=== PATIENT | female | born 1940 | race Caucasian/White ===

== ENCOUNTER 2016-02-14 09:05 | Outpatient (RCR) | payer MEDICARE, MEDICAID ==
--- OUTSIDE RECORDS SUMMARY | 2015-11-28 08:28 | XMS REPORT | Continuity of Care Document ---
Author Author [facility] Organization [facility] Address Unknown Phone Unavailable Care Team Providers Care Acid Conditioning Worker Name Role Phone JESUS SMITH MD PCP Insurance Providers Payer Name Policy Number Subscriber Name Relationship Wps Medicare [id number] Elina Nieves 17 Self / Same As Patient [facility] [id number] Elina Nieves 17 Self / Same As Patient Advance Directives Directive Response Recorded Date/Time Advance Directives No 10/19/15 9:18am Health Care Power of Transport Pilot No 10/19/15 9:18am Organ Donor Yes 10/19/15 9:18am Resuscitation Status Full Code 10/19/15 9:18am Problems Active Problems Medical Problem Onset Date Status Acute exacerbation of chronic obstructive airways disease Unknown Acute Acute exacerbation of chronic obstructive airways disease Unknown Acute COPD exacerbation Unknown Acute Cough Unknown Acute Fever Unknown Acute Hypoxia Unknown Acute Left arm pain Unknown Acute Leukocytosis Unknown Acute Leukocytosis Unknown Acute Leukocytosis Unknown Acute Mass of upper lobe of right lung Unknown Acute Pneumonia Unknown Acute Pneumonia Unknown Acute Pneumonia Unknown Acute Pneumonia Unknown Acute Skin tear of left hand without complication Unknown Acute Medications Current Home Medications Medication Dose Units Route Directions Days/Qty Instructions Start Date Aspirin 81 Mg 81 Mg Oral Daily 07/20/14 Budesonide/Formoterol Fumarate 10.2 Gm 2 Puff Inhalation Twice A Day 10/13/14 Roflumilast 500 Mcg 500 Mcg Oral Daily 10/13/14 Clopidogrel Bisulfate 75 Mg 75 Mg Oral Daily 10/13/14 Atorvastatin Calcium 80 Mg 80 Mg Oral Daily 10/13/14 Ezetimibe 10 Mg 10 Mg Oral Daily 10/13/14 Tiotropium [place] 1 Inh 1 Cap Oral Daily for Resp Issues 30 Days give this dose at noon 08/20/15 Albuterol Sulfate 8.5 Gm 1-2 Puff Inhalation 09/11/15 [Oxygen] 3 L 09/11/15 Loratadine 10 Mg 10 Mg Oral Daily 10/18/15 Bupropion Hcl 100 Mg 100 Mg Oral Daily 10/18/15 Hydrocodone/Acetaminophen 1 Each 1 Each Oral Every 6 Hours 35 10/19/15 Past Home Medications Medication Directions Ordered Status Tiotropium [place] 1 Inh Aerp, 1 Puff Inhalation Daily@0900 05/19/10 Discontinued Clopidogrel Bisulfate 75 Mg Tablet, 75 Mg Oral Daily 05/19/10 Discontinued Atorvastatin Calcium 80 Mg Tablet, 80 Mg Oral Daily 05/19/10 Discontinued Ezetimibe 10 Mg Tablet, 10 Mg Oral Daily 05/19/10 Discontinued Albuterol 8.5 Gm Hfa.aer.ad, 2 Puff Inhalation Every 4HRS as needed for Shortness Of Breath 05/20/10 Discontinued Acetaminophen 325 Mg Tablet, 325 Mg Oral Every 6 Hours as needed 05/22/10 Discontinued Levofloxacin 500 Mg Tab, 750 Mg Oral Daily@11 05/22/10 Discontinued Salmeterol Xinafoate/Fluticasone 1 Disk Inhp, 1 Puff Inhalation Twice A Day 05/22/10 Discontinued Budesonide/Formoterol Fumarate 10.2 Gm Hfa.aer.ad, 2 Puff Inhalation Twice A Day 07/13/11 Discontinued Prednisone 10 Mg Tab, 10 Mg Oral Daily 07/13/11 Discontinued Azithromycin (Zpak) 250 Mg Tab, 1 Tab Oral Daily 07/13/11 Discontinued Tramadol Hcl 50 Mg Tab, 50 Mg Oral Q4-6HOURS as needed 08/06/11 Discontinued Aspirin 81 Mg Chew, 81 Mg Oral Daily 03/23/12 Discontinued Oxycodone Hcl/Acetaminophen 1 Each Tablet, 1 Each Oral Every 8HRS as needed 03/27/12 Discontinued Pantoprazole Sodium 40 Mg Suspdr.pkt, 40 Mg Oral Daily 06/03/12 Discontinued Varenicline Tartrate 0.5 Mg Tablet, 0.5 Mg Oral Daily 06/03/12 Discontinued Vitamin C/Vitamin E 1 Tab Tab, 1 Tab Oral Daily 06/04/12 Discontinued Guaifenesin 600 Mg Tab, 600 Mg Oral Twice A Day 06/08/12 Discontinued Levofloxacin 750 Mg Tablet, 750 Mg Oral Daily 06/08/12 Discontinued Levofloxacin 750 Mg Tablet, 1 Each Oral Daily 01/13/13 Discontinued Roflumilast 500 Mcg Tablet, 500 Mcg Oral Daily 05/15/13 Discontinued Azithromycin 250 Mg Tab, 250 Mg Oral Daily 05/19/13 Discontinued Levofloxacin 750 Mg Tablet, 750 Mg Oral Daily 05/19/13 Discontinued Cefdinir 300 Mg Capsule, 300 Mg Oral Twice A Day 07/01/13 Discontinued Prednisone 20 Mg Tab, 20 Mg Oral Twice A Day 08/23/13 Discontinued Levofloxacin 750 Mg Tablet, 750 Mg Oral Daily 08/23/13 Discontinued Albuterol Sulfate 2.5 Mg/3 Ml Solution, 2.5 Mg Inhalation Give Every 4 Hrs On Schedule for Shortness Of Breath 08/23/13 Discontinued Albuterol Sulfate 0.83 Mg/Ml Solution, 2.5 Mg Nebullizer Every 4HRS as needed for Shortness Of Breath 12/27/13 Discontinued Albuterol Sulfate 0.83 Mg/Ml Solution, 1 Vial Inhalation Every 4HRS as needed for Shortness Of Breath 12/27/13 Discontinued [Levofloxacin] 750 Mg Tablet, 750 Mg Oral Daily@1100 12/29/13 Discontinued Ezetimibe 10 Mg Tablet, 10 Mg Oral Daily 07/20/14 Discontinued Tiotropium [place] 1 Inh Aerp, 1 Cap Inhalation Daily 07/20/14 Discontinued Atorvastatin Calcium 80 Mg Tablet, 80 Mg Oral Daily 07/20/14 Discontinued Clopidogrel Bisulfate 75 Mg Tablet, 75 Mg Oral Daily 07/20/14 Discontinued Roflumilast 500 Mcg Tablet, 500 Mcg Oral Daily 07/20/14 Discontinued Budesonide/Formoterol Fumarate 10.2 Gm Hfa.aer.ad, 2 Puff Inhalation Twice A Day 07/20/14 Discontinued Albuterol Sulfate 8.5 Gm Aer.w.adap, 2 Puff Inhalation Every 4HRS as needed for Shortness Of Breath 07/20/14 Discontinued [Azithromycin] 250 Mg Tab, 250 Mg Oral Daily 07/22/14 Discontinued Cefdinir 300 Mg Capsule, 600 Mg Oral Daily 07/22/14 Discontinued Loratadine 10 Mg Tablet, 10 Mg Oral Daily 09/19/14 Discontinued Levofloxacin 500 Mg Tab, 500 Mg Oral Bedtime 09/21/14 Discontinued Potassium Chloride 10 Meq Capsule.er, 10 Meq Oral Daily 10/13/14 Discontinued Tiotropium [place] 1 Inh Aerp, 1 Cap Oral Daily 10/13/14 Discontinued Amoxicillin/Potassium Clav 1 Each Tablet, 1 Each Oral Twice A Day 10/16/14 Discontinued Levofloxacin 750 Mg Tablet, 750 Mg Oral Q48h@11 08/23/15 Discontinued Albuterol Sulfate 2.5 Mg/3 Ml Vial.neb, 2.5 Mg Inhalation Respiratory Three Times A Day 08/23/15 Discontinued Prednisone 10 Mg Tab, 10 Mg Oral Daily 08/23/15 Discontinued [Valium] , Oral 09/11/15 Discontinued [Prednisone] , Oral Daily And Prn 09/11/15 Discontinued Social History Social History Problem Response Recorded Date/Time Alcohol Use Denies Use 08/20/2015 1:11am Recreational Drug Use No 08/20/2015 1:11am Recent Foreign Travel No 08/23/2013 4:01pm Recent Infectious Disease Exposure No 08/23/2013 4:01pm Hospitalization with Isolation Denies 08/23/2013 4:01pm Sexually Transmitted Disease No 10/19/2015 9:18am HIV/AIDS No 10/19/2015 9:18am Smoking Status Current Everyday Smoker 10/19/2015 9:13am Do you dip or chew tobacco? No 08/19/2015 8:48pm Type Used Cigarettes 10/19/2015 4:49pm Sexually Transmitted Disease No 10/19/2015 9:18am Hospitalization with Isolation Denies 08/23/2013 4:01pm Hx Sexually Transmitted Disorders No 07/13/2011 2:30pm Query Response Start Date Stop Date Smoking Status Current Everyday Smoker 04/24/2012 Hospital Discharge Instructions Patient Instructions Physician Instructions New, Converted, or Re-Newed RX: RX on Chart Follow Up Appt in 2 weeks Activity as tolerated Regular Diet Symptoms to Report: Fever over 101 degree F, Nausea/Vomiting Infection Signs and Symptoms to report: Increased redness, Foul odor of wound, Increased drainage Bathing instructions: May shower Operative Area Clean/Dry; Keep incision clean/dry If any problems/questions: Contact your physician or go to Emergency Room Plan of Care Discharge Date 10/19/15 1:25pm Instructions/Education Provided ANESTHESIA INSTRUCTIONS POSTOP Implanted Venous Access Ports (DC) How to Care for your Implanted Venous Access Port (DC) Prescriptions See Medication Section Functional Status Query Response Date Recorded Patient Orientation Person Place Time Situation October 19, 2015 4:49pm Allergies, Adverse Reactions, Alerts No known allergies. Immunizations No immunization records. Vital Signs Acute Vital Signs Vital Response Date/Time Temperature (Fahrenheit) 96.9 degrees F (97.6 - 99.5) 10/19/2015 1:10pm Temperature (Calculated Celsius) 36.83105 degrees C (36.4 - 37.5) 10/19/2015 1:10pm Temperature Source Temporal 10/19/2015 1:10pm Pulse Rate (adult) 79 bpm (60 - 90) 10/19/2015 1:10pm Respiratory Rate 18 bpm (12 - 24) 10/19/2015 1:10pm O2 Sat by Pulse Oximetry 95 % (88 - 100) 10/19/2015 1:10pm Blood Pressure 114/68 mm Hg 10/19/2015 1:10pm Blood Pressure Mean 88 mm Hg 10/19/2015 9:18am Pain Numeric Pain Scale 0-No Pain 10/19/2015 9:18am Pain Intensity 0 10/19/2015 1:10pm Height (Feet) 5 feet 10/19/2015 9:18am Height (Inches) 5.00 inches 10/19/2015 9:18am Height (Calculated Centimeters) 165.023363 cm 10/19/2015 9:18am Weight (Pounds) 147 pounds 10/19/2015 9:18am Weight (Ounces) 4.0 oz 10/19/2015 9:18am Weight (Calculated Grams) 48777.477 gm 10/19/2015 9:18am Weight (Calculated Kilograms) 66.826035 kilograms 10/19/2015 9:18am Calculated BMI 24.46 10/19/2015 9:18am Capillary Refill Capillary Refill Less Than 3 Seconds 10/19/2015 9:18am Results Laboratory Results Test Name Result Units Flags Reference Collection Date/Time Result Date/ Time Comments White Blood Count 10.6 10^3/uL 4.3-11.0 09/25/2015 9:26am 09/25/2015 9: 36am Red Blood Count 4.80 10^6/uL 4.35-5.85 09/25/2015 9:26am 09/25/2015 9: 36am Hemoglobin 13.6 G/DL 11.5-16.0 09/25/2015 9:09/25/2015 9:36am Hematocrit 42 % 35-52 09/25/2015 9:09/25/2015 9:36am Mean Corpuscular Volume 87 FL 80-99 09/25/2015 9:09/25/2015 9: 36am Mean Corpuscular Hemoglobin 28 PG 25-34 09/25/2015 9:09/25/2015 9: 36am Mean Corpuscular Hemoglobin Concent 33 G/DL 32-36 09/25/2015 9:02/2015 9:36am Red Cell Distribution Width 14.6 % H 10.0-14.5 09/25/2015 9:2015 9:36am Platelet Count 338 10^3/uL 130-400 09/25/2015 9:09/25/2015 9:36am Mean Platelet Volume 10.2 FL 7.4-10.4 09/25/2015 9:09/25/2015 9: 36am Neutrophils (%) (Auto) 55 % 42-75 09/25/2015 9:09/25/2015 9:36am Lymphocytes (%) (Auto) 34 % 12-44 09/25/2015 9:09/25/2015 9:36am Monocytes (%) (Auto) 9 % 0-12 09/25/2015 9:09/25/2015 9:36am Eosinophils (%) (Auto) 2 % 0-10 09/25/2015 9:09/25/2015 9:36am Basophils (%) (Auto) 1 % 0-10 09/25/2015 9:09/25/2015 9:36am Neutrophils # (Auto) 5.8 X 10^3 1.8-7.8 09/25/2015 9:09/25/2015 9: 36am Lymphocytes # (Auto) 3.6 X 10^3 1.0-4.0 09/25/2015 9:09/25/2015 9: 36am Monocytes # (Auto) 0.9 X 10^3 0.0-1.0 09/25/2015 9:09/25/2015 9: 36am Eosinophils # (Auto) 0.2 10^3/uL 0.0-0.3 09/25/2015 9:26am 09/25/2015 9 :36am Basophils # (Auto) 0.1 10^3/uL 0.0-0.1 09/25/2015 9:26am 09/25/2015 9: 36am Prothrombin Time 13.0 SEC 12.2-14.7 09/25/2015 9:26am 09/25/2015 9: 47am INR Comment 1.0 0.8-1.4 09/25/2015 9:26am 09/25/2015 9:47am INTERPRETIVE DATA SUGGESTED THERAPEUTIC RANGE FOR INR'S: VENOUS THROMBOSIS, PULMONARY EMBOLISM, OR PREVENTION OF SYSTEMIC EMBOLISM (EG. IN ATRIAL FIBRILLATION): 2.0 - 3.0 MECHANICAL PROSTHETIC HEART VALVES: 2.5 - 3.5* *NOTE: INR'S UP TO 4.5 MAY BE NECESSARY IN SELECTED GROUPS OF HIGH RISK PATIENTS. [employer] CONSENSUS CONFERENCE ON 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C THERAPY (2000). Activated Partial Thromboplast Time 35 SEC 24-35 09/25/2015 9:26am 02/2015 9:47am Pending Laboratory Results Test Name Collection Date/Time Pending Microbiology Results Procedure Source Collection Date/Time Procedures Procedure Status Date Provider(s) PERCUT BX LUNG/MEDIASTINUM Completed 09/25/15 CASSANDRA ANDRES MD Encounters Encounter Location Arrival/Admit Date Discharge/Depart Date Attending Provider Departed [facility] 10/19/15 7:55am 1:25pm CARLINE YANG MD Registered Recurring [facility] 10/18/15 2:15pm DEAN TORIBIO Departed Clinic [facility] 10/18/15 8:57am 10/18/15 9: 35am CARLINE YANG MD Registered Clinic [facility] 10/11/15 9:23am SHAWNEE NARAYAN DO Departed [facility] 09/25/15 8:52am 4:05pm SHAWNEE NARAYAN DO
[2015-11-28 08:51] LABS: BASOPHILS % (AUTO) 0 % (0-10); EOSINOPHILS % (AUTO) 0 % (0-10); LYMPHOCYTES # (AUTO) 1.1 X 10^3 (1.0-4.0); LYMPHOCYTES % (AUTO) 22 % (12-44); MEAN CORPUSCULAR HEMOGLOBIN 27 PG (25-34); MEAN CORPUSCULAR HGB CONC 33 G/DL (32-36); MEAN CORPUSCULAR VOLUME 84 FL (80-99); MEAN PLATELET VOLUME 10.4 FL (7.4-10.4); MONOCYTES % (AUTO) 1 % (0-12); NEUTROPHILS # (AUTO) 4.1 X 10^3 (1.8-7.8); NEUTROPHILS % (AUTO) 77 % (42-75); PLATELET COUNT 359 10^3/uL (130-400); RED BLOOD COUNT 4.66 10^6/uL (4.35-5.85); RED CELL DISTRIBUTION WIDTH 14.5 % (10.0-14.5); WHITE BLOOD COUNT 5.3 10^3/uL (4.3-11.0)
[2015-11-28 09:24] LABS: ANION GAP 14 MMOL/L (5-14); BLOOD UREA NITROGEN 9 MG/DL (7-18); BUN/CREATININE RATIO 15; CALCIUM 9.6 MG/DL (8.5-10.1); CARBON DIOXIDE 19 MMOL/L (21-32); CHLORIDE 104 MMOL/L (98-107); CREATININE SERUM 0.62 MG/DL (0.60-1.30); GFR ESTIMATED > 60; GLUCOSE 220 MG/DL (70-105); POTASSIUM 3.9 MMOL/L (3.6-5.0); SODIUM 137 MMOL/L (135-145)
[2015-12-05 08:48] LABS: BASOPHILS % (AUTO) 0 % (0-10); EOSINOPHILS % (AUTO) 0 % (0-10); LYMPHOCYTES # (AUTO) 0.9 X 10^3 (1.0-4.0); LYMPHOCYTES % (AUTO) 22 % (12-44); MEAN CORPUSCULAR HEMOGLOBIN 28 PG (25-34); MEAN CORPUSCULAR HGB CONC 32 G/DL (32-36); MEAN CORPUSCULAR VOLUME 85 FL (80-99); MEAN PLATELET VOLUME 10.3 FL (7.4-10.4); MONOCYTES # (AUTO) 0.1 X 10^3 (0.0-1.0); MONOCYTES % (AUTO) 2 % (0-12); NEUTROPHILS # (AUTO) 3.1 X 10^3 (1.8-7.8); NEUTROPHILS % (AUTO) 76 % (42-75); PLATELET COUNT 326 10^3/uL (130-400); RED BLOOD COUNT 4.35 10^6/uL (4.35-5.85); RED CELL DISTRIBUTION WIDTH 15.1 % (10.0-14.5); WHITE BLOOD COUNT 4.1 10^3/uL (4.3-11.0)
[2015-12-05 09:12] LABS: ANION GAP 15 MMOL/L (5-14); BLOOD UREA NITROGEN 11 MG/DL (7-18); BUN/CREATININE RATIO 17; CALCIUM 9.1 MG/DL (8.5-10.1); CARBON DIOXIDE 17 MMOL/L (21-32); CHLORIDE 106 MMOL/L (98-107); CREATININE SERUM 0.63 MG/DL (0.60-1.30); GFR ESTIMATED > 60; GLUCOSE 293 MG/DL (70-105); POTASSIUM 4.1 MMOL/L (3.6-5.0); SODIUM 138 MMOL/L (135-145)
[2015-12-12 10:55] LABS: BASOPHILS % (AUTO) 1 % (0-10); EOSINOPHILS # (AUTO) 0.1 10^3/uL (0.0-0.3); EOSINOPHILS % (AUTO) 1 % (0-10); LYMPHOCYTES # (AUTO) 2.6 X 10^3 (1.0-4.0); LYMPHOCYTES % (AUTO) 45 % (12-44); MEAN CORPUSCULAR HEMOGLOBIN 28 PG (25-34); MEAN CORPUSCULAR HGB CONC 32 G/DL (32-36); MEAN CORPUSCULAR VOLUME 86 FL (80-99); MEAN PLATELET VOLUME 9.7 FL (7.4-10.4); MONOCYTES # (AUTO) 0.4 X 10^3 (0.0-1.0); MONOCYTES % (AUTO) 7 % (0-12); NEUTROPHILS # (AUTO) 2.7 X 10^3 (1.8-7.8); NEUTROPHILS % (AUTO) 46 % (42-75); PLATELET COUNT 330 10^3/uL (130-400); RED BLOOD COUNT 4.36 10^6/uL (4.35-5.85); RED CELL DISTRIBUTION WIDTH 16.4 % (10.0-14.5); WHITE BLOOD COUNT 5.8 10^3/uL (4.3-11.0)
[2015-12-12 11:19] LABS: ANION GAP 9 MMOL/L (5-14); BLOOD UREA NITROGEN 6 MG/DL (7-18); BUN/CREATININE RATIO 11; CALCIUM 9.3 MG/DL (8.5-10.1); CARBON DIOXIDE 23 MMOL/L (21-32); CHLORIDE 107 MMOL/L (98-107); CREATININE SERUM 0.54 MG/DL (0.60-1.30); GFR ESTIMATED > 60; GLUCOSE 116 MG/DL (70-105); POTASSIUM 4.4 MMOL/L (3.6-5.0); SODIUM 139 MMOL/L (135-145)
[2015-12-20 09:52] LABS: BASOPHILS # (AUTO) 0.1 10^3/uL (0.0-0.1); BASOPHILS % (AUTO) 1 % (0-10); EOSINOPHILS # (AUTO) 0.1 10^3/uL (0.0-0.3); EOSINOPHILS % (AUTO) 2 % (0-10); LYMPHOCYTES # (AUTO) 2.7 X 10^3 (1.0-4.0); LYMPHOCYTES % (AUTO) 43 % (12-44); MEAN CORPUSCULAR HEMOGLOBIN 28 PG (25-34); MEAN CORPUSCULAR HGB CONC 32 G/DL (32-36); MEAN CORPUSCULAR VOLUME 86 FL (80-99); MONOCYTES # (AUTO) 0.9 X 10^3 (0.0-1.0); MONOCYTES % (AUTO) 15 % (0-12); NEUTROPHILS # (AUTO) 2.4 X 10^3 (1.8-7.8); NEUTROPHILS % (AUTO) 40 % (42-75); PLATELET COUNT 305 10^3/uL (130-400); RED BLOOD COUNT 4.48 10^6/uL (4.35-5.85); RED CELL DISTRIBUTION WIDTH 16.7 % (10.0-14.5); WHITE BLOOD COUNT 6.1 10^3/uL (4.3-11.0)
[2015-12-20 10:01] LABS: ALANINE AMINOTRANSFERASE 18 U/L (0-55); ALBUMIN 3.7 G/DL (3.2-4.5); ANION GAP 9 MMOL/L (5-14); ASPARTATE AMINO TRANSFERASE 12 U/L (5-34); BILIRUBIN,TOTAL 0.3 MG/DL (0.1-1.0); BLOOD UREA NITROGEN 7 MG/DL (7-18); BUN/CREATININE RATIO 13; CALCIUM 9.3 MG/DL (8.5-10.1); CARBON DIOXIDE 27 MMOL/L (21-32); CHLORIDE 105 MMOL/L (98-107); CREATININE SERUM 0.56 MG/DL (0.60-1.30); GFR ESTIMATED > 60; GLUCOSE 122 MG/DL (70-105); MAGNESIUM 1.9 MG/DL (1.8-2.4); POTASSIUM 4.3 MMOL/L (3.6-5.0); SODIUM 141 MMOL/L (135-145); TOTAL PROTEIN 6.6 G/DL (6.4-8.2)
[2015-12-26 09:18] LABS: BASOPHILS # (AUTO) 0.1 10^3/uL (0.0-0.1); BASOPHILS % (AUTO) 1 % (0-10); EOSINOPHILS # (AUTO) 0.1 10^3/uL (0.0-0.3); EOSINOPHILS % (AUTO) 1 % (0-10); LYMPHOCYTES # (AUTO) 2.3 X 10^3 (1.0-4.0); LYMPHOCYTES % (AUTO) 33 % (12-44); MEAN CORPUSCULAR HEMOGLOBIN 28 PG (25-34); MEAN CORPUSCULAR HGB CONC 33 G/DL (32-36); MEAN CORPUSCULAR VOLUME 85 FL (80-99); MEAN PLATELET VOLUME 10.3 FL (7.4-10.4); MONOCYTES # (AUTO) 0.4 X 10^3 (0.0-1.0); MONOCYTES % (AUTO) 5 % (0-12); NEUTROPHILS # (AUTO) 4.2 X 10^3 (1.8-7.8); NEUTROPHILS % (AUTO) 60 % (42-75); PLATELET COUNT 238 10^3/uL (130-400); RED BLOOD COUNT 4.26 10^6/uL (4.35-5.85); RED CELL DISTRIBUTION WIDTH 16.2 % (10.0-14.5)
[2015-12-26 09:40] LABS: ANION GAP 9 MMOL/L (5-14); BLOOD UREA NITROGEN 5 MG/DL (7-18); BUN/CREATININE RATIO 10; CALCIUM 8.6 MG/DL (8.5-10.1); CARBON DIOXIDE 25 MMOL/L (21-32); CHLORIDE 107 MMOL/L (98-107); CREATININE SERUM 0.49 MG/DL (0.60-1.30); GFR ESTIMATED > 60; GLUCOSE 117 MG/DL (70-105); POTASSIUM 3.8 MMOL/L (3.6-5.0); SODIUM 141 MMOL/L (135-145)
[2016-01-02 09:16] LABS: BASOPHILS % (AUTO) 1 % (0-10); EOSINOPHILS # (AUTO) 0.1 10^3/uL (0.0-0.3); EOSINOPHILS % (AUTO) 2 % (0-10); LYMPHOCYTES # (AUTO) 2.3 X 10^3 (1.0-4.0); LYMPHOCYTES % (AUTO) 38 % (12-44); MEAN CORPUSCULAR HEMOGLOBIN 27 PG (25-34); MEAN CORPUSCULAR HGB CONC 32 G/DL (32-36); MEAN CORPUSCULAR VOLUME 85 FL (80-99); MEAN PLATELET VOLUME 9.7 FL (7.4-10.4); MONOCYTES # (AUTO) 0.4 X 10^3 (0.0-1.0); MONOCYTES % (AUTO) 7 % (0-12); NEUTROPHILS # (AUTO) 3.2 X 10^3 (1.8-7.8); NEUTROPHILS % (AUTO) 53 % (42-75); PLATELET COUNT 243 10^3/uL (130-400); RED BLOOD COUNT 4.08 10^6/uL (4.35-5.85); RED CELL DISTRIBUTION WIDTH 17.1 % (10.0-14.5)
[2016-01-02 10:07] LABS: ANION GAP 9 MMOL/L (5-14); BLOOD UREA NITROGEN 7 MG/DL (7-18); BUN/CREATININE RATIO 13; CALCIUM 8.8 MG/DL (8.5-10.1); CARBON DIOXIDE 23 MMOL/L (21-32); CHLORIDE 109 MMOL/L (98-107); CREATININE SERUM 0.52 MG/DL (0.60-1.30); GFR ESTIMATED > 60; GLUCOSE 101 MG/DL (70-105); POTASSIUM 3.7 MMOL/L (3.6-5.0); SODIUM 141 MMOL/L (135-145)
[2016-01-09 09:47] LABS: BASOPHILS # (AUTO) 0.1 10^3/uL (0.0-0.1); BASOPHILS % (AUTO) 1 % (0-10); EOSINOPHILS # (AUTO) 0.1 10^3/uL (0.0-0.3); EOSINOPHILS % (AUTO) 2 % (0-10); LYMPHOCYTES # (AUTO) 2.9 X 10^3 (1.0-4.0); LYMPHOCYTES % (AUTO) 48 % (12-44); MEAN CORPUSCULAR HEMOGLOBIN 28 PG (25-34); MEAN CORPUSCULAR HGB CONC 32 G/DL (32-36); MEAN CORPUSCULAR VOLUME 86 FL (80-99); MEAN PLATELET VOLUME 10.3 FL (7.4-10.4); MONOCYTES # (AUTO) 0.5 X 10^3 (0.0-1.0); MONOCYTES % (AUTO) 9 % (0-12); NEUTROPHILS # (AUTO) 2.5 X 10^3 (1.8-7.8); NEUTROPHILS % (AUTO) 41 % (42-75); PLATELET COUNT 315 10^3/uL (130-400); RED CELL DISTRIBUTION WIDTH 17.7 % (10.0-14.5); WHITE BLOOD COUNT 6.1 10^3/uL (4.3-11.0)
[2016-01-09 10:10] LABS: ANION GAP 11 MMOL/L (5-14); BLOOD UREA NITROGEN 9 MG/DL (7-18); BUN/CREATININE RATIO 15; CALCIUM 9.2 MG/DL (8.5-10.1); CARBON DIOXIDE 23 MMOL/L (21-32); CHLORIDE 102 MMOL/L (98-107); CREATININE SERUM 0.61 MG/DL (0.60-1.30); GFR ESTIMATED > 60; GLUCOSE 116 MG/DL (70-105); POTASSIUM 3.6 MMOL/L (3.6-5.0); SODIUM 136 MMOL/L (135-145)
[2016-01-16 13:07] LABS: BASOPHILS # (AUTO) 0.1 10^3/uL (0.0-0.1); BASOPHILS % (AUTO) 1 % (0-10); EOSINOPHILS # (AUTO) 0.1 10^3/uL (0.0-0.3); EOSINOPHILS % (AUTO) 1 % (0-10); LYMPHOCYTES # (AUTO) 2.3 X 10^3 (1.0-4.0); LYMPHOCYTES % (AUTO) 31 % (12-44); MEAN CORPUSCULAR HEMOGLOBIN 28 PG (25-34); MEAN CORPUSCULAR HGB CONC 33 G/DL (32-36); MEAN CORPUSCULAR VOLUME 85 FL (80-99); MEAN PLATELET VOLUME 9.9 FL (7.4-10.4); MONOCYTES # (AUTO) 0.9 X 10^3 (0.0-1.0); MONOCYTES % (AUTO) 13 % (0-12); NEUTROPHILS % (AUTO) 55 % (42-75); PLATELET COUNT 284 10^3/uL (130-400); RED BLOOD COUNT 4.39 10^6/uL (4.35-5.85); WHITE BLOOD COUNT 7.4 10^3/uL (4.3-11.0)
[2016-01-16 13:32] LABS: ALANINE AMINOTRANSFERASE 14 U/L (0-55); ALBUMIN 3.8 G/DL (3.2-4.5); ANION GAP 8 MMOL/L (5-14); ASPARTATE AMINO TRANSFERASE 15 U/L (5-34); BILIRUBIN,TOTAL 0.4 MG/DL (0.1-1.0); BLOOD UREA NITROGEN 6 MG/DL (7-18); BUN/CREATININE RATIO 10; CALCIUM 9.4 MG/DL (8.5-10.1); CARBON DIOXIDE 26 MMOL/L (21-32); CHLORIDE 106 MMOL/L (98-107); CREATININE SERUM 0.61 MG/DL (0.60-1.30); GFR ESTIMATED > 60; GLUCOSE 140 MG/DL (70-105); MAGNESIUM 1.8 MG/DL (1.8-2.4); POTASSIUM 3.7 MMOL/L (3.6-5.0); SODIUM 140 MMOL/L (135-145); TOTAL PROTEIN 6.3 G/DL (6.4-8.2)
[2016-01-23 09:20] LABS: BASOPHILS # (AUTO) 0.1 10^3/uL (0.0-0.1); BASOPHILS % (AUTO) 1 % (0-10); EOSINOPHILS # (AUTO) 0.1 10^3/uL (0.0-0.3); EOSINOPHILS % (AUTO) 2 % (0-10); LYMPHOCYTES # (AUTO) 3.1 X 10^3 (1.0-4.0); LYMPHOCYTES % (AUTO) 38 % (12-44); MEAN CORPUSCULAR HEMOGLOBIN 28 PG (25-34); MEAN CORPUSCULAR HGB CONC 33 G/DL (32-36); MEAN CORPUSCULAR VOLUME 85 FL (80-99); MEAN PLATELET VOLUME 10.5 FL (7.4-10.4); MONOCYTES # (AUTO) 0.7 X 10^3 (0.0-1.0); MONOCYTES % (AUTO) 8 % (0-12); NEUTROPHILS # (AUTO) 4.2 X 10^3 (1.8-7.8); NEUTROPHILS % (AUTO) 52 % (42-75); PLATELET COUNT 249 10^3/uL (130-400); RED BLOOD COUNT 4.59 10^6/uL (4.35-5.85); WHITE BLOOD COUNT 8.1 10^3/uL (4.3-11.0)
[2016-01-23 09:44] LABS: ANION GAP 10 MMOL/L (5-14); BLOOD UREA NITROGEN 8 MG/DL (7-18); BUN/CREATININE RATIO 14; CALCIUM 9.5 MG/DL (8.5-10.1); CARBON DIOXIDE 23 MMOL/L (21-32); CHLORIDE 104 MMOL/L (98-107); CREATININE SERUM 0.56 MG/DL (0.60-1.30); GFR ESTIMATED > 60; GLUCOSE 125 MG/DL (70-105); POTASSIUM 3.8 MMOL/L (3.6-5.0); SODIUM 137 MMOL/L (135-145)
[2016-01-30 09:26] LABS: BASOPHILS # (AUTO) 0.1 10^3/uL (0.0-0.1); BASOPHILS % (AUTO) 1 % (0-10); EOSINOPHILS # (AUTO) 0.2 10^3/uL (0.0-0.3); EOSINOPHILS % (AUTO) 3 % (0-10); LYMPHOCYTES # (AUTO) 2.5 X 10^3 (1.0-4.0); LYMPHOCYTES % (AUTO) 42 % (12-44); MEAN CORPUSCULAR HEMOGLOBIN 28 PG (25-34); MEAN CORPUSCULAR HGB CONC 33 G/DL (32-36); MEAN CORPUSCULAR VOLUME 86 FL (80-99); MEAN PLATELET VOLUME 10.1 FL (7.4-10.4); MONOCYTES # (AUTO) 0.5 X 10^3 (0.0-1.0); MONOCYTES % (AUTO) 8 % (0-12); NEUTROPHILS # (AUTO) 2.9 X 10^3 (1.8-7.8); NEUTROPHILS % (AUTO) 47 % (42-75); PLATELET COUNT 241 10^3/uL (130-400); RED BLOOD COUNT 4.19 10^6/uL (4.35-5.85); RED CELL DISTRIBUTION WIDTH 18.4 % (10.0-14.5); WHITE BLOOD COUNT 6.1 10^3/uL (4.3-11.0)
[2016-01-30 09:51] LABS: ANION GAP 7 MMOL/L (5-14); BLOOD UREA NITROGEN 6 MG/DL (7-18); BUN/CREATININE RATIO 10; CALCIUM 9.1 MG/DL (8.5-10.1); CARBON DIOXIDE 24 MMOL/L (21-32); CHLORIDE 107 MMOL/L (98-107); GFR ESTIMATED > 60; GLUCOSE 143 MG/DL (70-105); MAGNESIUM 1.8 MG/DL (1.8-2.4); POTASSIUM 3.7 MMOL/L (3.6-5.0); SODIUM 138 MMOL/L (135-145)
[2016-02-06 10:46] LABS: BASOPHILS % (AUTO) 0 % (0-10); EOSINOPHILS # (AUTO) 0.1 10^3/uL (0.0-0.3); EOSINOPHILS % (AUTO) 1 % (0-10); LYMPHOCYTES # (AUTO) 2.4 X 10^3 (1.0-4.0); LYMPHOCYTES % (AUTO) 46 % (12-44); MEAN CORPUSCULAR HEMOGLOBIN 28 PG (25-34); MEAN CORPUSCULAR HGB CONC 33 G/DL (32-36); MEAN CORPUSCULAR VOLUME 87 FL (80-99); MEAN PLATELET VOLUME 9.5 FL (7.4-10.4); MONOCYTES # (AUTO) 0.5 X 10^3 (0.0-1.0); MONOCYTES % (AUTO) 9 % (0-12); NEUTROPHILS # (AUTO) 2.4 X 10^3 (1.8-7.8); NEUTROPHILS % (AUTO) 45 % (42-75); PLATELET COUNT 322 10^3/uL (130-400); RED BLOOD COUNT 4.33 10^6/uL (4.35-5.85); WHITE BLOOD COUNT 5.3 10^3/uL (4.3-11.0)
[2016-02-06 11:41] LABS: ANION GAP 9 MMOL/L (5-14); BLOOD UREA NITROGEN 5 MG/DL (7-18); BUN/CREATININE RATIO 9; CALCIUM 9.3 MG/DL (8.5-10.1); CARBON DIOXIDE 25 MMOL/L (21-32); CHLORIDE 104 MMOL/L (98-107); CREATININE SERUM 0.56 MG/DL (0.60-1.30); GFR ESTIMATED > 60; GLUCOSE 124 MG/DL (70-105); POTASSIUM 4.1 MMOL/L (3.6-5.0); SODIUM 138 MMOL/L (135-145)
[~2016-02-14] VITALS: Ht 160 cm; Wt 66.7 kg
[~2016-02-14 09:05] MED LIST: AC325T PO; ALBU0.8322 IH; ALBU2.5V4 INH; ALBU2.5V4 NEB; ALBU8.5H2 IH; ALBU8.5H2 INH; ALTEPLASE 2 MG (CATHFLO) CANCER CENTER IV ONE; AMOX-358 PO; ASP81CT PO; ASPI-892 PO; ATOR80TA PO; ATOR80TA75 PO; ATOR80TA76 PO; AZIT-21 PO; AZTH250C PO; Azithromycin PO; BUDE10.22 INH; BUDE6HFA IH; BUPR100T7 PO; CARBOPLATIN IV SCH; CEFD300C PO; CLOP75TA PO; CLOP75TA28 PO; D5W IV SCH; EZET10TA23 PO; EZET10TA5 PO; FAMOTIDINE 20MG/2ML IV (CANCER CTR) IV SCH; FLUT1DIS26 IH; GFN600TCR PO; HYDR-3730 PO; LEVO500T69 PO; LEVO750T24 PO; LEVO750T39 PO; LEVO750T6 PO; LORA10TA7 PO; LORA10TA76 PO; LVF500T PO; Levofloxacin PO; NFAMINITAB PO; NORMAL SALINE IV SCH; NS IV 500 ML (CANCER CENTER) IV SCH; OXYC-12 PO; PACLITAXEL SEMI SYNTHETIC IV SCH; PALONOSETRON 0.25 MG, DEXAMETHASONE 10 MG/NS 50 ML IVPB IV PRN; PANT40SU PO; POTA10CA43 PO; PRD10T PO; PRD20T PO; ROFL500T PO; ROFL500T3 PO; ROFL500T4 PO; RT-ALBUINH IH; TIOT18CA IH; TIOT18CA2 INH; TIOT18CA2 PO; TRM50T PO; VARE0.5T PO; diphenhydrAMINE 25 MG TAB (BENADRYL) CANCER CENTER PO SCH; oxygen; prednisone PO; valium PO
[2016-02-14 09:55] LABS: ALANINE AMINOTRANSFERASE 13 U/L (0-55); ALBUMIN 3.8 G/DL (3.2-4.5); ANION GAP 7 MMOL/L (5-14); ASPARTATE AMINO TRANSFERASE 15 U/L (5-34); BILIRUBIN,TOTAL 0.4 MG/DL (0.1-1.0); BLOOD UREA NITROGEN 6 MG/DL (7-18); BUN/CREATININE RATIO 10; CARBON DIOXIDE 26 MMOL/L (21-32); CHLORIDE 104 MMOL/L (98-107); CREATININE SERUM 0.58 MG/DL (0.60-1.30); GFR ESTIMATED > 60; GLUCOSE 126 MG/DL (70-105); MAGNESIUM 1.9 MG/DL (1.8-2.4); POTASSIUM 3.7 MMOL/L (3.6-5.0); SODIUM 137 MMOL/L (135-145); TOTAL PROTEIN 6.6 G/DL (6.4-8.2)
[2016-02-14 09:57] LABS: BASOPHILS % (AUTO) 1 % (0-10); EOSINOPHILS # (AUTO) 0.1 10^3/uL (0.0-0.3); EOSINOPHILS % (AUTO) 1 % (0-10); LYMPHOCYTES # (AUTO) 2.3 X 10^3 (1.0-4.0); LYMPHOCYTES % (AUTO) 35 % (12-44); MEAN CORPUSCULAR HEMOGLOBIN 28 PG (25-34); MEAN CORPUSCULAR HGB CONC 33 G/DL (32-36); MEAN CORPUSCULAR VOLUME 86 FL (80-99); MEAN PLATELET VOLUME 10.4 FL (7.4-10.4); MONOCYTES # (AUTO) 1.3 X 10^3 (0.0-1.0); MONOCYTES % (AUTO) 20 % (0-12); NEUTROPHILS # (AUTO) 2.9 X 10^3 (1.8-7.8); NEUTROPHILS % (AUTO) 43 % (42-75); PLATELET COUNT 206 10^3/uL (130-400); RED CELL DISTRIBUTION WIDTH 18.9 % (10.0-14.5); WHITE BLOOD COUNT 6.7 10^3/uL (4.3-11.0)
[2016-02-18] MEDS ORDERED: PANT40TA2 PO (17:35)
[2016-02-20] MEDS ORDERED: DOCU100C37 PO (13:27)
[2016-02-20] MEDS ORDERED: TIOT18CA2 IH (13:27)
[2016-02-22] MEDS ORDERED: PRED10TA22 PO (09:58)
== END 2016-02-26 | disposition home or self-care (01) ==
LOC: ONC 09:05
PROVIDERS: ATTEND Internal Medicine Hematology & Oncology
DX: Z51.11 Encounter for antineoplastic chemotherapy (principal); C34.11 Malignant neoplasm of upper lobe, right bronchus or lung; J44.9 Chronic obstructive pulmonary disease, unspecified; E78.00 Pure hypercholesterolemia, unspecified; F17.210 Nicotine dependence, cigarettes, uncomplicated; Z79.02 Long term (current) use of antithrombotics/antiplatelets; Z79.899 Other long term (current) drug therapy; Z99.81 Dependence on supplemental oxygen
CPT/HCPCS: 36415; 36591; 80048; 80053; 83735; 85025; 96375; 96413; 96417; 99213

== ENCOUNTER → 2016-03-05 | Outpatient (CLI) | payer MEDICARE, MEDICAID ==
[~2016-03-05] MED LIST changes: -ALTEPLASE 2 MG (CATHFLO) CANCER CENTER IV ONE; +BARIUM SUSPENSION 2.1% (VANILLA SILQ) 450 ML PO ONE; -CARBOPLATIN IV SCH; +CATHETER FLUSH 10 ML SYR IV PRN; -D5W IV SCH; +DOCU100C37 PO; -FAMOTIDINE 20MG/2ML IV (CANCER CTR) IV SCH; +IOHEXOL 350 MG/ML 100 ML (OMNIPAQUE 350) VIAL IV ONE; -NORMAL SALINE IV SCH; +NS 100 ML (IVPB) BAG IV ONE; -NS IV 500 ML (CANCER CENTER) IV SCH; -PACLITAXEL SEMI SYNTHETIC IV SCH; -PALONOSETRON 0.25 MG, DEXAMETHASONE 10 MG/NS 50 ML IVPB IV PRN; +PANT40TA2 PO; +PRED10TA22 PO; +TIOT18CA2 IH; -diphenhydrAMINE 25 MG TAB (BENADRYL) CANCER CENTER PO SCH
--- OUTSIDE RECORDS SUMMARY | 2016-03-05 11:46 | XMS REPORT | Continuity of Care Document ---
Author Author [facility] Organization [facility] Address Unknown Phone Unavailable Care Team Providers Care Director Cost Name Role Phone JESUS SMITH MD PCP Insurance Providers Payer Name Policy Number Subscriber Name Relationship Wps Medicare [id number] Elina Nieves 17 Self / Same As Patient [facility] [id number] Elina Nieves 17 Self / Same As Patient Advance Directives Directive Response Recorded Date/Time Advance Directives No 10/19/15 9:18am Health Care Power of Millwork Estimator No 10/19/15 9:18am Organ Donor Yes 10/19/15 [...] Mg 10 Mg Oral Daily 10/13/14 Tiotropium [place] 1 Inh 1 Cap Oral Daily for [...] Home Medications Medication Directions Ordered Status Tiotropium [place] 1 Inh Aerp, 1 Puff Inhalation Daily@0900 [...] 10 Mg Oral Daily 07/20/14 Discontinued Tiotropium [place] 1 Inh Aerp, 1 Cap Inhalation Daily [...] 10 Meq Oral Daily 10/13/14 Discontinued Tiotropium [place] 1 Inh Aerp, 1 Cap Oral Daily [...] - 99.5) 10/19/2015 1:10pm Temperature (Calculated Celsius) 36.94234 degrees C (36.4 - 37.5) 10/19/2015 1:10pm [...] 5.00 inches 10/19/2015 9:18am Height (Calculated Centimeters) 165.828323 cm 10/19/2015 9:18am Weight (Pounds) 147 pounds 10/19/2015 9:18am Weight (Ounces) 4.0 oz 10/19/2015 9:18am Weight (Calculated Grams) 42122.477 gm 10/19/2015 9:18am Weight (Calculated Kilograms) 66.541901 kilograms 10/19/2015 9:18am Calculated BMI 24.46 10/19/2015 [...] SELECTED GROUPS OF HIGH RISK PATIENTS. [employer] [place] CONSENSUS CONFERENCE ON 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C THERAPY (2000). Activated Partial Thromboplast Time 35 SEC 24-35 09/25/2015 9:26am 02/2015 9:47am Pending Laboratory Results Test Name Collection Date/Time Pending Microbiology Results Procedure Source Collection Date/Time Procedures Procedure Status Date Provider(s) PERCUT BX LUNG/MEDIASTINUM Completed 09/25/15 CASSANDRA ANDRES MD Encounters Encounter Location Arrival/Admit Date Discharge/Depart Date Attending Provider Departed [facility] 10/19/15 7:55am 1:25pm CARLINE YANG MD Registered Recurring [facility] 10/18/15 2:15pm DEAN TORIBIO Departed Clinic [facility] 10/18/15 8:57am 10/18/15 9: 35am CARLINE YANG MD Registered Clinic [facility] 10/11/15 9:23am SHAWNEE NARAYAN DO Departed [facility] Day [facility] 09/25/15 8:52am 4:05pm SHAWNEE NARAYAN DO
--- NOTE | 2016-03-05 13:04 | Diagnostic Imaging Report ---
INDICATION: Lung cancer and bronchitis and COPD. CT of the chest and abdomen obtained with IV contrast bolus. CT chest is compared to 08/19/2015. There is no prior abdominal CT. CT chest findings: There are no enlarged mediastinal or hilar nodes. There are no enlarged axillary nodes or chest wall lesions. There is no pleural or pericardial fluid. A Port-A-Cath is visualized over the left upper chest wall. Lung parenchymal windows demonstrate emphysematous changes. The right upper lobe mass which had measured about 2.5 cm on the previous study now measures about 1.4 cm in greatest diameter. There is some linear scarring in the right upper lobe more anteriorly and inferiorly. The left lung shows no focal lesions. CT abdomen findings: The liver shows no focal lesions. Patient has had cholecystectomy. Spleen, adrenals, and pancreas are normal in appearance. The kidneys bilaterally appear unremarkable. There is no retroperitoneal mass. There is no ascites or abnormal fluid collection. Visualized bowel loops appear unremarkable. There are no destructive bony lesions. IMPRESSION: CT chest demonstrates decreasing size of right upper lobe mass compared to the previous study. There is some atelectasis or scarring in the right upper lobe more anteriorly. There is marked emphysematous change. There is no adenopathy or pleural fluid. CT abdomen demonstrates no overt metastatic disease or acute abnormality. Dictated by: Dictated on workstation # [id number]
--- NOTE | 2016-03-05 17:06 | Diagnostic Imaging Report ---
Exam: Whole body bone scan. Technique: After the intravenous administration of 27 mCi of Technetium 99m MDP, whole body delayed phase bone scan images were obtained with lateral views of the head and neck and the chest regions. Indication: Lung cancer . Findings: There is normal distribution of the osseous structures seen with minimal joint increased activity in the shoulders and in the spine suggestive of degenerative related changes. No focal intense increased radiotracer uptake is seen, particularly within the axial skeleton to suggest metastatic disease. The urinary tract excretion of the tracer noted. Impression: No scintigraphic evidence of osseous metastasis. Dictated by: Dictated on workstation # [id number]
== END ==
LOC: CARD 11:40
PROVIDERS: ATTEND Internal Medicine Hematology & Oncology
DX: C34.11 Malignant neoplasm of upper lobe, right bronchus or lung (principal)
CPT/HCPCS: 71260; 74160; 78306

== ENCOUNTER 2016-03-13 09:09 | Outpatient (RCR) | payer MEDICARE, MEDICAID ==
--- OUTSIDE RECORDS SUMMARY | 2016-02-28 09:13 | XMS REPORT | Continuity of Care Document ---
Author Author [facility] Organization [facility] Address Unknown Phone Unavailable Care Team Providers Care Childcare Administrator Name Role Phone JESUS SMITH MD PCP Insurance Providers Payer Name Policy Number Subscriber Name Relationship Wps Medicare [id number] Elina Nieves 17 Self / Same As Patient [facility] [id number] Elina Nieves 17 Self / Same As Patient Advance Directives Directive Response Recorded Date/Time Advance Directives No 10/19/15 9:18am Health Care Power of Control Systems Specialist No 10/19/15 9:18am Organ Donor Yes 10/19/15 [...] Mg 10 Mg Oral Daily 10/13/14 Tiotropium [place] 1 Inh 1 Cap Oral Daily for [...] Home Medications Medication Directions Ordered Status Tiotropium [place] 1 Inh Aerp, 1 Puff Inhalation Daily@0900 [...] 10 Mg Oral Daily 07/20/14 Discontinued Tiotropium [place] 1 Inh Aerp, 1 Cap Inhalation Daily [...] 10 Meq Oral Daily 10/13/14 Discontinued Tiotropium [place] 1 Inh Aerp, 1 Cap Oral Daily [...] - 99.5) 10/19/2015 1:10pm Temperature (Calculated Celsius) 36.89803 degrees C (36.4 - 37.5) 10/19/2015 1:10pm [...] 5.00 inches 10/19/2015 9:18am Height (Calculated Centimeters) 165.315425 cm 10/19/2015 9:18am Weight (Pounds) 147 pounds 10/19/2015 9:18am Weight (Ounces) 4.0 oz 10/19/2015 9:18am Weight (Calculated Grams) 22581.477 gm 10/19/2015 9:18am Weight (Calculated Kilograms) 66.108884 kilograms 10/19/2015 9:18am Calculated BMI 24.46 10/19/2015 [...] SELECTED GROUPS OF HIGH RISK PATIENTS. [employer] CONSENSUS CONFERENCE ON 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C THERAPY (2000). Activated Partial Thromboplast Time 35 SEC 24-35 09/25/2015 9:26am 02/2015 9:47am Pending Laboratory Results Test Name Collection Date/Time Pending Microbiology Results Procedure Source Collection Date/Time Procedures Procedure Status Date Provider(s) PERCUT BX LUNG/MEDIASTINUM Completed 09/25/15 CASSANDRA ANDRES MD Encounters Encounter Location Arrival/Admit Date Discharge/Depart Date Attending Provider Departed [facility] 10/19/15 7:55am 1:25pm CARLINE YANG MD Registered Recurring [facility] 10/18/15 2:15pm DEAN TORIBIO Departed Clinic [facility] 10/18/15 8:57am 10/18/15 9: 35am CARLINE YANG MD Registered Clinic [facility] 10/11/15 9:23am SHAWNEE NARAYAN DO Departed Surgical Day Care [facility] 09/25/15 8:52am 4:05pm SHAWNEE NARAYAN DO
[2016-02-28 09:18] LABS: BASOPHILS % (AUTO) 0 % (0-10); EOSINOPHILS # (AUTO) 0.1 10^3/uL (0.0-0.3); EOSINOPHILS % (AUTO) 1 % (0-10); LYMPHOCYTES # (AUTO) 3.8 X 10^3 (1.0-4.0); LYMPHOCYTES % (AUTO) 32 % (12-44); MEAN CORPUSCULAR HEMOGLOBIN 28 PG (25-34); MEAN CORPUSCULAR HGB CONC 33 G/DL (32-36); MEAN CORPUSCULAR VOLUME 87 FL (80-99); MEAN PLATELET VOLUME 9.6 FL (7.4-10.4); MONOCYTES # (AUTO) 1.1 X 10^3 (0.0-1.0); MONOCYTES % (AUTO) 9 % (0-12); NEUTROPHILS # (AUTO) 7.1 X 10^3 (1.8-7.8); NEUTROPHILS % (AUTO) 58 % (42-75); PLATELET COUNT 324 10^3/uL (130-400); RED BLOOD COUNT 4.61 10^6/uL (4.35-5.85); RED CELL DISTRIBUTION WIDTH 19.5 % (10.0-14.5); WHITE BLOOD COUNT 12.1 10^3/uL (4.3-11.0)
[2016-02-28 09:47] LABS: ANION GAP 10 MMOL/L (5-14); BLOOD UREA NITROGEN 14 MG/DL (7-18); BUN/CREATININE RATIO 22; CALCIUM 9.1 MG/DL (8.5-10.1); CARBON DIOXIDE 26 MMOL/L (21-32); CHLORIDE 102 MMOL/L (98-107); CREATININE SERUM 0.65 MG/DL (0.60-1.30); GFR ESTIMATED > 60; GLUCOSE 147 MG/DL (70-105); POTASSIUM 3.7 MMOL/L (3.6-5.0); SODIUM 138 MMOL/L (135-145)
[~2016-03-13 09:09] MED LIST changes: -BARIUM SUSPENSION 2.1% (VANILLA SILQ) 450 ML PO ONE; +CARBOPLATIN IV SCH; -CATHETER FLUSH 10 ML SYR IV PRN; +D5W IV SCH; +FAMOTIDINE 20MG/2ML IV (CANCER CTR) IV SCH; -IOHEXOL 350 MG/ML 100 ML (OMNIPAQUE 350) VIAL IV ONE; +NORMAL SALINE IV SCH; -NS 100 ML (IVPB) BAG IV ONE; +NS IV 500 ML (CANCER CENTER) IV SCH; +PACLITAXEL SEMI SYNTHETIC IV SCH; +PALONOSETRON 0.25 MG, DEXAMETHASONE 10 MG/NS 50 ML IVPB IV PRN; +diphenhydrAMINE 25 MG TAB (BENADRYL) CANCER CENTER PO SCH
[2016-03-13 09:31] LABS: BASOPHILS % (AUTO) 1 % (0-10); EOSINOPHILS # (AUTO) 0.1 10^3/uL (0.0-0.3); EOSINOPHILS % (AUTO) 2 % (0-10); LYMPHOCYTES # (AUTO) 2.4 X 10^3 (1.0-4.0); LYMPHOCYTES % (AUTO) 39 % (12-44); MEAN CORPUSCULAR HEMOGLOBIN 29 PG (25-34); MEAN CORPUSCULAR HGB CONC 33 G/DL (32-36); MEAN CORPUSCULAR VOLUME 88 FL (80-99); MEAN PLATELET VOLUME 10.2 FL (7.4-10.4); MONOCYTES # (AUTO) 0.6 X 10^3 (0.0-1.0); MONOCYTES % (AUTO) 10 % (0-12); NEUTROPHILS # (AUTO) 2.9 X 10^3 (1.8-7.8); NEUTROPHILS % (AUTO) 48 % (42-75); PLATELET COUNT 203 10^3/uL (130-400); RED BLOOD COUNT 4.23 10^6/uL (4.35-5.85); RED CELL DISTRIBUTION WIDTH 17.5 % (10.0-14.5); WHITE BLOOD COUNT 6.1 10^3/uL (4.3-11.0)
[2016-03-13 10:00] LABS: ALANINE AMINOTRANSFERASE 12 U/L (0-55); ALBUMIN 3.7 G/DL (3.2-4.5); ANION GAP 9 MMOL/L (5-14); ASPARTATE AMINO TRANSFERASE 12 U/L (5-34); BILIRUBIN,TOTAL 0.4 MG/DL (0.1-1.0); BLOOD UREA NITROGEN 7 MG/DL (7-18); BUN/CREATININE RATIO 12; CALCIUM 9.1 MG/DL (8.5-10.1); CARBON DIOXIDE 23 MMOL/L (21-32); CHLORIDE 108 MMOL/L (98-107); CREATININE SERUM 0.58 MG/DL (0.60-1.30); GFR ESTIMATED > 60; GLUCOSE 117 MG/DL (70-105); MAGNESIUM 1.8 MG/DL (1.8-2.4); POTASSIUM 3.9 MMOL/L (3.6-5.0); SODIUM 140 MMOL/L (135-145); TOTAL PROTEIN 6.6 G/DL (6.4-8.2)
== END 2016-05-28 | disposition home or self-care (01) ==
LOC: ONC 09:09
PROVIDERS: ATTEND Internal Medicine Hematology & Oncology
DX: Z51.11 Encounter for antineoplastic chemotherapy (principal); C34.11 Malignant neoplasm of upper lobe, right bronchus or lung; J44.9 Chronic obstructive pulmonary disease, unspecified; E78.00 Pure hypercholesterolemia, unspecified; F17.210 Nicotine dependence, cigarettes, uncomplicated; Z79.02 Long term (current) use of antithrombotics/antiplatelets; Z79.899 Other long term (current) drug therapy; Z99.81 Dependence on supplemental oxygen
CPT/HCPCS: 36415; 36591; 80048; 80053; 83735; 85025; 96375; 96413; 96417; 99213

== ENCOUNTER → 2016-05-28 | Outpatient (CLI) | payer MEDICARE, MEDICAID ==
[~2016-05-28] MED LIST changes: -CARBOPLATIN IV SCH; -D5W IV SCH; -FAMOTIDINE 20MG/2ML IV (CANCER CTR) IV SCH; -NORMAL SALINE IV SCH; -NS IV 500 ML (CANCER CENTER) IV SCH; -PACLITAXEL SEMI SYNTHETIC IV SCH; -PALONOSETRON 0.25 MG, DEXAMETHASONE 10 MG/NS 50 ML IVPB IV PRN; -diphenhydrAMINE 25 MG TAB (BENADRYL) CANCER CENTER PO SCH
--- NOTE | 2016-05-28 19:23 | Diagnostic Imaging Report ---
PET/CT. INDICATION: Lung carcinoma. EXAMINATION: After intravenous administration of 14.50 mCi of F18-FDG, a series of overlapping emission and transmission PET images was obtained. In the coronal, transaxial and sagittal planes, the area imaged extended from the skull base through the upper thighs. FINDINGS: The previous PET/CT exam performed on 09/05/2015 noted 2.5 x 2.2 cm cavitary mass in the right upper lobe. This mass did show avid FDG uptake with a maximum SUV of 11.8. There is no other hypermetabolic focus to suggest malignancy. The CT chest exam performed on 03/05/2016 indicated that the mass in the right upper lung had diminished in size and now measured approximately 1.4 cm in greatest dimension. On this study, the mass is again visualized and now measures only 1.2 cm in maximum dimension. The maximum SUV of this area has also markedly decreased and is now approximately 1. There is no other hypermetabolic activity within the thorax to suggest malignancy. There is a small area of slightly increased metabolic activity just anterior to the arch of C1 on the left. This has a maximum SUV of 4.6. In reviewing the prior exam, this area had a maximum SUV of 6.4. There is no definite mass associated with this area and the precise etiology of this area of hypermetabolic activity is not certain. No other hypermetabolic activity is seen to suggest the presence of malignancy. The CT images fail to show any sign of an acute abnormality. IMPRESSION: 1. The appearance of the PET/CT exam has improved considerably since the prior exam as the cavitary mass in the right upper lung has diminished in size and there is now no hypermetabolic activity in this region. 2. The small area of increased metabolic activity anterior to the arch of C1 on the left seen previously is also less intense on this exam. This finding is of uncertain etiology. 3. There is no other hypermetabolic activity to suggest the presence of neoplasm. Dictated by: Dictated on workstation # [id number]
== END ==
LOC: RAD 08:37
PROVIDERS: ATTEND Nurse Practitioner Adult Health
DX: C34.11 Malignant neoplasm of upper lobe, right bronchus or lung (principal)

== ENCOUNTER 2016-07-15 12:57 | Outpatient (RCR) | payer MEDICARE, MEDICAID ==
[2016-06-03 10:14] LABS: BASOPHILS % (AUTO) 0 % (0-10); EOSINOPHILS # (AUTO) 0.3 10^3/uL (0.0-0.3); EOSINOPHILS % (AUTO) 3 % (0-10); LYMPHOCYTES # (AUTO) 3.6 X 10^3 (1.0-4.0); LYMPHOCYTES % (AUTO) 41 % (12-44); MEAN CORPUSCULAR HEMOGLOBIN 29 PG (25-34); MEAN CORPUSCULAR HGB CONC 32 G/DL (32-36); MEAN CORPUSCULAR VOLUME 89 FL (80-99); MEAN PLATELET VOLUME 10.3 FL (7.4-10.4); MONOCYTES # (AUTO) 0.8 X 10^3 (0.0-1.0); MONOCYTES % (AUTO) 10 % (0-12); NEUTROPHILS # (AUTO) 4.1 X 10^3 (1.8-7.8); NEUTROPHILS % (AUTO) 47 % (42-75); PLATELET COUNT 256 10^3/uL (130-400); RED BLOOD COUNT 4.51 10^6/uL (4.35-5.85); RED CELL DISTRIBUTION WIDTH 14.6 % (10.0-14.5); WHITE BLOOD COUNT 8.8 10^3/uL (4.3-11.0)
[2016-06-03 10:56] LABS: ALANINE AMINOTRANSFERASE 13 U/L (0-55); ALBUMIN 3.8 G/DL (3.2-4.5); ANION GAP 10 MMOL/L (5-14); ASPARTATE AMINO TRANSFERASE 13 U/L (5-34); BILIRUBIN,TOTAL 0.3 MG/DL (0.1-1.0); BLOOD UREA NITROGEN 7 MG/DL (7-18); BUN/CREATININE RATIO 13; CALCIUM 9.2 MG/DL (8.5-10.1); CARBON DIOXIDE 25 MMOL/L (21-32); CHLORIDE 107 MMOL/L (98-107); CREATININE SERUM 0.56 MG/DL (0.60-1.30); GFR ESTIMATED > 60; GLUCOSE 122 MG/DL (70-105); MAGNESIUM 1.9 MG/DL (1.8-2.4); POTASSIUM 3.7 MMOL/L (3.6-5.0); SODIUM 142 MMOL/L (135-145); TOTAL PROTEIN 6.7 G/DL (6.4-8.2)
== END 2016-09-01 | disposition home or self-care (01) ==
LOC: ONC 12:57
PROVIDERS: ATTEND Internal Medicine Hematology & Oncology
DX: C34.11 Malignant neoplasm of upper lobe, right bronchus or lung (principal); J44.9 Chronic obstructive pulmonary disease, unspecified; E78.00 Pure hypercholesterolemia, unspecified; F17.210 Nicotine dependence, cigarettes, uncomplicated; Z79.02 Long term (current) use of antithrombotics/antiplatelets; Z79.899 Other long term (current) drug therapy; Z99.81 Dependence on supplemental oxygen; Z45.2 Encounter for adjustment and management of vascular access device
CPT/HCPCS: 36591; 80053; 83735; 85025; 96523; 99213

== ENCOUNTER → 2016-09-05 | Outpatient (CLI) | payer MEDICARE, MEDICAID ==
[~2016-09-05] MED LIST changes: +BARIUM SUSPENSION 2.1% (VANILLA SILQ) 450 ML PO ONE; +IOHEXOL 350 MG/ML 100 ML (OMNIPAQUE 350) VIAL IV ONE; +NS 100 ML (IVPB) BAG IV ONE
[2016-09-05] MEDS: CATHETER FLUSH 10 ML SYR IV PRN ×2 (11:21→11:27)
--- NOTE | 2016-09-05 14:27 | Diagnostic Imaging Report ---
PROCEDURE: CT chest with contrast, CT abdomen with and without contrast. INDICATION: Lung carcinoma. TECHNIQUE: CT imaging of the abdomen before as well as the chest and abdomen following the administration of intravenous contrast. CORRELATION STUDY: 03/05/2016. PET/CT of 05/28/2016. FINDINGS: CT CHEST: Asymmetric heterogeneity about the left lobe of the thyroid gland. No pathologically enlarged axillary, mediastinal, and/or hilar lymph nodes are present. Heart size is normal without significant pericardial effusion. EG junction with small hiatal hernia with minimal wall thickening suggested. Some contrast in the low esophagus could be reflective of esophageal reflux disease. Lung estrada demonstrate advanced emphysematous changes. Previously noted mass of the lateral aspect of the right upper lobe has shown some interval decrease in size, currently measuring 15 x 12 mm, measured in similar fashion previously measuring 17 x 14 mm. A likely scarring in and around this area persists. Tiny 2 mm nodule in the posterolateral right lower lobe is likely stable. A 5 mm nodule posteriorly in the right lower lobe is also likely relatively stable but better visualized. Small 3 mm nodule in the lateral left lower lobe, unchanged. The left lung apex is slightly of spiculated density measuring approximately 9 x 5 mm. It was not definitively demonstrated on prior imaging. CT ABDOMEN: Tiny area of nonspecific hypervascularity at the anterior left lobe subcapsular region. Otherwise, liver parenchyma is unremarkable. Spleen, pancreas, and adrenal glands are unremarkable. Gallbladder is absent with clips in the fossa. No bile duct dilatation. Kidneys with normal enhancement. Abdominal aorta with moderate wall calcification, nonaneurysmal. Partially visualized gastrointestinal tract with mild severity of fecal retention without evidence for obstruction. No bony destructive change. IMPRESSION: CT CHEST: 1. Right upper lobe pulmonary mass, stable to perhaps very slightly decreased in size. A few additional nodules are present. Some of these were likely present on the prior study, generally stable. There is very questionable area of new parenchymal density of the left upper lobe. Continued followup imaging evaluation is recommended. CT ABDOMEN: 1. Relatively stable CT imaging of the abdomen demonstrates no evidence for acute abnormality or definitive metastatic disease. Dictated by: Dictated on workstation # [id number]
--- NOTE | 2016-09-05 18:07 | Diagnostic Imaging Report ---
EXAMINATION: Whole body bone scan. TECHNIQUE: After the intravenous administration of 24.5 mCi of Technetium 99m MDP, whole body delayed phase bone scan images were obtained with lateral views of the head and neck and the chest regions. INDICATION: Small cell lung cancer. COMPARISON: 03/05/2016. FINDINGS: There is normal distribution of the tracer in the osseous structures with the excretion through the kidneys into the bladder noted. Mild increased activity seen in the shoulders and sternoclavicular joints and around the knees. Mild increased activity in the tibias could be stress related or from minimal hypertrophic osteoarthropathy. IMPRESSION: No scintigraphic evidence of osseous metastasis. Dictated by: Dictated on workstation # [id number]
== END ==
LOC: CARD 11:08
PROVIDERS: ATTEND Internal Medicine Hematology & Oncology
DX: C34.11 Malignant neoplasm of upper lobe, right bronchus or lung (principal); J44.9 Chronic obstructive pulmonary disease, unspecified
CPT/HCPCS: 71260; 74170; 78306

== ENCOUNTER 2016-09-12 14:57 | Outpatient (RCR) | payer MEDICARE, MEDICAID ==
[2016-09-04 10:19] LABS: BASOPHILS # (AUTO) 0.1 10^3/uL (0.0-0.1); BASOPHILS % (AUTO) 0 % (0-10); EOSINOPHILS # (AUTO) 0.3 10^3/uL (0.0-0.3); EOSINOPHILS % (AUTO) 3 % (0-10); LYMPHOCYTES # (AUTO) 3.8 X 10^3 (1.0-4.0); LYMPHOCYTES % (AUTO) 33 % (12-44); MEAN CORPUSCULAR HEMOGLOBIN 28 PG (25-34); MEAN CORPUSCULAR HGB CONC 32 G/DL (32-36); MEAN CORPUSCULAR VOLUME 88 FL (80-99); MEAN PLATELET VOLUME 10.4 FL (7.4-10.4); MONOCYTES # (AUTO) 1.1 X 10^3 (0.0-1.0); MONOCYTES % (AUTO) 10 % (0-12); NEUTROPHILS # (AUTO) 6.2 X 10^3 (1.8-7.8); NEUTROPHILS % (AUTO) 55 % (42-75); PLATELET COUNT 265 10^3/uL (130-400); RED BLOOD COUNT 4.79 10^6/uL (4.35-5.85); WHITE BLOOD COUNT 11.4 10^3/uL (4.3-11.0)
[2016-09-04 10:51] LABS: ALANINE AMINOTRANSFERASE 23 U/L (0-55); ALBUMIN 3.9 GM/DL (3.2-4.5); ANION GAP 10 MMOL/L (5-14); ASPARTATE AMINO TRANSFERASE 18 U/L (5-34); BILIRUBIN,TOTAL 0.4 MG/DL (0.1-1.0); BLOOD UREA NITROGEN 7 MG/DL (7-18); BUN/CREATININE RATIO 13; CALCIUM 9.4 MG/DL (8.5-10.1); CARBON DIOXIDE 23 MMOL/L (21-32); CHLORIDE 106 MMOL/L (98-107); CREATININE SERUM 0.55 MG/DL (0.60-1.30); GFR ESTIMATED > 60; GLUCOSE 116 MG/DL (70-105); MAGNESIUM 1.9 MG/DL (1.8-2.4); POTASSIUM 3.8 MMOL/L (3.6-5.0); SODIUM 139 MMOL/L (135-145); TOTAL PROTEIN 7.1 GM/DL (6.4-8.2)
[~2016-09-12 14:57] MED LIST changes: -BARIUM SUSPENSION 2.1% (VANILLA SILQ) 450 ML PO ONE; -IOHEXOL 350 MG/ML 100 ML (OMNIPAQUE 350) VIAL IV ONE; -NS 100 ML (IVPB) BAG IV ONE
== END 2016-11-23 | disposition home or self-care (01) ==
LOC: ONC 14:57
PROVIDERS: ATTEND Internal Medicine Hematology & Oncology
DX: C34.11 Malignant neoplasm of upper lobe, right bronchus or lung (principal); J44.9 Chronic obstructive pulmonary disease, unspecified; E78.00 Pure hypercholesterolemia, unspecified; F17.210 Nicotine dependence, cigarettes, uncomplicated; Z79.02 Long term (current) use of antithrombotics/antiplatelets; Z79.899 Other long term (current) drug therapy; Z99.81 Dependence on supplemental oxygen
CPT/HCPCS: 36591; 80053; 83735; 85025

== ENCOUNTER → 2016-12-13 | Outpatient (CLI) | payer MEDICARE, MEDICAID ==
[~2016-12-13] MED LIST changes: +CATHETER FLUSH 10 ML SYR IV PRN; +IOHEXOL 350 MG/ML 100 ML (OMNIPAQUE 350) VIAL IV ONE; +NS 100 ML (IVPB) BAG IV ONE
--- NOTE | 2016-12-13 17:41 | Diagnostic Imaging Report ---
PROCEDURE: CT chest with contrast only. TECHNIQUE: Multiple contiguous axial images were obtained through the chest after administration of intravenous contrast. INDICATION: Lung cancer. 75 mL of Omnipaque 350 is administered intravenously. COMPARISON: 09/05/2016. FINDINGS: In the right upper lobe, there is a irregular nodule with adjacent spiculations seen measuring approximately 1.4 cm in size. This demonstrates no significant change from the previous exam and is also unchanged from PET of 05/28/2016 where no significant FDG uptake was seen associated with it suggestive of scarring with no definite residual neoplasm. There is chronic atelectasis and scarring suggested in the medial aspect of the right middle lobe near the lung base. There is prominent emphysema changes in the upper lobes. Nodular densities in the left lung apex up to 6 mm in size, axial image 7. These appear slightly more prominent compared to the previous exam of 09/05/2016 and are somewhat concerning although not definitive for metastatic disease. Followup exams recommended. There is minimal atelectasis in the left lung base. There is no pleural or pericardial effusion. Thoracic aorta is normal in caliber. The heart size is normal. There is no hilar or mediastinal lymphadenopathy. The axilla appear unremarkable. The sections in the upper abdomen appear grossly unremarkable. The osseous structures demonstrate no destructive mass with mild degenerative changes seen. IMPRESSION: 1. Irregular nodule measuring 1.4 cm in the right upper lobe at the site of treated cancer is unchanged, which may relate to scarring with no definitive active neoplasm. Continued followup recommended. 2. Nodules in the left lung apex up to 6 mm in size appears slightly more prominent compared to the prior exam. These are nonspecific although early metastasis is not ruled out. Followup in 3 months is suggested. 3. Emphysema. Dictated by: Dictated on workstation # [id number]
== END ==
LOC: RAD 09:50
PROVIDERS: ATTEND Internal Medicine Hematology & Oncology
DX: C34.11 Malignant neoplasm of upper lobe, right bronchus or lung (principal); R91.8 Other nonspecific abnormal finding of lung field; J43.9 Emphysema, unspecified
CPT/HCPCS: 71260

== ENCOUNTER → 2016-12-13 | Outpatient (CLI) | payer MEDICARE, MEDICAID ==
[~2016-12-13] MED LIST changes: -CATHETER FLUSH 10 ML SYR IV PRN; -IOHEXOL 350 MG/ML 100 ML (OMNIPAQUE 350) VIAL IV ONE; -NS 100 ML (IVPB) BAG IV ONE
[2016-12-13 10:31] LABS: THYROID STIMULATING HORMONE 0.05 UIU/ML (0.35-4.94)
== END ==
LOC: LAB 09:41
PROVIDERS: ATTEND Internal Medicine
DX: E78.5 Hyperlipidemia, unspecified (principal); I25.10 Atherosclerotic heart disease of native coronary artery without angina pectoris; Z79.899 Other long term (current) drug therapy
CPT/HCPCS: 36415; 80061; 84443

== ENCOUNTER → 2017-02-27 | Outpatient (CLI) | payer MEDICARE, MEDICAID ==
[2017-02-27 15:32] LABS: BASOPHILS % (AUTO) 0 % (0-10); EOSINOPHILS # (AUTO) 0.2 10^3/uL (0.0-0.3); EOSINOPHILS % (AUTO) 1 % (0-10); HEMATOCRIT 34 % (35-52); HEMOGLOBIN 13.3 G/DL (11.5-16.0); LYMPHOCYTES % (AUTO) 22 % (12-44); MEAN CORPUSCULAR HEMOGLOBIN 29 PG (25-34); MEAN CORPUSCULAR HGB CONC 39 G/DL (32-36); MEAN CORPUSCULAR VOLUME 75 FL (80-99); MEAN PLATELET VOLUME 9.8 FL (7.4-10.4); MONOCYTES # (AUTO) 1.8 X 10^3 (0.0-1.0); MONOCYTES % (AUTO) 13 % (0-12); NEUTROPHILS # (AUTO) 8.7 X 10^3 (1.8-7.8); NEUTROPHILS % (AUTO) 63 % (42-75); PLATELET COUNT 243 10^3/uL (130-400); RED BLOOD COUNT 4.56 10^6/uL (4.35-5.85); RED CELL DISTRIBUTION WIDTH 13.5 % (10.0-14.5); WHITE BLOOD COUNT 13.8 10^3/uL (4.3-11.0)
--- NOTE | 2017-02-27 15:42 | Diagnostic Imaging Report ---
INDICATION: Cough. Fatigue. Weakness. History of lung cancer. COMPARISON: CT chest dated 12/13/2016 and chest radiograph dated 02/18/2017. FINDINGS: Frontal and lateral radiographic views of the chest are obtained and show normal cardiac silhouette and pulmonary vasculature. Left-sided subclavian Port-A-Cath is noted with tip in the SVC. Lungs continue to show ill-defined linear opacity within the left upper lung. This corresponds to patient's known lung cancer. Otherwise, remainder of the lungs is clear. There is no focal consolidation, large effusion, or pneumothorax. Bony structures show no gross acute abnormalities. IMPRESSION: 1. No evidence of failure or focal infiltrate. 2. Persistent ill-defined linear opacity in the right upper lung. Again, this corresponds to patient's known lung cancer. Evaluation for stability is suboptimal given CR modality. Report was called to the direct voice mail for PREMA Alvarez at 3:32 p.m., by randy (for TAISHA). Dictated by: Dictated on workstation # [id number]
[2017-02-27 15:54] LABS: ALANINE AMINOTRANSFERASE 30 U/L (0-55); ALBUMIN 3.8 GM/DL (3.2-4.5); ALKALINE PHOSPHATASE 73 U/L (40-136); BILIRUBIN,TOTAL 0.8 MG/DL (0.1-1.0); BUN/CREATININE RATIO 13; CALCIUM 9.7 MG/DL (8.5-10.1); CARBON DIOXIDE 25 MMOL/L (21-32); CHLORIDE 101 MMOL/L (98-107); CREATININE SERUM 0.56 MG/DL (0.60-1.30); GFR ESTIMATED > 60; GLUCOSE 119 MG/DL (70-105); POTASSIUM 3.6 MMOL/L (3.6-5.0); SODIUM 138 MMOL/L (135-145); TOTAL PROTEIN 7.6 GM/DL (6.4-8.2)
== END ==
LOC: RAD 14:59
PROVIDERS: ATTEND Physician Assistant
DX: C34.11 Malignant neoplasm of upper lobe, right bronchus or lung (principal); R05 Cough; R53.83 Other fatigue; R53.1 Weakness; J44.9 Chronic obstructive pulmonary disease, unspecified; Z95.9 Presence of cardiac and vascular implant and graft, unspecified
CPT/HCPCS: 36415; 71046; 80053; 85025; 86141

== ENCOUNTER 2017-03-06 10:46 | Outpatient (RCR) | payer MEDICARE, MEDICAID ==
[2016-12-13 09:50] LABS: BASOPHILS % (AUTO) 1 % (0-10); EOSINOPHILS # (AUTO) 0.2 10^3/uL (0.0-0.3); EOSINOPHILS % (AUTO) 3 % (0-10); HEMATOCRIT 41 % (35-52); HEMOGLOBIN 13.5 G/DL (11.5-16.0); LYMPHOCYTES % (AUTO) 34 % (12-44); MEAN CORPUSCULAR HEMOGLOBIN 29 PG (25-34); MEAN CORPUSCULAR HGB CONC 33 G/DL (32-36); MEAN CORPUSCULAR VOLUME 87 FL (80-99); MEAN PLATELET VOLUME 10.8 FL (7.4-10.4); MONOCYTES # (AUTO) 0.9 X 10^3 (0.0-1.0); MONOCYTES % (AUTO) 10 % (0-12); NEUTROPHILS # (AUTO) 4.6 X 10^3 (1.8-7.8); NEUTROPHILS % (AUTO) 53 % (42-75); PLATELET COUNT 229 10^3/uL (130-400); RED BLOOD COUNT 4.68 10^6/uL (4.35-5.85); RED CELL DISTRIBUTION WIDTH 14.4 % (10.0-14.5); WHITE BLOOD COUNT 8.6 10^3/uL (4.3-11.0)
[2016-12-13 10:08] LABS: ALANINE AMINOTRANSFERASE 17 U/L (0-55); ALBUMIN 3.8 GM/DL (3.2-4.5); ALKALINE PHOSPHATASE 73 U/L (40-136); BILIRUBIN,TOTAL 0.4 MG/DL (0.1-1.0); BUN/CREATININE RATIO 15; CALCIUM 9.3 MG/DL (8.5-10.1); CARBON DIOXIDE 27 MMOL/L (21-32); CHLORIDE 107 MMOL/L (98-107); CREATININE SERUM 0.54 MG/DL (0.60-1.30); GFR ESTIMATED > 60; GLUCOSE 110 MG/DL (70-105); POTASSIUM 3.7 MMOL/L (3.6-5.0); SODIUM 141 MMOL/L (135-145); TOTAL PROTEIN 6.8 GM/DL (6.4-8.2)
[2017-03-06 11:08] LABS: BASOPHILS # (AUTO) 0.1 10^3/uL (0.0-0.1); BASOPHILS % (AUTO) 1 % (0-10); EOSINOPHILS # (AUTO) 0.3 10^3/uL (0.0-0.3); EOSINOPHILS % (AUTO) 2 % (0-10); HEMATOCRIT 40 % (35-52); HEMOGLOBIN 13.3 G/DL (11.5-16.0); LYMPHOCYTES # (AUTO) 4.3 X 10^3 (1.0-4.0); LYMPHOCYTES % (AUTO) 32 % (12-44); MEAN CORPUSCULAR HEMOGLOBIN 30 PG (25-34); MEAN CORPUSCULAR HGB CONC 33 G/DL (32-36); MEAN CORPUSCULAR VOLUME 89 FL (80-99); MEAN PLATELET VOLUME 9.8 FL (7.4-10.4); MONOCYTES % (AUTO) 8 % (0-12); NEUTROPHILS # (AUTO) 7.6 X 10^3 (1.8-7.8); NEUTROPHILS % (AUTO) 58 % (42-75); PLATELET COUNT 355 10^3/uL (130-400); WHITE BLOOD COUNT 13.3 10^3/uL (4.3-11.0)
[2017-03-06 11:35] LABS: ALANINE AMINOTRANSFERASE 28 U/L (0-55); ALBUMIN 3.5 GM/DL (3.2-4.5); ALKALINE PHOSPHATASE 65 U/L (40-136); BILIRUBIN,TOTAL 0.2 MG/DL (0.1-1.0); BUN/CREATININE RATIO 13; CALCIUM 8.9 MG/DL (8.5-10.1); CARBON DIOXIDE 24 MMOL/L (21-32); CHLORIDE 104 MMOL/L (98-107); GFR ESTIMATED > 60; GLUCOSE 108 MG/DL (70-105); SODIUM 138 MMOL/L (135-145); TOTAL PROTEIN 6.6 GM/DL (6.4-8.2)
== END 2017-03-13 | disposition home or self-care (01) ==
LOC: ONC 10:46
PROVIDERS: ATTEND Internal Medicine Hematology & Oncology
DX: C34.11 Malignant neoplasm of upper lobe, right bronchus or lung (principal); J44.9 Chronic obstructive pulmonary disease, unspecified; Z79.899 Other long term (current) drug therapy
CPT/HCPCS: 36415; 36591; 80053; 85025; 99213

== ENCOUNTER → 2017-03-06 | Outpatient (CLI) | payer MEDICARE, MEDICAID ==
[2017-02-27 17:28] LABS: BILIRUBIN,URINE NEGATIVE (NEGATIVE); CLARITY,URINE CLEAR; COLOR,URINE YELLOW; GLUCOSE, URINE (UA) NEGATIVE (NEGATIVE); KETONES,URINE NEGATIVE (NEGATIVE); LEUKOCYTE ESTERASE ,URINE 1+ (NEGATIVE); NITRITE,URINE NEGATIVE (NEGATIVE); PH,URINE 5 (5-9); PROTEIN,URINE NEGATIVE (NEGATIVE); UROBILINOGEN,URINE NORMAL (NORMAL)
[2017-02-27 17:36] LABS: BACTERIA,URINE TRACE /HPF; SQUAMOUS EPITHELIAL CELL,UR RARE /HPF; WBC,URINE RARE /HPF
--- NOTE | 2017-03-06 12:30 | Diagnostic Imaging Report ---
PROCEDURE: CT chest with contrast only. TECHNIQUE: Multiple contiguous axial images were obtained through the chest after administration of intravenous contrast. INDICATION: Lung cancer. FINDINGS: The previous CT chest exam performed on 12/13/2016 noted a 1.4 cm spiculated nodule in the right upper lung. That nodule is again identified on this study and now measures 1.2 cm. The coarse interstitial densities about the nodule noted on the prior study are again evident and essentially no different. This nodule was also present on the prior PET/CT exam of 05/28/2016 and failed to show any hypermetabolic activity on that exam. Consequently, I suspect that this finding is more likely due to scar formation than to neoplasm. The prior exam also identified a 6 mm nodular density in the left lung apex. That finding is not as conspicuous on this exam (image 9/46). However, in the interval since the prior study, a small 6 mm opacity has developed just inferior to the previously described lesion. Also, in the interval since the prior exam, a 1.2 x 2.4 cm lobular density has developed in the left lung base near the diaphragm. This is in the same region as the mild atelectasis involving the left lower lobe seen on the prior study. I suspect that these new densities are unlikely to be related to neoplasm. If further evaluation is desired, then a repeat PET/CT exam would be recommended. If the PET/CT exam is not performed, then a short-term (4-6 week) followup CT chest exam would be recommended. The overall appearance of the lungs is otherwise stable. The heart size remains within normal limits. Coronary artery calcifications are noted. The aorta is not abnormally dilated. The pulmonary arteries are not fully opacified and consequently difficult to evaluate for a pulmonary embolus. There is no obvious pulmonary embolus. There is no mediastinal or hilar adenopathy. The low-density lesion in the left lobe of the thyroid seen previously is again evident and no different. There is no obvious breast mass. The sections through the upper abdomen fail to show any sign of an acute abnormality. The bone windows are unremarkable for a fracture or for a destructive lesion. IMPRESSION: 1. The 1.4 cm spiculated nodule in the right mid lung seen on the prior exam does not appear to have changed adversely. Most likely, this is secondary to scar formation. 2. A new 6 mm nodule has developed in the left upper lung. There is also now a lobulated soft tissue mass in the left lung base measuring 1.3 x 2.3 cm. These new densities are unlikely to be related to malignancy, but additional imaging is warranted. Recommendations as above. 3. The overall appearance of the chest is otherwise stable. There is no acute cardiopulmonary abnormality noted. Dictated by: Dictated on workstation # [id number]
== END ==
LOC: RAD 11:12
PROVIDERS: ATTEND Internal Medicine Hematology & Oncology
DX: C34.11 Malignant neoplasm of upper lobe, right bronchus or lung (principal); R91.8 Other nonspecific abnormal finding of lung field
CPT/HCPCS: 71260; 81000

== ENCOUNTER → 2017-04-30 | Outpatient (CLI) | payer MEDICARE, MEDICAID ==
[~2017-04-30] MED LIST changes: +IOHEXOL 350 MG/ML 100 ML (OMNIPAQUE 350) VIAL IV ONE; +NS 250 ML (IVPB) BAG IV ONE
--- NOTE | 2017-04-30 10:16 | Diagnostic Imaging Report ---
PROCEDURE: CT chest with contrast only. TECHNIQUE: Multiple contiguous axial images were obtained through the chest after administration of intravenous contrast. INDICATION: History of right lung cancer. COMPARISON: 03/06/2017 FINDINGS: The heart is normal in size. No pericardial effusion is seen. There is coronary and aortic atherosclerosis. No evidence of aortic aneurysm or stenosis is seen. No mediastinal lymph nodes appear enlarged by CT size criteria. The left central line tip is in the mid SVC. There is marked heterogeneity of the thyroid gland with multiple hypoattenuating nodules, similar to the prior study. Mild to moderate emphysematous changes are seen in the lungs bilaterally. Redemonstrated is a spiculated masslike density in the right upper lobe, which measures approximately 2.8 x 1.0 cm on axial imaging, and 0.8 cm craniocaudal, with surrounding groundglass opacity. This appears mildly increased in size since the previous exam. There is also a 6 mm nodule in the left upper lobe apex (image 7 series 2), with adjacent groundglass opacity, which appears mildly increased in size since the prior study as well. There is mild thickening of the minor fissure on the right. Nodular densities are seen in the left costophrenic angle, measuring up to a centimeter in size, which has decreased since the prior study and may represent atelectasis. No pleural effusion or pneumothorax is seen. Imaged portions of the upper abdomen demonstrate no acute abnormality. Cholecystectomy clips are noted. No acute osseous abnormality seen. There are old left-sided rib fractures. IMPRESSION: 1. Spiculated masslike density with surrounding groundglass opacity in the right upper lobe appears mildly increased in size since February. Additional small nodule in the left upper lobe also appears mildly increased in size since the prior study. Findings could represent progression of malignancy versus scarring/atelectasis. 2. Redemonstrated nodular densities in the left lateral costophrenic angle, decreased in size since the prior study and likely atelectasis/scarring. 3. No lymphadenopathy is seen. Dictated by: Dictated on workstation # [id number]
== END ==
LOC: RAD 09:28
PROVIDERS: ATTEND Nurse Practitioner Adult Health
DX: C34.11 Malignant neoplasm of upper lobe, right bronchus or lung (principal)
CPT/HCPCS: 71260

== ENCOUNTER 2017-07-02 09:56 | Outpatient (RCR) | payer MEDICARE, MEDICAID ==
[2017-04-09 13:39] LABS: BASOPHILS % (AUTO) 0 % (0-10); EOSINOPHILS # (AUTO) 0.3 10^3/uL (0.0-0.3); EOSINOPHILS % (AUTO) 3 % (0-10); HEMATOCRIT 40 % (35-52); HEMOGLOBIN 13.3 G/DL (11.5-16.0); LYMPHOCYTES % (AUTO) 37 % (12-44); MEAN CORPUSCULAR HEMOGLOBIN 29 PG (25-34); MEAN CORPUSCULAR HGB CONC 33 G/DL (32-36); MEAN CORPUSCULAR VOLUME 88 FL (80-99); MONOCYTES # (AUTO) 1.3 X 10^3 (0.0-1.0); MONOCYTES % (AUTO) 12 % (0-12); NEUTROPHILS # (AUTO) 5.2 X 10^3 (1.8-7.8); NEUTROPHILS % (AUTO) 48 % (42-75); PLATELET COUNT 279 10^3/uL (130-400); RED BLOOD COUNT 4.54 10^6/uL (4.35-5.85); WHITE BLOOD COUNT 10.9 10^3/uL (4.3-11.0)
[2017-04-09 13:56] LABS: ALANINE AMINOTRANSFERASE 18 U/L (0-55); ALBUMIN 3.9 GM/DL (3.2-4.5); ALKALINE PHOSPHATASE 72 U/L (40-136); BILIRUBIN,TOTAL 0.3 MG/DL (0.1-1.0); BUN/CREATININE RATIO 16; CALCIUM 9.9 MG/DL (8.5-10.1); CARBON DIOXIDE 30 MMOL/L (21-32); CHLORIDE 104 MMOL/L (98-107); CREATININE SERUM 0.68 MG/DL (0.60-1.30); GFR ESTIMATED > 60; GLUCOSE 111 MG/DL (70-105); POTASSIUM 4.3 MMOL/L (3.6-5.0); SODIUM 140 MMOL/L (135-145); TOTAL PROTEIN 7.3 GM/DL (6.4-8.2)
[~2017-07-02 09:56] MED LIST changes: +ACET-93 PO; +AMOX500T2 PO; +ASPI-983 PO; -IOHEXOL 350 MG/ML 100 ML (OMNIPAQUE 350) VIAL IV ONE; -NS 250 ML (IVPB) BAG IV ONE; +POTA-51 PO; +POTA10TA36 PO
== END 2017-07-08 | disposition home or self-care (01) ==
LOC: ONC 09:56
PROVIDERS: ATTEND Internal Medicine Hematology & Oncology
DX: C34.11 Malignant neoplasm of upper lobe, right bronchus or lung (principal); J43.9 Emphysema, unspecified; I25.10 Atherosclerotic heart disease of native coronary artery without angina pectoris; E78.00 Pure hypercholesterolemia, unspecified; K21.9 Gastro-esophageal reflux disease without esophagitis; M19.91 Primary osteoarthritis, unspecified site; Z87.891 Personal history of nicotine dependence; Z99.81 Dependence on supplemental oxygen
CPT/HCPCS: 36415; 80053; 85025; 99213

== ENCOUNTER → 2017-08-07 | Outpatient (CLI) | payer MEDICARE, MEDICAID ==
[~2017-08-07] MED LIST changes: +BARIUM SUSPENSION 2.1% (VANILLA SILQ) 450 ML PO ONE; +CATHETER FLUSH 10 ML SYR IV PRN; +IOHEXOL 350 MG/ML 100 ML (OMNIPAQUE 350) VIAL IV ONE; +NS 250 ML (IVPB) BAG IV ONE
--- NOTE | 2017-08-07 13:07 | Diagnostic Imaging Report ---
PROCEDURE: CT chest and abdomen with contrast. TECHNIQUE: Multiple contiguous axial images were obtained through the chest and abdomen after the administration of intravenous contrast. INDICATION: Lung cancer. COMPARISON: Exam interpreted in correlation with chest CT from 04/30/2017, most recent abdomen performed on 09/05/2016, and the study is also interpreted in correlation with images from metabolic PET/CT of 05/28/2016. FINDINGS: Chest: Irregular opacity laterally in the right upper lobe with peripheral groundglass and airspace density is less pronounced than on prior. Its central more soft tissue element is much smaller measuring 5 mm x 7 mm, previously 23 mm x 10 mm. Superimposed COPD, chronic. Some linear scarring at the left costophrenic angle laterally, unchanged. No new mass and no adverse development. Heterogeneous air trapping and features of centrilobular emphysema with some biapical pleural-parenchymal scarring, chronic. There is no lymphadenopathy. No effusion, pneumothorax, PE, or acute aortic pathology. Partial visualization of low-density likely cystic thyroid nodules, unchanged where visualized. Abdomen: The liver and adrenals are stable and negative. No bile duct dilatation. Unobstructed kidneys are normal. Spleen and pancreas are negative. There is no abdominal mesenteric or retroperitoneal adenopathy. There is no ascites. No acute bony abnormality. Aortoiliac atherosclerotic calcifications are nonaneurysmal. No findings of end-organ ischemia. IMPRESSION: 1. Chest: Improvement in soft tissue and groundglass opacity right upper lobe laterally. Additional benign areas of pleural-parenchymal scarring, chronic. Underlying COPD, chronic. No lymphadenopathy or adverse development. No findings of neoplastic progression. 2. Abdomen: Stable negative abdomen. Dictated by: Dictated on workstation # [id number]
--- NOTE | 2017-08-07 16:11 | Diagnostic Imaging Report ---
INDICATION: Right lung carcinoma. The patient was administered 26.9 mCi of technetium-99m MDP intravenously and whole-body imaging was performed after a three-hour delay. Correlation is made with prior whole body bone scan from 09/05/2016. FINDINGS: There is normal uptake of activity by the axial and appendicular skeleton. There is uptake by both kidneys with excretion into the urinary bladder. No abnormal foci of tracer accumulation are seen to suggest osseous metastatic disease. IMPRESSION: No scintigraphic evidence of osseous metastatic disease. Dictated by: Dictated on workstation # [id number]
== END ==
LOC: CARD 10:11
PROVIDERS: ATTEND Internal Medicine Hematology & Oncology
DX: Z01.89 Encounter for other specified special examinations (principal); C34.11 Malignant neoplasm of upper lobe, right bronchus or lung; J44.9 Chronic obstructive pulmonary disease, unspecified
CPT/HCPCS: 71260; 74160; 78306

== ENCOUNTER 2017-08-13 10:50 | Outpatient (RCR) | payer MEDICARE, MEDICAID ==
[2017-08-07 10:07] LABS: BASOPHILS % (AUTO) 0 % (0-10); EOSINOPHILS # (AUTO) 0.7 10^3/uL (0.0-0.3); EOSINOPHILS % (AUTO) 8 % (0-10); HEMATOCRIT 38 % (35-52); HEMOGLOBIN 12.5 G/DL (11.5-16.0); LYMPHOCYTES # (AUTO) 3.3 X 10^3 (1.0-4.0); LYMPHOCYTES % (AUTO) 37 % (12-44); MEAN CORPUSCULAR HEMOGLOBIN 29 PG (25-34); MEAN CORPUSCULAR HGB CONC 33 G/DL (32-36); MEAN CORPUSCULAR VOLUME 88 FL (80-99); MEAN PLATELET VOLUME 10.2 FL (7.4-10.4); MONOCYTES # (AUTO) 0.9 X 10^3 (0.0-1.0); MONOCYTES % (AUTO) 10 % (0-12); NEUTROPHILS % (AUTO) 45 % (42-75); PLATELET COUNT 251 10^3/uL (130-400); RED BLOOD COUNT 4.27 10^6/uL (4.35-5.85); RED CELL DISTRIBUTION WIDTH 14.2 % (10.0-14.5); WHITE BLOOD COUNT 8.9 10^3/uL (4.3-11.0)
[2017-08-07 10:23] LABS: ALANINE AMINOTRANSFERASE 21 U/L (0-55); ALBUMIN 3.9 GM/DL (3.2-4.5); ALKALINE PHOSPHATASE 81 U/L (40-136); BILIRUBIN,TOTAL 0.3 MG/DL (0.1-1.0); BUN/CREATININE RATIO 14; CALCIUM 9.6 MG/DL (8.5-10.1); CARBON DIOXIDE 24 MMOL/L (21-32); CHLORIDE 111 MMOL/L (98-107); CREATININE SERUM 0.58 MG/DL (0.60-1.30); GFR ESTIMATED > 60; GLUCOSE 118 MG/DL (70-105); POTASSIUM 4.1 MMOL/L (3.6-5.0); SODIUM 142 MMOL/L (135-145)
[~2017-08-13 10:50] MED LIST changes: -BARIUM SUSPENSION 2.1% (VANILLA SILQ) 450 ML PO ONE; -CATHETER FLUSH 10 ML SYR IV PRN; -IOHEXOL 350 MG/ML 100 ML (OMNIPAQUE 350) VIAL IV ONE; -NS 250 ML (IVPB) BAG IV ONE
== END 2017-11-05 | disposition home or self-care (01) ==
LOC: ONC 10:50
PROVIDERS: ATTEND Internal Medicine Hematology & Oncology
DX: C34.11 Malignant neoplasm of upper lobe, right bronchus or lung (principal)
CPT/HCPCS: 36591; 80053; 85025; 99213

== ENCOUNTER 2017-11-07 13:15 | Outpatient (RCR) | payer MEDICARE, MEDICAID ==
[2017-11-07 13:28] LABS: BASOPHILS % (AUTO) 0 % (0-10); EOSINOPHILS # (AUTO) 0.3 10^3/uL (0.0-0.3); EOSINOPHILS % (AUTO) 4 % (0-10); HEMATOCRIT 38 % (35-52); HEMOGLOBIN 12.5 G/DL (11.5-16.0); LYMPHOCYTES # (AUTO) 3.6 X 10^3 (1.0-4.0); LYMPHOCYTES % (AUTO) 38 % (12-44); MEAN CORPUSCULAR HEMOGLOBIN 28 PG (25-34); MEAN CORPUSCULAR HGB CONC 33 G/DL (32-36); MEAN CORPUSCULAR VOLUME 86 FL (80-99); MEAN PLATELET VOLUME 10.1 FL (7.4-10.4); MONOCYTES # (AUTO) 0.9 X 10^3 (0.0-1.0); MONOCYTES % (AUTO) 9 % (0-12); NEUTROPHILS # (AUTO) 4.6 X 10^3 (1.8-7.8); NEUTROPHILS % (AUTO) 49 % (42-75); PLATELET COUNT 259 10^3/uL (130-400); RED BLOOD COUNT 4.43 10^6/uL (4.35-5.85); RED CELL DISTRIBUTION WIDTH 14.3 % (10.0-14.5); WHITE BLOOD COUNT 9.5 10^3/uL (4.3-11.0)
[2017-11-07 13:44] LABS: ALANINE AMINOTRANSFERASE 21 U/L (0-55); ALBUMIN 3.9 GM/DL (3.2-4.5); ALKALINE PHOSPHATASE 86 U/L (40-136); BILIRUBIN,TOTAL 0.4 MG/DL (0.1-1.0); BUN/CREATININE RATIO 13; CALCIUM 9.4 MG/DL (8.5-10.1); CARBON DIOXIDE 24 MMOL/L (21-32); CHLORIDE 105 MMOL/L (98-107); CREATININE SERUM 0.62 MG/DL (0.60-1.30); GFR ESTIMATED > 60; GLUCOSE 154 MG/DL (70-105); POTASSIUM 3.8 MMOL/L (3.6-5.0); SODIUM 139 MMOL/L (135-145); TOTAL PROTEIN 7.2 GM/DL (6.4-8.2)
== END 2017-11-23 | disposition home or self-care (01) ==
LOC: ONC 13:15
PROVIDERS: ATTEND Internal Medicine Hematology & Oncology
DX: C34.11 Malignant neoplasm of upper lobe, right bronchus or lung (principal); J43.9 Emphysema, unspecified; I25.10 Atherosclerotic heart disease of native coronary artery without angina pectoris; E78.00 Pure hypercholesterolemia, unspecified; K21.9 Gastro-esophageal reflux disease without esophagitis; M19.91 Primary osteoarthritis, unspecified site; Z87.891 Personal history of nicotine dependence; Z99.81 Dependence on supplemental oxygen
CPT/HCPCS: 36415; 36591; 80053; 85025

== ENCOUNTER 2017-11-14 05:39 | Outpatient (CLI) | payer MEDICARE, MEDICAID ==
[~2017-11-14] VITALS: Ht 160 cm; Wt 76.7 kg
== END 2017-11-14 10:59 | disposition home or self-care (01) ==
LOC: PREOP 05:39
PROVIDERS: ATTEND Surgery
DX: Z01.818 Encounter for other preprocedural examination (principal)

== ENCOUNTER → 2017-11-14 | Outpatient (CLI) | payer MEDICARE, MEDICAID ==
--- NOTE | 2017-11-14 16:45 | Diagnostic Imaging Report ---
PROCEDURE: US Thyroid. TECHNIQUE: Multiple real-time grayscale images were obtained of the thyroid in various projections. INDICATION: Abnormal thyroid lab. FINDINGS: There are no prior thyroid ultrasound examinations available for comparison. The CT chest and abdomen exams of 08/07/2017 and 04/30/2017 have noted marked heterogeneity of the thyroid gland with multiple hypoattenuating nodules. On this exam, the thyroid gland is borderline enlarged with the right lobe measuring 3.8 x 2.4 x 2.2 cm and the left lobe is estimated to be 4.2 x 2.2 x 2.1 cm (normal gland size 4-5 x 2 x 2 cm or less). Each lobe has a heterogeneous texture and in the superior pole of the right lobe, there is a complex septated cystic mass with solid components. This measures 1.7 x 1.4 x 1.7 cm. This finding may well represent a benign process. If a tissue diagnosis is desired, however, then an ultrasound-guided biopsy could be performed. If there is no intervention at this time, then a short-term (three-month) follow-up thyroid ultrasound exam should be obtained. There is no other discrete nodule within either lobe. IMPRESSION: The thyroid gland is borderline enlarged and there is a complex mass involving the superior pole of the right lobe. The precise etiology of this finding is not certain although it is probably benign. Recommendations as above. Dictated by: Dictated on workstation # [id number]
== END ==
LOC: RAD 12:08
PROVIDERS: ATTEND Internal Medicine
DX: E07.89 Other specified disorders of thyroid (principal); R94.6 Abnormal results of thyroid function studies
CPT/HCPCS: 76536

== ENCOUNTER 2017-11-19 11:18 | Day surgery (SDC) | payer MEDICARE, MEDICAID ==
[~2017-11-19] VITALS: Ht 160 cm; Wt 76.7 kg
[2017-11-19] MEDS ORDERED: NS IV 500 ML 500 ML IV PRN (11:26)
[2017-11-19] MEDS ORDERED: fentaNYL INJECTION 100 MCG/2 ML AMP IVP ONE (11:30)
[2017-11-19] MEDS ORDERED: MIDAZOLAM 2 MG/2 ML (VERSED) VIAL IVP ONE (11:30)
[2017-11-19] MEDS ORDERED: LIDOCAINE JELLY 2% (XYLOCAINE) 5 ML TUBE MM PRN (11:30)
[2017-11-19] MEDS ORDERED: HURRICAINE EXT TUBE (BENZOCAINE) XX PRN (11:30)
--- OUTSIDE RECORDS SUMMARY | 2017-11-19 11:31 | XMS REPORT | Continuity of Care Document ---
Author Author [facility] Organization [facility] Address Unknown Phone Unavailable Allergies Active Description Code Type Severity Reaction Onset Reported/Identified Relationship to Patient Clinical Status Yes No Known Drug Allergies [id number] Drug Allergy Unknown N/A 10/18/2015 Medications There is no data. Problems Date Dx Coded Attending Type Code Diagnosis Diagnosed By 05/22/2010 Ot 250.00 DIAB RAJ WO COMPL, TYPE II OR UNSPEC TY 05/22/2010 Ot 272.0 PURE HYPERCHOLESTEROLEM 05/22/2010 Ot 276.8 HYPOPOTASSEMIA 05/22/2010 Ot 305.1 TOBACCO USE DISORDER 05/22/2010 Ot 401.9 HYPERTENSION NOS 05/22/2010 Ot 486 PNEUMONIA, ORGANISM NOS 05/22/2010 Ot 496 CHR AIRWAY OBSTRUCT NEC 05/22/2010 Ot 564.00 UNSPEC CONSTIPATION 05/22/2010 Ot V46.2 SUPPLEMENTAL OXYGEN 07/18/2011 Ot 272.4 HYPERLIPIDEMIA NEC/NOS 07/18/2011 Ot 275.2 DIS MAGNESIUM METABOLISM 07/18/2011 Ot 276.8 HYPOPOTASSEMIA 07/18/2011 Ot 305.1 TOBACCO USE DISORDER 07/18/2011 Ot 362.50 MACULAR DEGENERATION NOS 07/18/2011 Ot 486 PNEUMONIA, ORGANISM NOS 07/18/2011 Ot 491.21 OBSTR CHRONIC BRONCHITIS, W (ACUTE) EXAC 08/06/2011 Ot 922.1 CONTUSION OF CHEST WALL 08/06/2011 Ot 959.11 OTH INJURY OF CHEST WALL 08/06/2011 Ot E000.8 OTHER EXTERNAL CAUSE STATUS 08/06/2011 Ot E849.0 ACCIDENT IN HOME 08/06/2011 Ot E888.9 FALL NOS 03/23/2012 Ot 305.1 TOBACCO USE DISORDER 03/23/2012 Ot 414.01 CORONARY ATHEROSCLEROSIS OF [place] CORON 03/23/2012 Ot 496 CHR AIRWAY OBSTRUCT NEC 03/23/2012 Ot 786.09 RESPIRATORY ABNORM NEC 03/23/2012 Ot V17.49 FAMILY HISTORY OF OTHER CARDIOVASCULAR D 03/23/2012 Ot V58.63 LONG-TERM( CURRENT)USE OF ANTIPLATELET/AN 03/23/2012 Ot V58.69 OTH MED,LT, CURRENT USE 03/27/2012 Ot 272.4 HYPERLIPIDEMIA NEC/NOS 03/27/2012 Ot 305.1 TOBACCO USE DISORDER 03/27/2012 Ot 401.9 HYPERTENSION NOS 03/27/2012 Ot 414.01 CORONARY ATHEROSCLEROSIS OF [place] CORON 03/27/2012 Ot 496 CHR AIRWAY OBSTRUCT NEC 03/27/2012 Ot 997.2 SURG COMP- STEVIE VASC SYST 03/27/2012 Ot E879.0 ABN REACT- CARDIAC CATH 03/27/2012 Ot V58.63 LONG-TERM( CURRENT)USE OF ANTIPLATELET/AN 03/27/2012 Ot V58.66 LONG-TERM ( 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 OF ASPIRIN 03/27/2012 Ot V58.69 OTH MED,LT, CURRENT USE 04/24/2012 Ot 455.0 INT HEMORRHOID W/O COMPL 04/24/2012 Ot 455.3 EXT HEMORRHOID W/O COMPL 04/24/2012 Ot 530.11 REFLUX ESOPHAGITIS 04/24/2012 Ot 535.50 UNSP GASTRITIS GASTRODUODENITIS W/O ME 04/24/2012 Ot 553.3 DIAPHRAGMATIC HERNIA 04/24/2012 Ot 562.10 DIVERTICULOSIS COLON (W/O MENT OF HEMORR 04/24/2012 Ot V12.72 PERSONAL HISTORY OF COLONIC POLYPS 06/08/2012 Ot 038.9 SEPTICEMIA NOS 06/08/2012 Ot 272.4 HYPERLIPIDEMIA NEC/NOS 06/08/2012 Ot 276.1 HYPOSMOLALITY 06/08/2012 Ot 276.8 HYPOPOTASSEMIA 06/08/2012 Ot 414.01 CORONARY ATHEROSCLEROSIS OF [place] CORON 06/08/2012 Ot 486 PNEUMONIA, ORGANISM NOS 06/08/2012 Ot 491.21 OBSTR CHRONIC BRONCHITIS, W (ACUTE) EXAC 06/08/2012 Ot 564.00 UNSPEC CONSTIPATION 06/08/2012 Ot 790.29 OTHER ABNORMAL GLUCOSE 06/08/2012 Ot 995.91 SEPSIS 06/08/2012 Ot V15.82 HISTORY OF TOBACCO USE 01/13/2013 JESUS SMITH MD Ot 272.0 PURE HYPERCHOLESTEROLEM 01/13/2013 JESUS SMITH MD Ot 272.4 HYPERLIPIDEMIA NEC/NOS 01/13/2013 JESUS SMITH MD Ot 276.8 HYPOPOTASSEMIA 01/13/2013 JESUS SMITH MD Ot 305.1 TOBACCO USE DISORDER 01/13/2013 JESUS SMITH MD Ot 414.01 CORONARY ATHEROSCLEROSIS OF [place] CORON 01/13/2013 JESUS SMITH MD Ot 486 PNEUMONIA, ORGANISM NOS 01/13/2013 JESUS SMITH MD Ot 491.21 OBSTR CHRONIC BRONCHITIS, W (ACUTE) EXAC 01/13/2013 JESUS SMITH MD Ot 790.92 COAGULATION PROFILE, ABNORMAL 01/13/2013 JESUS SMITH MD Ot V04.81 ND FOR PROPHYLACTIC VACCIN AND INOCULATI 01/13/2013 JESUS SMITH MD Ot V12.61 PERSONAL HISTORY, PNEUMONIA (RECURRENT) 05/19/2013 JESUS SMITH MD Ot 272.0 PURE HYPERCHOLESTEROLEM 05/19/2013 JESUS SMITH MD Ot 305.1 TOBACCO USE DISORDER 05/19/2013 JESUS SMITH MD Ot 362.50 MACULAR DEGENERATION NOS 05/19/2013 JESUS SMITH MD Ot 414.01 CORONARY ATHEROSCLEROSIS OF [place] CORON 05/19/2013 JESUS SMITH MD Ot 486 PNEUMONIA, ORGANISM NOS 05/19/2013 JESUS SMITH MD Ot 491.21 OBSTR CHRONIC BRONCHITIS, W (ACUTE) EXAC 05/19/2013 JESUS SMITH MD Ot 530.81 ESOPHAGEAL REFLUX 05/19/2013 JESUS SMITH MD Ot 724.5 BACKACHE NOS 05/19/2013 JESUS SMITH MD Ot V46.2 SUPPLEMENTAL OXYGEN 07/01/2013 JESUS SMITH MD Ot 272.0 PURE HYPERCHOLESTEROLEM 07/01/2013 JESUS SMITH MD Ot 362.50 MACULAR DEGENERATION NOS 07/01/2013 JESUS SMITH MD Ot 414.01 CORONARY ATHEROSCLEROSIS OF [place] CORON 07/01/2013 JESUS SMITH MD Ot 486 PNEUMONIA, ORGANISM NOS 07/01/2013 JESUS SMITH MD Ot 496 CHR AIRWAY OBSTRUCT NEC 07/01/2013 JESUS SMITH MD Ot 530.81 ESOPHAGEAL REFLUX 07/01/2013 JESUS SMITH MD Ot 790.29 OTHER ABNORMAL GLUCOSE 07/01/2013 JESUS SMITH MD Ot V15.82 HISTORY OF TOBACCO USE 07/01/2013 JESUS SMITH MD Ot V46.2 SUPPLEMENTAL OXYGEN 08/23/2013 KELIN LLANES MD Ot 272.0 PURE HYPERCHOLESTEROLEM 08/23/2013 KELIN LLANES MD T Ot 288.60 LEUKOCYTOSIS, UNSPECIFIED 08/23/2013 KELIN LLANES MD Ot 305.1 TOBACCO USE DISORDER 08/23/2013 KELIN LLANES MD Ot 491.21 OBSTR CHRONIC BRONCHITIS, W (ACUTE) EXAC 08/23/2013 KELIN LLANES MD Ot 530.81 ESOPHAGEAL REFLUX 08/23/2013 KELIN LLANES MD Ot 729.5 PAIN IN LIMB 08/23/2013 KELIN LLANES MD Ot 786.05 SHORTNESS OF BREATH 08/23/2013 KELIN LLANES MD Ot V46.2 SUPPLEMENTAL OXYGEN 08/23/2013 KELIN LLANES MD Ot V58.63 LONG-TERM(CURRENT)USE OF ANTIPLATELET/AN 08/23/2013 KELIN LLANES MD Ot V58.66 LONG-TERM (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 OF ASPIRIN 08/23/2013 KELIN LLANES MD Ot V58.69 OTH MED,LT,CURRENT USE 12/29/2013 JESUS SMITH MD Ot 079.99 VIRAL INFECTION NOS 12/29/2013 JESUS SMITH MD Ot 276.8 HYPOPOTASSEMIA 12/29/2013 JESUS SMITH MD Ot 305.1 TOBACCO USE DISORDER 12/29/2013 JESUS SMITH MD Ot 362.50 MACULAR DEGENERATION NOS 12/29/2013 JESUS SMITH MD Ot 414.01 CORONARY ATHEROSCLEROSIS OF [place] CORON 12/29/2013 JESUS SMITH MD Ot 491.21 OBSTR CHRONIC BRONCHITIS, W (ACUTE) EXAC 12/29/2013 JESUS SMITH MD Ot 530.81 ESOPHAGEAL REFLUX 12/29/2013 JESUS SMITH MD Ot 995.91 SEPSIS 12/29/2013 JESUS SMITH MD Ot V46.2 SUPPLEMENTAL OXYGEN 01/29/2014 BRIGHT SMITH MD Ot 882.0 OPEN WOUND OF HAND 01/29/2014 BRIGHT SMITH MD Ot E000.8 OTHER EXTERNAL CAUSE STATUS 01/29/2014 BRIGHT SMITH MD Ot E849.0 ACCIDENT IN HOME 01/29/2014 BRIGHT SMITH MD Ot E920.8 ACC-CUTTING INSTRUM NEC 07/22/2014 JESUS SMITH MD Ot 038.9 SEPTICEMIA NOS 07/22/2014 JESUS SMITH MD Ot 272.4 HYPERLIPIDEMIA NEC/NOS 07/22/2014 JESUS SMITH MD Ot 305.1 TOBACCO USE DISORDER 07/22/2014 JESUS SMITH MD Ot 362.50 MACULAR DEGENERATION NOS 07/22/2014 JESUS SMITH MD Ot 414.01 CORONARY ATHEROSCLEROSIS OF [place] CORON 07/22/2014 JESUS SMITH MD Ot 486 PNEUMONIA, ORGANISM NOS 07/22/2014 JESUS SMITH MD Ot 496 CHR AIRWAY OBSTRUCT NEC 07/22/2014 JESUS SMITH MD Ot 530.81 ESOPHAGEAL REFLUX 07/22/2014 JESUS SMITH MD Ot 793.11 SOLITARY PULMONARY NODULE 07/22/2014 JESUS SMITH MD Ot 995.91 SEPSIS 09/21/2014 STEFFANY CHATMAN MD Ot 272.0 PURE HYPERCHOLESTEROLEM 09/21/2014 STEFFANY CHATMAN MD Ot 272.4 HYPERLIPIDEMIA NEC/NOS 09/21/2014 STEFFANY CHATMAN MD Ot 288.60 LEUKOCYTOSIS, UNSPECIFIED 09/21/2014 STEFFANY CHATMAN MD Ot 305.1 TOBACCO USE DISORDER 09/21/2014 STEFFANY CHATMAN MD Ot 362.50 MACULAR DEGENERATION NOS 09/21/2014 STEFFANY CHATMAN MD Ot 414.01 CORONARY ATHEROSCLEROSIS OF [place] CORON 09/21/2014 STEFFANY CHATMAN MD Ot 486 PNEUMONIA, ORGANISM NOS 09/21/2014 STEFFANY CHATMAN MD Ot 491.21 09/21/2014 STEFFANY CHATMAN MD Ot 530.81 ESOPHAGEAL REFLUX 09/21/2014 STEFFANY CHATMAN MD Ot 785.0 TACHYCARDIA NOS 09/21/2014 STEFFANY CHATMAN MD Ot V46.2 SUPPLEMENTAL OXYGEN 10/16/2014 JESUS SMITH MD Ot 272.0 PURE HYPERCHOLESTEROLEM 10/16/2014 JESUS SMITH MD Ot 276.8 HYPOPOTASSEMIA 10/16/2014 JESUS SMITH MD Ot 305.1 TOBACCO USE DISORDER 10/16/2014 JESUS SMITH MD Ot 362.50 MACULAR DEGENERATION NOS 10/16/2014 JESUS SMITH MD Ot 414.01 CORONARY ATHEROSCLEROSIS OF [place] CORON 10/16/2014 JESUS SMITH MD Ot 482.2 H.INFLUENZAE PNEUMONIA 10/16/2014 JESUS SMITH MD Ot 486 10/16/2014 JESUS SMITH MD Ot 491.21 OBSTR CHRONIC BRONCHITIS, W (ACUTE) EXAC 10/16/2014 JESUS SMITH MD Ot 518.84 ACUTE AND CHRONIC RESPIRATORY FAILURE 10/16/2014 JESUS SMITH MD Ot 530.81 ESOPHAGEAL REFLUX 10/16/2014 JESUS SMITH MD Ot 724.5 BACKACHE NOS 10/16/2014 JESUS SMITH MD Ot V46.2 SUPPLEMENTAL OXYGEN 10/21/2014 JESUS SMITH MD Ot V76.12 11/01/2014 JESUS SMITH MD Ot V76.12 08/23/2015 STEFFANY CHATMAN MD Ot E78.0 PURE HYPERCHOLESTEROLEMIA 08/23/2015 STEFFANY CHATMAN MD Ot F17.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, UNSPECIFIED, UNCOMP 08/23/2015 STEFFANY CHATMAN MD Ot F41.9 ANXIETY DISORDER, UNSPECIFIED 08/23/2015 STEFFANY CHATMAN MD Ot H35.30 UNSPECIFIED MACULAR DEGENERATION 08/23/2015 STEFFANY CHATMAN MD Ot I25.10 ATHSCL HEART DISEASE OF [place] CORONARY 08/23/2015 STEFFANY CHATMAN MD Ot J18.9 PNEUMONIA, UNSPECIFIED ORGANISM 08/23/2015 STEFFANY CHATMAN MD Ot J44.1 CHRONIC OBSTRUCTIVE PULMONARY DISEASE W 08/23/2015 STEFFANY CHATMAN MD Ot K21.9 GASTRO-ESOPHAGEAL REFLUX DISEASE WITHOUT 08/23/2015 STEFFANY CHATMAN MD Ot R91.8 OTHER NONSPECIFIC ABNORMAL FINDING OF MULU 08/23/2015 STEFFANY CHATMAN MD Ot Z99.81 DEPENDENCE ON SUPPLEMENTAL OXYGEN 08/24/2015 STEFFANY CHATMAN MD Ot C34.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 OF UPPER LOBE, RIGHT 08/24/2015 STEFFANY CHATMAN MD Ot E78.0 PURE HYPERCHOLESTEROLEMIA 08/24/2015 STEFFANY CHATMAN MD Ot F17.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, UNSPECIFIED, UNCOMP 08/24/2015 STEFFANY CHATMAN MD Ot F41.9 ANXIETY DISORDER, UNSPECIFIED 08/24/2015 STEFFANY CHATMAN MD Ot H35.30 UNSPECIFIED MACULAR DEGENERATION 08/24/2015 STEFFANY CHATMAN MD Ot I10 ESSENTIAL (PRIMARY) HYPERTENSION 08/24/2015 STEFFANY CHATMAN MD Ot I25.10 ATHSCL HEART DISEASE OF [place] CORONARY 08/24/2015 STEFFANY CHATMAN MD Ot J18.9 PNEUMONIA, UNSPECIFIED ORGANISM 08/24/2015 STEFFANY CHATMAN MD Ot J44.1 CHRONIC OBSTRUCTIVE PULMONARY DISEASE W 08/24/2015 STEFFANY CHATMAN MD Ot K21.9 GASTRO-ESOPHAGEAL REFLUX DISEASE WITHOUT 08/24/2015 STEFFANY CHATMAN MD Ot R91.8 OTHER NONSPECIFIC ABNORMAL FINDING OF MULU 08/24/2015 STEFFANY CHATMAN MD Ot Z79.02 CUSTODIAL (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 OF 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 08/24/2015 STEFFANY CHATMAN MD Ot Z79.82 CLERICAL ORDER FILLER (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 OF ASPIRIN 08/24/2015 STEFFANY CHATMAN MD Ot Z87.891 PERSONAL HISTORY OF NICOTINE DEPENDENCE 08/24/2015 STEFFANY CHATMAN MD Ot Z99.81 DEPENDENCE ON SUPPLEMENTAL OXYGEN 09/05/2015 Ot 486 PNEUMONIA, ORGANISM NOS 09/05/2015 Ot 486 PNEUMONIA, ORGANISM NOS 09/05/2015 Ot V76.12 OTH SCREEN MAMMO-MALIGN NEOPLASM OF [place] 09/05/2015 Ot 786.2 COUGH 09/05/2015 Ot 786.09 RESPIRATORY ABNORM NEC 09/05/2015 Ot 786.2 COUGH 09/05/2015 Ot 272.4 HYPERLIPIDEMIA NEC/NOS 09/05/2015 Ot 413.9 ANGINA PECTORIS NEC/NOS 09/05/2015 Ot 414.00 CORON ATHEROSCLER NOS TYPE VESSEL, NATIV 09/05/2015 Ot 786.05 SHORTNESS OF BREATH 09/05/2015 Ot 997.2 SURG COMP- STEVIE VASC SYST 09/05/2015 Ot 997.2 SURG COMP- STEVIE VASC SYST 09/05/2015 Ot V72.84 EXAM PRE- OPERATIVE NOS 09/05/2015 Ot 793.82 INCONCLUSIVE MAMMOGRAM 09/05/2015 Ot V76.12 OTH SCREEN MAMMO-MALIGN NEOPLASM OF [place] 09/05/2015 Ot 793.80 UNSPEC ABNORMAL MAMMOGRAM 09/05/2015 BÁRBARA HONEYCUTT APRN Ot 793.89 OTH (ABN) FINDINGS ON RADIOLOGICAL EXAMI 09/05/2015 SARAH PARDO, JESUS Meza Ot 496 CHR AIRWAY OBSTRUCT NEC 09/05/2015 BÁRBARA HONEYCUTT APRN Ot 486 PNEUMONIA, ORGANISM NOS 09/05/2015 BÁRBARA HONEYCUTT APRN Ot 786.05 SHORTNESS OF BREATH 09/05/2015 BÁRBARA HONEYCUTT APRN Ot 793.89 OTH (ABN) FINDINGS ON RADIOLOGICAL EXAMI 09/05/2015 SARAH PARDO, JESUS Meza Ot V76.12 OTH SCREEN MAMMO-MALIGN NEOPLASM OF [place] 09/06/2015 SHAWNEE NARAYAN DO Ot J98.4 OTHER DISORDERS OF LUNG 09/06/2015 SHAWNEE NARAYAN DO Ot F17.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, UNSPECIFIED, UNCOMP 09/06/2015 SHAWNEE NARAYAN DO Ot J44.9 CHRONIC OBSTRUCTIVE PULMONARY DISEASE, U 09/06/2015 SHAWNEE NARAYAN DO Ot J98.4 OTHER DISORDERS OF LUNG 09/06/2015 SHAWNEE NARAYAN DO Ot R06.09 OTHER FORMS OF DYSPNEA 09/06/2015 SHAWNEE NARAYAN DO Ot R91.8 OTHER NONSPECIFIC ABNORMAL FINDING OF MULU 09/11/2015 SHAWNEE NARAYAN DO Ot E78.5 HYPERLIPIDEMIA, UNSPECIFIED 09/11/2015 SHAWNEE NARAYAN DO Ot I25.10 ATHSCL HEART DISEASE OF [place] CORONARY 09/11/2015 SHAWNEE NARAYAN DO Ot J44.9 CHRONIC OBSTRUCTIVE PULMONARY DISEASE, U 09/11/2015 SHAWNEE NARAYAN DO Ot K21.9 GASTRO-ESOPHAGEAL REFLUX DISEASE WITHOUT 09/11/2015 SHAWNEE NARAYAN DO Ot R91.8 OTHER NONSPECIFIC ABNORMAL FINDING OF MULU 09/12/2015 SHAWNEE NARAYAN DO Ot E78.5 HYPERLIPIDEMIA, UNSPECIFIED 09/12/2015 SHAWNEE NARAYAN DO Ot I25.10 ATHSCL HEART DISEASE OF [place] CORONARY 09/12/2015 SHAWNEE NARAYAN DO Ot J44.9 CHRONIC OBSTRUCTIVE PULMONARY DISEASE, U 09/12/2015 SHAWNEE NARAYAN DO Ot K21.9 GASTRO-ESOPHAGEAL REFLUX DISEASE WITHOUT 09/12/2015 SHAWNEE NARAYAN DO Ot R91.8 OTHER NONSPECIFIC ABNORMAL FINDING OF MULU 09/25/2015 SHAWNEE NARAYAN DO Ot E78.5 HYPERLIPIDEMIA, UNSPECIFIED 09/25/2015 SHAWNEE NARAYAN DO Ot I25.10 ATHSCL HEART DISEASE OF [place] CORONARY 09/25/2015 SHAWNEE NARAYAN DO Ot J44.9 CHRONIC OBSTRUCTIVE PULMONARY DISEASE, U 09/25/2015 SHAWNEE NARAYAN DO Ot K21.9 GASTRO-ESOPHAGEAL REFLUX DISEASE WITHOUT 09/25/2015 SHAWNEE NARAYAN DO Ot R22.2 LOCALIZED SWELLING, MASS AND LUMP, TRUNK 09/28/2015 SHAWNEE NARAYAN DO Ot E78.5 HYPERLIPIDEMIA, UNSPECIFIED 09/28/2015 SHAWNEE NARAYAN DO Ot I25.10 ATHSCL HEART DISEASE OF [place] CORONARY 09/28/2015 SHAWNEE NARAYAN DO, Ot J44.9 CHRONIC OBSTRUCTIVE PULMONARY DISEASE, U 09/28/2015 SHAWNEE NARAYAN DO Ot K21.9 GASTRO-ESOPHAGEAL REFLUX DISEASE WITHOUT 09/28/2015 SHAWNEE NARAYAN DO Ot R22.2 LOCALIZED SWELLING, MASS AND LUMP, TRUNK 10/09/2015 SHAWNEE NARAYAN DO Ot F17.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, UNSPECIFIED, UNCOMP 10/09/2015 SHAWNEE NARAYAN DO, Ot J44.9 CHRONIC OBSTRUCTIVE PULMONARY DISEASE, U 10/09/2015 SHAWNEE NARAYAN DO Ot J98.4 OTHER DISORDERS OF LUNG 10/09/2015 SHAWNEE NARAYAN DO Ot R06.09 OTHER FORMS OF DYSPNEA 10/09/2015 SHAWNEE NARAYAN DO Ot R91.8 OTHER NONSPECIFIC ABNORMAL FINDING OF MULU 10/13/2015 SHAWNEE NARAYAN DO Ot I25.10 ATHSCL HEART DISEASE OF [place] CORONARY 10/13/2015 SHAWNEE NARAYAN DO, Ot J44.9 CHRONIC OBSTRUCTIVE PULMONARY DISEASE, U 10/13/2015 SHAWNEE NARAYAN DO Ot R91.8 OTHER NONSPECIFIC ABNORMAL FINDING OF MULU 10/13/2015 SHAWNEE NARAYAN DO Ot Z72.0 TOBACCO USE 10/18/2015 Ot 486 PNEUMONIA, ORGANISM NOS 10/18/2015 Ot V76.12 OTH SCREEN MAMMO-MALIGN NEOPLASM OF [place] 10/18/2015 Ot 786.2 COUGH 10/18/2015 Ot 786.09 RESPIRATORY ABNORM NEC 10/18/2015 Ot 786.2 COUGH 10/18/2015 Ot 272.4 HYPERLIPIDEMIA NEC/NOS 10/18/2015 Ot 413.9 ANGINA PECTORIS NEC/NOS 10/18/2015 Ot 414.00 CORON ATHEROSCLER NOS TYPE VESSEL, NATIV 10/18/2015 Ot 786.05 SHORTNESS OF BREATH 10/18/2015 Ot 997.2 SURG COMP- STEVIE VASC SYST 10/18/2015 Ot 997.2 SURG COMP- STEVIE VASC SYST 10/18/2015 Ot V72.84 EXAM PRE- OPERATIVE NOS 10/18/2015 Ot 793.82 INCONCLUSIVE MAMMOGRAM 10/18/2015 Ot V76.12 OTH SCREEN MAMMO-MALIGN NEOPLASM OF [place] 10/18/2015 Ot 793.80 UNSPEC ABNORMAL MAMMOGRAM 10/18/2015 BÁRBARA HONEYCUTT MUSIC VIDEO DIRECTOR Ot 793.89 OTH (ABN) FINDINGS ON RADIOLOGICAL EXAMI 10/18/2015 SARAH PARDO, JESUS Meza Ot 496 CHR AIRWAY OBSTRUCT NEC 10/18/2015 BÁRBARA HONEYCUTT MUSIC VIDEO DIRECTOR Ot 486 PNEUMONIA, ORGANISM NOS 10/18/2015 BÁRBARA HONEYCUTT MUSIC VIDEO DIRECTOR Ot 786.05 SHORTNESS OF BREATH 10/18/2015 BÁRBARA HONEYCUTT MUSIC VIDEO DIRECTOR Ot 793.89 OTH (ABN) FINDINGS ON RADIOLOGICAL EXAMI 10/18/2015 JESUS SMITH MD Ot V76.12 OTH SCREEN MAMMO-MALIGN NEOPLASM OF [place] 10/18/2015 SHAWNEE NARAYAN DO Ot F17.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, UNSPECIFIED, UNCOMP 10/18/2015 SHAWNEE NARAYAN DO Ot J44.9 CHRONIC OBSTRUCTIVE PULMONARY DISEASE, U 10/18/2015 SHAWNEE NARAYAN DO Ot J98.4 OTHER DISORDERS OF LUNG 10/18/2015 SHAWNEE NARAYAN DO Ot R06.09 OTHER FORMS OF DYSPNEA 10/18/2015 SHAWNEE NARAYAN DO Ot R91.8 OTHER NONSPECIFIC ABNORMAL FINDING OF MULU 10/18/2015 SHAWNEE NARAAYN DO Ot F17.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, UNSPECIFIED, UNCOMP 10/18/2015 SHAWNEE NARAYAN DO Ot J44.9 CHRONIC OBSTRUCTIVE PULMONARY DISEASE, U 10/18/2015 SHAWNEE NARAYAN DO Ot R06.09 OTHER FORMS OF DYSPNEA 10/18/2015 SHAWNEE NARAYAN DO Ot R91.8 OTHER NONSPECIFIC ABNORMAL FINDING OF MULU 10/18/2015 SHAWNEE NARAYAN DO Ot Z01.818 ENCOUNTER FOR OTHER PREPROCEDURAL EXAMIN 10/18/2015 SHAWNEE NARAYAN DO Ot I25.10 ATHSCL HEART DISEASE OF [place] CORONARY 10/18/2015 SHAWNEE NARAYAN DO Ot J44.9 CHRONIC OBSTRUCTIVE PULMONARY DISEASE, U 10/18/2015 SHAWNEE NARAYAN DO Ot R91.8 OTHER NONSPECIFIC ABNORMAL FINDING OF MULU 10/18/2015 SHAWNEE NARAYAN DO Ot Z72.0 TOBACCO USE 10/18/2015 DEAN TORIBIO N Ot C34.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 OF UPPER LOBE, RIGHT 10/18/2015 DEAN TORIBIO Ot E78.0 PURE HYPERCHOLESTEROLEMIA 10/18/2015 DEAN TORIBIO N Ot F17.210 NICOTINE DEPENDENCE, CIGARETTES, UNCOMPL 10/18/2015 DEAN TORIBIO N Ot J44.9 CHRONIC OBSTRUCTIVE PULMONARY DISEASE, U 10/18/2015 DEAN TORIBIO N Ot Z79.02 CUSTODIAL (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 OF 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 10/18/2015 DEAN TORIBIO N Ot Z79.899 OTHER CUSTODIAL (CURRENT) DRUG THERAPY 10/18/2015 DEAN TORIBIO N Ot Z99.81 DEPENDENCE ON SUPPLEMENTAL OXYGEN 10/18/2015 CARLINE YANG MD, Ot C34.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 OF UPPER LOBE, RIGHT 10/18/2015 CARLINE YANG MD, Ot Z01.818 ENCOUNTER FOR OTHER PREPROCEDURAL EXAMIN 10/18/2015 CARLINE YANG MD Ot Z11.2 ENCOUNTER FOR SCREENING FOR OTHER BACTER 10/18/2015 DEAN TORIBIO N Ot C34.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 OF UPPER LOBE, RIGHT 10/18/2015 DEAN TORIBIO Ot E78.0 PURE HYPERCHOLESTEROLEMIA 10/18/2015 DEAN TORIBIO Ot F17.210 NICOTINE DEPENDENCE, CIGARETTES, UNCOMPL 10/18/2015 DEAN TORIBIO Ot J44.9 CHRONIC OBSTRUCTIVE PULMONARY DISEASE, U 10/18/2015 DEAN TORIBIO N Ot Z79.02 CLERICAL ORDER FILLER (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 OF 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 10/18/2015 DEAN TORIBIO N Ot Z79.899 OTHER CUSTODIAL (CURRENT) DRUG THERAPY 10/18/2015 DEAN TORIBIO N Ot Z99.81 DEPENDENCE ON SUPPLEMENTAL OXYGEN 10/19/2015 CARLINE YANG MD, Ot C34.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 OF UPPER LOBE, RIGHT 10/20/2015 CARLINE YANG MD, Ot C34.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 OF UPPER LOBE, RIGHT 10/20/2015 CARLINE YANG MD, Ot Z01.818 ENCOUNTER FOR OTHER PREPROCEDURAL EXAMIN 10/20/2015 CARLINE YANG MD Ot Z11.2 ENCOUNTER FOR SCREENING FOR OTHER BACTER 10/20/2015 SHAWNEE NARAYAN DO Ot F17.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, UNSPECIFIED, UNCOMP 10/20/2015 SHAWNEE NARAYAN DO Ot J44.9 CHRONIC OBSTRUCTIVE PULMONARY DISEASE, U 10/20/2015 SHAWNEE NARAYAN DO Ot J98.4 OTHER DISORDERS OF LUNG 10/20/2015 SHAWNEE NARAYAN DO Ot R06.09 OTHER FORMS OF DYSPNEA 10/20/2015 SHAWNEE NARAYAN DO Ot R91.8 OTHER NONSPECIFIC ABNORMAL FINDING OF MULU 10/23/2015 CARLINE YANG MD Ot C34.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 OF UPPER LOBE, RIGHT 11/03/2015 SHAWNEE NARAYAN DO Ot I25.10 ATHSCL HEART DISEASE OF [place] CORONARY 11/03/2015 SHAWNEE NARAYAN DO Ot J44.9 CHRONIC OBSTRUCTIVE PULMONARY DISEASE, U 11/03/2015 SHAWNEE NARAYAN DO Ot R91.8 OTHER NONSPECIFIC ABNORMAL FINDING OF MULU 11/03/2015 SHAWNEE NARAYAN DO Ot Z72.0 TOBACCO USE 11/16/2015 SHAWNEE NARAYAN DO Ot I25.10 ATHSCL HEART DISEASE OF [place] CORONARY 11/16/2015 SHAWNEE NARAYAN DO Ot J44.9 CHRONIC OBSTRUCTIVE PULMONARY DISEASE, U 11/16/2015 SHAWNEE NARAYAN DO Ot R91.8 OTHER NONSPECIFIC ABNORMAL FINDING OF MULU 11/16/2015 SHAWNEE NARAYAN DO Ot Z72.0 TOBACCO USE 11/16/2015 DEAN TORIBIO Ot C34.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 OF UPPER LOBE, RIGHT 11/16/2015 DEAN TORIBIO Ot E78.0 PURE HYPERCHOLESTEROLEMIA 11/16/2015 DEAN TORIBIO Ot F17.210 NICOTINE DEPENDENCE, CIGARETTES, UNCOMPL 11/16/2015 DEAN TORIBIO Ot J44.9 CHRONIC OBSTRUCTIVE PULMONARY DISEASE, U 11/16/2015 DEAN TORIBIO Ot Z79.02 CLERICAL ORDER FILLER (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 OF 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 11/16/2015 DEAN TORIBIO Ot Z79.899 OTHER CLERICAL ORDER FILLER (CURRENT) DRUG THERAPY 11/16/2015 DEAN TORIBIO Ot Z99.81 DEPENDENCE ON SUPPLEMENTAL OXYGEN 11/21/2015 DEAN TORIBIO Ot C34.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 OF UPPER LOBE, RIGHT 11/21/2015 MALUDEAN N Ot E78.0 PURE HYPERCHOLESTEROLEMIA 11/21/2015 MALUDEAN N Ot F17.210 NICOTINE DEPENDENCE, CIGARETTES, UNCOMPL 11/21/2015 DEAN TORIBIO N Ot J44.9 CHRONIC OBSTRUCTIVE PULMONARY DISEASE, U 11/21/2015 MALUDEAN N Ot Z79.02 CUSTODIAL (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 OF 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 11/21/2015 MALU BOBMARK N Ot Z79.899 OTHER CLERICAL ORDER FILLER (CURRENT) DRUG THERAPY 11/21/2015 MALUDEAN N Ot Z99.81 DEPENDENCE ON SUPPLEMENTAL OXYGEN 11/27/2015 MALUDEAN N Ot C34.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 OF UPPER LOBE, RIGHT 11/27/2015 MALUDEAN N Ot E78.0 PURE HYPERCHOLESTEROLEMIA 11/27/2015 MALUDEAN N Ot F17.210 NICOTINE DEPENDENCE, CIGARETTES, UNCOMPL 11/27/2015 MALUDEAN LEYVA N Ot J44.9 CHRONIC OBSTRUCTIVE PULMONARY DISEASE, U 11/27/2015 MALUDEAN N Ot Z79.02 CLERICAL ORDER FILLER (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 OF 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 11/27/2015 MALU BOBMARK N Ot Z79.899 OTHER CLERICAL ORDER FILLER (CURRENT) DRUG THERAPY 11/27/2015 MALU, DEAN N Ot Z99.81 DEPENDENCE ON SUPPLEMENTAL OXYGEN 11/29/2015 DEAN TORIBIO N Ot C34.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 OF UPPER LOBE, RIGHT 11/29/2015 MALUDEAN N Ot E78.0 PURE HYPERCHOLESTEROLEMIA * DO NOT USE * 11/29/2015 DEAN TORIBIO N Ot F17.210 NICOTINE DEPENDENCE, CIGARETTES, UNCOMPL 11/29/2015 DEAN TORIBIO N Ot J44.9 CHRONIC OBSTRUCTIVE PULMONARY DISEASE, U 11/29/2015 MALUDEAN N Ot Z79.02 CLERICAL ORDER FILLER (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 OF 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 11/29/2015 MALU, BOBAN N Ot Z79.899 OTHER CLERICAL ORDER FILLER (CURRENT) DRUG THERAPY 11/29/2015 MALU, BOBAN N Ot Z99.81 DEPENDENCE ON SUPPLEMENTAL OXYGEN 11/29/2015 JESUS SMITH MD Ot E78.4 OTHER HYPERLIPIDEMIA 11/29/2015 JESUS SMITH MD Ot I25.10 ATHSCL HEART DISEASE OF [place] CORONARY 11/29/2015 JESUS SMITH MD Ot J44.9 CHRONIC OBSTRUCTIVE PULMONARY DISEASE, U 11/29/2015 JESUS SMITH MD Ot Z79.899 OTHER CUSTODIAL (CURRENT) DRUG THERAPY 12/01/2015 JESUS SMITH MD Ot E78.4 OTHER HYPERLIPIDEMIA 12/01/2015 JESUS SMITH MD, Ot I25.10 ATHSCL HEART DISEASE OF [place] CORONARY 12/01/2015 JESUS SMITH MD Ot J44.9 CHRONIC OBSTRUCTIVE PULMONARY DISEASE, U 12/01/2015 JESUS SMITH MD Ot Z79.899 OTHER CLERICAL ORDER FILLER (CURRENT) DRUG THERAPY 12/07/2015 JESUS SMITH MD Ot E78.4 OTHER HYPERLIPIDEMIA 12/07/2015 JESUS SMITH MD Ot I25.10 ATHSCL HEART DISEASE OF [place] CORONARY 12/07/2015 JESUS SMITH MD, Ot J44.9 CHRONIC OBSTRUCTIVE PULMONARY DISEASE, U 12/07/2015 JESUS SMITH MD Ot Z79.899 OTHER CUSTODIAL (CURRENT) DRUG THERAPY 12/07/2015 JESUS SMITH MD, Ot E78.4 OTHER HYPERLIPIDEMIA 12/07/2015 JESUS SMITH MD Ot I25.10 ATHSCL HEART DISEASE OF [place] CORONARY 12/07/2015 JESUS SMITH MD, Ot J44.9 CHRONIC OBSTRUCTIVE PULMONARY DISEASE, U 12/07/2015 JESUS SMITH MD Ot Z79.899 OTHER CUSTODIAL (CURRENT) DRUG THERAPY 12/07/2015 JESUS SMITH MD Ot E78.4 OTHER HYPERLIPIDEMIA 12/07/2015 JESUS SMITH MD Ot I25.10 ATHSCL HEART DISEASE OF [place] CORONARY 12/07/2015 JESUS SMITH MD, Ot J44.9 CHRONIC OBSTRUCTIVE PULMONARY DISEASE, U 12/07/2015 JESUS SMITH MD Ot Z79.899 OTHER CUSTODIAL (CURRENT) DRUG THERAPY 12/07/2015 JESUS SMITH MD Ot E78.4 OTHER HYPERLIPIDEMIA 12/07/2015 JESUS SMITH MD Ot I25.10 ATHSCL HEART DISEASE OF [place] CORONARY 12/07/2015 JESUS SMITH MD, Ot J44.9 CHRONIC OBSTRUCTIVE PULMONARY DISEASE, U 12/07/2015 JESUS SMITH MD Ot Z79.899 OTHER CLERICAL ORDER FILLER (CURRENT) DRUG THERAPY 12/08/2015 JESUS SMITH MD Ot E78.4 OTHER HYPERLIPIDEMIA 12/08/2015 JESUS SMITH MD Ot I25.10 ATHSCL HEART DISEASE OF [place] CORONARY 12/08/2015 JESUS SMITH MD Ot J44.9 CHRONIC OBSTRUCTIVE PULMONARY DISEASE, U 12/08/2015 JESUS SMITH MD Ot Z79.899 OTHER CUSTODIAL (CURRENT) DRUG THERAPY 12/13/2015 JESUS SMITH MD, Ot R73.9 HYPERGLYCEMIA, UNSPECIFIED 12/20/2015 DEAN TORIBIO Ot C34.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 OF UPPER LOBE, RIGHT 12/20/2015 DEAN TORIBIO Ot E78.00 PURE HYPERCHOLESTEROLEMIA, UNSPECIFIED 12/20/2015 DEAN TORIBIO Ot F17.210 NICOTINE DEPENDENCE, CIGARETTES, UNCOMPL 12/20/2015 DEAN TORIBIO Ot J44.9 CHRONIC OBSTRUCTIVE PULMONARY DISEASE, U 12/20/2015 DEAN TORIBIO Ot Z51.11 ENCOUNTER FOR ANTINEOPLASTIC CHEMOTHERAP 12/20/2015 DEAN TORIBIO Ot Z79.02 CUSTODIAL (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 OF 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 12/20/2015 DEAN TORIBIO Ot Z79.899 OTHER CLERICAL ORDER FILLER (CURRENT) DRUG THERAPY 12/20/2015 DEAN TORIBIO Ot Z99.81 DEPENDENCE ON SUPPLEMENTAL OXYGEN 12/20/2015 JESUS SMITH MD, Ot E78.4 OTHER HYPERLIPIDEMIA 12/20/2015 JESUS SMITH MD Ot I25.10 ATHSCL HEART DISEASE OF [place] CORONARY 12/20/2015 JESUS SMITH MD, Ot J44.9 CHRONIC OBSTRUCTIVE PULMONARY DISEASE, U 12/20/2015 JESUS SMITH MD, Ot Z79.899 OTHER CLERICAL ORDER FILLER (CURRENT) DRUG THERAPY 12/21/2015 JESUS SMITH MD, Ot R73.9 HYPERGLYCEMIA, UNSPECIFIED 12/21/2015 JESUS SMITH MD Ot R73.9 HYPERGLYCEMIA, UNSPECIFIED 12/21/2015 JESUS SMITH MD, Ot R73.9 HYPERGLYCEMIA, UNSPECIFIED 12/21/2015 JESUS SMITH MD, Ot E78.4 OTHER HYPERLIPIDEMIA 12/21/2015 JESUS SMITH MD Ot I25.10 ATHSCL HEART DISEASE OF [place] CORONARY 12/21/2015 JESUS SMITH MD, Ot J44.9 CHRONIC OBSTRUCTIVE PULMONARY DISEASE, U 12/21/2015 JESUS SMITH MD Ot Z79.899 OTHER CUSTODIAL (CURRENT) DRUG THERAPY 12/21/2015 JESUS SMITH MD, Ot R73.9 HYPERGLYCEMIA, UNSPECIFIED 12/25/2015 JESUS SMITH MD Ot R73.9 HYPERGLYCEMIA, UNSPECIFIED 12/25/2015 JESUS SMITH MD Ot R73.9 HYPERGLYCEMIA, UNSPECIFIED 12/26/2015 JESUS SMITH MD Ot R73.9 HYPERGLYCEMIA, UNSPECIFIED 01/02/2016 JESUS SMITH MD Ot R73.9 HYPERGLYCEMIA, UNSPECIFIED 01/03/2016 JESUS SMITH MD Ot E78.4 OTHER HYPERLIPIDEMIA 01/03/2016 JESUS SMITH MD Ot I25.10 ATHSCL HEART DISEASE OF [place] CORONARY 01/03/2016 JESUS SMITH MD Ot J44.9 CHRONIC OBSTRUCTIVE PULMONARY DISEASE, U 01/03/2016 JESUS SMITH MD Ot Z79.899 OTHER CUSTODIAL (CURRENT) DRUG THERAPY 01/11/2016 JESUS SMITH MD Ot R73.9 HYPERGLYCEMIA, UNSPECIFIED 02/18/2016 Ot V76.12 OTH SCREEN MAMMO-MALIGN NEOPLASM OF [place] 02/18/2016 Ot 786.2 COUGH 02/18/2016 Ot 786.09 RESPIRATORY ABNORM NEC 02/18/2016 Ot 786.2 COUGH 02/18/2016 Ot 272.4 HYPERLIPIDEMIA NEC/NOS 02/18/2016 Ot 413.9 ANGINA PECTORIS NEC/NOS 02/18/2016 Ot 414.00 CORON ATHEROSCLER NOS TYPE VESSEL, NATIV 02/18/2016 Ot 786.05 SHORTNESS OF BREATH 02/18/2016 Ot 997.2 SURG COMP- STEVIE VASC SYST 02/18/2016 Ot 997.2 SURG COMP- STEVIE VASC SYST 02/18/2016 Ot V72.84 EXAM PRE- OPERATIVE NOS 02/18/2016 Ot 793.82 INCONCLUSIVE MAMMOGRAM 02/18/2016 Ot V76.12 OTH SCREEN MAMMO-MALIGN NEOPLASM OF [place] 02/18/2016 Ot 793.80 UNSPEC ABNORMAL MAMMOGRAM 02/18/2016 BÁRBARA HONEYCUTT MUSIC VIDEO DIRECTOR Ot 793.89 OTH (ABN) FINDINGS ON RADIOLOGICAL EXAMI 02/18/2016 JESUS SMITH MD Ot 496 CHR AIRWAY OBSTRUCT NEC 02/18/2016 BÁRBARA HONEYCUTT MUSIC VIDEO DIRECTOR Ot 486 PNEUMONIA, ORGANISM NOS 02/18/2016 BÁRBARA HONEYCUTT MUSIC VIDEO DIRECTOR Ot 786.05 SHORTNESS OF BREATH 02/18/2016 BÁRBARA HONEYCUTT MUSIC VIDEO DIRECTOR Ot 793.89 OTH (ABN) FINDINGS ON RADIOLOGICAL EXAMI 02/18/2016 JESUS SMITH MD Ot V76.12 OTH SCREEN MAMMO-MALIGN NEOPLASM OF [place] 02/18/2016 SHAWNEE NARAYAN DO Ot F17.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, UNSPECIFIED, UNCOMP 02/18/2016 SHAWNEE NARAYAN DO Ot J44.9 CHRONIC OBSTRUCTIVE PULMONARY DISEASE, U 02/18/2016 SHAWNEE NARAYAN DO Ot J98.4 OTHER DISORDERS OF LUNG 02/18/2016 SHAWNEE NARAYAN DO Ot R06.09 OTHER FORMS OF DYSPNEA 02/18/2016 SHAWNEE NARAYAN DO Ot R91.8 OTHER NONSPECIFIC ABNORMAL FINDING OF MULU 02/18/2016 SHAWNEE NARAYAN DO Ot F17.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, UNSPECIFIED, UNCOMP 02/18/2016 SHAWNEE NARAYAN DO Ot J44.9 CHRONIC OBSTRUCTIVE PULMONARY DISEASE, U 02/18/2016 SHAWNEE NARAYAN DO Ot R06.09 OTHER FORMS OF DYSPNEA 02/18/2016 SHAWNEE NARAYAN DO Ot R91.8 OTHER NONSPECIFIC ABNORMAL FINDING OF MULU 02/18/2016 SHAWNEE NARAYAN DO Ot Z01.818 ENCOUNTER FOR OTHER PREPROCEDURAL EXAMIN 02/18/2016 SHAWNEE NARAYAN DO Ot I25.10 ATHSCL HEART DISEASE OF [place] CORONARY 02/18/2016 SHAWNEE NARAYAN DO Ot J44.9 CHRONIC OBSTRUCTIVE PULMONARY DISEASE, U 02/18/2016 SHAWNEE NARAYAN DO Ot R91.8 OTHER NONSPECIFIC ABNORMAL FINDING OF MULU 02/18/2016 SHAWNEE NARAYAN DO Ot Z72.0 TOBACCO USE 02/18/2016 JESUS SMITH MD Ot E78.4 OTHER HYPERLIPIDEMIA 02/18/2016 JESUS SMITH MD Ot I25.10 ATHSCL HEART DISEASE OF [place] CORONARY 02/18/2016 JESUS SMITH MD Ot J44.9 CHRONIC OBSTRUCTIVE PULMONARY DISEASE, U 02/18/2016 JESUS SMITH MD Ot Z79.899 OTHER CUSTODIAL (CURRENT) DRUG THERAPY 02/18/2016 DEAN TORIBIO Ot C34.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 OF UPPER LOBE, RIGHT 02/18/2016 DEAN TORIBIO Ot E78.00 PURE HYPERCHOLESTEROLEMIA, UNSPECIFIED 02/18/2016 DEAN TORIBIO Ot F17.210 NICOTINE DEPENDENCE, CIGARETTES, UNCOMPL 02/18/2016 DEAN TORIBIO Ot J44.9 CHRONIC OBSTRUCTIVE PULMONARY DISEASE, U 02/18/2016 DEAN TORIBIO Ot Z51.11 ENCOUNTER FOR ANTINEOPLASTIC CHEMOTHERAP 02/18/2016 DEAN TORIBIO Ot Z79.02 CLERICAL ORDER FILLER (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 OF 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 02/18/2016 DEAN TORIBIO Ot Z79.899 OTHER CUSTODIAL (CURRENT) DRUG THERAPY 02/18/2016 DEAN TORIBIO Ot Z99.81 DEPENDENCE ON SUPPLEMENTAL OXYGEN 02/18/2016 SARAH PARDO, JESUS Meza Ot R73.9 HYPERGLYCEMIA, UNSPECIFIED 02/22/2016 LISA VICTOR MD, Ot C34.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 OF UPPER LOBE, RIGHT 02/22/2016 LISA VICTOR MD Ot E09.65 DRUG OR CHEMICAL INDUCED DIABETES MELLIT 02/22/2016 LISA VICTOR MD Ot E78.00 PURE HYPERCHOLESTEROLEMIA, UNSPECIFIED 02/22/2016 LISA VICTOR MD Ot F17.210 NICOTINE DEPENDENCE, CIGARETTES, UNCOMPL 02/22/2016 LISA VICTOR MD Ot I10 ESSENTIAL (PRIMARY) HYPERTENSION 02/22/2016 LISA VICTOR MD Ot I25.10 ATHSCL HEART DISEASE OF [place] CORONARY 02/22/2016 LISA VICTOR MD Ot J20.8 ACUTE BRONCHITIS DUE TO OTHER SPECIFIED 02/22/2016 LISA VICTOR MD, Ot J44.0 CHRONIC OBSTRUCTIVE PULMON DISEASE W ACU 02/22/2016 LISA VICTOR MD, Ot J44.1 CHRONIC OBSTRUCTIVE PULMONARY DISEASE W 02/22/2016 LISA VICTOR MD Ot J45.909 UNSPECIFIED ASTHMA, UNCOMPLICATED 02/22/2016 LISA VICTOR MD Ot K21.9 GASTRO-ESOPHAGEAL REFLUX DISEASE WITHOUT 02/22/2016 LISA VICTOR MD Ot K59.00 CONSTIPATION, UNSPECIFIED 02/22/2016 LISA VICTOR MD, Ot M19.90 UNSPECIFIED OSTEOARTHRITIS, UNSPECIFIED 02/22/2016 LISA VICTOR MD, Ot M54.9 DORSALGIA, UNSPECIFIED 02/22/2016 LISA VICTOR MD Ot R00.0 TACHYCARDIA, UNSPECIFIED 02/22/2016 LISA VICTOR MD, Ot T38.0X5A ADVERSE EFFECT OF GLUCOCORT/SYNTH ANALOG 02/22/2016 KAYLEIGH PARDO, LISA Diallo Ot Z92.3 PERSONAL HISTORY OF IRRADIATION 02/22/2016 LISA VICTOR MD Ot Z99.81 DEPENDENCE ON SUPPLEMENTAL OXYGEN 02/22/2016 DEAN TORIBIO N Ot C34.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 OF UPPER LOBE, RIGHT 02/22/2016 DEAN TORIBIO Rashad Ot E78.00 PURE HYPERCHOLESTEROLEMIA, UNSPECIFIED 02/22/2016 MALUDEAN N Ot F17.210 NICOTINE DEPENDENCE, CIGARETTES, UNCOMPL 02/22/2016 DEAN TORIBIO N Ot J44.9 CHRONIC OBSTRUCTIVE PULMONARY DISEASE, U 02/22/2016 MALU, RUPERTMARK N Ot Z51.11 ENCOUNTER FOR ANTINEOPLASTIC CHEMOTHERAP 02/22/2016 MALUDEAN LEYVA N Ot Z79.02 CLERICAL ORDER FILLER (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 OF 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 02/22/2016 MALUDEAN N Ot Z79.899 OTHER CUSTODIAL (CURRENT) DRUG THERAPY 02/22/2016 MALUDEAN LEYVA N Ot Z99.81 DEPENDENCE ON SUPPLEMENTAL OXYGEN 02/26/2016 DEAN TORIBIO N Ot C34.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 OF UPPER LOBE, RIGHT 02/26/2016 MALUDEAN N Ot E78.00 PURE HYPERCHOLESTEROLEMIA, UNSPECIFIED 02/26/2016 MALU DEAN N Ot F17.210 NICOTINE DEPENDENCE, CIGARETTES, UNCOMPL 02/26/2016 DEAN TORIBIO N Ot J44.9 CHRONIC OBSTRUCTIVE PULMONARY DISEASE, U 02/26/2016 MALUDEAN LEYVA N Ot Z51.11 ENCOUNTER FOR ANTINEOPLASTIC CHEMOTHERAP 02/26/2016 MALU DEAN N Ot Z79.02 CLERICAL ORDER FILLER (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 OF 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 02/26/2016 MALU BOBMARK N Ot Z79.899 OTHER CUSTODIAL (CURRENT) DRUG THERAPY 02/26/2016 MALU DEAN N Ot Z99.81 DEPENDENCE ON SUPPLEMENTAL OXYGEN 02/27/2016 DEAN TORIBIO N Ot C34.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 OF UPPER LOBE, RIGHT 02/27/2016 MALUDEAN N Ot E78.00 PURE HYPERCHOLESTEROLEMIA, UNSPECIFIED 02/27/2016 MALU BOBMARK N Ot F17.210 NICOTINE DEPENDENCE, CIGARETTES, UNCOMPL 02/27/2016 MALU RUPERTMARK N Ot J44.9 CHRONIC OBSTRUCTIVE PULMONARY DISEASE, U 02/27/2016 MALU DEAN N Ot Z51.11 ENCOUNTER FOR ANTINEOPLASTIC CHEMOTHERAP 02/27/2016 MALU DEAN N Ot Z79.02 CLERICAL ORDER FILLER (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 OF 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 02/27/2016 MALU DEAN N Ot Z79.899 OTHER CUSTODIAL (CURRENT) DRUG THERAPY 02/27/2016 MALU DEAN N Ot Z99.81 DEPENDENCE ON SUPPLEMENTAL OXYGEN 03/02/2016 MALU DEAN N Ot C34.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 OF UPPER LOBE, RIGHT 03/02/2016 MALU DEAN N Ot E78.00 PURE HYPERCHOLESTEROLEMIA, UNSPECIFIED 03/02/2016 MALUDEAN N Ot F17.210 NICOTINE DEPENDENCE, CIGARETTES, UNCOMPL 03/02/2016 MALU DEAN N Ot J44.9 CHRONIC OBSTRUCTIVE PULMONARY DISEASE, U 03/02/2016 MALU DEAN N Ot Z51.11 ENCOUNTER FOR ANTINEOPLASTIC CHEMOTHERAP 03/02/2016 MALUDEAN N Ot Z79.02 CLERICAL ORDER FILLER (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 OF 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 03/02/2016 MALU, DEAN N Ot Z79.899 OTHER CUSTODIAL (CURRENT) DRUG THERAPY 03/02/2016 MALU RUPERTMARK N Ot Z99.81 DEPENDENCE ON SUPPLEMENTAL OXYGEN 03/06/2016 MALU RUPERTMARK N Ot C34.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 OF UPPER LOBE, RIGHT 03/11/2016 MALU DEAN N Ot C34.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 OF UPPER LOBE, RIGHT 04/03/2016 MALUDEAN N Ot C34.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 OF UPPER LOBE, RIGHT 04/03/2016 MALU DEAN N Ot E78.00 PURE HYPERCHOLESTEROLEMIA, UNSPECIFIED 04/03/2016 MALUDEAN N Ot F17.210 NICOTINE DEPENDENCE, CIGARETTES, UNCOMPL 04/03/2016 DEAN TORIBIO N Ot J44.9 CHRONIC OBSTRUCTIVE PULMONARY DISEASE, U 04/03/2016 MALUDEAN N Ot Z51.11 ENCOUNTER FOR ANTINEOPLASTIC CHEMOTHERAP 04/03/2016 MALUDEAN N Ot Z79.02 CLERICAL ORDER FILLER (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 OF 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 04/03/2016 MALUDEAN N Ot Z79.899 OTHER CUSTODIAL (CURRENT) DRUG THERAPY 04/03/2016 DEAN TORIBIO N Ot Z99.81 DEPENDENCE ON SUPPLEMENTAL OXYGEN 04/18/2016 DEAN TORIBIO N Ot C34.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 OF UPPER LOBE, RIGHT 05/08/2016 DEAN TORIBIO N Ot C34.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 OF UPPER LOBE, RIGHT 05/10/2016 MALU RUPERTMARK N Ot C34.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 OF UPPER LOBE, RIGHT 05/10/2016 MALU DEAN N Ot E78.00 PURE HYPERCHOLESTEROLEMIA, UNSPECIFIED 05/10/2016 MALU DEAN N Ot F17.210 NICOTINE DEPENDENCE, CIGARETTES, UNCOMPL 05/10/2016 MALU DEAN N Ot J44.9 CHRONIC OBSTRUCTIVE PULMONARY DISEASE, U 05/10/2016 MALU RUPERTMARK N Ot Z51.11 ENCOUNTER FOR ANTINEOPLASTIC CHEMOTHERAP 05/10/2016 MALU RUPERTMARK N Ot Z79.02 CUSTODIAL (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 OF 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 05/10/2016 MALUDEAN N Ot Z79.899 OTHER CLERICAL ORDER FILLER (CURRENT) DRUG THERAPY 05/10/2016 MALU RUPERTMARK N Ot Z99.81 DEPENDENCE ON SUPPLEMENTAL OXYGEN 05/24/2016 MALU RUPERTMARK N Ot C34.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 OF UPPER LOBE, RIGHT 05/24/2016 MALU DEAN N Ot E78.00 PURE HYPERCHOLESTEROLEMIA, UNSPECIFIED 05/24/2016 MALUDEAN N Ot F17.210 NICOTINE DEPENDENCE, CIGARETTES, UNCOMPL 05/24/2016 MALU RUPERTMARK N Ot J44.9 CHRONIC OBSTRUCTIVE PULMONARY DISEASE, U 05/24/2016 MALU DEAN N Ot Z51.11 ENCOUNTER FOR ANTINEOPLASTIC CHEMOTHERAP 05/24/2016 MALUDEAN N Ot Z79.02 CLERICAL ORDER FILLER (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 OF 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 05/24/2016 MALUDEAN N Ot Z79.899 OTHER CUSTODIAL (CURRENT) DRUG THERAPY 05/24/2016 MALU DEAN N Ot Z99.81 DEPENDENCE ON SUPPLEMENTAL OXYGEN 05/28/2016 MALU DEAN N Ot C34.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 OF UPPER LOBE, RIGHT 05/28/2016 MALU DEAN N Ot E78.00 PURE HYPERCHOLESTEROLEMIA, UNSPECIFIED 05/28/2016 MALUDEAN N Ot F17.210 NICOTINE DEPENDENCE, CIGARETTES, UNCOMPL 05/28/2016 DEAN TORIBIO N Ot J44.9 CHRONIC OBSTRUCTIVE PULMONARY DISEASE, U 05/28/2016 DEAN TORIBIO N Ot Z51.11 ENCOUNTER FOR ANTINEOPLASTIC CHEMOTHERAP 05/28/2016 DEAN TORIBIO N Ot Z79.02 CUSTODIAL (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 OF 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 05/28/2016 DEAN TORIBIO N Ot Z79.899 OTHER CLERICAL ORDER FILLER (CURRENT) DRUG THERAPY 05/28/2016 DEAN TORIBIO N Ot Z99.81 DEPENDENCE ON SUPPLEMENTAL OXYGEN 05/29/2016 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 Ot C34.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 OF UPPER LOBE, RIGHT 05/29/2016 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 Ot C34.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 OF UPPER LOBE, RIGHT 05/29/2016 LAMAR VELÁZQUEZ S UNDERGROUND CONDUIT INSTALLER Ot C34.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 OF UPPER LOBE, RIGHT 05/31/2016 DEAN TORIBIO N Ot C34.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 OF UPPER LOBE, RIGHT 05/31/2016 DEAN TORIBIO N Ot E78.00 PURE HYPERCHOLESTEROLEMIA, UNSPECIFIED 05/31/2016 DEAN TORIBIO N Ot F17.210 NICOTINE DEPENDENCE, CIGARETTES, UNCOMPL 05/31/2016 DEAN TORIBIO Rashad Ot J44.9 CHRONIC OBSTRUCTIVE PULMONARY DISEASE, U 05/31/2016 DEAN TORIBIO N Ot Z51.11 ENCOUNTER FOR ANTINEOPLASTIC CHEMOTHERAP 05/31/2016 DEAN TORIBIO N Ot Z79.02 CLERICAL ORDER FILLER (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 OF 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 05/31/2016 DEAN TORIBIO N Ot Z79.899 OTHER CLERICAL ORDER FILLER (CURRENT) DRUG THERAPY 05/31/2016 DEAN TORIBIO N Ot Z99.81 DEPENDENCE ON SUPPLEMENTAL OXYGEN 07/01/2016 DEAN TORIBIO N Ot C34.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 OF UPPER LOBE, RIGHT 07/01/2016 DEAN TORIBIO N Ot E78.00 PURE HYPERCHOLESTEROLEMIA, UNSPECIFIED 07/01/2016 DEAN TORIBIO N Ot F17.210 NICOTINE DEPENDENCE, CIGARETTES, UNCOMPL 07/01/2016 DEAN TORIBIO N Ot J44.9 CHRONIC OBSTRUCTIVE PULMONARY DISEASE, U 07/01/2016 DEAN TORIBIO N Ot Z79.02 CLERICAL ORDER FILLER (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 OF 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 07/01/2016 DEAN TORIBIO N Ot Z79.899 OTHER CLERICAL ORDER FILLER (CURRENT) DRUG THERAPY 07/01/2016 DEAN TORIBIO N Ot Z99.81 DEPENDENCE ON SUPPLEMENTAL OXYGEN 07/16/2016 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 Ot C34.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 OF UPPER LOBE, RIGHT 07/19/2016 DEAN TORIBIO N Ot C34.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 OF UPPER LOBE, RIGHT 07/19/2016 MALUDEAN N Ot E78.00 PURE HYPERCHOLESTEROLEMIA, UNSPECIFIED 07/19/2016 MALUDEAN N Ot F17.210 NICOTINE DEPENDENCE, CIGARETTES, UNCOMPL 07/19/2016 MALU RUPERTMARK N Ot J44.9 CHRONIC OBSTRUCTIVE PULMONARY DISEASE, U 07/19/2016 MALUDEAN LEYVA N Ot Z79.02 CUSTODIAL (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 OF 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 07/19/2016 DEAN TORIBIO N Ot Z79.899 OTHER CUSTODIAL (CURRENT) DRUG THERAPY 07/19/2016 DEAN TORIBIO N Ot Z99.81 DEPENDENCE ON SUPPLEMENTAL OXYGEN 08/06/2016 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 Ot C34.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 OF UPPER LOBE, RIGHT 08/08/2016 MALUDEAN N Ot C34.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 OF UPPER LOBE, RIGHT 08/08/2016 DEAN TORIBIO N Ot E78.00 PURE HYPERCHOLESTEROLEMIA, UNSPECIFIED 08/08/2016 MALUDEAN N Ot F17.210 NICOTINE DEPENDENCE, CIGARETTES, UNCOMPL 08/08/2016 MALUDEAN N Ot J44.9 CHRONIC OBSTRUCTIVE PULMONARY DISEASE, U 08/08/2016 MALUDEAN N Ot Z79.02 CUSTODIAL (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 OF 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 08/08/2016 MALUDEAN N Ot Z79.899 OTHER CUSTODIAL (CURRENT) DRUG THERAPY 08/08/2016 MALUDEAN N Ot Z99.81 DEPENDENCE ON SUPPLEMENTAL OXYGEN 09/01/2016 MALUDEAN N Ot C34.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 OF UPPER LOBE, RIGHT 09/01/2016 MALUDEAN N Ot E78.00 PURE HYPERCHOLESTEROLEMIA, UNSPECIFIED 09/01/2016 MALUDEAN N Ot F17.210 NICOTINE DEPENDENCE, CIGARETTES, UNCOMPL 09/01/2016 MALU DEAN N Ot J44.9 CHRONIC OBSTRUCTIVE PULMONARY DISEASE, U 09/01/2016 DEAN TORIBIO Ot Z45.2 ENCOUNTER FOR ADJUSTMENT AND MANAGEMENT 09/01/2016 DEAN TORIBIO Ot Z79.02 CUSTODIAL (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 OF 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 09/01/2016 DEAN TORIBIO Ot Z79.899 OTHER CLERICAL ORDER FILLER (CURRENT) DRUG THERAPY 09/01/2016 DEAN TORIBIO Ot Z99.81 DEPENDENCE ON SUPPLEMENTAL OXYGEN 09/02/2016 Ot 786.2 COUGH 09/02/2016 Ot 786.09 RESPIRATORY ABNORM NEC 09/02/2016 Ot 786.2 COUGH 09/02/2016 Ot 272.4 HYPERLIPIDEMIA NEC/NOS 09/02/2016 Ot 413.9 ANGINA PECTORIS NEC/NOS 09/02/2016 Ot 414.00 CORON ATHEROSCLER NOS TYPE VESSEL, NATIV 09/02/2016 Ot 786.05 SHORTNESS OF BREATH 09/02/2016 Ot 997.2 SURG COMP- STEVIE VASC SYST 09/02/2016 Ot 997.2 SURG COMP- STEVIE VASC SYST 09/02/2016 Ot V72.84 EXAM PRE- OPERATIVE NOS 09/02/2016 Ot 793.82 INCONCLUSIVE MAMMOGRAM 09/02/2016 Ot V76.12 OTH SCREEN MAMMO-MALIGN NEOPLASM OF [place] 09/02/2016 Ot 793.80 UNSPEC ABNORMAL MAMMOGRAM 09/02/2016 BÁRBARA HONEYCUTT APRN Ot 793.89 OTH (ABN) FINDINGS ON RADIOLOGICAL EXAMI 09/02/2016 JESUS SMITH MD Ot 496 CHR AIRWAY OBSTRUCT NEC 09/02/2016 BÁRBARA HONEYCUTT APRN Ot 486 PNEUMONIA, ORGANISM NOS 09/02/2016 BÁRBARA HONEYCUTT APRN Ot 786.05 SHORTNESS OF BREATH 09/02/2016 BÁRBARA HONEYCUTT APRN Ot 793.89 OTH (ABN) FINDINGS ON RADIOLOGICAL EXAMI 09/02/2016 JESUS SMITH MD Ot V76.12 OTH SCREEN MAMMO-MALIGN NEOPLASM OF [place] 09/02/2016 SHAWNEE NARAYAN DO Ot F17.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, UNSPECIFIED, UNCOMP 09/02/2016 SHAWNEE NARAYAN DO Ot J44.9 CHRONIC OBSTRUCTIVE PULMONARY DISEASE, U 09/02/2016 SHAWNEE NARAYAN DO Ot J98.4 OTHER DISORDERS OF LUNG 09/02/2016 SHAWNEE NARAYAN DO Ot R06.09 OTHER FORMS OF DYSPNEA 09/02/2016 SHAWNEE NARAYAN DO Ot R91.8 OTHER NONSPECIFIC ABNORMAL FINDING OF MULU 09/02/2016 SHAWNEE NARAYAN DO Ot F17.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, UNSPECIFIED, UNCOMP 09/02/2016 SHAWNEE NARAYAN DO Ot J44.9 CHRONIC OBSTRUCTIVE PULMONARY DISEASE, U 09/02/2016 SHAWNEE NARAYAN DO Ot R06.09 OTHER FORMS OF DYSPNEA 09/02/2016 SHAWNEE NARAYAN DO Ot R91.8 OTHER NONSPECIFIC ABNORMAL FINDING OF MULU 09/02/2016 SHAWNEE NARAYAN DO Ot Z01.818 ENCOUNTER FOR OTHER PREPROCEDURAL EXAMIN 09/02/2016 SHAWNEE NARAYAN DO Ot I25.10 ATHSCL HEART DISEASE OF [place] CORONARY 09/02/2016 SHAWNEE NARAYAN DO Ot J44.9 CHRONIC OBSTRUCTIVE PULMONARY DISEASE, U 09/02/2016 SHAWNEE NARAYAN DO Ot R91.8 OTHER NONSPECIFIC ABNORMAL FINDING OF MULU 09/02/2016 SHAWNEE NARAYAN DO Ot Z72.0 TOBACCO USE 09/02/2016 JESUS SMITH MD Ot E78.4 OTHER HYPERLIPIDEMIA 09/02/2016 JESUS SMITH MD Ot I25.10 ATHSCL HEART DISEASE OF [place] CORONARY 09/02/2016 JESUS SMITH MD Ot J44.9 CHRONIC OBSTRUCTIVE PULMONARY DISEASE, U 09/02/2016 JESUS SMITH MD Ot Z79.899 OTHER CLERICAL ORDER FILLER (CURRENT) DRUG THERAPY 09/02/2016 JESUS SMITH MD Ot R73.9 HYPERGLYCEMIA, UNSPECIFIED 09/02/2016 DEAN TORIBIO Ot C34.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 OF UPPER LOBE, RIGHT 09/02/2016 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 Ot C34.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 OF UPPER LOBE, RIGHT 09/02/2016 DEAN TORIBIO Ot C34.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 OF UPPER LOBE, RIGHT 09/02/2016 DEAN TORIBIO Ot E78.00 PURE HYPERCHOLESTEROLEMIA, UNSPECIFIED 09/02/2016 DEAN TORIBIO Ot F17.210 NICOTINE DEPENDENCE, CIGARETTES, UNCOMPL 09/02/2016 DEAN TORIBIO Ot J44.9 CHRONIC OBSTRUCTIVE PULMONARY DISEASE, U 09/02/2016 DEAN TORIBIO Ot Z79.02 CUSTODIAL (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 OF 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 09/02/2016 DEAN TORIBIO Ot Z79.899 OTHER CUSTODIAL (CURRENT) DRUG THERAPY 09/02/2016 DEAN TORIBIO Ot Z99.81 DEPENDENCE ON SUPPLEMENTAL OXYGEN 09/04/2016 Ot 786.2 COUGH 09/04/2016 Ot 786.09 RESPIRATORY ABNORM NEC 09/04/2016 Ot 786.2 COUGH 09/04/2016 Ot 272.4 HYPERLIPIDEMIA NEC/NOS 09/04/2016 Ot 413.9 ANGINA PECTORIS NEC/NOS 09/04/2016 Ot 414.00 CORON ATHEROSCLER NOS TYPE VESSEL, NATIV 09/04/2016 Ot 786.05 SHORTNESS OF BREATH 09/04/2016 Ot 997.2 SURG COMP- STEVIE VASC SYST 09/04/2016 Ot 997.2 SURG COMP- STEVIE VASC SYST 09/04/2016 Ot V72.84 EXAM PRE- OPERATIVE NOS 09/04/2016 Ot 793.82 INCONCLUSIVE MAMMOGRAM 09/04/2016 Ot V76.12 OTH SCREEN MAMMO-MALIGN NEOPLASM OF [place] 09/04/2016 Ot 793.80 UNSPEC ABNORMAL MAMMOGRAM 09/04/2016 BÁRBARA HONEYCUTT APRN Ot 793.89 OTH (ABN) FINDINGS ON RADIOLOGICAL EXAMI 09/04/2016 JESUS SMITH MD Ot 496 CHR AIRWAY OBSTRUCT NEC 09/04/2016 BÁRBARA HONEYCUTT MUSIC VIDEO DIRECTOR Ot 486 PNEUMONIA, ORGANISM NOS 09/04/2016 BÁRBARA HOENYCUTT APRN Ot 786.05 SHORTNESS OF BREATH 09/04/2016 BÁRBARA HONEYCUTT APRN Ot 793.89 OTH (ABN) FINDINGS ON RADIOLOGICAL EXAMI 09/04/2016 JESUS SMITH MD Ot V76.12 OTH SCREEN MAMMO-MALIGN NEOPLASM OF [place] 09/04/2016 SHAWNEE NARAYAN DO Ot F17.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, UNSPECIFIED, UNCOMP 09/04/2016 SHAWNEE NARAYAN DO Ot J44.9 CHRONIC OBSTRUCTIVE PULMONARY DISEASE, U 09/04/2016 SHAWNEE NARAYAN DO Ot J98.4 OTHER DISORDERS OF LUNG 09/04/2016 SHAWNEE NARAYAN DO Ot R06.09 OTHER FORMS OF DYSPNEA 09/04/2016 SHAWNEE NARAYAN DO Ot R91.8 OTHER NONSPECIFIC ABNORMAL FINDING OF MULU 09/04/2016 SHAWNEE NARAYAN DO Ot F17.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, UNSPECIFIED, UNCOMP 09/04/2016 SHAWNEE NARAYAN DO Ot J44.9 CHRONIC OBSTRUCTIVE PULMONARY DISEASE, U 09/04/2016 SHAWNEE NARAYAN DO Ot R06.09 OTHER FORMS OF DYSPNEA 09/04/2016 SHAWNEE NARAYAN DO Ot R91.8 OTHER NONSPECIFIC ABNORMAL FINDING OF MULU 09/04/2016 SHAWNEE NARAYAN DO Ot Z01.818 ENCOUNTER FOR OTHER PREPROCEDURAL EXAMIN 09/04/2016 SHAWNEE NARAYAN DO Ot I25.10 ATHSCL HEART DISEASE OF [place] CORONARY 09/04/2016 SHAWNEE NARAYAN DO Ot J44.9 CHRONIC OBSTRUCTIVE PULMONARY DISEASE, U 09/04/2016 SHAWNEE NARAYAN DO Ot R91.8 OTHER NONSPECIFIC ABNORMAL FINDING OF MULU 09/04/2016 SHAWNEE NARAYAN DO Ot Z72.0 TOBACCO USE 09/04/2016 JESUS SMITH MD Ot E78.4 OTHER HYPERLIPIDEMIA 09/04/2016 JESUS SMITH MD Ot I25.10 ATHSCL HEART DISEASE OF [place] CORONARY 09/04/2016 JESUS SMITH MD Ot J44.9 CHRONIC OBSTRUCTIVE PULMONARY DISEASE, U 09/04/2016 JESUS SMITH MD Ot Z79.899 OTHER CUSTODIAL (CURRENT) DRUG THERAPY 09/04/2016 JESUS SMITH MD Ot R73.9 HYPERGLYCEMIA, UNSPECIFIED 09/04/2016 DEAN TORIBIO Ot C34.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 OF UPPER LOBE, RIGHT 09/04/2016 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 Ot C34.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 OF UPPER LOBE, RIGHT 09/04/2016 DEAN TORIBIO Ot C34.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 OF UPPER LOBE, RIGHT 09/04/2016 DEAN TORIBIO Ot E78.00 PURE HYPERCHOLESTEROLEMIA, UNSPECIFIED 09/04/2016 DEAN TORIBIO Ot F17.210 NICOTINE DEPENDENCE, CIGARETTES, UNCOMPL 09/04/2016 DEAN TORIBIO Ot J44.9 CHRONIC OBSTRUCTIVE PULMONARY DISEASE, U 09/04/2016 DEAN TORIBIO Ot Z79.02 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 ORDER FILLER (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 OF 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 09/04/2016 DEAN TORIBIO Ot Z79.899 OTHER CUSTODIAL (CURRENT) DRUG THERAPY 09/04/2016 DEAN TORIBIO N Ot Z99.81 DEPENDENCE ON SUPPLEMENTAL OXYGEN 09/05/2016 DEAN TORIBIO N Ot C34.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 OF UPPER LOBE, RIGHT 09/05/2016 DEAN TORIBIO N Ot E78.00 PURE HYPERCHOLESTEROLEMIA, UNSPECIFIED 09/05/2016 DEAN TORIBIO N Ot F17.210 NICOTINE DEPENDENCE, CIGARETTES, UNCOMPL 09/05/2016 DEAN TORIBIO N Ot J44.9 CHRONIC OBSTRUCTIVE PULMONARY DISEASE, U 09/05/2016 DEAN TORIBIO N Ot Z79.02 CUSTODIAL (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 OF 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 09/05/2016 MALU BOBAN N Ot Z79.899 OTHER CUSTODIAL (CURRENT) DRUG THERAPY 09/05/2016 DEAN TORIBIO N Ot Z99.81 DEPENDENCE ON SUPPLEMENTAL OXYGEN 09/06/2016 DEAN TORIBIO N Ot C34.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 OF UPPER LOBE, RIGHT 09/06/2016 DEAN TORIBIO N Ot J44.9 CHRONIC OBSTRUCTIVE PULMONARY DISEASE, U 09/07/2016 DEAN TORIBIO N Ot C34.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 OF UPPER LOBE, RIGHT 09/07/2016 DEAN TORIBIO N Ot E78.00 PURE HYPERCHOLESTEROLEMIA, UNSPECIFIED 09/07/2016 MALUDEAN N Ot F17.210 NICOTINE DEPENDENCE, CIGARETTES, UNCOMPL 09/07/2016 DEAN TORIBIO N Ot J44.9 CHRONIC OBSTRUCTIVE PULMONARY DISEASE, U 09/07/2016 DEAN TORIBIO N Ot Z45.2 ENCOUNTER FOR ADJUSTMENT AND MANAGEMENT 09/07/2016 DENA TORIBIO N Ot Z79.02 CUSTODIAL (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 OF 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 09/07/2016 MALUDEAN N Ot Z79.899 OTHER CUSTODIAL (CURRENT) DRUG THERAPY 09/07/2016 DEAN TORIBIO N Ot Z99.81 DEPENDENCE ON SUPPLEMENTAL OXYGEN 09/16/2016 DEAN TORIBIO N Ot C34.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 OF UPPER LOBE, RIGHT 09/16/2016 DEAN TORIBIO N Ot J44.9 CHRONIC OBSTRUCTIVE PULMONARY DISEASE, U 09/18/2016 DEAN TORIBIO N Ot C34.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 OF UPPER LOBE, RIGHT 09/18/2016 MALU RUPERTMARK N Ot J44.9 CHRONIC OBSTRUCTIVE PULMONARY DISEASE, U 09/18/2016 DEAN TORIBIO N Ot C34.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 OF UPPER LOBE, RIGHT 09/18/2016 DEAN TORIBIO N Ot J44.9 CHRONIC OBSTRUCTIVE PULMONARY DISEASE, U 09/18/2016 DEAN TORIBIO N Ot C34.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 OF UPPER LOBE, RIGHT 09/18/2016 DEAN TORIBIO N Ot J44.9 CHRONIC OBSTRUCTIVE PULMONARY DISEASE, U 09/18/2016 DEAN TORIBIO N Ot C34.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 OF UPPER LOBE, RIGHT 09/18/2016 DEAN TORIBIO N Ot J44.9 CHRONIC OBSTRUCTIVE PULMONARY DISEASE, U 09/27/2016 MALUDEAN LEYVA N Ot C34.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 OF UPPER LOBE, RIGHT 09/27/2016 DEAN TORIBIO N Ot J44.9 CHRONIC OBSTRUCTIVE PULMONARY DISEASE, U 10/21/2016 DEAN TORIBIO N Ot C34.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 OF UPPER LOBE, RIGHT 10/21/2016 DEAN TORIBIO N Ot J44.9 CHRONIC OBSTRUCTIVE PULMONARY DISEASE, U 10/22/2016 DEAN TORIBIO N Ot C34.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 OF UPPER LOBE, RIGHT 10/22/2016 DEAN TORIBIO N Ot E78.00 PURE HYPERCHOLESTEROLEMIA, UNSPECIFIED 10/22/2016 DEAN TORIBIO N Ot F17.210 NICOTINE DEPENDENCE, CIGARETTES, UNCOMPL 10/22/2016 DEAN TORIBIO N Ot J44.9 CHRONIC OBSTRUCTIVE PULMONARY DISEASE, U 10/22/2016 DEAN TORIBIO N Ot Z79.02 CUSTODIAL (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 OF 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 10/22/2016 DEAN TORIBIO N Ot Z79.899 OTHER CUSTODIAL (CURRENT) DRUG THERAPY 10/22/2016 DEAN TORIBIO N Ot Z99.81 DEPENDENCE ON SUPPLEMENTAL OXYGEN 10/30/2016 DEAN TORIBIO N Ot C34.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 OF UPPER LOBE, RIGHT 10/30/2016 DEAN TORIBIO N Ot E78.00 PURE HYPERCHOLESTEROLEMIA, UNSPECIFIED 10/30/2016 DEAN TORIBIO N Ot F17.210 NICOTINE DEPENDENCE, CIGARETTES, UNCOMPL 10/30/2016 DEAN TORIBIO N Ot J44.9 CHRONIC OBSTRUCTIVE PULMONARY DISEASE, U 10/30/2016 DEAN TORIBIO N Ot Z79.02 CLERICAL ORDER FILLER (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 OF 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 10/30/2016 DEAN TORIBIO N Ot Z79.899 OTHER CUSTODIAL (CURRENT) DRUG THERAPY 10/30/2016 DEAN TORIBIO N Ot Z99.81 DEPENDENCE ON SUPPLEMENTAL OXYGEN 11/23/2016 DEAN TORIBIO N Ot C34.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 OF UPPER LOBE, RIGHT 11/23/2016 DEAN TORIBIO Ot E78.00 PURE HYPERCHOLESTEROLEMIA, UNSPECIFIED 11/23/2016 DEAN TORIBIO Ot F17.210 NICOTINE DEPENDENCE, CIGARETTES, UNCOMPL 11/23/2016 DEAN TORIBIO N Ot J44.9 CHRONIC OBSTRUCTIVE PULMONARY DISEASE, U 11/23/2016 DEAN TORIBIO N Ot Z79.02 CLERICAL ORDER FILLER (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 OF 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 11/23/2016 DEAN TORIBIO N Ot Z79.899 OTHER CUSTODIAL (CURRENT) DRUG THERAPY 11/23/2016 DEAN TORIBIO N Ot Z99.81 DEPENDENCE ON SUPPLEMENTAL OXYGEN 12/16/2016 DEAN TORIBIO N Ot C34.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 OF UPPER LOBE, RIGHT 12/16/2016 DEAN TORIBIO N Ot J44.9 CHRONIC OBSTRUCTIVE PULMONARY DISEASE, U 12/16/2016 DEAN TORIBIO N Ot Z79.899 OTHER CUSTODIAL (CURRENT) DRUG THERAPY 01/06/2017 DEAN TORIBIO N Ot C34.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 OF UPPER LOBE, RIGHT 01/06/2017 DEAN TORIBIO N Ot J43.9 EMPHYSEMA, UNSPECIFIED 01/06/2017 DEAN TORIBIO N Ot R91.8 OTHER NONSPECIFIC ABNORMAL FINDING OF MULU 01/06/2017 JESUS SMITH MD Ot E78.5 HYPERLIPIDEMIA, UNSPECIFIED 01/06/2017 JESUS SMITH MD Ot I25.10 ATHSCL HEART DISEASE OF [place] CORONARY 01/06/2017 JESUS SMITH MD, Ot Z79.899 OTHER CLERICAL ORDER FILLER (CURRENT) DRUG THERAPY 01/15/2017 DEAN TORIBIO N Ot C34.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 OF UPPER LOBE, RIGHT 01/15/2017 DEAN TORIBIO N Ot J43.9 EMPHYSEMA, UNSPECIFIED 01/15/2017 MALUDEAN N Ot R91.8 OTHER NONSPECIFIC ABNORMAL FINDING OF MULU 01/21/2017 JESUS SMITH MD, Ot E78.5 HYPERLIPIDEMIA, UNSPECIFIED 01/21/2017 SARAH MD, JESUS D Ot I25.10 ATHSCL HEART DISEASE OF [place] CORONARY 01/21/2017 JESUS SMITH MD Ot Z79.899 OTHER CUSTODIAL (CURRENT) DRUG THERAPY 01/23/2017 DEAN TORIBIO Ot C34.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 OF UPPER LOBE, RIGHT 01/23/2017 DEAN TORIBIO Ot J44.9 CHRONIC OBSTRUCTIVE PULMONARY DISEASE, U 01/23/2017 DEAN TORIBIO Ot Z79.899 OTHER CUSTODIAL (CURRENT) DRUG THERAPY 02/03/2017 DEAN TORIBIO Ot C34.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 OF UPPER LOBE, RIGHT 02/03/2017 DEAN TORIBIO Ot J44.9 CHRONIC OBSTRUCTIVE PULMONARY DISEASE, U 02/03/2017 DEAN TORIBIO Ot Z79.899 OTHER CUSTODIAL (CURRENT) DRUG THERAPY 02/27/2017 Ot 272.4 HYPERLIPIDEMIA NEC/NOS 02/27/2017 Ot 413.9 ANGINA PECTORIS NEC/NOS 02/27/2017 Ot 414.00 CORON ATHEROSCLER NOS TYPE VESSEL, NATIV 02/27/2017 Ot 786.05 SHORTNESS OF BREATH 02/27/2017 Ot 997.2 SURG COMP- STEVIE VASC SYST 02/27/2017 Ot 997.2 SURG COMP- STEVIE VASC SYST 02/27/2017 Ot V72.84 EXAM PRE- OPERATIVE NOS 02/27/2017 Ot 793.82 INCONCLUSIVE MAMMOGRAM 02/27/2017 Ot V76.12 OTH SCREEN MAMMO-MALIGN NEOPLASM OF [place] 02/27/2017 Ot 793.80 UNSPEC ABNORMAL MAMMOGRAM 02/27/2017 BÁRBARA HONEYCUTT APRN Ot 793.89 OTH (ABN) FINDINGS ON RADIOLOGICAL EXAMI 02/27/2017 JESUS SMITH MD Ot 496 CHR AIRWAY OBSTRUCT NEC 02/27/2017 BÁRBARA HONEYCUTT APRN Ot 486 PNEUMONIA, ORGANISM NOS 02/27/2017 BÁRBARA HONEYCUTT APRN Ot 786.05 SHORTNESS OF BREATH 02/27/2017 BÁRBARA HONEYCUTT APRN Ot 793.89 OTH (ABN) FINDINGS ON RADIOLOGICAL EXAMI 02/27/2017 JESUS SMITH MD Ot V76.12 OTH SCREEN MAMMO-MALIGN NEOPLASM OF [place] 02/27/2017 SHAWNEE NARAYAN DO Ot F17.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, UNSPECIFIED, UNCOMP 02/27/2017 SHAWNEE NARAYAN DO Ot J44.9 CHRONIC OBSTRUCTIVE PULMONARY DISEASE, U 02/27/2017 SHAWNEE NARAYAN DO Ot J98.4 OTHER DISORDERS OF LUNG 02/27/2017 SHAWNEE NARAYAN DO Ot R06.09 OTHER FORMS OF DYSPNEA 02/27/2017 SHAWNEE NARAYAN DO Ot R91.8 OTHER NONSPECIFIC ABNORMAL FINDING OF MULU 02/27/2017 SHAWNEE NARAYAN DO Ot F17.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, UNSPECIFIED, UNCOMP 02/27/2017 SHAWNEE NARAYAN DO Ot J44.9 CHRONIC OBSTRUCTIVE PULMONARY DISEASE, U 02/27/2017 SHAWNEE NARAYAN DO Ot R06.09 OTHER FORMS OF DYSPNEA 02/27/2017 SHAWNEE NARAYAN DO Ot R91.8 OTHER NONSPECIFIC ABNORMAL FINDING OF MULU 02/27/2017 SHAWNEE NARAYAN DO Ot Z01.818 ENCOUNTER FOR OTHER PREPROCEDURAL EXAMIN 02/27/2017 SHAWNEE NARAYAN DO Ot I25.10 ATHSCL HEART DISEASE OF [place] CORONARY 02/27/2017 SHAWNEE NARAYAN DO Ot J44.9 CHRONIC OBSTRUCTIVE PULMONARY DISEASE, U 02/27/2017 SHAWNEE NARAYAN DO Ot R91.8 OTHER NONSPECIFIC ABNORMAL FINDING OF MULU 02/27/2017 SHAWNEE NARAYAN DO Ot Z72.0 TOBACCO USE 02/27/2017 JESUS SMITH MD Ot E78.4 OTHER HYPERLIPIDEMIA 02/27/2017 JESUS SMITH MD Ot I25.10 ATHSCL HEART DISEASE OF [place] CORONARY 02/27/2017 JESUS SMITH MD Ot J44.9 CHRONIC OBSTRUCTIVE PULMONARY DISEASE, U 02/27/2017 JESUS SMITH MD Ot Z79.899 OTHER CUSTODIAL (CURRENT) DRUG THERAPY 02/27/2017 JESUS SMITH MD Ot R73.9 HYPERGLYCEMIA, UNSPECIFIED 02/27/2017 DEAN TORIBIO Ot C34.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 OF UPPER LOBE, RIGHT 02/27/2017 LAMAR VELÁZQUEZP Ot C34.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 OF UPPER LOBE, RIGHT 02/27/2017 DEAN TORIBIO Ot C34.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 OF UPPER LOBE, RIGHT 02/27/2017 DEAN TORIBIO Ot J44.9 CHRONIC OBSTRUCTIVE PULMONARY DISEASE, U 02/27/2017 MALU, BOBAN N Ot C34.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 OF UPPER LOBE, RIGHT 02/27/2017 DEAN TORIBIO N Ot J43.9 EMPHYSEMA, UNSPECIFIED 02/27/2017 MALUDEAN LEYVA N Ot R91.8 OTHER NONSPECIFIC ABNORMAL FINDING OF MULU 02/27/2017 DEAN TORIBIO N Ot C34.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 OF UPPER LOBE, RIGHT 02/27/2017 DEAN TORIBIO N Ot J44.9 CHRONIC OBSTRUCTIVE PULMONARY DISEASE, U 02/27/2017 MALUDEAN N Ot Z79.899 OTHER CLERICAL ORDER FILLER (CURRENT) DRUG THERAPY 02/27/2017 JESUS SMITH MD, Ot E78.5 HYPERLIPIDEMIA, UNSPECIFIED 02/27/2017 JESUS SMITH MD, Ot I25.10 ATHSCL HEART DISEASE OF [place] CORONARY 02/27/2017 JESUS SMITH MD, Ot Z79.899 OTHER CLERICAL ORDER FILLER (CURRENT) DRUG THERAPY 03/06/2017 DEAN TORIBIO N Ot C34.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 OF UPPER LOBE, RIGHT 03/06/2017 MALUDEAN LEYVA N Ot R91.8 OTHER NONSPECIFIC ABNORMAL FINDING OF MULU 03/13/2017 DEAN TORIBIO N Ot C34.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 OF UPPER LOBE, RIGHT 03/13/2017 MALUDEAN LEYVA N Ot J44.9 CHRONIC OBSTRUCTIVE PULMONARY DISEASE, U 03/13/2017 MALU BOBMARK N Ot Z79.899 OTHER CLERICAL ORDER FILLER (CURRENT) DRUG THERAPY 03/14/2017 DEAN TORIBIO N Ot C34.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 OF UPPER LOBE, RIGHT 03/14/2017 DEAN TORIBIO N Ot J44.9 CHRONIC OBSTRUCTIVE PULMONARY DISEASE, U 03/14/2017 MALU BOBAN N Ot Z79.899 OTHER CLERICAL ORDER FILLER (CURRENT) DRUG THERAPY 03/24/2017 DAVID RUIZ Ot C34.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 OF UPPER LOBE, RIGHT 03/24/2017 DAVID RUIZ Ot J44.9 CHRONIC OBSTRUCTIVE PULMONARY DISEASE, U 03/24/2017 DAVID RUIZ Ot R05 COUGH 03/24/2017 DAVID RUIZ Ot R53.1 WEAKNESS 03/24/2017 DAVID RUIZ Ot R53.83 OTHER FATIGUE 03/24/2017 DAVID RUIZ Ot Z95.9 PRESENCE OF CARDIAC AND VASCULAR IMPLANT 03/28/2017 DEAN TORIBIO Rashad Ot C34.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 OF UPPER LOBE, RIGHT 03/28/2017 DEAN TORIBIO Rashad Ot R91.8 OTHER NONSPECIFIC ABNORMAL FINDING OF MULU 05/01/2017 VELÁZQUEZHERMELINDABETSY Michael UNDERGROUND CONDUIT INSTALLER Ot C34.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 OF UPPER LOBE, RIGHT 05/14/2017 MALU, DEAN Solorzano Ot C34.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 OF UPPER LOBE, RIGHT 05/14/2017 MALU, DEAN Solorzano Ot J43.9 EMPHYSEMA, UNSPECIFIED 05/21/2017 VELÁZQUEZLAMAR UNDERGROUND CONDUIT INSTALLER Ot C34.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 OF UPPER LOBE, RIGHT 05/26/2017 MALUDEAN LEYVA N Ot C34.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 OF UPPER LOBE, RIGHT 05/26/2017 MALUDEAN LEYVA N Ot R91.8 OTHER NONSPECIFIC ABNORMAL FINDING OF MULU 06/24/2017 LISA VICTOR MD, Ot A41.9 SEPSIS, UNSPECIFIED ORGANISM 06/24/2017 LISA VICTOR MD Ot E78.00 PURE HYPERCHOLESTEROLEMIA, UNSPECIFIED 06/24/2017 LISA VICTOR MD Ot H35.30 UNSPECIFIED MACULAR DEGENERATION 06/24/2017 LISA VICTOR MD, Ot I25.10 ATHSCL HEART DISEASE OF [place] CORONARY 06/24/2017 LISA VICTOR MD Ot J18.9 PNEUMONIA, UNSPECIFIED ORGANISM 06/24/2017 LISA VICTOR MD Ot J44.0 CHRONIC OBSTRUCTIVE PULMON DISEASE W ACU 06/24/2017 LISA VICTOR MD, Ot J44.1 CHRONIC OBSTRUCTIVE PULMONARY DISEASE W 06/24/2017 LISA VICTOR MD Ot K21.9 GASTRO-ESOPHAGEAL REFLUX DISEASE WITHOUT 06/24/2017 LISA VICTOR MD Ot M19.91 PRIMARY OSTEOARTHRITIS, UNSPECIFIED SITE 06/24/2017 LISA VICTOR MD Ot M54.9 DORSALGIA, UNSPECIFIED 06/24/2017 LISA VICTOR MD Ot R68.2 DRY MOUTH, UNSPECIFIED 06/24/2017 LISA VICTOR MD Ot Z85.118 PERSONAL HISTORY OF MALIGNANT NEOPLASM O 06/24/2017 LISA VICTOR MD Ot Z87.891 PERSONAL HISTORY OF NICOTINE DEPENDENCE 06/24/2017 LISA VICTOR MD Ot Z92.21 PERSONAL HISTORY OF ANTINEOPLASTIC CHEMO 06/24/2017 KAYLEIGH PARDO, LISA Diallo Ot Z92.3 PERSONAL HISTORY OF IRRADIATION 06/24/2017 KAYLEIGH PARDO, LISA Diallo Ot Z99.81 DEPENDENCE ON SUPPLEMENTAL OXYGEN 07/08/2017 MALU, BOBAN N Ot C34.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 OF UPPER LOBE, RIGHT 07/08/2017 MALU, BOBAN N Ot E78.00 PURE HYPERCHOLESTEROLEMIA, UNSPECIFIED 07/08/2017 MALU, BOBAN N Ot I25.10 ATHSCL HEART DISEASE OF [place] CORONARY 07/08/2017 MALU, BOBAN N Ot J43.9 EMPHYSEMA, UNSPECIFIED 07/08/2017 MALU, BOBAN N Ot K21.9 GASTRO-ESOPHAGEAL REFLUX DISEASE WITHOUT 07/08/2017 MALU, BOBAN N Ot M19.91 PRIMARY OSTEOARTHRITIS, UNSPECIFIED SITE 07/08/2017 MALU, BOBAN N Ot Z87.891 PERSONAL HISTORY OF NICOTINE DEPENDENCE 07/08/2017 MALU, BOBAN N Ot Z99.81 DEPENDENCE ON SUPPLEMENTAL OXYGEN 07/09/2017 MALU, BOBAN N Ot C34.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 OF UPPER LOBE, RIGHT 07/09/2017 MALU, BOBAN N Ot E78.00 PURE HYPERCHOLESTEROLEMIA, UNSPECIFIED 07/09/2017 MALU, BOBAN N Ot I25.10 ATHSCL HEART DISEASE OF [place] CORONARY 07/09/2017 MALU, BOBAN N Ot J43.9 EMPHYSEMA, UNSPECIFIED 07/09/2017 MALU, BOBAN N Ot K21.9 GASTRO-ESOPHAGEAL REFLUX DISEASE WITHOUT 07/09/2017 MALU, BOBAN N Ot M19.91 PRIMARY OSTEOARTHRITIS, UNSPECIFIED SITE 07/09/2017 MALU, BOBAN N Ot Z87.891 PERSONAL HISTORY OF NICOTINE DEPENDENCE 07/09/2017 MALU, BOBAN N Ot Z99.81 DEPENDENCE ON SUPPLEMENTAL OXYGEN 07/14/2017 MALU BOBAN N Ot C34.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 OF UPPER LOBE, RIGHT 07/14/2017 MALU, BOBAN N Ot E78.00 PURE HYPERCHOLESTEROLEMIA, UNSPECIFIED 07/14/2017 MALU, BOBAN N Ot I25.10 ATHSCL HEART DISEASE OF [place] CORONARY 07/14/2017 MALU, BOBAN N Ot J43.9 EMPHYSEMA, UNSPECIFIED 07/14/2017 MALU, BOBAN N Ot K21.9 GASTRO-ESOPHAGEAL REFLUX DISEASE WITHOUT 07/14/2017 DEAN TORIBIO Ot M19.91 PRIMARY OSTEOARTHRITIS, UNSPECIFIED SITE 07/14/2017 DEAN TORIBIO Ot Z87.891 PERSONAL HISTORY OF NICOTINE DEPENDENCE 07/14/2017 DEAN TORIBIO N Ot Z99.81 DEPENDENCE ON SUPPLEMENTAL OXYGEN 08/08/2017 DEAN TORIBIO N Ot C34.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 OF UPPER LOBE, RIGHT 08/08/2017 DEAN TORIBIO N Ot J43.9 EMPHYSEMA, UNSPECIFIED 08/08/2017 DEAN TORIBIO N Ot C34.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 OF UPPER LOBE, RIGHT 08/08/2017 DEAN TORIBIO N Ot J44.9 CHRONIC OBSTRUCTIVE PULMONARY DISEASE, U 08/08/2017 DEAN TORIBIO N Ot Z01.89 ENCOUNTER FOR OTHER SPECIFIED SPECIAL EX 08/28/2017 DEAN TORIBIO N Ot C34.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 OF UPPER LOBE, RIGHT 08/28/2017 DEAN TORIBIO N Ot J44.9 CHRONIC OBSTRUCTIVE PULMONARY DISEASE, U 08/28/2017 DEAN TORIBIO N Ot Z01.89 ENCOUNTER FOR OTHER SPECIFIED SPECIAL EX 09/11/2017 DEAN TORIBIO N Ot C34.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 OF UPPER LOBE, RIGHT 09/11/2017 DEAN TORIBIO N Ot J44.9 CHRONIC OBSTRUCTIVE PULMONARY DISEASE, U 09/11/2017 DEAN TORIBIO N Ot Z01.89 ENCOUNTER FOR OTHER SPECIFIED SPECIAL EX 09/17/2017 DEAN TORIBIO N Ot C34.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 OF UPPER LOBE, RIGHT 11/04/2017 LAMAR VELÁZQUEZ Ot C34.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 OF UPPER LOBE, RIGHT 11/05/2017 DEAN TORIBIO N Ot C34.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 OF UPPER LOBE, RIGHT 11/06/2017 JADA FORRESTER MD Ot C34.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 OF UPPER LOBE, RIGHT 11/07/2017 Ot 793.80 UNSPEC ABNORMAL MAMMOGRAM 11/07/2017 BÁRBARA HONEYCUTT APRN Ot 793.89 OT (ABN) FINDINGS ON RADIOLOGICAL EXAMI 11/07/2017 SARAH PARDO, JESUS Meza Ot 496 CHR AIRWAY OBSTRUCT NEC 11/07/2017 BÁRBARA HONEYCUTT APRN Ot 486 PNEUMONIA, ORGANISM NOS 11/07/2017 YINKA, BÁRBARA R MUSIC VIDEO DIRECTOR Ot 786.05 SHORTNESS OF BREATH 11/07/2017 BÁRBARA HONEYCUTT MUSIC VIDEO DIRECTOR Ot 793.89 OTH (ABN) FINDINGS ON RADIOLOGICAL EXAMI 11/07/2017 JESUS SMITH MD Ot V76.12 OTH SCREEN MAMMO-MALIGN NEOPLASM OF [place] 11/07/2017 SHAWNEE NARAYAN DO Ot F17.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, UNSPECIFIED, UNCOMP 11/07/2017 SHAWNEE NARAYAN DO Ot J44.9 CHRONIC OBSTRUCTIVE PULMONARY DISEASE, U 11/07/2017 SHAWNEE NARAYAN DO Ot J98.4 OTHER DISORDERS OF LUNG 11/07/2017 SHAWNEE NARAYAN DO Ot R06.09 OTHER FORMS OF DYSPNEA 11/07/2017 SHAWNEE NARAYAN DO Ot R91.8 OTHER NONSPECIFIC ABNORMAL FINDING OF MULU 11/07/2017 SHAWNEE NARAYAN DO Ot F17.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, UNSPECIFIED, UNCOMP 11/07/2017 SHAWNEE NARAYAN DO Ot J44.9 CHRONIC OBSTRUCTIVE PULMONARY DISEASE, U 11/07/2017 SHAWNEE NARAYAN DO Ot R06.09 OTHER FORMS OF DYSPNEA 11/07/2017 SHAWNEE NARAYAN DO Ot R91.8 OTHER NONSPECIFIC ABNORMAL FINDING OF MULU 11/07/2017 SHAWNEE NARAYAN DO Ot Z01.818 ENCOUNTER FOR OTHER PREPROCEDURAL EXAMIN 11/07/2017 SHAWNEE NARAYAN DO Ot I25.10 ATHSCL HEART DISEASE OF [place] CORONARY 11/07/2017 SHAWNEE NARAYAN DO Ot J44.9 CHRONIC OBSTRUCTIVE PULMONARY DISEASE, U 11/07/2017 SHAWNEE NARAYAN DO Ot R91.8 OTHER NONSPECIFIC ABNORMAL FINDING OF MULU 11/07/2017 SHAWNEE NARAYAN DO Ot Z72.0 TOBACCO USE 11/07/2017 JESUS SMITH MD Ot E78.4 OTHER HYPERLIPIDEMIA 11/07/2017 JESUS SMITH MD Ot I25.10 ATHSCL HEART DISEASE OF [place] CORONARY 11/07/2017 JESUS SMITH MD Ot J44.9 CHRONIC OBSTRUCTIVE PULMONARY DISEASE, U 11/07/2017 JESUS SMITH MD Ot Z79.899 OTHER CLERICAL ORDER FILLER (CURRENT) DRUG THERAPY 11/07/2017 JESUS SMITH MD Ot R73.9 HYPERGLYCEMIA, UNSPECIFIED 11/07/2017 MALU, BOBAN N Ot C34.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 OF UPPER LOBE, RIGHT 11/07/2017 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 Ot C34.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 OF UPPER LOBE, RIGHT 11/07/2017 DEAN TORIBIO N Ot C34.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 OF UPPER LOBE, RIGHT 11/07/2017 DEAN TORIBIO N Ot J44.9 CHRONIC OBSTRUCTIVE PULMONARY DISEASE, U 11/07/2017 DEAN TORIBIO N Ot C34.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 OF UPPER LOBE, RIGHT 11/07/2017 DEAN TORIBIO N Ot J43.9 EMPHYSEMA, UNSPECIFIED 11/07/2017 DEAN TORIBIO N Ot R91.8 OTHER NONSPECIFIC ABNORMAL FINDING OF MULU 11/07/2017 SARAH PARDO, JESUS Meza Ot E78.5 HYPERLIPIDEMIA, UNSPECIFIED 11/07/2017 SARAH PARDO, JESUS Meza Ot I25.10 ATHSCL HEART DISEASE OF [place] CORONARY 11/07/2017 SARHA PARDO, JESUS Meza Ot Z79.899 OTHER CLERICAL ORDER FILLER (CURRENT) DRUG THERAPY 11/07/2017 DEAN TORIBIO N Ot C34.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 OF UPPER LOBE, RIGHT 11/07/2017 DEAN TORIBIO N Ot R91.8 OTHER NONSPECIFIC ABNORMAL FINDING OF MULU 11/07/2017 DAVID RUIZ Ot C34.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 OF UPPER LOBE, RIGHT 11/07/2017 DAVID RUIZ Ot J44.9 CHRONIC OBSTRUCTIVE PULMONARY DISEASE, U 11/07/2017 DAVID RUIZ Ot R05 COUGH 11/07/2017 DAVID RUIZ Ot R53.1 WEAKNESS 11/07/2017 DAVID RUIZ Ot R53.83 OTHER FATIGUE 11/07/2017 DAVID RUIZ Ot Z95.9 PRESENCE OF CARDIAC AND VASCULAR IMPLANT 11/07/2017 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 Ot C34.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 OF UPPER LOBE, RIGHT 11/07/2017 DEAN TORIBIO N Ot C34.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 OF UPPER LOBE, RIGHT 11/07/2017 DEAN TORIBIO N Ot J44.9 CHRONIC OBSTRUCTIVE PULMONARY DISEASE, U 11/07/2017 DEAN TORIBIO N Ot Z01.89 ENCOUNTER FOR OTHER SPECIFIED SPECIAL EX 11/07/2017 JADA FORRESTER MD Ot C34.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 OF UPPER LOBE, RIGHT 11/07/2017 JADA FORRESTER MD, Ot C34.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 OF UPPER LOBE, RIGHT 11/10/2017 JADA FORRESTER MD, Ot C34.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 OF UPPER LOBE, RIGHT 11/11/2017 DEAN TORIBIO Rashad Ot C34.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 OF UPPER LOBE, RIGHT 11/11/2017 JADA FORRESTER MD, Ot C34.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 OF UPPER LOBE, RIGHT 11/11/2017 JADA FORRESTER MD Ot E78.00 PURE HYPERCHOLESTEROLEMIA, UNSPECIFIED 11/11/2017 JADA FORRESTER MD, Ot I25.10 ATHSCL HEART DISEASE OF [place] CORONARY 11/11/2017 JADA FORRESTER MD, Ot J43.9 EMPHYSEMA, UNSPECIFIED 11/11/2017 JADA FORRESTER MD, Ot K21.9 GASTRO-ESOPHAGEAL REFLUX DISEASE WITHOUT 11/11/2017 JADA FORRESTER MD, Ot M19.91 PRIMARY OSTEOARTHRITIS, UNSPECIFIED SITE 11/11/2017 JADA FORRESTER MD, Ot Z87.891 PERSONAL HISTORY OF NICOTINE DEPENDENCE 11/11/2017 JADA FORRESTER MD, Ot Z99.81 DEPENDENCE ON SUPPLEMENTAL OXYGEN 11/17/2017 JESUS SMITH MD Ot E07.89 OTHER SPECIFIED DISORDERS OF THYROID 11/17/2017 JESUS SMITH MD Ot R94.6 ABNORMAL RESULTS OF THYROID FUNCTION MARLE[place] 11/17/2017 CARLINE YANG MD Ot Z01.818 ENCOUNTER FOR OTHER PREPROCEDURAL EXAMIN Procedures There is no data. Results Test Result Range Mycobacterium species detection by organism specific culture - 09/11/15 08:00 DATE/TIME MICROSCOPIC 09-22-15 10:22 NRG MICROSCOPIC NO ACID-FAST BACILLI FOUND NRG DATE/TIME VERBAL REPORT 09/18 12:45 NRG VERBAL REPORT FROM [facility] AFB SMEAR NEGATIVE NRG AFB CULTURE NO MYCOBACTERIA RECOVERED AFTER 6 WEEKS NRG DATE FINAL AFB CULTURE 11/07/15 10:45 NRG Sputum Gram stain - 09/11/15 08:00 GRAM STAIN SPUTUM NO WBC'S OR BACTERIA NRG Bacteria identification in bronchial specimen by aerobe culture - 09/11/15 08: 00 QUANTITY OF GROWTH Scant Growth NRG Bacteria identification in bronchial specimen by aerobe culture [id number] NRG Fungus culture - 09/11/15 08:00 FUNGUS REPORT NO FUNGUS GROWTH OBSERVED NRG Complete blood count (CBC) with automated white blood cell (WBC) differential - 09/25/15 09:26 Blood leukocytes automated count (number/volume) 10.6 10*3/uL 4.3-11.0 Blood erythrocytes automated count (number/volume) 4.80 10*6/uL 4.35-5.85 Venous blood hemoglobin measurement (mass/volume) 13.6 g/dL 11.5-16.0 Blood hematocrit (volume fraction) 42 % 35-52 Automated erythrocyte mean corpuscular volume 87 [foz_us] 80-99 Automated erythrocyte mean corpuscular hemoglobin (mass per erythrocyte) 28 pg 25-34 Automated erythrocyte mean corpuscular hemoglobin concentration measurement ( mass/volume) 33 g/dL 32-36 Automated erythrocyte distribution width ratio 14.6 % 10.0-14.5 Automated blood platelet count (count/volume) 338 10*3/uL 130-400 Automated blood platelet mean volume measurement 10.2 [foz_us] 7.4-10.4 Automated blood neutrophils/100 leukocytes 55 % 42-75 Automated blood lymphocytes/100 leukocytes 34 % 12-44 Blood monocytes/100 leukocytes 9 % 0-12 Automated blood eosinophils/100 leukocytes 2 % 0-10 Automated blood basophils/100 leukocytes 1 % 0-10 Blood neutrophils automated count (number/volume) 5.8 10*3 1.8-7.8 Blood lymphocytes automated count (number/volume) 3.6 10*3 1.0-4.0 Blood monocytes automated count (number/volume) 0.9 10*3 0.0-1.0 Automated eosinophil count 0.2 10*3/uL 0.0-0.3 Automated blood basophil count (count/volume) 0.1 10*3/uL 0.0-0.1 PT panel in platelet poor plasma by coagulation assay - 09/25/15 09:26 Prothrombin time (PT) in platelet poor plasma by coagulation assay 13.0 s 12.2-14.7 INR in platelet poor plasma or blood by coagulation assay 1.0 0.8-1.4 Activated partial thromboplastin time (aPTT) in platelet poor plasma bycoagulation assay - 09/25/15 09:26 Activated partial thromboplastin time (aPTT) in platelet poor plasma bycoagulation assay 35 s 24-35 Methicillin resistant Staphylococcus aureus (MRSA) screening culture - 09:25 Methicillin resistant Staphylococcus aureus (MRSA) screening culture NEG [facility] Comprehensive metabolic panel - 11/28/15 08:45 Serum or plasma sodium measurement (moles/volume) 137 mmol/L 135-145 Serum or plasma potassium measurement (moles/volume) 3.9 mmol/L 3.6-5.0 Serum or plasma chloride measurement (moles/volume) 104 mmol/L 98-107 Carbon dioxide 21 mmol/L 21-32 Serum or plasma anion gap determination (moles/volume) 12 mmol/L 5-14 Serum or plasma urea nitrogen measurement (mass/volume) 9 mg/dL 7-18 Serum or plasma creatinine measurement (mass/volume) 0.60 mg/dL 0.60-1.30 Serum or plasma urea nitrogen/creatinine mass ratio 15 [facility] Serum or plasma creatinine measurement with calculation of estimated glomerular filtration rate > [facility] Serum or plasma glucose measurement (mass/volume) 220 mg/dL 70-105 Serum or plasma calcium measurement (mass/volume) 9.5 mg/dL 8.5-10.1 Serum or plasma total bilirubin measurement (mass/volume) 0.3 mg/dL 0.1-1.0 Serum or plasma alkaline phosphatase measurement (enzymatic activity/volume) 66 U/L 40-136 Serum or plasma aspartate aminotransferase measurement (enzymatic activity/ volume) 11 U/L 5-34 Serum or plasma alanine aminotransferase measurement (enzymatic activity/volume ) 18 U/L 0-55 Serum or plasma protein measurement (mass/volume) 6.5 g/dL 6.4-8.2 Serum or plasma albumin measurement (mass/volume) 3.6 g/dL 3.2-4.5 Lipid 1996 panel - 11/28/15 08:45 Serum or plasma triglyceride measurement (mass/volume) 35 mg/dL <150 Serum or plasma cholesterol measurement (mass/volume) 129 mg/dL < 200 Serum or plasma cholesterol in HDL measurement (mass/volume) 45 mg/ dL 40-60 Cholesterol in LDL [mass/volume] in serum or plasma by direct assay 64 mg/dL 1-129 Serum or plasma cholesterol in VLDL measurement (mass/volume) 7 mg/ dL 5-40 THYROID STIMULATING HORMONE - 11/28/15 08:45 THYROID STIMULATING HORMONE 0.06 u[iU]/mL 0.35-4.94 Serum or plasma thyroxine (T4) free measurement (mass/volume) - 11/28/15 08:45 Serum or plasma thyroxine (T4) free measurement (mass/volume) 1.09 ng/dL 0.70-1.48 Hemoglobin A1c - 12/12/15 10:52 Hemoglobin A1c 6.3 % 4.5-6.2 Complete blood count (CBC) with automated white blood cell (WBC) differential - 02/18/16 08:20 Blood leukocytes automated count (number/volume) 5.9 10*3/uL 4.3-11.0 Blood erythrocytes automated count (number/volume) 4.36 10*6/uL 4.35-5.85 Venous blood hemoglobin measurement (mass/volume) 12.6 g/dL 11.5-16.0 Blood hematocrit (volume fraction) 38 % 35-52 Automated erythrocyte mean corpuscular volume 86 [foz_us] 80-99 Automated erythrocyte mean corpuscular hemoglobin (mass per erythrocyte) 29 pg 25-34 Automated erythrocyte mean corpuscular hemoglobin concentration measurement ( mass/volume) 34 g/dL 32-36 Automated erythrocyte distribution width ratio 17.7 % 10.0-14.5 Automated blood platelet count (count/volume) 163 10*3/uL 130-400 Automated blood platelet mean volume measurement 10.9 [foz_us] 7.4-10.4 Automated blood neutrophils/100 leukocytes 72 % 42-75 Automated blood lymphocytes/100 leukocytes 20 % 12-44 Blood monocytes/100 leukocytes 6 % 0-12 Automated blood eosinophils/100 leukocytes 1 % 0-10 Automated blood basophils/100 leukocytes 1 % 0-10 Blood neutrophils automated count (number/volume) 4.3 10*3 1.8-7.8 Blood lymphocytes automated count (number/volume) 1.2 10*3 1.0-4.0 Blood monocytes automated count (number/volume) 0.4 10*3 0.0-1.0 Automated eosinophil count 0.1 10*3/uL 0.0-0.3 Automated blood basophil count (count/volume) 0.0 10*3/uL 0.0-0.1 Blood lactic acid measurement (moles/volume) - 02/18/16 08:20 Blood lactic acid measurement (moles/volume) 1.1 mmol/L 0.5-2.0 Comprehensive metabolic panel - 02/18/16 08:20 Serum or plasma sodium measurement (moles/volume) 137 mmol/L 135-145 Serum or plasma potassium measurement (moles/volume) 3.9 mmol/L 3.6-5.0 Serum or plasma chloride measurement (moles/volume) 105 mmol/L 98-107 Carbon dioxide 23 mmol/L 21-32 Serum or plasma anion gap determination (moles/volume) 9 mmol/L 5-14 Serum or plasma urea nitrogen measurement (mass/volume) 9 mg/dL 7-18 Serum or plasma creatinine measurement (mass/volume) 0.49 mg/dL 0.60-1.30 Serum or plasma urea nitrogen/creatinine mass ratio 18 NRG Serum or plasma creatinine measurement with calculation of estimated glomerular filtration rate > NRG Serum or plasma glucose measurement (mass/volume) 136 mg/dL 70-105 Serum or plasma calcium measurement (mass/volume) 8.8 mg/dL 8.5-10.1 Serum or plasma total bilirubin measurement (mass/volume) 0.2 mg/dL 0.1-1.0 Serum or plasma alkaline phosphatase measurement (enzymatic activity/volume) 69 U/L 40-136 Serum or plasma aspartate aminotransferase measurement (enzymatic activity/ volume) 17 U/L 5-34 Serum or plasma alanine aminotransferase measurement (enzymatic activity/volume ) 14 U/L 0-55 Serum or plasma protein measurement (mass/volume) 6.5 g/dL 6.4-8.2 Serum or plasma albumin measurement (mass/volume) 3.6 g/dL 3.2-4.5 Serum or plasma troponin i.cardiac measurement (mass/volume) - 02/18/16 08:20 Serum or plasma troponin i.cardiac measurement (mass/volume) < ng/ mL <0.30 Bacterial blood culture - 02/18/16 08:20 Bacterial blood culture NG NRG Bacterial blood culture - 02/18/16 08:25 Bacterial blood culture NG NRG Complete blood count (CBC) with automated white blood cell (WBC) differential - 02/19/16 05:15 Blood leukocytes automated count (number/volume) 5.2 10*3/uL 4.3-11.0 Blood erythrocytes automated count (number/volume) 4.04 10*6/uL 4.35-5.85 Venous blood hemoglobin measurement (mass/volume) 11.4 g/dL 11.5-16.0 Blood hematocrit (volume fraction) 35 % 35-52 Automated erythrocyte mean corpuscular volume 87 [foz_us] 80-99 Automated erythrocyte mean corpuscular hemoglobin (mass per erythrocyte) 28 pg 25-34 Automated erythrocyte mean corpuscular hemoglobin concentration measurement ( mass/volume) 32 g/dL 32-36 Automated erythrocyte distribution width ratio 17.7 % 10.0-14.5 Automated blood platelet count (count/volume) 208 10*3/uL 130-400 Automated blood platelet mean volume measurement 11.0 [foz_us] 7.4-10.4 Automated blood neutrophils/100 leukocytes 79 % 42-75 Automated blood lymphocytes/100 leukocytes 18 % 12-44 Blood monocytes/100 leukocytes 3 % 0-12 Automated blood eosinophils/100 leukocytes 0 % 0-10 Automated blood basophils/100 leukocytes 0 % 0-10 Blood neutrophils automated count (number/volume) 4.1 10*3 1.8-7.8 Blood lymphocytes automated count (number/volume) 1.0 10*3 1.0-4.0 Blood monocytes automated count (number/volume) 0.1 10*3 0.0-1.0 Automated eosinophil count 0.0 10*3/uL 0.0-0.3 Automated blood basophil count (count/volume) 0.0 10*3/uL 0.0-0.1 Comprehensive metabolic panel - 02/19/16 05:15 Serum or plasma sodium measurement (moles/volume) 138 mmol/L 135-145 Serum or plasma potassium measurement (moles/volume) 3.6 mmol/L 3.6-5.0 Serum or plasma chloride measurement (moles/volume) 105 mmol/L 98-107 Carbon dioxide 23 mmol/L 21-32 Serum or plasma anion gap determination (moles/volume) 10 mmol/L 5-14 Serum or plasma urea nitrogen measurement (mass/volume) 9 mg/dL 7-18 Serum or plasma creatinine measurement (mass/volume) 0.55 mg/dL 0.60-1.30 Serum or plasma urea nitrogen/creatinine mass ratio 16 NRG Serum or plasma creatinine measurement with calculation of estimated glomerular filtration rate > NRG Serum or plasma glucose measurement (mass/volume) 204 mg/dL 70-105 Serum or plasma calcium measurement (mass/volume) 8.9 mg/dL 8.5-10.1 Serum or plasma total bilirubin measurement (mass/volume) 0.2 mg/dL 0.1-1.0 Serum or plasma alkaline phosphatase measurement (enzymatic activity/volume) 66 U/L 40-136 Serum or plasma aspartate aminotransferase measurement (enzymatic activity/ volume) 12 U/L 5-34 Serum or plasma alanine aminotransferase measurement (enzymatic activity/volume ) 13 U/L 0-55 Serum or plasma protein measurement (mass/volume) 5.9 g/dL 6.4-8.2 Serum or plasma albumin measurement (mass/volume) 3.5 g/dL 3.2-4.5 Fibrin D-dimer FEU measurement in platelet poor plasma (mass/volume) - 05:15 Fibrin D-dimer FEU measurement in platelet poor plasma (mass/volume) 0.55 ug/mL 0.00-0.49 Serum or plasma lithium measurement (moles/volume) - 02/19/16 05:15 BNP level 29.8 pg/mL <100.0 Complete blood count (CBC) with automated white blood cell (WBC) differential - 02/20/16 05:51 Blood leukocytes automated count (number/volume) 10.6 10*3/uL 4.3-11.0 Blood erythrocytes automated count (number/volume) 3.79 10*6/uL 4.35-5.85 Venous blood hemoglobin measurement (mass/volume) 10.8 g/dL 11.5-16.0 Blood hematocrit (volume fraction) 33 % 35-52 Automated erythrocyte mean corpuscular volume 88 [foz_us] 80-99 Automated erythrocyte mean corpuscular hemoglobin (mass per erythrocyte) 29 pg 25-34 Automated erythrocyte mean corpuscular hemoglobin concentration measurement ( mass/volume) 32 g/dL 32-36 Automated erythrocyte distribution width ratio 18.3 % 10.0-14.5 Automated blood platelet count (count/volume) 210 10*3/uL 130-400 Automated blood platelet mean volume measurement 10.9 [foz_us] 7.4-10.4 Automated blood neutrophils/100 leukocytes 85 % 42-75 Automated blood lymphocytes/100 leukocytes 11 % 12-44 Blood monocytes/100 leukocytes 3 % 0-12 Automated blood eosinophils/100 leukocytes 0 % 0-10 Automated blood basophils/100 leukocytes 0 % 0-10 Blood neutrophils automated count (number/volume) 9.0 10*3 1.8-7.8 Blood lymphocytes automated count (number/volume) 1.2 10*3 1.0-4.0 Blood monocytes automated count (number/volume) 0.3 10*3 0.0-1.0 Automated eosinophil count 0.0 10*3/uL 0.0-0.3 Automated blood basophil count (count/volume) 0.0 10*3/uL 0.0-0.1 Comprehensive metabolic panel - 02/20/16 05:51 Serum or plasma sodium measurement (moles/volume) 138 mmol/L 135-145 Serum or plasma potassium measurement (moles/volume) 3.8 mmol/L 3.6-5.0 Serum or plasma chloride measurement (moles/volume) 108 mmol/L 98-107 Carbon dioxide 23 mmol/L 21-32 Serum or plasma anion gap determination (moles/volume) 7 mmol/L 5-14 Serum or plasma urea nitrogen measurement (mass/volume) 11 mg/dL 7-18 Serum or plasma creatinine measurement (mass/volume) 0.54 mg/dL 0.60-1.30 Serum or plasma urea nitrogen/creatinine mass ratio 20 NRG Serum or plasma creatinine measurement with calculation of estimated glomerular filtration rate > NRG Serum or plasma glucose measurement (mass/volume) 218 mg/dL 70-105 Serum or plasma calcium measurement (mass/volume) 8.7 mg/dL 8.5-10.1 Serum or plasma total bilirubin measurement (mass/volume) < mg/dL 0.1-1.0 Serum or plasma alkaline phosphatase measurement (enzymatic activity/volume) 57 U/L 40-136 Serum or plasma aspartate aminotransferase measurement (enzymatic activity/ volume) 12 U/L 5-34 Serum or plasma alanine aminotransferase measurement (enzymatic activity/volume ) 11 U/L 0-55 Serum or plasma protein measurement (mass/volume) 5.5 g/dL 6.4-8.2 Serum or plasma albumin measurement (mass/volume) 3.1 g/dL 3.2-4.5 Serum or plasma lithium measurement (moles/volume) - 02/20/16 05:51 BNP level 113.0 pg/mL <100.0 Whole blood basic metabolic panel - 02/21/16 07:53 Serum or plasma sodium measurement (moles/volume) 138 mmol/L 135-145 Serum or plasma potassium measurement (moles/volume) 3.6 mmol/L 3.6-5.0 Serum or plasma chloride measurement (moles/volume) 106 mmol/L 98-107 Carbon dioxide 23 mmol/L 21-32 Serum or plasma anion gap determination (moles/volume) 9 mmol/L 5-14 Serum or plasma urea nitrogen measurement (mass/volume) 11 mg/dL 7-18 Serum or plasma creatinine measurement (mass/volume) 0.60 mg/dL 0.60-1.30 Serum or plasma urea nitrogen/creatinine mass ratio 18 NRG Serum or plasma creatinine measurement with calculation of estimated glomerular filtration rate > NRG Serum or plasma glucose measurement (mass/volume) 170 mg/dL 70-105 Serum or plasma calcium measurement (mass/volume) 8.8 mg/dL 8.5-10.1 Capillary blood glucose measurement by glucometer (mass/volume) - 02/21/16 15: 53 Capillary blood glucose measurement by glucometer (mass/volume) 185 mg/dL 70-110 Capillary blood glucose measurement by glucometer (mass/volume) - 02/22/16 06: 04 Capillary blood glucose measurement by glucometer (mass/volume) 95 mg/dL 70-110 Complete blood count (CBC) with automated white blood cell (WBC) differential - 02/27/17 15:22 Blood leukocytes automated count (number/volume) 13.8 10*3/uL 4.3-11.0 Blood erythrocytes automated count (number/volume) 4.56 10*6/uL 4.35-5.85 Venous blood hemoglobin measurement (mass/volume) 13.3 g/dL 11.5-16.0 Blood hematocrit (volume fraction) 34 % 35-52 Automated erythrocyte mean corpuscular volume 75 [foz_us] 80-99 Automated erythrocyte mean corpuscular hemoglobin (mass per erythrocyte) 29 pg 25-34 Automated erythrocyte mean corpuscular hemoglobin concentration measurement ( mass/volume) 39 g/dL 32-36 Automated erythrocyte distribution width ratio 13.5 % 10.0-14.5 Automated blood platelet count (count/volume) 243 10*3/uL 130-400 Automated blood platelet mean volume measurement 9.8 [foz_us] 7.4-10.4 Automated blood neutrophils/100 leukocytes 63 % 42-75 Automated blood lymphocytes/100 leukocytes 22 % 12-44 Blood monocytes/100 leukocytes 13 % 0-12 Automated blood eosinophils/100 leukocytes 1 % 0-10 Automated blood basophils/100 leukocytes 0 % 0-10 Blood neutrophils automated count (number/volume) 8.7 10*3 1.8-7.8 Blood lymphocytes automated count (number/volume) 3.0 10*3 1.0-4.0 Blood monocytes automated count (number/volume) 1.8 10*3 0.0-1.0 Automated eosinophil count 0.2 10*3/uL 0.0-0.3 Automated blood basophil count (count/volume) 0.0 10*3/uL 0.0-0.1 Comprehensive metabolic panel - 02/27/17 15:22 Serum or plasma sodium measurement (moles/volume) 138 mmol/L 135-145 Serum or plasma potassium measurement (moles/volume) 3.6 mmol/L 3.6-5.0 Serum or plasma chloride measurement (moles/volume) 101 mmol/L 98-107 Carbon dioxide 25 mmol/L 21-32 Serum or plasma anion gap determination (moles/volume) 12 mmol/L 5-14 Serum or plasma urea nitrogen measurement (mass/volume) 7 mg/dL 7-18 Serum or plasma creatinine measurement (mass/volume) 0.56 mg/dL 0.60-1.30 Serum or plasma urea nitrogen/creatinine mass ratio 13 NRG Serum or plasma creatinine measurement with calculation of estimated glomerular filtration rate > NRG Serum or plasma glucose measurement (mass/volume) 119 mg/dL 70-105 Serum or plasma calcium measurement (mass/volume) 9.7 mg/dL 8.5-10.1 Serum or plasma total bilirubin measurement (mass/volume) 0.8 mg/dL 0.1-1.0 Serum or plasma alkaline phosphatase measurement (enzymatic activity/volume) 73 U/L 40-136 Serum or plasma aspartate aminotransferase measurement (enzymatic activity/ volume) 22 U/L 5-34 Serum or plasma alanine aminotransferase measurement (enzymatic activity/volume ) 30 U/L 0-55 Serum or plasma protein measurement (mass/volume) 7.6 g/dL 6.4-8.2 Serum or plasma albumin measurement (mass/volume) 3.8 g/dL 3.2-4.5 Serum or plasma C reactive protein measurement (mass/volume) - 02/27/17 15:22 Serum or plasma C reactive protein measurement (mass/volume) 11.01 mg/dL 0.00-0.50 Complete urinalysis with reflex to culture - 02/27/17 17:25 Urine color determination YELLOW NRG Urine clarity determination CLEAR NRG Urine pH measurement by test strip 5 5-9 Specific gravity of urine by test strip 1.015 1.016- 1.022 Urine protein assay by test strip, semi-quantitative NEGATIVE NEGATIVE Urine glucose detection by automated test strip NEGATIVE NEGATIVE Erythrocytes detection in urine sediment by light microscopy NEGATIVE NEGATIVE Urine ketones detection by automated test strip NEGATIVE NEGATIVE Urine nitrite detection by test strip NEGATIVE NEGATIVE Urine total bilirubin detection by test strip NEGATIVE NEGATIVE Urine urobilinogen measurement by automated test strip (mass/volume) NORMAL NORMAL Urine leukocyte esterase detection by dipstick 1+ NEGATIVE Automated urine sediment erythrocyte count by microscopy (number/high power field) NONE NRG Automated urine sediment leukocyte count by microscopy (number/high power field ) RARE NRG Bacteria detection in urine sediment by light microscopy TRACE NRG Squamous epithelial cells detection in urine sediment by light microscopy RARE NRG Crystals detection in urine sediment by light microscopy NONE NRG Casts detection in urine sediment by light microscopy NONE NRG Mucus detection in urine sediment by light microscopy SMALL NRG Complete urinalysis with reflex to culture NO NRG Complete blood count (CBC) with automated white blood cell (WBC) differential - 03/06/17 11:00 Blood leukocytes automated count (number/volume) 13.3 10*3/uL 4.3-11.0 Blood erythrocytes automated count (number/volume) 4.50 10*6/uL 4.35-5.85 Venous blood hemoglobin measurement (mass/volume) 13.3 g/dL 11.5-16.0 Blood hematocrit (volume fraction) 40 % 35-52 Automated erythrocyte mean corpuscular volume 89 [foz_us] 80-99 Automated erythrocyte mean corpuscular hemoglobin (mass per erythrocyte) 30 pg 25-34 Automated erythrocyte mean corpuscular hemoglobin concentration measurement ( mass/volume) 33 g/dL 32-36 Automated erythrocyte distribution width ratio 14.0 % 10.0-14.5 Automated blood platelet count (count/volume) 355 10*3/uL 130-400 Automated blood platelet mean volume measurement 9.8 [foz_us] 7.4-10.4 Automated blood neutrophils/100 leukocytes 58 % 42-75 Automated blood lymphocytes/100 leukocytes 32 % 12-44 Blood monocytes/100 leukocytes 8 % 0-12 Automated blood eosinophils/100 leukocytes 2 % 0-10 Automated blood basophils/100 leukocytes 1 % 0-10 Blood neutrophils automated count (number/volume) 7.6 10*3 1.8-7.8 Blood lymphocytes automated count (number/volume) 4.3 10*3 1.0-4.0 Blood monocytes automated count (number/volume) 1.0 10*3 0.0-1.0 Automated eosinophil count 0.3 10*3/uL 0.0-0.3 Automated blood basophil count (count/volume) 0.1 10*3/uL 0.0-0.1 Comprehensive metabolic panel - 03/06/17 11:00 Serum or plasma sodium measurement (moles/volume) 138 mmol/L 135-145 Serum or plasma potassium measurement (moles/volume) 4.0 mmol/L 3.6-5.0 Serum or plasma chloride measurement (moles/volume) 104 mmol/L 98-107 Carbon dioxide 24 mmol/L 21-32 Serum or plasma anion gap determination (moles/volume) 10 mmol/L 5-14 Serum or plasma urea nitrogen measurement (mass/volume) 8 mg/dL 7-18 Serum or plasma creatinine measurement (mass/volume) 0.60 mg/dL 0.60-1.30 Serum or plasma urea nitrogen/creatinine mass ratio 13 NRG Serum or plasma creatinine measurement with calculation of estimated glomerular filtration rate > NRG Serum or plasma glucose measurement (mass/volume) 108 mg/dL 70-105 Serum or plasma calcium measurement (mass/volume) 8.9 mg/dL 8.5-10.1 Serum or plasma total bilirubin measurement (mass/volume) 0.2 mg/dL 0.1-1.0 Serum or plasma alkaline phosphatase measurement (enzymatic activity/volume) 65 U/L 40-136 Serum or plasma aspartate aminotransferase measurement (enzymatic activity/ volume) 15 U/L 5-34 Serum or plasma alanine aminotransferase measurement (enzymatic activity/volume ) 28 U/L 0-55 Serum or plasma protein measurement (mass/volume) 6.6 g/dL 6.4-8.2 Serum or plasma albumin measurement (mass/volume) 3.5 g/dL 3.2-4.5 Complete urinalysis with reflex to culture - 06/20/17 15:55 Urine color determination YELLOW NRG Urine clarity determination CLEAR NRG Urine pH measurement by test strip 7 5-9 Specific gravity of urine by test strip 1.005 1.016- 1.022 Urine protein assay by test strip, semi-quantitative NEGATIVE NEGATIVE Urine glucose detection by automated test strip 3+ NEGATIVE Erythrocytes detection in urine sediment by light microscopy NEGATIVE NEGATIVE Urine ketones detection by automated test strip NEGATIVE NEGATIVE Urine nitrite detection by test strip NEGATIVE NEGATIVE Urine total bilirubin detection by test strip NEGATIVE NEGATIVE Urine urobilinogen measurement by automated test strip (mass/volume) NORMAL NORMAL Urine leukocyte esterase detection by dipstick NEGATIVE NEGATIVE Automated urine sediment erythrocyte count by microscopy (number/high power field) NONE NRG Automated urine sediment leukocyte count by microscopy (number/high power field ) NONE NRG Bacteria detection in urine sediment by light microscopy NEGATIVE NRG Squamous epithelial cells detection in urine sediment by light microscopy RARE NRG Crystals detection in urine sediment by light microscopy NONE NRG Casts detection in urine sediment by light microscopy NONE NRG Mucus detection in urine sediment by light microscopy NEGATIVE NRG Complete urinalysis with reflex to culture NO NRG Blood lactic acid measurement (moles/volume) - 06/20/17 16:25 Blood lactic acid measurement (moles/volume) 1.50 mmol/L 0.50-2.00 Bacterial blood culture - 06/20/17 16:25 Bacterial blood culture NG NRG Complete blood count (CBC) with automated white blood cell (WBC) differential - 06/20/17 17:06 Blood leukocytes automated count (number/volume) 17.0 10*3/uL 4.3-11.0 Blood erythrocytes automated count (number/volume) 4.35 10*6/uL 4.35-5.85 Venous blood hemoglobin measurement (mass/volume) 12.8 g/dL 11.5-16.0 Blood hematocrit (volume fraction) 38 % 35-52 Automated erythrocyte mean corpuscular volume 87 [foz_us] 80-99 Automated erythrocyte mean corpuscular hemoglobin (mass per erythrocyte) 29 pg 25-34 Automated erythrocyte mean corpuscular hemoglobin concentration measurement ( mass/volume) 34 g/dL 32-36 Automated erythrocyte distribution width ratio 14.1 % 10.0-14.5 Automated blood platelet count (count/volume) 212 10*3/uL 130-400 Automated blood platelet mean volume measurement 10.6 [foz_us] 7.4-10.4 Automated blood neutrophils/100 leukocytes 77 % 42-75 Automated blood lymphocytes/100 leukocytes 12 % 12-44 Blood monocytes/100 leukocytes 10 % 0-12 Automated blood eosinophils/100 leukocytes 2 % 0-10 Automated blood basophils/100 leukocytes 0 % 0-10 Blood neutrophils automated count (number/volume) 13.1 10*3 1.8-7.8 Blood lymphocytes automated count (number/volume) 2.0 10*3 1.0-4.0 Blood monocytes automated count (number/volume) 1.7 10*3 0.0-1.0 Automated eosinophil count 0.3 10*3/uL 0.0-0.3 Automated blood basophil count (count/volume) 0.0 10*3/uL 0.0-0.1 Comprehensive metabolic panel - 06/20/17 17:06 Serum or plasma sodium measurement (moles/volume) 137 mmol/L 135-145 Serum or plasma potassium measurement (moles/volume) 3.5 mmol/L 3.6-5.0 Serum or plasma chloride measurement (moles/volume) 106 mmol/L 98-107 Carbon dioxide 22 mmol/L 21-32 Serum or plasma anion gap determination (moles/volume) 9 mmol/L 5-14 Serum or plasma urea nitrogen measurement (mass/volume) 8 mg/dL 7-18 Serum or plasma creatinine measurement (mass/volume) 0.58 mg/dL 0.60-1.30 Serum or plasma urea nitrogen/creatinine mass ratio 14 NRG Serum or plasma creatinine measurement with calculation of estimated glomerular filtration rate > NRG Serum or plasma glucose measurement (mass/volume) 131 mg/dL 70-105 Serum or plasma calcium measurement (mass/volume) 8.9 mg/dL 8.5-10.1 Serum or plasma total bilirubin measurement (mass/volume) 0.4 mg/dL 0.1-1.0 Serum or plasma alkaline phosphatase measurement (enzymatic activity/volume) 71 U/L 40-136 Serum or plasma aspartate aminotransferase measurement (enzymatic activity/ volume) 20 U/L 5-34 Serum or plasma alanine aminotransferase measurement (enzymatic activity/volume ) 28 U/L 0-55 Serum or plasma protein measurement (mass/volume) 6.8 g/dL 6.4-8.2 Serum or plasma albumin measurement (mass/volume) 3.9 g/dL 3.2-4.5 Blood manual differential performed detection - 06/20/17 17:06 Blood monocytes/100 leukocytes 5 % NRG Manual blood segmented neutrophils/100 leukocytes 79 % NRG Blood band neutrophils/100 leukocytes 0 % NRG Manual blood lymphocytes/100 leukocytes 12 % NRG Manual eosinophils/100 leukocytes in nose 3 % NRG Manual blood basophils/100 leukocytes 1 % NRG Blood erythrocyte morphology finding identification NORMAL NRG Bacterial blood culture - 06/20/17 17:06 Bacterial blood culture NG NRG Complete blood count (CBC) with automated white blood cell (WBC) differential - 06/21/17 05:27 Blood leukocytes automated count (number/volume) 18.1 10*3/uL 4.3-11.0 Blood erythrocytes automated count (number/volume) 3.85 10*6/uL 4.35-5.85 Venous blood hemoglobin measurement (mass/volume) 11.1 g/dL 11.5-16.0 Blood hematocrit (volume fraction) 34 % 35-52 Automated erythrocyte mean corpuscular volume 88 [foz_us] 80-99 Automated erythrocyte mean corpuscular hemoglobin (mass per erythrocyte) 29 pg 25-34 Automated erythrocyte mean corpuscular hemoglobin concentration measurement ( mass/volume) 33 g/dL 32-36 Automated erythrocyte distribution width ratio 14.3 % 10.0-14.5 Automated blood platelet count (count/volume) 191 10*3/uL 130-400 Automated blood platelet mean volume measurement 10.5 [foz_us] 7.4-10.4 Automated blood neutrophils/100 leukocytes 73 % 42-75 Automated blood lymphocytes/100 leukocytes 16 % 12-44 Blood monocytes/100 leukocytes 10 % 0-12 Automated blood eosinophils/100 leukocytes 1 % 0-10 Automated blood basophils/100 leukocytes 0 % 0-10 Blood neutrophils automated count (number/volume) 13.2 10*3 1.8-7.8 Blood lymphocytes automated count (number/volume) 2.8 10*3 1.0-4.0 Blood monocytes automated count (number/volume) 1.9 10*3 0.0-1.0 Automated eosinophil count 0.2 10*3/uL 0.0-0.3 Automated blood basophil count (count/volume) 0.0 10*3/uL 0.0-0.1 Automated blood complete blood count (hemogram) panel - 06/22/17 05:30 Blood leukocytes automated count (number/volume) 13.7 10*3/uL 4.3-11.0 Blood erythrocytes automated count (number/volume) 3.52 10*6/uL 4.35-5.85 Venous blood hemoglobin measurement (mass/volume) 10.2 g/dL 11.5-16.0 Blood hematocrit (volume fraction) 31 % 35-52 Automated erythrocyte mean corpuscular volume 89 [foz_us] 80-99 Automated erythrocyte mean corpuscular hemoglobin (mass per erythrocyte) 29 pg 25-34 Automated erythrocyte mean corpuscular hemoglobin concentration measurement ( mass/volume) 33 g/dL 32-36 Automated erythrocyte distribution width ratio 14.2 % 10.0-14.5 Automated blood platelet count (count/volume) 176 10*3/uL 130-400 Automated blood platelet mean volume measurement 11.0 [foz_us] 7.4-10.4 Comprehensive metabolic panel - 06/22/17 05:30 Serum or plasma sodium measurement (moles/volume) 138 mmol/L 135-145 Serum or plasma potassium measurement (moles/volume) 3.3 mmol/L 3.6-5.0 Serum or plasma chloride measurement (moles/volume) 108 mmol/L 98-107 Carbon dioxide 22 mmol/L 21-32 Serum or plasma anion gap determination (moles/volume) 8 mmol/L 5-14 Serum or plasma urea nitrogen measurement (mass/volume) 6 mg/dL 7-18 Serum or plasma creatinine measurement (mass/volume) 0.50 mg/dL 0.60-1.30 Serum or plasma urea nitrogen/creatinine mass ratio 12 NRG Serum or plasma creatinine measurement with calculation of estimated glomerular filtration rate > NRG Serum or plasma glucose measurement (mass/volume) 158 mg/dL 70-105 Serum or plasma calcium measurement (mass/volume) 8.7 mg/dL 8.5-10.1 Serum or plasma total bilirubin measurement (mass/volume) 0.3 mg/dL 0.1-1.0 Serum or plasma alkaline phosphatase measurement (enzymatic activity/volume) 66 U/L 40-136 Serum or plasma aspartate aminotransferase measurement (enzymatic activity/ volume) 13 U/L 5-34 Serum or plasma alanine aminotransferase measurement (enzymatic activity/volume ) 19 U/L 0-55 Serum or plasma protein measurement (mass/volume) 5.6 g/dL 6.4-8.2 Serum or plasma albumin measurement (mass/volume) 3.0 g/dL 3.2-4.5 Serum or plasma lithium measurement (moles/volume) - 06/22/17 05:30 BNP level 188.3 pg/mL <100.0 Complete blood count (CBC) with automated white blood cell (WBC) differential - 06/23/17 05:30 Blood leukocytes automated count (number/volume) 10.2 10*3/uL 4.3-11.0 Blood erythrocytes automated count (number/volume) 3.65 10*6/uL 4.35-5.85 Venous blood hemoglobin measurement (mass/volume) 10.5 g/dL 11.5-16.0 Blood hematocrit (volume fraction) 32 % 35-52 Automated erythrocyte mean corpuscular volume 88 [foz_us] 80-99 Automated erythrocyte mean corpuscular hemoglobin (mass per erythrocyte) 29 pg 25-34 Automated erythrocyte mean corpuscular hemoglobin concentration measurement ( mass/volume) 33 g/dL 32-36 Automated erythrocyte distribution width ratio 14.3 % 10.0-14.5 Automated blood platelet count (count/volume) 203 10*3/uL 130-400 Automated blood platelet mean volume measurement 10.8 [foz_us] 7.4-10.4 Automated blood neutrophils/100 leukocytes 65 % 42-75 Automated blood lymphocytes/100 leukocytes 20 % 12-44 Blood monocytes/100 leukocytes 10 % 0-12 Automated blood eosinophils/100 leukocytes 5 % 0-10 Automated blood basophils/100 leukocytes 0 % 0-10 Blood neutrophils automated count (number/volume) 6.6 10*3 1.8-7.8 Blood lymphocytes automated count (number/volume) 2.0 10*3 1.0-4.0 Blood monocytes automated count (number/volume) 1.0 10*3 0.0-1.0 Automated eosinophil count 0.5 10*3/uL 0.0-0.3 Automated blood basophil count (count/volume) 0.0 10*3/uL 0.0-0.1 Comprehensive metabolic panel - 06/23/17 05:30 Serum or plasma sodium measurement (moles/volume) 141 mmol/L 135-145 Serum or plasma potassium measurement (moles/volume) 3.3 mmol/L 3.6-5.0 Serum or plasma chloride measurement (moles/volume) 109 mmol/L 98-107 Carbon dioxide 25 mmol/L 21-32 Serum or plasma anion gap determination (moles/volume) 7 mmol/L 5-14 Serum or plasma urea nitrogen measurement (mass/volume) 5 mg/dL 7-18 Serum or plasma creatinine measurement (mass/volume) 0.51 mg/dL 0.60-1.30 Serum or plasma urea nitrogen/creatinine mass ratio 10 NRG Serum or plasma creatinine measurement with calculation of estimated glomerular filtration rate > NRG Serum or plasma glucose measurement (mass/volume) 136 mg/dL 70-105 Serum or plasma calcium measurement (mass/volume) 9.0 mg/dL 8.5-10.1 Serum or plasma total bilirubin measurement (mass/volume) 0.3 mg/dL 0.1-1.0 Serum or plasma alkaline phosphatase measurement (enzymatic activity/volume) 68 U/L 40-136 Serum or plasma aspartate aminotransferase measurement (enzymatic activity/ volume) 17 U/L 5-34 Serum or plasma alanine aminotransferase measurement (enzymatic activity/volume ) 23 U/L 0-55 Serum or plasma protein measurement (mass/volume) 6.3 g/dL 6.4-8.2 Serum or plasma albumin measurement (mass/volume) 3.2 g/dL 3.2-4.5 Complete blood count (CBC) with automated white blood cell (WBC) differential - 06/24/17 06:42 Blood leukocytes automated count (number/volume) 8.1 10*3/uL 4.3-11.0 Blood erythrocytes automated count (number/volume) 3.83 10*6/uL 4.35-5.85 Venous blood hemoglobin measurement (mass/volume) 11.0 g/dL 11.5-16.0 Blood hematocrit (volume fraction) 34 % 35-52 Automated erythrocyte mean corpuscular volume 88 [foz_us] 80-99 Automated erythrocyte mean corpuscular hemoglobin (mass per erythrocyte) 29 pg 25-34 Automated erythrocyte mean corpuscular hemoglobin concentration measurement ( mass/volume) 33 g/dL 32-36 Automated erythrocyte distribution width ratio 14.0 % 10.0-14.5 Automated blood platelet count (count/volume) 231 10*3/uL 130-400 Automated blood platelet mean volume measurement 10.5 [foz_us] 7.4-10.4 Automated blood neutrophils/100 leukocytes 56 % 42-75 Automated blood lymphocytes/100 leukocytes 24 % 12-44 Blood monocytes/100 leukocytes 13 % 0-12 Automated blood eosinophils/100 leukocytes 7 % 0-10 Automated blood basophils/100 leukocytes 0 % 0-10 Blood neutrophils automated count (number/volume) 4.5 10*3 1.8-7.8 Blood lymphocytes automated count (number/volume) 1.9 10*3 1.0-4.0 Blood monocytes automated count (number/volume) 1.0 10*3 0.0-1.0 Automated eosinophil count 0.6 10*3/uL 0.0-0.3 Automated blood basophil count (count/volume) 0.0 10*3/uL 0.0-0.1 Whole blood basic metabolic panel - 06/24/17 06:42 Serum or plasma sodium measurement (moles/volume) 141 mmol/L 135-145 Serum or plasma potassium measurement (moles/volume) 4.1 mmol/L 3.6-5.0 Serum or plasma chloride measurement (moles/volume) 107 mmol/L 98-107 Carbon dioxide 25 mmol/L 21-32 Serum or plasma anion gap determination (moles/volume) 9 mmol/L 5-14 Serum or plasma urea nitrogen measurement (mass/volume) 7 mg/dL 7-18 Serum or plasma creatinine measurement (mass/volume) 0.52 mg/dL 0.60-1.30 Serum or plasma urea nitrogen/creatinine mass ratio 13 NRG Serum or plasma creatinine measurement with calculation of estimated glomerular filtration rate > NRG Serum or plasma glucose measurement (mass/volume) 132 mg/dL 70-105 Serum or plasma calcium measurement (mass/volume) 9.1 mg/dL 8.5-10.1 Encounters ACCT No. Visit Date/Time Discharge Status Pt. Type Provider Facility Loc./Unit Complaint [id number] 11/14/2017 12:08:00 11/14/2017 23:59:59 CLS Outpatient JESUS SMITH MD [facility] RAD ABNORMAL THYROID TEST [id number] 11/14/2017 05:39:00 11/14/2017 10:59:00 DIS Outpatient CARLINE YANG MD [facility] PREOP COLONOSCOPY [id number] 11/07/2017 14:51:00 11/07/2017 23:59:59 CLS Preadmit JADA FORRESTER MD [facility] RAD C34.11 CA OF RT LUNG [id number] 11/07/2017 13:15:00 11/07/2017 23:59:59 CLS Outpatient JADA FORRESTER MD [facility] ONC [id number] 08/13/2017 10:50:00 11/05/2017 00:01:00 DIS Outpatient DEAN TORIBIO [facility] ONC [id number] 08/07/2017 10:11:00 08/07/2017 23:59:59 CLS Outpatient DEAN TORIBIO [facility] CARD C34.11 CA OF RT LUNG [id number] 07/02/2017 09:56:00 07/08/2017 00:01:00 DIS Outpatient DEAN TORIBIO [facility] ONC [id number] 06/20/2017 17:30:00 06/24/2017 11:00:00 DIS Inpatient KAYLEIGH PARDO, LISA Diallo [facility] 4TH R PERIHILAR PNEUMONIA /SEPSIS [id number] 04/30/2017 09:28:00 04/30/2017 23:59:59 CLS Outpatient LAMAR VELÁZQUEZ [facility] RAD C34.11 [id number] 03/06/2017 10:46:00 03/13/2017 00:01:00 DIS Outpatient DEAN TORIBIO [facility] ONC [id number] 03/06/2017 11:12:00 03/06/2017 23:59:59 CLS Outpatient DEAN TORIBIO [facility] RAD CANCER OF RIGHT LUNG C34.11 [id number] 02/27/2017 14:59:00 02/27/2017 23:59:59 CLS Outpatient DAVID RUIZ [facility] RAD COUGH,SOB,FATIGUE, COPD [id number] 12/13/2016 09:50:00 12/13/2016 23:59:59 CLS Outpatient DEAN TORIBIO [facility] RAD CA OF RT LUNG C34.11 [id number] 12/13/2016 09:41:00 12/13/2016 23:59:59 CLS Outpatient JESUS SMITH MD [facility] LAB [id number] 09/12/2016 14:57:00 11/23/2016 00:01:00 DIS Outpatient DEAN TORIBIO [facility] ONC [id number] 09/05/2016 11:08:00 09/05/2016 23:59:59 CLS Outpatient DEAN TORIBIO [facility] CARD CANCER OF RIGHT LUNG [id number] 07/15/2016 12:57:00 09/01/2016 00:01:00 DIS Outpatient DEAN TORIBIO [facility] ONC [id number] 05/28/2016 08:37:00 05/28/2016 23:59:59 CLS Outpatient LAMAR VELÁZQUEZ [facility] RAD CANCER OF RIGHT LUNG [id number] 03/13/2016 09:09:00 05/28/2016 00:01:00 DIS Outpatient DEAN TORIBIO [facility] ONC [id number] 03/05/2016 11:40:00 03/05/2016 23:59:59 CLS Outpatient DEAN TORIBIO [facility] CARD CA OF RT LUNG [id number] 02/14/2016 09:05:00 02/26/2016 00:01:00 DIS Outpatient DEAN TORIBIO [facility] ONC [id number] 02/18/2016 12:08:00 02/22/2016 10:45:00 DIS Inpatient LISA VICTOR MD [facility] 4TH ACUTE BRONCHITIS [id number] 12/12/2015 10:55:00 12/12/2015 23:59:59 CLS Outpatient JESUS SIMTH MD [facility] LAB [id number] 11/28/2015 08:53:00 11/28/2015 23:59:59 CLS Outpatient JESUS SMITH MD [facility] LAB [id number] 11/21/2015 10:25:00 11/27/2015 09:13:00 DIS Outpatient DEAN TORIBIO [facility] ONC [id number] 10/19/2015 07:55:00 10/19/2015 13:25:00 DIS Outpatient CARLINE YANG MD [facility] LUNG CANCER [id number] 10/18/2015 08:57:00 10/18/2015 09:35:00 DIS Outpatient CARLINE YANG MD [facility] PREOP LUNG CANCER [id number] 10/11/2015 09:23:00 10/11/2015 23:59:59 CLS Outpatient SHAWNEE NARAYAN DO [facility] RT COPD,CAD,LUNG MASS, TOBACCO USER [id number] 09/25/2015 08:52:00 09/25/2015 16:05:00 DIS Outpatient SHAWNEE NARAYAN DO [facility] RAD LUNG MASS,COPD,TOBACCO USER [id number] 09/11/2015 06:56:00 09/11/2015 09:30:00 DIS Outpatient SHAWNEE NARAYAN DO [facility] BRONCHTHERAPHY [id number] 09/08/2015 09:39:00 09/08/2015 23:59:59 CLS Outpatient SHAWNEE NARAYAN DO [facility] PREOP BRONCHTHERAPHY [id number] 09/05/2015 11:04:00 09/05/2015 23:59:59 CLS Outpatient SHAWNEE NARAYAN DO [facility] RAD R91.8,E17.200,R06.09, J44.9 [id number] 08/19/2015 23:15:00 08/24/2015 10:55:00 DIS Inpatient STEFFANY CHATMAN MD [facility] 4TH PNEUMONIA RT LUNG, RT LARGE MASS [id number] 10/13/2014 01:13:00 10/16/2014 13:23:00 DIS Inpatient JESUS SMITH MD [facility] 4TH BIBASILAR PNEUMONIA [id number] 09/26/2014 09:46:00 09/26/2014 23:59:59 CLS Outpatient JESUS SMITH MD [facility] RAD SCREENING [id number] 09/16/2014 21:49:00 09/21/2014 16:32:00 DIS Inpatient STEFFANY CHATMAN MD [facility] SURGICAL PNEUMONIA,CHEST WALL PAIN,COPD EXAC [id number] 07/19/2014 21:28:00 07/22/2014 09:50:00 DIS Inpatient JESUS SMITH MD [facility] SURGICAL PNEUMONIA [id number] 01/29/2014 18:17:00 01/29/2014 18:30:00 DIS Emergency BRIGHT SMITH MD [facility] ER L HAND LAC [id number] 12/25/2013 13:56:00 12/29/2013 10:30:00 DIS Inpatient JESUS SMITH MD [facility] 4TH PNEUMONITIS [id number] 09/24/2013 08:40:00 09/24/2013 23:59:59 CLS Outpatient BÁRBARA HONEYCUTT APRN [facility] RAD FOLLOW UP [id number] 08/30/2013 09:37:00 08/30/2013 23:59:59 CLS Outpatient BÁRBARA HONEYCUTT APRN [facility] RAD PNUEMONIA [id number] 08/23/2013 15:50:00 08/23/2013 18:15:00 DIS Emergency MARIO ALBERTO PARDO, KELIN Stafford [facility] ER SOB, L ARM PAIN [id number] 06/26/2013 17:24:00 07/01/2013 10:40:00 DIS Inpatient JESUS SMITH MD [facility] 4TH PNEUMONIA [id number] 05/16/2013 00:45:00 05/19/2013 12:11:00 DIS Inpatient JESUS SMITH MD [facility] 4TH COPD EXACERBATION WITH HYPOXIA [id number] 01/10/2013 19:25:00 01/13/2013 11:00:00 DIS Inpatient JESUS SMITH MD [facility] 4TH PNUEMONIA;FEVER;COUGH; LEUKOCYTOSIS [id number] 11/11/2012 12:33:00 11/11/2012 23:59:59 CLS Outpatient BÁRBARA HONEYCUTT APRN [facility] RAD 6 MONTH FOLLOW UP [id number] 11/11/2012 07:01:00 11/11/2012 23:59:59 CLS Outpatient JESUS SMITH MD [facility] RT COPD [id number] 11/19/2017 12:45:00 PEN Preadmit CARLINE YANG MD [facility] ENDO SCREENING/HX POLYPS/LESION TO LEFT WRIST [id number] 09/05/2015 11:04:00 Document Registration [id number] 09/05/2015 11:04:00 Document Registration [id number] 06/03/2012 13:31:00 Document Registration [id number] 05/20/2012 12:20:00 Document Registration [id number] 04/30/2012 10:13:00 Document Registration [id number] 04/24/2012 09:43:00 Document Registration [id number] 04/22/2012 07:42:00 Document Registration [id number] 03/30/2012 11:38:00 Document Registration [id number] 03/26/2012 16:59:00 Document Registration [id number] 03/26/2012 15:36:00 Document Registration [id number] 03/23/2012 07:16:00 Document Registration [id number] 03/20/2012 08:55:00 Document Registration [id number] 08/06/2011 20:19:00 Document Registration [id number] 07/13/2011 14:00:00 Document Registration [id number] 07/10/2011 08:51:00 Document Registration [id number] 04/11/2011 17:15:00 Document Registration [id number] 01/24/2011 10:10:00 Document Registration [id number] 05/19/2010 18:33:00 Document Registration [id number] 05/03/2010 12:24:00 Document Registration [id number] 04/17/2010 10:33:00 Document Registration [id number] 10/12/2014 20:53:56 ACT Document Registration
--- NOTE | 2017-11-19 11:48 | Conscious Sedation/ASA ---
Conscious Sedation Pre-Proced Time 11:45 ASA Score 3 For ASA 3 and 4: Consider anesthesia and medical clearance. Also, for patients with a history of failed moderate sedation consider anesthesia. Airway Lungs Heart ASA score ASA 1: a normal healthy patient ASA 2: a patient with a mild systemic disease (mid diabetes, controlled hypertension, obesity ASA 3: a patient with a severe systemic disease that limits activity (angina , COPD, prior Myocardial infarction) ASA 4: a patient with an incapacitating disease that is a constant threat to life (CHF, renal failure) ASA 5: a moribund patient not expected to survive 24 hrs. (ruptured aneurysm) ASA 6: a declared brain patient whose organs are being harvested. For emergent operations, add the letter E after the classification Mallampati Classification Grade 2 Sedation Plan Analgesia, Amnesia, Plan communicated to team members, Discussed options with patient/fam, Discussed risks with patient/fam The patient is an appropriate candidate to undergo the planned procedure, sedation, and anesthesia. The patient immediately re-assessed prior to indication. CARLINE YANG MD Nov 19, 2017 11:48 am
--- NOTE | 2017-11-19 11:49 | Progress Note-Pre Operative ---
Pre-Operative Progress Note H&P Reviewed The H&P was reviewed, patient examined and no changes noted. Date Seen by Provider: Nov 19, 2017 Time Seen by Provider: 11:45 Date H&P Reviewed: Nov 19, 2017 Time H&P Reviewed: 11:45 Pre-Operative Diagnosis: high risk screening colonoscopy, sx skin lesion lt wrist. CARLINE YANG MD Nov 19, 2017 11:49 am
[2017-11-19] MEDS ORDERED: LACTATED RINGERS 1,000 ML IV ONE (11:53)
[2017-11-19] MEDS ORDERED: ACETAMINOPHEN 325 MG TABLET PO PRN (12:00)
[2017-11-19] MEDS ORDERED: ONDANSETRON 4 MG/2 ML (SDV) Z0FRAN IV PRN (12:00)
[2017-11-19] MEDS ORDERED: HYDROcodone/APAP 5 MG/325 MG (LORTAB) TAB PO PRN (12:00)
[2017-11-19] MEDS ORDERED: morphine INJ 10 MG/ML 1ML (SYR OR VIAL) IV PRN (12:00)
[2017-11-19 12:15] VITALS: BP 127/85
[2017-11-19] MEDS ORDERED: LIDOCAINE/EPI 2% 1:200,00 (XYLOCAINE) 10 ML VIAL INJ ONE (12:45)
[2017-11-19] MEDS ORDERED: LIDOCAINE/EPI 1%-1:200,000 (XYLOCAINE) 10 ML VIAL INJ ONE (12:45)
[2017-11-19] MEDS ORDERED: PROPOFOL INJECTION 50 ML IV ONE (14:00)
[2017-11-19] MEDS ORDERED: LIDOCAINE JELLY 2% (XYLOCAINE) 30 ML TUBE TOP ONE (15:00)
--- NOTE | 2017-11-19 15:11 | Progress Note-Post Operative ---
Post-Operative Progess Note Surgeon (s)/Community Service Director (s) Surgeon CARLINE YANG MD Community Service Director: none Pre-Operative Diagnosis high risk screening colonoscopy, sx skin lesion lt wrist. Post-Operative Diagnosis chronic stage 2 ext and int hemorrhoids. full thickness left dorsal wrist lesion 2.5cm. Procedure & Operative Findings Date of Procedure 11/19/17 Procedure Performed/Findings Colonoscopy. excision left dorsal wrist lesion 2.5cm. Anesthesia Type MAC Estimated Blood Loss Estimated blood loss (mL): minimal Specimens/Packing Specimens Removed left wrist skin lesion. CARLINE YANG MD Nov 19, 2017 3:11 pm
--- NOTE | 2017-11-19 15:12 | Discharge Inst-Surgical ---
D/C Lap Instructions-CELIA Follow Up Appt in 10 days Activity as tolerated High Fiber Diet 25g or more per day Avoid Alcohol, Caffeine, Spicy [place] and Acid foods. Drink 64 fluid oz or more of fluids per day. Symptoms to Report: Fever over 101 degree F, Nausea/Vomiting If any problems/questions: Contact your physician or go to Emergency Room CARLINE YANG MD Nov 19, 2017 3:12 pm
[2017-11-19 15:15] VITALS: BP 126/60
[2017-11-19 16:00] VITALS: BP 128/79
[2017-11-19 16:05] VITALS: BP 128/79
--- NOTE | 2017-11-19 21:07 | OPERATIVE REPORT ---
DATE OF SERVICE: 11/19/2017 ATTENDING PRIMARY CARE PHYSICIAN: Dr. Sampson. PREOPERATIVE DIAGNOSES: Screening colonoscopy, high risk with personal history of lung cancer and other family history of cancers. Large symptomatic lesion, left dorsal wrist, 2.5 cm in size. POSTOPERATIVE DIAGNOSES: Chronic stage II external and internal hemorrhoids. The remainder of the rectum and colon were normal. Large symptomatic lesion, left dorsal wrist, 2.5 cm in size. PROCEDURES: Colonoscopy and excision of left wrist skin lesion. SURGEON: Carline Yang MD ANESTHESIA: Conscious sedation. ESTIMATED BLOOD LOSS: Minimal. FINDINGS: Chronic stage II external and internal hemorrhoids, not actively edematous nor inflamed and no bleeding. The remainder of the rectum and colon were normal. DISPOSITION: The patient tolerated the procedure well. INDICATIONS: The patient is a 77-year-old female known to us. We have seen her before in the past for gastrointestinal issues and have done both EGD and colonoscopy on her in the past. She also had a skin lesion in 06/2015, which was a well-differentiated squamous cell skin cancer, which was completely excised. 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 She underwent a Groshong implantable catheter and then this was followed by CyberKnife radiation x4 one week apart followed by 3 months of chemotherapy. She states that her last colonoscopy was about 5 years ago. She reports also that she has a personal history of cancer as well as family history of other cancers including lung and prostate cancer and the recommendation was to proceed with followup colonoscopy. She also has a large symptomatic region in the left dorsal wrist, which is hyperkeratotic raised in approximately 2.5 cm in size, which grossly appears to be a squamous cell skin cancer or basal cell. DESCRIPTION OF PROCEDURE: The patient was brought to the endoscopy suite, laid in the left lateral decubitus position. After adequate IV pain and sedative medications and monitored anesthesia care, a digital rectal examination was performed. Chronic stage II external and internal hemorrhoids were identified, which were not actively edematous nor inflamed and no bleeding. Normal sphincter tone was felt and there were no palpable masses. The endoscope was then intubated to the anus and rectum gently insufflated. The endoscope was then advanced to the valves of Gutierrez of the rectum with no polyps or any neoplasms identified. The endoscope was then advanced to the sigmoid colon where no significant diverticulosis identified. The endoscope was then advanced through the remainder of the descending, transverse and ascending colon to the cecum. These segments were normal. There were no polyps or any neoplasms identified throughout the colon or rectum. The endoscope was then slowly withdrawn while taking a second look and suctioning of residual air with no additional findings. The patient tolerated this portion of the procedure well. We will recommend a high-fiber diet with at least 25 grams of fiber per day as well as at least 64 fluid ounces of water to promote soft stools on a daily basis. We will recommend a followup colonoscopy in approximately 5 years. Under the same anesthesia, we then proceeded with excision of the left wrist lesion. The left wrist was prepped and draped in standard surgical fashion. Lidocaine 1% with epinephrine was used to anesthetize the overlying skin to the lesion. The lesion was then fully excised using a 15 blade to the subcutaneous fat. The skin edges were then reapproximated using multiple 4-0 nylon interrupted sutures. Good hemostasis was observed. The wound was then cleaned and covered with sterile gauze followed by a sterile Brianne wrap. The patient tolerated the procedure well. We will await the biopsy results and have her follow up in the office in approximately 10 days to discuss pathology results as well as remove the sutures. Job ID: [id number] DocumentID: [id number] Dictated Date: 11/19/2017 15:06:20 Strapping Machine Operator Date: 11/19/2017 21:06:58 Dictated By: CARLINE YANG MD
--- NOTE | 2017-11-25 | Physician Query-General Query ---
Physician Query-General Query to Physician: Please clarify Operative report. It states no lesion or polyps found on colonoscopy. Surgery record shows polyp of cecum, pathology reports, cecal polyp sent to analysis. Was a polyp of the cecum removed? PHYSICIAN RESPONSE: Based on the clinical findings in the record, please respond to the query above on this document as an addendum. Possible, probable, or questionable diagnosis can be coded for INPATIENTS ONLY. Physician Response: Physician Response small 2mm hyperplastic polyp was identified and biopsied during colonoscopy. was not mentioned or dictated in the operative report. If you have questions please contact: Green House Manager: Ext: Thank you for your time and cooperation. Clinical Telecommunications Repairer/Green House Manager This is a permanent part of the medical record JESSICA GROSS Nov 25, 2017 00:00 CARLINE YANG MD Nov 26, 2017 17:08
== END 2017-11-19 16:07 | disposition home or self-care (01) ==
LOC: ENDO 11:18
PROVIDERS: ATTEND Surgery
DX: Z12.11 Encounter for screening for malignant neoplasm of colon (principal); K63.5 Polyp of colon; K64.1 Second degree hemorrhoids; C34.91 Malignant neoplasm of unspecified part of right bronchus or lung; C44.629 Squamous cell carcinoma of skin of left upper limb, including shoulder; Z80.1 Family history of malignant neoplasm of trachea, bronchus and lung; Z80.42 Family history of malignant neoplasm of prostate; Z86.010 Personal history of colon polyps; J44.9 Chronic obstructive pulmonary disease, unspecified; E78.5 Hyperlipidemia, unspecified; I25.10 Atherosclerotic heart disease of native coronary artery without angina pectoris; Z87.891 Personal history of nicotine dependence; Z99.81 Dependence on supplemental oxygen; Z79.899 Other long term (current) drug therapy; Z79.02 Long term (current) use of antithrombotics/antiplatelets

== ENCOUNTER → 2017-12-01 | Outpatient (CLI) | payer MEDICARE, MEDICAID ==
[~2017-12-01] VITALS: Ht 160 cm; Wt 76.7 kg
[~2017-12-01] MED LIST changes: +LIDOCAINE 1% INJ 20 ML 20 ML VIAL INJ ONE
--- NOTE | 2017-12-01 13:25 | Diagnostic Imaging Report ---
INDICATION: Thyroid nodule. TECHNIQUE AND FINDINGS: The patient's neck was prepped and draped utilizing maximal sterile barrier technique. Local anesthesia was obtained with 2% lidocaine. Three fine-needle aspirates were obtained of the right thyroid nodule. Following the procedure, the needle was removed and adequate hemostasis was obtained. The patient tolerated the procedure well and left the Department in stable condition. IMPRESSION: Successful ultrasound-guided thyroid biopsy as described. Dictated by: Dictated on workstation # [id number]
== END ==
LOC: RAD 11:50
PROVIDERS: ATTEND Internal Medicine
DX: E04.1 Nontoxic single thyroid nodule (principal)
CPT/HCPCS: 76942

== ENCOUNTER → 2018-02-03 | Outpatient (CLI) | payer MEDICARE, MEDICAID ==
[~2018-02-03] MED LIST changes: +IOHEXOL 350 MG/ML 100 ML (OMNIPAQUE 350) VIAL IV ONE; -LIDOCAINE 1% INJ 20 ML 20 ML VIAL INJ ONE; +NS 100 ML (IVPB) BAG IV ONE; +RECEIVED CONTRAST (Hold Metformin) IV SCH
--- NOTE | 2018-02-03 10:18 | Diagnostic Imaging Report ---
PROCEDURE: CT chest with contrast only. TECHNIQUE: Multiple contiguous axial images were obtained through the chest after administration of intravenous contrast. INDICATION: Lung cancer. FINDINGS: The previous CT chest and abdomen exam performed on 08/07/2017 failed to show any sign of neoplastic disease. There was a vague groundglass density along the periphery of the right upper lobe however within this density, there was a 5 x 7 mm soft tissue element. On this exam, the groundglass density is again identified and not significantly changed. The soft tissue element within the groundglass density is difficult to assess but does seem somewhat larger. I would estimate the density now to be approximately 8 x 11 mm. The 7 x 12 mm parenchymal density in the left apex seen previously is again evident and does not appear to have changed significantly. There is no new nodular density identified otherwise. However, in the interval since the prior study, a small 9 x 15 mm new groundglass density has developed along the posterior aspect of the right lung base. This could represent a small focus of acute pneumonia/atelectasis. The emphysematous changes involving both lungs are again evident and no different. There is no mediastinal or hilar adenopathy. The heart size is stable. Coronary artery calcifications are again noted. The aorta is not abnormally dilated and there is no sign of dissection. The pulmonary arteries were not fully opacified. There is no definite defect to suggest pulmonary embolus. The prior exam did note low density nodules in both lobes of the thyroid. The patient subsequently underwent ultrasound-guided biopsy of the dominant nodule in the right lobe. The results of the biopsy are not known to me. There is no obvious breast mass. The sections through the upper abdomen failed to show any sign of an acute abnormality or of metastatic disease. The bone windows are unremarkable for fracture or for destructive lesion. IMPRESSION: 1. The wedge-shaped area of groundglass density in the periphery of the right upper lung seen previously is again evident and no different. However, the soft tissue component in this area seen previously does seem somewhat larger. This finding is difficult to evaluate however. If further imaging is desired, then PET/CT would be recommended. If the PET/CT exam is not performed, then a short-term (three-month) followup CT chest exam should be obtained. 2. The nodular density in the left apex appears stable. No new nodule has developed in the interval since the prior exam. 3. The small faint groundglass density in the right infrahilar region may be related to mild acute pneumonia/atelectasis. Clinical followup is recommended. 4. There is no acute cardiopulmonary abnormality noted otherwise. Dictated by: Dictated on workstation # [id number]
== END ==
LOC: RAD 07:56
PROVIDERS: ATTEND Internal Medicine Hematology & Oncology
DX: C34.11 Malignant neoplasm of upper lobe, right bronchus or lung (principal)
CPT/HCPCS: 71260

== ENCOUNTER 2018-02-05 09:32 | Outpatient (RCR) | payer MEDICARE, MEDICAID ==
[2018-02-03 08:22] LABS: BASOPHILS # (AUTO) 0.1 10^3/uL (0.0-0.1); BASOPHILS % (AUTO) 1 % (0-10); EOSINOPHILS # (AUTO) 0.4 10^3/uL (0.0-0.3); EOSINOPHILS % (AUTO) 4 % (0-10); HEMATOCRIT 39 % (35-52); HEMOGLOBIN 12.6 G/DL (11.5-16.0); LYMPHOCYTES % (AUTO) 38 % (12-44); MEAN CORPUSCULAR HEMOGLOBIN 28 PG (25-34); MEAN CORPUSCULAR HGB CONC 32 G/DL (32-36); MEAN CORPUSCULAR VOLUME 86 FL (80-99); MEAN PLATELET VOLUME 10.2 FL (7.4-10.4); MONOCYTES % (AUTO) 9 % (0-12); NEUTROPHILS # (AUTO) 5.1 X 10^3 (1.8-7.8); NEUTROPHILS % (AUTO) 49 % (42-75); PLATELET COUNT 237 10^3/uL (130-400); WHITE BLOOD COUNT 10.5 10^3/uL (4.3-11.0)
[2018-02-03 08:48] LABS: ALANINE AMINOTRANSFERASE 19 U/L (0-55); ALBUMIN 3.8 GM/DL (3.2-4.5); ALKALINE PHOSPHATASE 83 U/L (40-136); BILIRUBIN,TOTAL 0.4 MG/DL (0.1-1.0); BUN/CREATININE RATIO 13; CALCIUM 9.3 MG/DL (8.5-10.1); CARBON DIOXIDE 22 MMOL/L (21-32); CHLORIDE 106 MMOL/L (98-107); CREATININE SERUM 0.64 MG/DL (0.60-1.30); GFR ESTIMATED > 60; GLUCOSE 147 MG/DL (70-105); POTASSIUM 3.8 MMOL/L (3.6-5.0); SODIUM 140 MMOL/L (135-145)
[~2018-02-05 09:32] MED LIST changes: -IOHEXOL 350 MG/ML 100 ML (OMNIPAQUE 350) VIAL IV ONE; -NS 100 ML (IVPB) BAG IV ONE; -RECEIVED CONTRAST (Hold Metformin) IV SCH; -ROFL500T4 PO
== END 2018-05-04 | disposition home or self-care (01) ==
LOC: ONC 09:32
PROVIDERS: ATTEND Internal Medicine Hematology & Oncology
DX: C34.11 Malignant neoplasm of upper lobe, right bronchus or lung (principal); J43.9 Emphysema, unspecified; I25.10 Atherosclerotic heart disease of native coronary artery without angina pectoris; E78.00 Pure hypercholesterolemia, unspecified; K21.9 Gastro-esophageal reflux disease without esophagitis; M19.91 Primary osteoarthritis, unspecified site; Z87.891 Personal history of nicotine dependence; Z99.81 Dependence on supplemental oxygen
CPT/HCPCS: 36591; 80053; 85025; 99213

== ENCOUNTER → 2018-04-16 | Outpatient (CLI) | payer MEDICARE, MEDICAID ==
[~2018-04-16] MED LIST changes: +ROFL500T4 PO
--- NOTE | 2018-04-16 10:54 | Diagnostic Imaging Report ---
INDICATION: Increasing shortness of breath. TIME OF EXAM: 10:39 a.m. COMPARISON: Correlation is made with prior study from 06/22/2017. FINDINGS: The heart size is stable. Chronic density in the right upper lobe appears similar to prior exam. Some mild chronic interstitial changes in both bases, also stable. No new infiltrate is identified. No effusion or pneumothorax is detected. Left-sided port has tip overlying the SVC. IMPRESSION: Chronic parenchymal changes bilaterally, stable when compared with exam from 06/22/2017. Dictated by: Dictated on workstation # [id number]
== END ==
LOC: RAD 10:31
PROVIDERS: ATTEND Physician Assistant
DX: J18.9 Pneumonia, unspecified organism (principal); J98.4 Other disorders of lung
CPT/HCPCS: 71046

== ENCOUNTER → 2018-06-18 | Outpatient (CLI) | payer MEDICARE, MEDICAID ==
[~2018-06-18] MED LIST changes: +HOLD METFORMIN - RECEIVED CONTRAST 20 ML VIAL IV SCH; +IOHEXOL 350 MG/ML 100 ML (OMNIPAQUE 350) VIAL IV ONE; -ROFL500T4 PO
--- NOTE | 2018-06-18 15:37 | Diagnostic Imaging Report ---
INDICATION: Lung cancer. CT chest obtained with IV contrast bolus and compared to 02/03/2018. FINDINGS: There are no enlarged mediastinal nodes. There is adenopathy in the left hilum with largest node measuring about 1.8 cm. This is a new finding compared to the previous study. There is no pleural fluid or axillary adenopathy. The density in the right upper lobe appears stable compared to the prior study with parenchymal scarring and central density measuring about 11 x 9 mm. The nodular lesion in the left apex with spiculation has increased in size compared to the prior study. It previously measured about 7 x 12 mm, and now measures about 14 x 13 mm. There are diffuse emphysematous changes. There is diffuse inhomogeneity of the thyroid gland noted. IMPRESSION: Compared to the previous study, the left apical mass has increased in size. There is new adenopathy in the left hilum. The parenchymal density with scarring and central nodularity is unchanged in the right upper lobe compared to the prior study. There is underlying emphysematous change. There is diffuse inhomogeneity of the thyroid, which could be followed sonographically. Dictated by: Dictated on workstation # [id number]
== END ==
LOC: RAD 12:58
PROVIDERS: ATTEND Nurse Practitioner Adult Health
DX: C34.11 Malignant neoplasm of upper lobe, right bronchus or lung (principal); J43.9 Emphysema, unspecified; R59.0 Localized enlarged lymph nodes
CPT/HCPCS: 71260

== ENCOUNTER → 2018-06-18 | Outpatient (CLI) | payer MEDICARE, MEDICAID ==
[~2018-06-18] MED LIST changes: -HOLD METFORMIN - RECEIVED CONTRAST 20 ML VIAL IV SCH; -IOHEXOL 350 MG/ML 100 ML (OMNIPAQUE 350) VIAL IV ONE
--- NOTE | 2018-06-18 17:01 | Diagnostic Imaging Report ---
PROCEDURE: US Thyroid. TECHNIQUE: Multiple real-time grayscale images were obtained of the thyroid in various projections. INDICATION: Thyroid nodules. CORRELATION is made to prior thyroid ultrasound from 03/16/2018. FINDINGS: The right lobe of the thyroid measures 3.7 x 2.3 x 1.8 cm and the left lobe measures 3.8 x 2.1 x 1.9 cm. A hypoechoic nodule in the inferior aspect of the left lobe measures 1.5 x 0.7 x 1.5 cm. No microcalcifications are seen. A second hypoechoic nodule measures 1.0 x 0.8 x 1.0 cm. These most likely represent previously noted cysts and are similar in size. The right lobe of the thyroid does contain a solid mass inferiorly measuring 1.2 x 1.5 x 1.7 cm. This has decreased in size since the prior exam. No new mass is seen. Both lobes are heterogeneously. IMPRESSION: Bilateral thyroid nodules, similar in size when compared with prior exam from 03/16/2018. Continued followup is recommended. Dictated by: Dictated on workstation # [id number]
== END ==
LOC: RAD 12:56
PROVIDERS: ATTEND Nurse Practitioner
DX: E04.2 Nontoxic multinodular goiter (principal)
CPT/HCPCS: 76536

== ENCOUNTER → 2018-07-07 | Outpatient (CLI) | payer MEDICARE, MEDICAID ==
--- NOTE | 2018-07-07 14:14 | Diagnostic Imaging Report ---
INDICATION: History of right lung cancer. The patient has enlarging lymph nodes and left hilar mass and enlarging left upper lobe mass on prior CT. Study is performed for further evaluation. TECHNIQUE: Serum blood glucose level at the time of injection was 172 mg/dL. Patient was administered 13.4 mCi F-18 FDG intravenously in the left forearm and PET imaging was performed from the top of skull to mid thighs. COMPARISON: Comparison is made with recent CT chest from 06/18/2018 and PET scan from 05/28/2016. FINDINGS: There is symmetric activity throughout the brain. Soft tissues of the neck are unremarkable. A spiculated 2.3 cm mass in left upper lobe demonstrates intense hypermetabolism with SUV max approximately 12.5. Left paraesophageal lymph node is hypermetabolic in the superior mediastinum with SUV max approximately 12. AP window hypermetabolism is seen. Left hilar mass is hypermetabolic with SUV max approximately 9. No right hilar hypermetabolism is seen. The right-sided pulmonary parenchyma is without hypermetabolism. Imaging through the abdomen and pelvis does show numerous hypermetabolic foci within the liver consistent with hepatic metastatic disease. This is a new finding. Largest lesion is in the anterior right lobe with SUV max of nearly 15. No adrenal mass is detected. No lymphadenopathy is detected. Physiologic activity in the GI and tracts is seen. IMPRESSION: 1. Interval development of hypermetabolic spiculated mass in left upper lobe suggestive of primary lung neoplasm. There are hypermetabolic lymph nodes in the mediastinum and left hilum consistent with metastatic disease. In addition, there are numerous hypermetabolic foci throughout the liver consistent with hepatic metastatic disease. Dictated by: Dictated on workstation # [id number]
== END ==
LOC: RAD 08:45
PROVIDERS: ATTEND Nurse Practitioner Adult Health
DX: C34.11 Malignant neoplasm of upper lobe, right bronchus or lung (principal); R59.0 Localized enlarged lymph nodes

== ENCOUNTER 2018-07-10 17:59 | Inpatient (IN) | payer MEDICARE, MEDICAID ==
[2018-07-10] VITALS (11 sets, daily range): BP systolic 99–134; BP diastolic 51–81
[~2018-07-10] VITALS: Ht 160 cm; Wt 81.3 kg
[2018-07-10] MEDS ORDERED: NS IV 1000 ML 1,000 ML IV SCH (18:22)
[2018-07-10] MEDS ORDERED: RT-ALBUTEROL/IPRATROPIUM 3 ML (DUONEB) VIAL ONE (18:23)
[2018-07-10] MEDS ORDERED: RT-ALBUTEROL/IPRATROPIUM 3 ML (DUONEB) VIAL INH ONE (18:30)
[2018-07-10] MEDS ORDERED: ACETAMINOPHEN 500 MG TAB (TYLENOL) PO ONE (18:30)
[2018-07-10 18:37] LABS: BASOPHILS % (AUTO) 0 % (0-10); EOSINOPHILS # (AUTO) 0.1 10^3/uL (0.0-0.3); EOSINOPHILS % (AUTO) 0 % (0-10); HEMATOCRIT 38 % (35-52); HEMOGLOBIN 12.6 G/DL (11.5-16.0); LYMPHOCYTES # (AUTO) 3.3 X 10^3 (1.0-4.0); LYMPHOCYTES % (AUTO) 17 % (12-44); MEAN CORPUSCULAR HEMOGLOBIN 28 PG (25-34); MEAN CORPUSCULAR HGB CONC 33 G/DL (32-36); MEAN CORPUSCULAR VOLUME 83 FL (80-99); MEAN PLATELET VOLUME 10.3 FL (7.4-10.4); MONOCYTES % (AUTO) 10 % (0-12); NEUTROPHILS % (AUTO) 72 % (42-75); PLATELET COUNT 273 10^3/uL (130-400); RED CELL DISTRIBUTION WIDTH 15.2 % (10.0-14.5); WHITE BLOOD COUNT 19.4 10^3/uL (4.3-11.0)
[2018-07-10 18:53] LABS: INR 1.1 (0.8-1.4); PROTHROMBIN TIME PATIENT 14.9 SEC (12.2-14.7)
[2018-07-10 18:59] LABS: BAND NEUTROPHILS 0 %; BASOPHILS % (MANUAL) 0 %; EOSINOPHILS % (MANUAL) 0 %; LYMPHOCYTES % (MANUAL) 18 %; MONOCYTES % (MANUAL) 12 %; NEUTROPHILS % (MANUAL) 68 %; RBC MORPH NORMAL
--- NOTE | 2018-07-10 19:01 | ED General ---
General Chief Complaint: Respiratory Problems Stated Complaint: SOB/COUGH Nursing Triage Note: THE PT IS AMBULATORY TO THE ROOM WITHOUT DIFFICULTY. SLIGHT SOB IS NOTED ON ARRIVAL. LOC IS NORMAL FOR THE PT. THE PT STATES THAT SHE IS MORE SOB THAN USUAL. Nursing Sepsis Screen: No Definite Risk Source of Information: Patient, Old Records Exam Limitations: No Limitations History of Present Illness Date Seen by Provider: July 10, 2018 Time Seen by Provider: 18:12 Initial Comments This 78 year old woman presents to the ER by private vehicle accompanied by family with acute illness that started yesterday and includes bodyaches, shortness of breath, and cough. She felt like she was getting the flu. She has a history of lung cancer that was in remission after treatment with CyberKnife and chemotherapy by her report. She states there is no concern of possible recurrence in her lung. She anticipates a biopsy in the near future. Review of her chart notes a recent PET scan demonstrating a hypermetabolic spiculated lung mass and evidence of liver metastases. She is afebrile at this time but tachycardic. Her primary care provider is Dr. Smith. Her oncologist is Dr. Mora. She denies any nausea, vomiting, diarrhea, urinary symptoms, hemoptysis or other symptoms not mentioned above. She is oxygen dependent at night and is wearing nasal cannula on assessment. Allergies and Home Medications Allergies Coded Allergies: No Known Drug Allergies (Unverified , 10/18/15) Home Medications Acetaminophen 500 Mg Tablet, 1,000 MG PO Q6H PRN for PAIN-MILD, (Reported) TAKES 2 (500 MG) TABLETS Albuterol Sulfate 8.5 Gm Hfa.aer.ad, 1-2 PUFF IH PRN PRN for SHORTNESS OF BREATH, (Reported) Aspirin 81 Mg Tablet.dr, 81 MG PO DAILY, (Reported) Atorvastatin Calcium 80 Mg Tablet, 80 MG PO DAILY, (Reported) Budesonide/Formoterol Fumarate 10.2 Gm Hfa.aer.ad, 2 PUFF INH BID, (Reported) Clopidogrel Bisulfate 75 Mg Tablet, 75 MG PO DAILY, (Reported) Ezetimibe 10 Mg Tablet, 10 MG PO DAILY, (Reported) Loratadine 10 Mg Tablet, 10 MG PO DAILY, (Reported) Pantoprazole Sodium 40 Mg Tablet.dr, 40 MG PO DAILY, (Reported) Potassium Chloride 10 Meq Tab.er.prt, 10 MEQ PO DAILY, (Reported) Roflumilast 500 Mcg Tablet, 500 MCG PO DAILY, (Reported) Tiotropium [place] 1 Inh Aerp, 1 CAP IH DAILY, (Reported) Patient Home Medication List Home Medication List Reviewed: Yes Review of Systems Review of Systems Constitutional: see HPI, malaise EENTM: other (dry oropharynx) Respiratory: see HPI Cardiovascular: see HPI Gastrointestinal: no symptoms reported Genitourinary: no symptoms reported : No Musculoskeletal: see HPI Skin: no symptoms reported Psychiatric/Neurological: No Symptoms Reported Hematologic/Lymphatic: No Symptoms Reported Immunological/Allergic: no symptoms reported Past Sormmyz-Temfqd-Jhhrck Hx Past Med/Social Hx: Reviewed and Corrections made Patient Social History Type Used: Cigarettes Former Smoker, Quit: Jan 08, 2017 Recent Foreign Travel: No Contact w/Someone Who Travel: No Recent Infectious Disease Expo: No Recent Hopitalizations: Yes Physical Abuse: No Sexual Abuse: No Mistreated: No Fear: No Immunizations Up To Date Tetanus Booster (TDap): Unknown Date of Pneumonia Vaccine: June 24, 2014 Date of Influenza Vaccine: Nov 29, 2015 Seasonal Allergies Seasonal Allergies: No Past Medical History Surgeries: Yes (BX BREAST, L port placement, CyberKnife cancer therapy) Breast, Cardiac, Gallbladder, Hysterectomy Respiratory: Yes (lung cancer) COPD Currently Using CPAP: No Currently Using BIPAP: No Cardiac: Yes (HEART CATH x2) Coronary Artery Disease, High Cholesterol Neurological: No : No 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 Sexually Transmitted Disease: No HIV/AIDS: No Gastrointestinal: Yes Gastroesophageal Reflux Musculoskeletal: Yes Arthritis, Chronic Back Pain Endocrine: No HEENT: Yes Cataract, Macular Degeneration Loss of Vision: Bilateral Hearing Impairment: Denies Cancer: Yes Lung Did You Recieve Any Treatments: Yes What Type of Treatment Did You: Chemotherapy, Radiation Psychosocial: No Integumentary: No Blood Disorders: No Adverse Reaction/Blood Tranf: No Family Medical History Cancer 03 FATHER Congestive heart failure 03 FATHER 03 MOTHER 09 SISTER 09 SISTER 09 SISTER Diabetes mellitus 03 FATHER 03 MOTHER Family history: Diabetes mellitus 03 MOTHER 09 SISTER 09 SISTER 09 SISTER Heart Disease, Cancer, Diabetes Physical Exam-Suspected Sepsis Physical Exam Vital Signs Vital Signs - First Documented 07/10/18 07/10/18 07/10/18 18:28 18:45 22:02 Temp 98.9 Pulse 129 Resp 18 B/P (MAP) 134/81 (98) Pulse Ox 94 O2 Delivery Nasal Cannula O2 Flow Rate 2.00 FiO2 3 Capillary Refill : Less Than 3 Seconds Blood Pressure Mean: 98 Height, Weight, BMI Height: 5'5.00" Weight: 170lbs. 0.0oz. [id number]; 29.9 BMI Method:Estimated General Appearance: No Apparent Distress, WD/WN HEENT: PERRL/EOMI, Normal ENT Inspection, Other (oropharynx dry) Neck: Normal Inspection Respiratory: No Accessory Muscle Use, No Respiratory Distress; No Crackles; Wheezing Cardiovascular: No Edema, No Murmur, Normal Peripheral Pulses, Tachycardia Gastrointestinal: Normal Bowel Sounds, Non Tender, Soft Extremity: Normal Capillary Refill, Normal Inspection, Non Tender, No Calf Tenderness, No Pedal Edema, Other (negative Mirela) Neurologic/Psychiatric: Alert, Oriented x3, No Motor/Sensory Deficits, Normal Mood/Affect, nicker II-XII Norm as Tested Skin: normal color, warm/dry Focused Exam Lactate Level 07/10/18 18:30: Lactic Acid Level 0.85 Lactic Acid Level Progress/Results/Core Measures Suspected Sepsis Recent Fever Within 48 Hours: No Infection Criteria Present: None New/Unexplained Altered Menta: No Sepsis Screen: No Definite Risk SIRS Temperature:98.9 Pulse: 129 Respiratory Rate: 18 Laboratory Tests 07/10/18 18:30: White Blood Count 19.4H Blood Pressure 134 /81 Mean: 98 07/10/18 18:30: Lactic Acid Level 0.85 Laboratory Tests 07/10/18 18:30: Creatinine 0.62, INR Comment 1.1, Platelet Count 273, Total Bilirubin 0.5 Results/Orders Lab Results Laboratory Tests Test 07/10/18 18:30 07/10/18 19:30 Range/Units White Blood Count 19.4 H 4.3-11.0 10^3/uL Red Blood Count 4.59 4.35-5.85 10^6/uL Hemoglobin 12.6 11.5-16.0 G/DL Hematocrit 38 35-52 % Mean Corpuscular Volume 83 80-99 FL Mean Corpuscular Hemoglobin 28 25-34 PG Mean Corpuscular Hemoglobin Concent 33 32-36 G/DL Red Cell Distribution Width 15.2 H 10.0-14.5 % Platelet Count 273 130-400 10^3/uL Mean Platelet Volume 10.3 7.4-10.4 FL Neutrophils (%) (Auto) 72 42-75 % Lymphocytes (%) (Auto) 17 12-44 % Monocytes (%) (Auto) 10 0-12 % Eosinophils (%) (Auto) 0 0-10 % Basophils (%) (Auto) 0 0-10 % Neutrophils # (Auto) 14.0 H 1.8-7.8 X 10^3 Lymphocytes # (Auto) 3.3 1.0-4.0 X 10^3 Monocytes # (Auto) 2.0 H 0.0-1.0 X 10^3 Eosinophils # (Auto) 0.1 0.0-0.3 10^3/uL Basophils # (Auto) 0.0 0.0-0.1 10^3/uL Neutrophils % (Manual) 68 % Lymphocytes % (Manual) 18 % Monocytes % (Manual) 12 % Eosinophils % (Manual) 0 % Basophils % (Manual) 0 % Band Neutrophils 0 % Blood Morphology Comment NORMAL Prothrombin Time 14.9 H 12.2-14.7 SEC INR Comment 1.1 0.8-1.4 Activated Partial Thromboplast Time 35 24-35 SEC Sodium Level 136 135-145 MMOL/L Potassium Level 3.4 L 3.6-5.0 MMOL/L Chloride Level 100 98-107 MMOL/L Carbon Dioxide Level 22 21-32 MMOL/L Anion Gap 14 5-14 MMOL/L Blood Urea Nitrogen 6 L 7-18 MG/DL Creatinine 0.62 0.60-1.30 MG/DL Estimat Glomerular Filtration Rate > 60 BUN/Creatinine Ratio 10 Glucose Level 139 H 70-105 MG/DL Lactic Acid Level 0.85 0.50-2.00 MMOL/L Calcium Level 10.1 8.5-10.1 MG/DL Corrected Calcium 10.1 8.5-10.1 MG/DL Total Bilirubin 0.5 0.1-1.0 MG/DL Aspartate Amino Transf (AST/SGOT) 22 5-34 U/L Alanine Aminotransferase (ALT/SGPT) 28 0-55 U/L Alkaline Phosphatase 84 40-136 U/L C-Reactive Protein High Sensitivity 16.68 H 0.00-0.50 MG/DL B-Type Natriuretic Peptide 18.1 <100.0 PG/ML Total Protein 7.8 6.4-8.2 GM/DL Albumin 4.0 3.2-4.5 GM/DL Urine Color YELLOW Urine Clarity CLEAR Urine pH 6 5-9 Urine Specific [place] 1.015 L 1.016-1.022 Urine Protein 2+ H NEGATIVE Urine Glucose (UA) NEGATIVE NEGATIVE Urine Ketones 3+ H NEGATIVE Urine Nitrite NEGATIVE NEGATIVE Urine Bilirubin NEGATIVE NEGATIVE Urine Urobilinogen NORMAL NORMAL MG/DL Urine Leukocyte Esterase 2+ H NEGATIVE Urine RBC (Auto) 1+ H NEGATIVE Urine RBC RARE /HPF Urine WBC 5-10 H /HPF Urine Squamous Epithelial Cells 2-5 /HPF Urine Crystals NONE /LPF Urine Bacteria TRACE /HPF Urine Casts NONE /LPF Urine Mucus SMALL H /LPF Urine Culture Indicated CULTURE PENDING Micro Results Microbiology 07/10/18 Influenza Types A,B Antigen (CLAY) - Final, Complete My Orders Orders - KELIN LLANES MD BNP (07/10/18 18:12) Cbc With Automated Diff (07/10/18 18:12) Comprehensive Metabolic Panel (07/10/18 18:12) Hs C Reactive Protein (07/10/18 18:12) Ed Iv/Invasive Line Start (07/10/18 18:12) Chest Pa/Lat (2 View) (07/10/18 18:12) Blood Culture (07/10/18 18:22) Sputum Culture (07/10/18 18:22) Urinalysis (07/10/18 18:22) Urine Culture (07/10/18 18:22) Protime With Inr (07/10/18 18:22) Partial Thromboplastin Time (07/10/18 18:22) Ed Iv/Invasive Line Start (07/10/18 18:22) Vital Signs Adult Sepsis Patie Q15M (07/10/18 18:22) O2 (07/10/18 18:22) Remove Rings In Anticipation O (07/10/18 18:22) Lactic Acid Analyzer (07/10/18 18:22) Ns Iv 1000 Ml (Sodium Chloride 0.9%) (07/10/18 18:22) Albuterol/Ipra Inhalation Soln (Duoneb I (07/10/18 18:30) Influenza A And B Antigens (07/10/18 18:22) Acetaminophen Tablet (Tylenol Tablet) (07/10/18 18:30) Albuterol/Ipra Inhalation Soln (Duoneb I (07/10/18 18:23) Manual Differential (07/10/18 18:30) Piperacillin/Tazobactam (Bulk) (Zosyn In (07/10/18 19:15) Medications Given in ED Current Medications Medications Dose Ordered Sig/Sarah Route Start Time Stop Time Status Last Admin Dose Admin Acetaminophen 1,000 mg ONCE ONCE PO 07/10/18 18:30 07/10/18 18:31 DC 07/10/18 18:42 1,000 MG Albuterol/ Ipratropium 3 ml STK-MED ONCE .ROUTE 07/10/18 18:23 07/10/18 18:27 DC 07/10/18 18:28 3 ML Piperacillin Sod/ Tazobactam Sod 4.5 gm/Sodium Chloride 120 ml @ 240 mls/hr ONCE ONCE IV 07/10/18 19:15 07/10/18 19:44 DC 07/10/18 19:37 240 MLS/HR Vital Signs/I&O 07/10/18 07/10/18 07/10/18 07/10/18 18:28 18:45 19:41 19:59 Temp 98.9 98.6 Pulse 129 115 Resp 18 18 B/P (MAP) 134/81 (98) 134/81 (98) Pulse Ox 94 92 93 O2 Delivery Nasal Cannula Nasal Cannula O2 Flow Rate 2.00 2.00 2.00 07/10/18 07/10/18 07/10/18 07/10/18 20:12 20:35 20:49 20:55 Temp 98.4 99.0 99.0 Pulse 115 106 106 111 Resp 18 22 22 B/P (MAP) 134/81 (98) 116/68 (84) 116/68 (84) 120/53 (75) Pulse Ox 93 94 94 O2 Delivery Nasal Cannula Nasal Cannula O2 Flow Rate 2.00 3.00 3.00 07/10/18 07/10/18 07/10/18 07/10/18 21:01 21:10 21:20 21:25 Temp 99.0 Pulse 106 107 Resp 22 B/P (MAP) 116/68 110/52 (71) Pulse Ox 94 O2 Delivery Nasal Cannula Nasal Cannula O2 Flow Rate 3.00 3.00 07/10/18 07/10/18 07/10/18 07/10/18 21:53 22:02 22:02 22:25 Temp 99.0 Pulse 106 109 106 Resp 22 B/P (MAP) 116/68 (84) 104/51 (68) Pulse Ox 94 95 95 O2 Delivery Nasal Cannula Nasal Cannula O2 Flow Rate 3.00 3.00 FiO2 3 07/10/18 07/10/18 07/11/18 07/11/18 22:27 23:30 00:30 01:30 Temp 97.1 Pulse 100 102 103 B/P (MAP) 99/58 (72) 120/68 (85) 100/59 (73) Pulse Ox 93 95 93 95 O2 Delivery Nasal Cannula Nasal Cannula Nasal Cannula Nasal Cannula O2 Flow Rate 3.00 3.00 3.00 3.00 07/11/18 07/11/18 07/11/18 02:23 02:30 04:02 Temp 96.7 96.7 Pulse 98 94 Resp 20 B/P (MAP) 101/56 (71) 112/68 (83) Pulse Ox 95 98 94 O2 Delivery Nasal Cannula Nasal Cannula Nasal Cannula O2 Flow Rate 3.00 3.00 3.00 Capillary Refill : Less Than 3 Seconds Blood Pressure Mean: 98 Progress Note #1: Time: 19:02 Progress Note Patient was seen and examined. Septic workup is underway. DuoNeb treatment was ordered for the wheezing. 2 L of IV fluids have been ordered. Progress Note #2: Time: 19:12 Progress Note Patient's labs have been reviewed. She has leukocytosis and elevated CRP. There is possible infiltrate on x-ray. Zosyn has been ordered for initial antibiotic therapy. Influenza screen was negative. Progress Note #3: Time: 19:54 Progress Note Patient is presumed to have pneumonia due to productive cough and shortness of breath with signs of sepsis including tachycardia and leukocytosis. There was also suggestion of urinary tract infection on the urinalysis. Zosyn should cover both sources of infection. Patient will be admitted to the medical floor on telemetry. I discussed CODE STATUS with patient and her family. They have elected a DO NOT RESUSCITATE status. Diagnostic Imaging Diagonstic Imaging: Xray Plain Films/CT/US/NM/MRI: chest Comments Chest x-ray viewed by me and report reviewed. See report below: NAME: MELIZA NIEVES [facility] REC#: [id number] PT STATUS: REG ER : 1940 PHYSICIAN: KELIN LLANES MD ADMIT DATE: 07/10/18/ER Draft Date of Exam:07/10/18 CHEST PA/LAT (2 VIEW) INDICATION: Cough and shortness of breath. Comparison is made with prior examination from 04/16/2018. FINDINGS: Heart size is normal. The mediastinum is unremarkable. There is no pleural effusion or pneumothorax. [id number] catheter overlies the left hemithorax. There is minimal scarring in the lung bases. There is a persistent spiculated mass in the left lung apex. There is also an unchanged area of spiculation in the lateral aspect of the right upper lobe. IMPRESSION: Persistent spiculated mass in left lung apex. Unchanged area of scarring or spiculation in the lateral aspect of the right upper lobe. Minimal scarring in the lung bases Dictated on workstation # [id number] Dict: 07/10/[id number] Trans: 07/10/18 [address] [facility] [id number] Interpreted by: RAJIV GANDHI MD Departure Communication (Admissions) Time/Spoke to Admitting Phy: 19:34 Dr. Camacho Impression Primary Impression: Sepsis Qualified Codes: A41.9 - Sepsis, unspecified organism Additional Impressions: Lung cancer Qualified Codes: C34.10 - Malignant neoplasm of upper lobe, unspecified bronchus or lung Pneumonia Qualified Codes: J18.9 - Pneumonia, unspecified organism COPD with exacerbation Urinary tract infection Qualified Codes: N39.0 - Urinary tract infection, site not specified Disposition: ADMITTED INPATIENT Condition: Improved Admissions Decision to Admit Reason: Admit from ER (General) Decision to Admit/Date: July 10, 2018 Time/Decision to Admit Time: 19:00 Departure-Patient Inst. Referrals: JESUS SMITH MD (PCP/Family) Primary Care Physician KELIN LLANES MD July 10, 2018 19:01
[2018-07-10 19:07] LABS: ALANINE AMINOTRANSFERASE 28 U/L (0-55); ALKALINE PHOSPHATASE 84 U/L (40-136); BILIRUBIN,TOTAL 0.5 MG/DL (0.1-1.0); BUN/CREATININE RATIO 10; CALCIUM 10.1 MG/DL (8.5-10.1); CARBON DIOXIDE 22 MMOL/L (21-32); CHLORIDE 100 MMOL/L (98-107); CREATININE SERUM 0.62 MG/DL (0.60-1.30); GFR ESTIMATED > 60; GLUCOSE 139 MG/DL (70-105); POTASSIUM 3.4 MMOL/L (3.6-5.0); SODIUM 136 MMOL/L (135-145); TOTAL PROTEIN 7.8 GM/DL (6.4-8.2)
[2018-07-10] MEDS ORDERED: PIPERACILLIN/TAZOBACTAM (BULK) 4.5 GM in NS (IVPB) 100 ML IV ONE (19:15)
--- NOTE | 2018-07-10 19:25 | Diagnostic Imaging Report ---
INDICATION: Cough and shortness of breath. Comparison is made with prior examination from 04/16/2018. FINDINGS: Heart size is normal. The mediastinum is unremarkable. There is no pleural effusion or pneumothorax. [id number] catheter overlies the left hemithorax. There is minimal scarring in the lung bases. There is a persistent spiculated mass in the left lung apex. There is also an unchanged area of spiculation in the lateral aspect of the right upper lobe. IMPRESSION: Persistent spiculated mass in left lung apex. Unchanged area of scarring or spiculation in the lateral aspect of the right upper lobe. Minimal scarring in the lung bases Dictated by: Dictated on workstation # [id number]
[2018-07-10 19:43] LABS: BILIRUBIN,URINE NEGATIVE (NEGATIVE); CLARITY,URINE CLEAR; COLOR,URINE YELLOW; GLUCOSE, URINE (UA) NEGATIVE (NEGATIVE); KETONES,URINE 3+ (NEGATIVE); LEUKOCYTE ESTERASE ,URINE 2+ (NEGATIVE); NITRITE,URINE NEGATIVE (NEGATIVE); PH,URINE 6 (5-9); PROTEIN,URINE 2+ (NEGATIVE); UROBILINOGEN,URINE NORMAL (NORMAL)
[2018-07-10 19:50] LABS: BACTERIA,URINE TRACE /HPF; RBC,URINE RARE /HPF
--- OUTSIDE RECORDS SUMMARY | 2018-07-10 20:16 | XMS REPORT | Continuity of Care Document ---
Author Organization Unknown Address Unknown Allergies Active Description Code Type Severity Reaction Onset Reported/Identified Relationship to Patient Clinical Status Yes No Known Drug Allergies [id number] Drug Allergy Unknown N/A 10/18/2015 Medications There [...] DISORDER 03/23/2012 Ot 414.01 CORONARY ATHEROSCLEROSIS OF [place] CORON 03/23/2012 Ot 496 CHR AIRWAY OBSTRUCT NEC 03/23/2012 Ot 786.09 RESPIRATORY ABNORM NEC 03/23/2012 Ot V17.49 FAMILY HISTORY OF OTHER CARDIOVASCULAR D 03/23/2012 Ot V58.63 LONG-TERM(CURRENT)USE OF ANTIPLATELET/AN 03/23/2012 Ot V58.69 OTH MED,LT,CURRENT USE 03/27/2012 Ot 272.4 HYPERLIPIDEMIA NEC/NOS 03/27/2012 Ot 305.1 TOBACCO USE DISORDER 03/27/2012 Ot 401.9 HYPERTENSION NOS 03/27/2012 Ot 414.01 CORONARY ATHEROSCLEROSIS OF [place] CORON 03/27/2012 Ot 496 CHR AIRWAY OBSTRUCT NEC 03/27/2012 Ot 997.2 SURG COMP-STEVIE VASC SYST 03/27/2012 Ot E879.0 ABN REACT-CARDIAC CATH 03/27/2012 Ot V58.63 LONG-TERM(CURRENT)USE OF ANTIPLATELET/AN 03/27/2012 Ot V58.66 LONG-TERM (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 OF ASPIRIN 03/27/2012 Ot V58.69 OTH MED,LT,CURRENT USE 04/24/2012 Ot 455.0 INT HEMORRHOID W/O [...] HYPOPOTASSEMIA 06/08/2012 Ot 414.01 CORONARY ATHEROSCLEROSIS OF [place] CORON 06/08/2012 Ot 486 PNEUMONIA, ORGANISM NOS [...] SMITH MD Ot 414.01 CORONARY ATHEROSCLEROSIS OF [place] CORON 01/13/2013 JESUS SMITH MD Ot 486 [...] SMITH MD Ot 414.01 CORONARY ATHEROSCLEROSIS OF [place] CORON 05/19/2013 JESUS SMITH MD Ot 486 [...] SMITH MD Ot 414.01 CORONARY ATHEROSCLEROSIS OF [place] CORON 07/01/2013 JESUS SMITH MD Ot 486 [...] 272.0 PURE HYPERCHOLESTEROLEM 08/23/2013 KELIN LLANES MD Ot 288.60 LEUKOCYTOSIS, UNSPECIFIED 08/23/2013 KELIN LLANES [...] SMITH MD Ot 414.01 CORONARY ATHEROSCLEROSIS OF [place] CORON 12/29/2013 JESUS SMITH MD Ot 491.21 [...] SMITH MD Ot 414.01 CORONARY ATHEROSCLEROSIS OF [place] CORON 07/22/2014 JESUS SMITH MD Ot 486 PNEUMONIA, ORGANISM NOS 07/22/2014 JESUS SMITH MD Ot 496 CHR AIRWAY OBSTRUCT NEC 07/22/2014 JESUS SMITH MD Ot 530.81 ESOPHAGEAL REFLUX 07/22/2014 JESUS SMITH MD Ot 793.11 SOLITARY PULMONARY NODULE 07/22/2014 JESUS SMITH MD Ot 995.91 SEPSIS 09/21/2014 STEFFANY CHATMAN MD Ot 272.0 PURE HYPERCHOLESTEROLEM 09/21/2014 STEFFANY CHATMAN MD Ot 272.4 HYPERLIPIDEMIA NEC/NOS 09/21/2014 STEFFANY CHATMNA MD Ot 288.60 LEUKOCYTOSIS, UNSPECIFIED 09/21/2014 STEFFANY CHATMAN MD Ot 305.1 TOBACCO USE DISORDER 09/21/2014 STEFFANY CHATMAN MD Ot 362.50 MACULAR DEGENERATION NOS 09/21/2014 STEFFANY CHATMAN MD Ot 414.01 CORONARY ATHEROSCLEROSIS OF [place] CORON 09/21/2014 STEFFANY CHATMAN MD Ot 486 [...] SMITH MD Ot 414.01 CORONARY ATHEROSCLEROSIS OF [place] CORON 10/16/2014 JESUS SMITH MD Ot 482.2 [...] MD Ot I25.10 ATHSCL HEART DISEASE OF [place] CORONARY 08/23/2015 STEFFANY CHATMAN MD Ot J18.9 [...] MD Ot I25.10 ATHSCL HEART DISEASE OF [place] CORONARY 08/24/2015 STEFFANY CHATMAN MD Ot J18.9 PNEUMONIA, UNSPECIFIED ORGANISM 08/24/2015 STEFFANY CHATMAN MD Ot J44.1 CHRONIC OBSTRUCTIVE PULMONARY DISEASE W 08/24/2015 STEFFANY CHATMAN MD Ot K21.9 GASTRO-ESOPHAGEAL REFLUX DISEASE WITHOUT 08/24/2015 STEFFANY CHATMAN MD Ot R91.8 OTHER NONSPECIFIC ABNORMAL FINDING OF [place]UL[place] 08/24/2015 STEFFANY CHATMAN MD Ot 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 08/24/2015 STEFFANY CHATMAN MD Ot Z79.82 MCC (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 OF ASPIRIN 08/24/2015 STEFFANY CHATMAN MD Ot Z87.891 PERSONAL HISTORY OF NICOTINE DEPENDENCE 08/24/2015 STEFFANY CHATMAN MD Ot Z99.81 DEPENDENCE ON SUPPLEMENTAL OXYGEN 09/05/2015 Ot 486 PNEUMONIA, ORGANISM NOS 09/05/2015 Ot 486 PNEUMONIA, ORGANISM NOS 09/05/2015 Ot V76.12 OTH SCREEN MAMMO- MALIGN NEOPLASM OF [place] 09/05/2015 Ot 786.2 COUGH 09/05/2015 Ot 786.09 RESPIRATORY ABNORM NEC 09/05/2015 Ot 786.2 COUGH 09/05/2015 Ot 272.4 HYPERLIPIDEMIA NEC/NOS 09/05/2015 Ot 413.9 ANGINA PECTORIS NEC/NOS 09/05/2015 Ot 414.00 CORON ATHEROSCLER NOS TYPE VESSEL, NATIV 09/05/2015 Ot 786.05 SHORTNESS OF BREATH 09/05/2015 Ot 997.2 SURG COMP-STEVIE VASC SYST 09/05/2015 Ot 997.2 SURG COMP-STEVIE VASC SYST 09/05/2015 Ot V72.84 EXAM PRE-OPERATIVE NOS 09/05/2015 Ot 793.82 INCONCLUSIVE MAMMOGRAM 09/05/2015 Ot V76.12 OTH SCREEN MAMMO- MALIGN NEOPLASM OF [place] 09/05/2015 Ot 793.80 UNSPEC ABNORMAL MAMMOGRAM 09/05/2015 BÁRBARA HONEYCUTT APRN Ot 793.89 OTH (ABN) FINDINGS ON RADIOLOGICAL EXAMI 09/05/2015 JESUS SMITH MD Ot 496 CHR AIRWAY OBSTRUCT NEC 09/05/2015 BÁRBARA HONEYCUTT CAR SALES CONSULTANT Ot 486 PNEUMONIA, ORGANISM NOS 09/05/2015 BÁRBARA HONEYCUTT APRN Ot 786.05 SHORTNESS OF BREATH 09/05/2015 BÁRBARA HONEYCUTT APRN Ot 793.89 OTH (ABN) FINDINGS ON RADIOLOGICAL EXAMI 09/05/2015 SARAH PARDO, JESUS Meza Ot V76.12 OT SCREEN MAMMO-MALIGN NEOPLASM OF [place] 09/06/2015 SHAWNEE [...] DO Ot I25.10 ATHSCL HEART DISEASE OF [place] CORONARY 09/11/2015 SHAWNEE NARAYAN DO Ot J44.9 CHRONIC OBSTRUCTIVE PULMONARY DISEASE, U 09/11/2015 SHAWNEE NARAYAN DO Ot K21.9 GASTRO-ESOPHAGEAL REFLUX DISEASE WITHOUT 09/11/2015 SHAWNEE NARAYAN DO Ot R91.8 OTHER NONSPECIFIC ABNORMAL FINDING OF [place] 09/12/2015 SHAWNEE NARAYAN DO Ot E78.5 HYPERLIPIDEMIA, UNSPECIFIED 09/12/2015 SHAWNEE NARAYAN DO Ot I25.10 ATHSCL HEART DISEASE OF [place] CORONARY 09/12/2015 SHAWNEE NARAYAN DO Ot J44.9 CHRONIC OBSTRUCTIVE PULMONARY DISEASE, U 09/12/2015 SHAWNEE NARAYAN DO Ot K21.9 GASTRO-ESOPHAGEAL REFLUX DISEASE WITHOUT 09/12/2015 SHAWNEE NARAYAN DO Ot R91.8 OTHER NONSPECIFIC ABNORMAL FINDING OF [place]UL[place] 09/25/2015 SHAWNEE NARAYAN DO Ot E78.5 HYPERLIPIDEMIA, UNSPECIFIED 09/25/2015 SHAWNEE NARAYAN DO Ot I25.10 ATHSCL HEART DISEASE OF [place] CORONARY 09/25/2015 SHAWNEE NARAYAN DO Ot J44.9 CHRONIC OBSTRUCTIVE PULMONARY DISEASE, U 09/25/2015 SHAWNEE NARAYAN DO Ot K21.9 GASTRO-ESOPHAGEAL REFLUX DISEASE WITHOUT 09/25/2015 SHAWNEE NARAYAN DO Ot R22.2 LOCALIZED SWELLING, MASS AND LUMP, TRUNK 09/28/2015 SHAWNEE NARAYAN DO Ot E78.5 HYPERLIPIDEMIA, UNSPECIFIED 09/28/2015 SHAWNEE NARAYAN DO Ot I25.10 ATHSCL HEART DISEASE OF [place] CORONARY 09/28/2015 SHAWNEE NARAYAN DO Ot J44.9 CHRONIC OBSTRUCTIVE [...] DO Ot I25.10 ATHSCL HEART DISEASE OF [place] CORONARY 10/13/2015 SHAWNEE NARAYAN DO, Ot J44.9 CHRONIC OBSTRUCTIVE PULMONARY DISEASE, U 10/13/2015 SHAWNEE NARAYAN DO Ot R91.8 OTHER NONSPECIFIC ABNORMAL FINDING OF [place]UL[place] 10/13/2015 SHAWNEE NARAYAN DO Ot Z72.0 TOBACCO USE 10/18/2015 Ot 486 PNEUMONIA, ORGANISM NOS 10/18/2015 Ot V76.12 OTH SCREEN MAMMO- MALIGN NEOPLASM OF [place] 10/18/2015 Ot 786.2 COUGH 10/18/2015 Ot 786.09 RESPIRATORY ABNORM NEC 10/18/2015 Ot 786.2 COUGH 10/18/2015 Ot 272.4 HYPERLIPIDEMIA NEC/NOS 10/18/2015 Ot 413.9 ANGINA PECTORIS NEC/NOS 10/18/2015 Ot 414.00 CORON ATHEROSCLER NOS TYPE VESSEL, NATIV 10/18/2015 Ot 786.05 SHORTNESS OF BREATH 10/18/2015 Ot 997.2 SURG COMP-STEVIE VASC SYST 10/18/2015 Ot 997.2 SURG COMP-STEVIE VASC SYST 10/18/2015 Ot V72.84 EXAM PRE-OPERATIVE NOS 10/18/2015 Ot 793.82 INCONCLUSIVE MAMMOGRAM 10/18/2015 Ot V76.12 OTH SCREEN MAMMO- MALIGN NEOPLASM OF [place] 10/18/2015 Ot 793.80 UNSPEC ABNORMAL MAMMOGRAM 10/18/2015 BÁRBARA HONEYCUTT CAR SALES CONSULTANT Ot 793.89 OTH (ABN) FINDINGS ON RADIOLOGICAL EXAMI 10/18/2015 JESUS SMITH MD Ot 496 CHR AIRWAY OBSTRUCT NEC 10/18/2015 BÁRBARA HONEYCUTT CAR SALES CONSULTANT Ot 486 PNEUMONIA, ORGANISM NOS 10/18/2015 BÁRBARA HONEYCUTT CAR SALES CONSULTANT Ot 786.05 SHORTNESS OF BREATH 10/18/2015 BÁRBARA HONEYCUTT CAR SALES CONSULTANT Ot 793.89 OTH (ABN) FINDINGS ON RADIOLOGICAL [...] OF [place] 10/18/2015 SHAWNEE NARAYAN DO Ot F17.200 NICOTINE [...] DO Ot I25.10 ATHSCL HEART DISEASE OF [place] CORONARY 10/18/2015 SHAWNEE NARAYAN DO Ot J44.9 CHRONIC OBSTRUCTIVE PULMONARY DISEASE, U 10/18/2015 SHAWNEE NARAYAN DO Ot R91.8 OTHER NONSPECIFIC ABNORMAL FINDING OF [place] 10/18/2015 SHAWNEE NARAYAN DO Ot Z72.0 TOBACCO USE 10/18/2015 DEAN TORIBIO N Ot C34.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 OF UPPER LOBE, RIGHT 10/18/2015 DEAN TORIBIO N Ot E78.0 PURE HYPERCHOLESTEROLEMIA 10/18/2015 DEAN TORIBIO N Ot F17.210 NICOTINE DEPENDENCE, CIGARETTES, UNCOMPL 10/18/2015 DEAN TORIBIO N Ot J44.9 CHRONIC OBSTRUCTIVE PULMONARY DISEASE, U 10/18/2015 DEAN TORIBIO N Ot 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 10/18/2015 DEAN TORIBIO N Ot 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 10/18/2015 DEAN TORIBIO N Ot Z99.81 DEPENDENCE ON SUPPLEMENTAL OXYGEN 10/18/2015 CARLINE YANG MD, Ot C34.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 OF UPPER LOBE, RIGHT 10/18/2015 CARLINE YANG MD Ot Z01.818 ENCOUNTER FOR OTHER PREPROCEDURAL EXAMIN 10/18/2015 CARLINE YANG MD Ot Z11.2 ENCOUNTER FOR SCREENING FOR OTHER BACTER 10/18/2015 DEAN TORIBIO N Ot C34.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 OF UPPER LOBE, RIGHT 10/18/2015 DEAN TORIBIO N Ot E78.0 PURE HYPERCHOLESTEROLEMIA 10/18/2015 DEAN TORIBIO N Ot F17.210 NICOTINE DEPENDENCE, CIGARETTES, UNCOMPL 10/18/2015 DEAN TORIBIO N Ot J44.9 CHRONIC OBSTRUCTIVE PULMONARY DISEASE, U 10/18/2015 DEAN TORIBIO N Ot Z79.02 MCC (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 OF 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 10/18/2015 DEAN TORIBIO N Ot 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 10/18/2015 DEAN TORIBIO N Ot Z99.81 DEPENDENCE ON SUPPLEMENTAL OXYGEN 10/19/2015 CARLINE YANG MD Ot C34.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 OF UPPER LOBE, RIGHT 10/20/2015 CARLINE YANG MD Ot C34.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 OF UPPER LOBE, RIGHT 10/20/2015 CARLINE YANG MD Ot Z01.818 ENCOUNTER FOR [...] DO Ot I25.10 ATHSCL HEART DISEASE OF [place] CORONARY 11/03/2015 SHAWNEE NARAYAN DO Ot J44.9 CHRONIC OBSTRUCTIVE PULMONARY DISEASE, U 11/03/2015 SHAWNEE NARAYAN DO Ot R91.8 OTHER NONSPECIFIC ABNORMAL FINDING OF [place]UL[place] 11/03/2015 SHAWNEE NARAYAN DO Ot Z72.0 TOBACCO USE 11/16/2015 SHAWNEE NARAYAN DO Ot I25.10 ATHSCL HEART DISEASE OF [place] CORONARY 11/16/2015 SHAWNEE NARAYAN DO Ot J44.9 [...] J44.9 CHRONIC OBSTRUCTIVE PULMONARY DISEASE, U 11/16/2015 EDAN TORIBIO Ot 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 11/16/2015 DEAN TORIBIO Ot 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 11/16/2015 DEAN TORIBIO Ot Z99.81 DEPENDENCE ON SUPPLEMENTAL OXYGEN 11/21/2015 DEAN TORIBIO Ot C34.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 OF UPPER LOBE, RIGHT 11/21/2015 MALU, BOBAN N Ot E78.0 PURE HYPERCHOLESTEROLEMIA 11/21/2015 MALUDEAN N Ot F17.210 NICOTINE DEPENDENCE, CIGARETTES, UNCOMPL 11/21/2015 MALUDEAN N Ot J44.9 CHRONIC OBSTRUCTIVE PULMONARY DISEASE, U 11/21/2015 MALUDEAN N Ot 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 11/21/2015 MALUDEAN N Ot 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 11/21/2015 MALUDEAN N Ot Z99.81 DEPENDENCE ON SUPPLEMENTAL OXYGEN 11/27/2015 MALUDEAN N Ot C34.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 OF UPPER LOBE, RIGHT 11/27/2015 MALUDEAN N Ot E78.0 PURE HYPERCHOLESTEROLEMIA 11/27/2015 MALUDEAN N Ot F17.210 NICOTINE DEPENDENCE, CIGARETTES, UNCOMPL 11/27/2015 MALUDEAN LEYVA N Ot J44.9 CHRONIC OBSTRUCTIVE PULMONARY DISEASE, U 11/27/2015 MALUDEAN N Ot Z79.02 MCC (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 OF 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 11/27/2015 MALU BOBMARK N Ot 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 11/27/2015 MALUDEAN N Ot Z99.81 DEPENDENCE ON SUPPLEMENTAL OXYGEN 11/29/2015 DEAN TORIBIO N Ot C34.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 OF UPPER LOBE, RIGHT 11/29/2015 MALUDEAN N Ot E78.0 PURE HYPERCHOLESTEROLEMIA * DO NOT USE * 11/29/2015 DEAN TORIBIO N Ot F17.210 NICOTINE DEPENDENCE, CIGARETTES, UNCOMPL 11/29/2015 DEAN TORIBIO N Ot J44.9 CHRONIC OBSTRUCTIVE PULMONARY DISEASE, U 11/29/2015 MALUDEAN N Ot 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 11/29/2015 MALU BOBAN N Ot Z79.899 OTHER MCC (CURRENT) DRUG THERAPY 11/29/2015 MALUDEAN N Ot Z99.81 DEPENDENCE ON SUPPLEMENTAL OXYGEN 11/29/2015 JESUS SMITH MD Ot E78.4 OTHER HYPERLIPIDEMIA 11/29/2015 JESUS SMITH MD Ot I25.10 ATHSCL HEART DISEASE OF [place] CORONARY 11/29/2015 JESUS SMITH MD Ot J44.9 CHRONIC OBSTRUCTIVE PULMONARY DISEASE, U 11/29/2015 JESUS SMITH MD Ot Z79.899 OTHER MCC (CURRENT) DRUG THERAPY 12/01/2015 JESUS SMITH MD Ot E78.4 OTHER HYPERLIPIDEMIA 12/01/2015 JESUS SMITH MD Ot I25.10 ATHSCL HEART DISEASE OF [place] CORONARY 12/01/2015 JESUS SMITH MD Ot J44.9 CHRONIC OBSTRUCTIVE PULMONARY DISEASE, U 12/01/2015 JESUS SMITH MD Ot Z79.899 OTHER MCC (CURRENT) DRUG THERAPY 12/07/2015 JESUS SMITH MD Ot E78.4 OTHER HYPERLIPIDEMIA 12/07/2015 JESUS SMITH MD Ot I25.10 ATHSCL HEART DISEASE OF [place] CORONARY 12/07/2015 JESUS SMITH MD, Ot J44.9 CHRONIC OBSTRUCTIVE PULMONARY DISEASE, U 12/07/2015 JESUS SMITH MD Ot 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 12/07/2015 JESUS SMITH MD, Ot E78.4 OTHER HYPERLIPIDEMIA 12/07/2015 JESUS SMITH MD Ot I25.10 ATHSCL HEART DISEASE OF [place] CORONARY 12/07/2015 JESUS SMITH MD, Ot J44.9 CHRONIC OBSTRUCTIVE PULMONARY DISEASE, U 12/07/2015 JESUS SMITH MD Ot 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 12/07/2015 JESUS SMITH MD, Ot E78.4 OTHER HYPERLIPIDEMIA 12/07/2015 JESUS SMITH MD Ot I25.10 ATHSCL HEART DISEASE OF [place] CORONARY 12/07/2015 JEUSS SMITH MD, Ot J44.9 CHRONIC OBSTRUCTIVE PULMONARY DISEASE, U 12/07/2015 JESUS SMITH MD Ot Z79.899 OTHER MCC (CURRENT) DRUG THERAPY 12/07/2015 JESUS SMITH MD Ot E78.4 OTHER HYPERLIPIDEMIA 12/07/2015 JESUS SMITH MD Ot I25.10 ATHSCL HEART DISEASE OF [place] CORONARY 12/07/2015 JESUS SMITH MD, Ot J44.9 CHRONIC OBSTRUCTIVE PULMONARY DISEASE, U 12/07/2015 JESUS SMITH MD Ot 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 12/08/2015 JESUS SMITH MD Ot E78.4 OTHER HYPERLIPIDEMIA 12/08/2015 JESUS SMITH MD Ot I25.10 ATHSCL HEART DISEASE OF [place] CORONARY 12/08/2015 JESUS SMITH MD, Ot J44.9 CHRONIC OBSTRUCTIVE PULMONARY DISEASE, U 12/08/2015 JESUS SMITH MD, Ot 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 12/13/2015 JESUS SMITH MD, Ot R73.9 HYPERGLYCEMIA, UNSPECIFIED 12/20/2015 MALU, DEAN Solorzano Ot C34.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 OF UPPER LOBE, RIGHT 12/20/2015 MALU, DEAN Solorzano Ot E78.00 PURE HYPERCHOLESTEROLEMIA, UNSPECIFIED 12/20/2015 MALUDEAN Ot F17.210 NICOTINE DEPENDENCE, CIGARETTES, UNCOMPL 12/20/2015 DEAN TORIBIO Ot J44.9 CHRONIC OBSTRUCTIVE PULMONARY DISEASE, U 12/20/2015 DEAN TORIBIO Ot Z51.11 ENCOUNTER FOR ANTINEOPLASTIC CHEMOTHERAP 12/20/2015 DEAN TORIBIO Ot 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 12/20/2015 DEAN TORIBIO Ot Z79.899 OTHER MCC (CURRENT) DRUG THERAPY 12/20/2015 DEAN TORIBIO Ot Z99.81 DEPENDENCE ON SUPPLEMENTAL OXYGEN 12/20/2015 JESUS SMITH MD, Ot E78.4 OTHER HYPERLIPIDEMIA 12/20/2015 JESUS SMITH MD, Ot I25.10 ATHSCL HEART DISEASE OF [place] CORONARY 12/20/2015 JESUS SMITH MD, Ot J44.9 CHRONIC OBSTRUCTIVE PULMONARY DISEASE, U 12/20/2015 EJSUS SMITH MD, Ot 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 12/21/2015 JESUS SMITH MD, Ot R73.9 HYPERGLYCEMIA, UNSPECIFIED 12/21/2015 JESUS SMITH MD, Ot R73.9 HYPERGLYCEMIA, UNSPECIFIED 12/21/2015 JESUS SMITH MD, Ot R73.9 HYPERGLYCEMIA, UNSPECIFIED 12/21/2015 JESUS SMITH MD, Ot E78.4 OTHER HYPERLIPIDEMIA 12/21/2015 JESUS SMITH MD, Ot I25.10 ATHSCL HEART DISEASE OF [place] CORONARY 12/21/2015 JESUS SMITH MD, Ot J44.9 CHRONIC OBSTRUCTIVE PULMONARY DISEASE, U 12/21/2015 JESUS SMITH MD, Ot Z79.899 OTHER MCC (CURRENT) DRUG THERAPY 12/21/2015 JESUS SMITH MD, Ot R73.9 HYPERGLYCEMIA, UNSPECIFIED 12/25/2015 SARAH MD, JESUS D Ot R73.9 HYPERGLYCEMIA, UNSPECIFIED 12/25/2015 JESUS SMITH MD Ot R73.9 HYPERGLYCEMIA, UNSPECIFIED 12/26/2015 JESUS SMITH MD Ot R73.9 HYPERGLYCEMIA, UNSPECIFIED 01/02/2016 JESUS SMITH MD Ot R73.9 HYPERGLYCEMIA, UNSPECIFIED 01/03/2016 JESUS SMITH MD Ot E78.4 OTHER HYPERLIPIDEMIA 01/03/2016 JESUS SMITH MD Ot I25.10 ATHSCL HEART DISEASE OF [place] CORONARY 01/03/2016 JESUS SMITH MD Ot J44.9 CHRONIC OBSTRUCTIVE PULMONARY DISEASE, U 01/03/2016 JESUS SMITH MD Ot Z79.899 OTHER MCC (CURRENT) DRUG THERAPY 01/11/2016 JESUS SMITH MD Ot R73.9 HYPERGLYCEMIA, UNSPECIFIED 02/18/2016 Ot V76.12 OTH SCREEN MAMMO- MALIGN NEOPLASM OF [place] 02/18/2016 Ot 786.2 COUGH 02/18/2016 Ot 786.09 RESPIRATORY ABNORM NEC 02/18/2016 Ot 786.2 COUGH 02/18/2016 Ot 272.4 HYPERLIPIDEMIA NEC/NOS 02/18/2016 Ot 413.9 ANGINA PECTORIS NEC/NOS 02/18/2016 Ot 414.00 CORON ATHEROSCLER NOS TYPE VESSEL, NATIV 02/18/2016 Ot 786.05 SHORTNESS OF BREATH 02/18/2016 Ot 997.2 SURG COMP-STEVIE VASC SYST 02/18/2016 Ot 997.2 SURG COMP-STEVIE VASC SYST 02/18/2016 Ot V72.84 EXAM PRE-OPERATIVE NOS 02/18/2016 Ot 793.82 INCONCLUSIVE MAMMOGRAM 02/18/2016 Ot V76.12 OTH SCREEN MAMMO- MALIGN NEOPLASM OF [place] 02/18/2016 Ot 793.80 UNSPEC ABNORMAL MAMMOGRAM 02/18/2016 BÁRBARA HONEYCUTT APRN Ot 793.89 OTH (ABN) FINDINGS ON RADIOLOGICAL EXAMI 02/18/2016 JESUS SMITH MD Ot 496 CHR AIRWAY OBSTRUCT NEC 02/18/2016 BÁRBARA HONEYCUTT CAR SALES CONSULTANT Ot 486 PNEUMONIA, ORGANISM NOS 02/18/2016 BÁRBARA HONEYCUTT CAR SALES CONSULTANT Ot 786.05 SHORTNESS OF BREATH 02/18/2016 BÁRBARA HONEYCUTT APRN Ot 793.89 OTH (ABN) FINDINGS ON RADIOLOGICAL EXAMI 02/18/2016 JESUS SMITH MD Ot V76.12 OT SCREEN MAMMO-MALIGN NEOPLASM OF [place] 02/18/2016 SHAWNEE [...] DO Ot I25.10 ATHSCL HEART DISEASE OF [place] CORONARY 02/18/2016 SHAWNEE NARAYAN DO Ot J44.9 CHRONIC OBSTRUCTIVE PULMONARY DISEASE, U 02/18/2016 SHAWNEE NARAYAN DO Ot R91.8 OTHER NONSPECIFIC ABNORMAL FINDING OF MULU 02/18/2016 SHAWNEE NARAYAN DO Ot Z72.0 TOBACCO USE 02/18/2016 JESUS SMITH MD Ot E78.4 OTHER HYPERLIPIDEMIA 02/18/2016 JESUS SMITH MD Ot I25.10 ATHSCL HEART DISEASE OF [place] CORONARY 02/18/2016 JESUS SMITH MD Ot J44.9 CHRONIC OBSTRUCTIVE PULMONARY DISEASE, U 02/18/2016 JESUS SMITH MD Ot Z79.899 OTHER MCC (CURRENT) DRUG THERAPY 02/18/2016 DEAN TORIBIO Ot C34.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 OF UPPER LOBE, RIGHT 02/18/2016 DEAN TORIBIO Ot E78.00 PURE HYPERCHOLESTEROLEMIA, UNSPECIFIED 02/18/2016 DEAN TORIBIO Ot F17.210 NICOTINE DEPENDENCE, CIGARETTES, UNCOMPL 02/18/2016 DEAN TORIBIO Ot J44.9 CHRONIC OBSTRUCTIVE PULMONARY DISEASE, U 02/18/2016 MALU, DEAN Solorzano Ot Z51.11 ENCOUNTER FOR ANTINEOPLASTIC CHEMOTHERAP 02/18/2016 MALU DEAN Solorzano Ot 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 02/18/2016 DEAN TORIBIO Ot Z79.899 OTHER MCC (CURRENT) DRUG THERAPY 02/18/2016 MALU DEAN Solorzano Ot Z99.81 DEPENDENCE ON SUPPLEMENTAL OXYGEN 02/18/2016 [...] I10 ESSENTIAL (PRIMARY) HYPERTENSION 02/22/2016 LISA VICTOR MD, Ot I25.10 ATHSCL HEART DISEASE OF [place] CORONARY 02/22/2016 LISA VICTOR MD Ot J20.8 ACUTE BRONCHITIS DUE TO OTHER SPECIFIED 02/22/2016 LISA VICTOR MD, Ot J44.0 CHRONIC OBSTRUCTIVE PULMON DISEASE W ACU 02/22/2016 LISA VICTOR MD, Ot J44.1 CHRONIC OBSTRUCTIVE PULMONARY DISEASE W 02/22/2016 LISA VICTOR MD Ot J45.909 UNSPECIFIED ASTHMA, UNCOMPLICATED 02/22/2016 LSIA VICTOR MD Ot K21.9 GASTRO-ESOPHAGEAL REFLUX DISEASE WITHOUT 02/22/2016 LISA VICTOR MD Ot K59.00 CONSTIPATION, UNSPECIFIED 02/22/2016 LISA VICTOR MD Ot M19.90 UNSPECIFIED OSTEOARTHRITIS, UNSPECIFIED 02/22/2016 LISA VICTOR MD, Ot M54.9 DORSALGIA, UNSPECIFIED 02/22/2016 LISA VICTOR MD Ot R00.0 TACHYCARDIA, UNSPECIFIED 02/22/2016 SANDNESS MD, LISA M Ot T38.0X5A ADVERSE EFFECT OF GLUCOCORT/SYNTH ANALOG 02/22/2016 KAYLEIGH PARDO, LISA Diallo Ot Z92.3 PERSONAL HISTORY OF IRRADIATION 02/22/2016 KAYLEIGH PARDO, LISA Diallo Ot Z99.81 DEPENDENCE ON SUPPLEMENTAL OXYGEN 02/22/2016 DEAN TORIBIO N Ot C34.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 OF UPPER LOBE, RIGHT 02/22/2016 DEAN TORIBIO N Ot E78.00 PURE HYPERCHOLESTEROLEMIA, UNSPECIFIED 02/22/2016 MALU, RUPERTMARK N Ot F17.210 NICOTINE DEPENDENCE, CIGARETTES, UNCOMPL 02/22/2016 DEAN TORIBIO N Ot J44.9 CHRONIC OBSTRUCTIVE PULMONARY DISEASE, U 02/22/2016 MALUDEAN LEYVA N Ot Z51.11 ENCOUNTER FOR ANTINEOPLASTIC CHEMOTHERAP 02/22/2016 MALUDEAN LEYVA N Ot 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 02/22/2016 DEAN TORIBIO N Ot Z79.899 OTHER MCC (CURRENT) DRUG THERAPY 02/22/2016 MALUDEAN LEYVA N Ot Z99.81 DEPENDENCE ON SUPPLEMENTAL OXYGEN 02/26/2016 DEAN TORIBIO N Ot C34.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 OF UPPER LOBE, RIGHT 02/26/2016 DEAN TORIBIO N Ot E78.00 PURE HYPERCHOLESTEROLEMIA, UNSPECIFIED 02/26/2016 MALU DEAN N Ot F17.210 NICOTINE DEPENDENCE, CIGARETTES, UNCOMPL 02/26/2016 MALU RUPERTMARK N Ot J44.9 CHRONIC OBSTRUCTIVE PULMONARY DISEASE, U 02/26/2016 DEAN TORIBIO N Ot Z51.11 ENCOUNTER FOR ANTINEOPLASTIC CHEMOTHERAP 02/26/2016 MALUDEAN LEYVA N Ot 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 02/26/2016 MALUDEAN N Ot 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 02/26/2016 DEAN TORIBIO N Ot Z99.81 DEPENDENCE ON SUPPLEMENTAL OXYGEN 02/27/2016 DEAN TORIBIO N Ot C34.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 OF UPPER LOBE, RIGHT 02/27/2016 DEAN TORIBIO N Ot E78.00 PURE HYPERCHOLESTEROLEMIA, UNSPECIFIED 02/27/2016 MALU RUPERTMARK N Ot F17.210 NICOTINE DEPENDENCE, CIGARETTES, UNCOMPL 02/27/2016 DEAN TORIBIO N Ot J44.9 CHRONIC OBSTRUCTIVE PULMONARY DISEASE, U 02/27/2016 DEAN TORIBIO N Ot Z51.11 ENCOUNTER FOR ANTINEOPLASTIC CHEMOTHERAP 02/27/2016 DEAN TORIBIO N Ot Z79.02 MCC (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 OF 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 02/27/2016 DEAN TORIBIO N Ot 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 02/27/2016 DEAN TORIBIO N Ot Z99.81 DEPENDENCE ON SUPPLEMENTAL OXYGEN 03/02/2016 DEAN TORIBIO N Ot C34.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 OF UPPER LOBE, RIGHT 03/02/2016 DEAN TORIBIO N Ot E78.00 PURE HYPERCHOLESTEROLEMIA, UNSPECIFIED 03/02/2016 MALU RUPERTMARK N Ot F17.210 NICOTINE DEPENDENCE, CIGARETTES, UNCOMPL 03/02/2016 DEAN TORIBIO N Ot J44.9 CHRONIC OBSTRUCTIVE PULMONARY DISEASE, U 03/02/2016 DEAN TORIBIO N Ot Z51.11 ENCOUNTER FOR ANTINEOPLASTIC CHEMOTHERAP 03/02/2016 DEAN TORIBIO N Ot 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9 CHRONIC OBSTRUCTIVE PULMONARY DISEASE, U 04/03/2016 DEAN TORIBIO N Ot Z51.11 ENCOUNTER FOR ANTINEOPLASTIC CHEMOTHERAP 04/03/2016 MLAUDEAN N Ot Z79.02 MCC (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 OF 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 04/03/2016 MALUDEAN N Ot 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 04/03/2016 DEAN TORIBIO N Ot Z99.81 DEPENDENCE ON SUPPLEMENTAL OXYGEN 04/18/2016 DEAN TORIBIO N Ot C34.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 OF UPPER LOBE, RIGHT 05/08/2016 DEAN TORIBIO Rashad Ot C34.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 OF UPPER LOBE, RIGHT 05/10/2016 DEAN TORIBIO N Ot C34.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 OF UPPER LOBE, RIGHT 05/10/2016 DEAN TORIBIO Rashad Ot E78.00 PURE HYPERCHOLESTEROLEMIA, UNSPECIFIED 05/10/2016 DEAN TORIBIO N Ot F17.210 NICOTINE DEPENDENCE, CIGARETTES, UNCOMPL 05/10/2016 DEAN TORIBIO N Ot J44.9 CHRONIC OBSTRUCTIVE PULMONARY DISEASE, U 05/10/2016 DEAN TORIBIO N Ot Z51.11 ENCOUNTER FOR ANTINEOPLASTIC CHEMOTHERAP 05/10/2016 DEAN TORIBIO N Ot Z79.02 MCC (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 OF 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 05/10/2016 DEAN TORIBIO N Ot Z79.899 OTHER MCC (CURRENT) DRUG THERAPY 05/10/2016 DEAN TORIBIO N Ot Z99.81 DEPENDENCE ON SUPPLEMENTAL OXYGEN 05/24/2016 DEAN TORIBIO N Ot C34.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 OF UPPER LOBE, RIGHT 05/24/2016 DEAN TORIBIO Rashad Ot E78.00 PURE HYPERCHOLESTEROLEMIA, UNSPECIFIED 05/24/2016 DEAN TORIBIO N Ot F17.210 NICOTINE DEPENDENCE, CIGARETTES, UNCOMPL 05/24/2016 DEAN TORIBIO Rashad Ot J44.9 CHRONIC OBSTRUCTIVE PULMONARY DISEASE, U 05/24/2016 DEAN TORIBIO N Ot Z51.11 ENCOUNTER FOR ANTINEOPLASTIC CHEMOTHERAP 05/24/2016 MALUDEAN N Ot Z79.02 MCC (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 OF 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 05/24/2016 MALUDEAN N Ot 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 05/24/2016 DEAN TORIBIO N Ot Z99.81 DEPENDENCE ON SUPPLEMENTAL OXYGEN 05/28/2016 DEAN TORIBIO N Ot C34.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 OF UPPER LOBE, RIGHT 05/28/2016 DEAN TORIBIO N Ot E78.00 PURE HYPERCHOLESTEROLEMIA, UNSPECIFIED 05/28/2016 MALU RUPERTMARK N Ot F17.210 NICOTINE DEPENDENCE, CIGARETTES, UNCOMPL 05/28/2016 DEAN TORIBIO N Ot J44.9 CHRONIC OBSTRUCTIVE PULMONARY DISEASE, U 05/28/2016 DEAN TORIBIO N Ot Z51.11 ENCOUNTER FOR ANTINEOPLASTIC CHEMOTHERAP 05/28/2016 DEAN TORIBIO N Ot Z79.02 MCC (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 OF 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 05/28/2016 DEAN TORIBIO N Ot 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 05/28/2016 DEAN TORIBIO N Ot Z99.81 DEPENDENCE ON SUPPLEMENTAL OXYGEN 05/29/2016 LAMAR VELÁZQUEZ COMMERCIAL REAL ESTATE UNDERWRITER Ot C34.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 OF UPPER LOBE, RIGHT 05/29/2016 LAMAR VELÁZQUEZ COMMERCIAL REAL ESTATE UNDERWRITER Ot C34.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 OF UPPER LOBE, RIGHT 05/29/2016 LAMAR VELÁZQUEZ COMMERCIAL REAL ESTATE UNDERWRITER Ot C34.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 OF UPPER LOBE, RIGHT 05/31/2016 DEAN TORIBIO N Ot C34.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 OF UPPER LOBE, RIGHT 05/31/2016 DEAN TORIBIO N Ot E78.00 PURE HYPERCHOLESTEROLEMIA, UNSPECIFIED 05/31/2016 DEAN TORIBIO N Ot F17.210 NICOTINE DEPENDENCE, CIGARETTES, UNCOMPL 05/31/2016 DEAN TORIBIO N Ot J44.9 CHRONIC OBSTRUCTIVE PULMONARY DISEASE, U 05/31/2016 DEAN TORIBIO N Ot Z51.11 ENCOUNTER FOR ANTINEOPLASTIC CHEMOTHERAP 05/31/2016 DEAN TORIBIO N Ot 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 05/31/2016 DEAN TORIBIO N Ot Z79.899 OTHER MCC (CURRENT) DRUG THERAPY 05/31/2016 DEAN TORIBIO N Ot Z99.81 DEPENDENCE ON SUPPLEMENTAL OXYGEN 07/01/2016 DEAN TORIBIO N Ot C34.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 OF UPPER LOBE, RIGHT 07/01/2016 DEAN TORIBIO N Ot E78.00 PURE HYPERCHOLESTEROLEMIA, UNSPECIFIED 07/01/2016 MALUDEAN N Ot F17.210 NICOTINE DEPENDENCE, CIGARETTES, UNCOMPL 07/01/2016 DEAN TORIBIO N Ot J44.9 CHRONIC OBSTRUCTIVE PULMONARY DISEASE, U 07/01/2016 DEAN TORIBIO N Ot Z79.02 MCC (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 OF 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 07/01/2016 DEAN TORIBIO N Ot 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 07/01/2016 DEAN TORIBIO N Ot Z99.81 DEPENDENCE ON SUPPLEMENTAL OXYGEN 07/16/2016 LAMAR VELÁZQUEZ COMMERCIAL REAL ESTATE UNDERWRITER Ot C34.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 OF UPPER LOBE, RIGHT 07/19/2016 DEAN TORIBIO N Ot C34.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 OF UPPER LOBE, RIGHT 07/19/2016 DEAN TORIBIO N Ot E78.00 PURE HYPERCHOLESTEROLEMIA, UNSPECIFIED 07/19/2016 MALUDEAN LEYVA N Ot F17.210 NICOTINE DEPENDENCE, CIGARETTES, UNCOMPL 07/19/2016 MALUDEAN LEYVA N Ot J44.9 CHRONIC OBSTRUCTIVE PULMONARY DISEASE, U 07/19/2016 DEAN TORIBIO N Ot Z79.02 MCC (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 OF 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 07/19/2016 DEAN TORIBIO N Ot 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 07/19/2016 DEAN TORIBIO N Ot Z99.81 DEPENDENCE ON SUPPLEMENTAL OXYGEN 08/06/2016 LAMAR VELÁZQUEZ COMMERCIAL REAL ESTATE UNDERWRITER Ot C34.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 OF UPPER LOBE, RIGHT 08/08/2016 MALUDEAN N Ot C34.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 OF UPPER LOBE, RIGHT 08/08/2016 DEAN TORIBIO N Ot E78.00 PURE HYPERCHOLESTEROLEMIA, UNSPECIFIED 08/08/2016 DEAN TORIBIO N Ot F17.210 NICOTINE DEPENDENCE, CIGARETTES, UNCOMPL 08/08/2016 DEAN TORIBIO N Ot J44.9 CHRONIC OBSTRUCTIVE PULMONARY DISEASE, U 08/08/2016 DEAN TORIBIO N Ot Z79.02 MCC (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 OF 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 08/08/2016 MALUDEAN N Ot 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 08/08/2016 MALUDEAN N Ot Z99.81 DEPENDENCE ON SUPPLEMENTAL OXYGEN 09/01/2016 DEAN TORIBIO N Ot C34.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 OF UPPER LOBE, RIGHT 09/01/2016 MALUDEAN N Ot E78.00 PURE HYPERCHOLESTEROLEMIA, UNSPECIFIED 09/01/2016 MALUDEAN N Ot F17.210 NICOTINE DEPENDENCE, CIGARETTES, UNCOMPL 09/01/2016 MALU BOBMARK N Ot J44.9 CHRONIC OBSTRUCTIVE PULMONARY DISEASE, U 09/01/2016 DEAN TORIBIO Ot Z45.2 ENCOUNTER FOR ADJUSTMENT AND MANAGEMENT 09/01/2016 DEAN TORIBIO Ot Z79.02 MCC (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 OF 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 09/01/2016 DEAN TORIBIO Ot 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 09/01/2016 DEAN TORIBIO Ot Z99.81 DEPENDENCE ON SUPPLEMENTAL OXYGEN 09/02/2016 Ot 786.2 COUGH 09/02/2016 Ot 786.09 RESPIRATORY ABNORM NEC 09/02/2016 Ot 786.2 COUGH 09/02/2016 Ot 272.4 HYPERLIPIDEMIA NEC/NOS 09/02/2016 Ot 413.9 ANGINA PECTORIS NEC/NOS 09/02/2016 Ot 414.00 CORON ATHEROSCLER NOS TYPE VESSEL, NATIV 09/02/2016 Ot 786.05 SHORTNESS OF BREATH 09/02/2016 Ot 997.2 SURG COMP-STEVIE VASC SYST 09/02/2016 Ot 997.2 SURG COMP-STEVIE VASC SYST 09/02/2016 Ot V72.84 EXAM PRE-OPERATIVE NOS 09/02/2016 Ot 793.82 INCONCLUSIVE MAMMOGRAM 09/02/2016 Ot V76.12 OTH SCREEN MAMMO- MALIGN NEOPLASM OF EDD[place] 09/02/2016 Ot 793.80 UNSPEC ABNORMAL MAMMOGRAM 09/02/2016 BÁRBARA HONEYCUTT APRN Ot 793.89 OTH (ABN) FINDINGS ON RADIOLOGICAL EXAMI 09/02/2016 JESUS SMITH MD Ot 496 CHR AIRWAY OBSTRUCT NEC 09/02/2016 BÁRBARA HONEYCUTT APRN Ot 486 PNEUMONIA, ORGANISM NOS 09/02/2016 BÁRBARA HONEYCUTT CAR SALES CONSULTANT Ot 786.05 SHORTNESS OF BREATH 09/02/2016 BÁRBARA [...] DO Ot I25.10 ATHSCL HEART DISEASE OF [place] CORONARY 09/02/2016 SHAWNEE NARAYAN DO Ot J44.9 CHRONIC OBSTRUCTIVE PULMONARY DISEASE, U 09/02/2016 SHAWNEE NARAYAN DO Ot R91.8 OTHER NONSPECIFIC ABNORMAL FINDING OF [place]UL[place] 09/02/2016 SHAWNEE NARAYAN DO Ot Z72.0 TOBACCO USE 09/02/2016 JESUS SMITH MD Ot E78.4 OTHER HYPERLIPIDEMIA 09/02/2016 JESUS SMITH MD Ot I25.10 ATHSCL HEART DISEASE OF [place] CORONARY 09/02/2016 JESUS SMITH MD Ot J44.9 CHRONIC OBSTRUCTIVE PULMONARY DISEASE, U 09/02/2016 JESUS SMITH MD Ot 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 09/02/2016 JESUS SMITH MD Ot R73.9 HYPERGLYCEMIA, UNSPECIFIED 09/02/2016 DEAN TORIBIO Ot C34.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 OF UPPER LOBE, RIGHT 09/02/2016 LAMAR VELÁZQUEZ COMMERCIAL REAL ESTATE UNDERWRITER Ot C34.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 OF UPPER LOBE, RIGHT 09/02/2016 DEAN TORIBIO Ot C34.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 OF UPPER LOBE, RIGHT 09/02/2016 DEAN TORIBIO Ot E78.00 PURE HYPERCHOLESTEROLEMIA, UNSPECIFIED 09/02/2016 DEAN TORIBIO Ot F17.210 NICOTINE DEPENDENCE, CIGARETTES, UNCOMPL 09/02/2016 DEAN TORIBIO Ot J44.9 CHRONIC OBSTRUCTIVE PULMONARY DISEASE, U 09/02/2016 DEAN TORIBIO Ot 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 09/02/2016 DEAN TORIBIO Ot Z79.899 OTHER MCC (CURRENT) DRUG THERAPY 09/02/2016 DEAN TORIBIO Ot Z99.81 DEPENDENCE ON SUPPLEMENTAL OXYGEN 09/04/2016 Ot 786.2 COUGH 09/04/2016 Ot 786.09 RESPIRATORY ABNORM NEC 09/04/2016 Ot 786.2 COUGH 09/04/2016 Ot 272.4 HYPERLIPIDEMIA NEC/NOS 09/04/2016 Ot 413.9 ANGINA PECTORIS NEC/NOS 09/04/2016 Ot 414.00 CORON ATHEROSCLER NOS TYPE VESSEL, NATIV 09/04/2016 Ot 786.05 SHORTNESS OF BREATH 09/04/2016 Ot 997.2 SURG COMP-STEVIE VASC SYST 09/04/2016 Ot 997.2 SURG COMP-STEVIE VASC SYST 09/04/2016 Ot V72.84 EXAM PRE-OPERATIVE NOS 09/04/2016 Ot 793.82 INCONCLUSIVE MAMMOGRAM 09/04/2016 Ot V76.12 OTH SCREEN MAMMO- MALIGN NEOPLASM OF [place] 09/04/2016 Ot 793.80 UNSPEC ABNORMAL MAMMOGRAM 09/04/2016 BÁRBARA HONEYCUTT CAR SALES CONSULTANT Ot 793.89 OTH (ABN) FINDINGS ON RADIOLOGICAL EXAMI 09/04/2016 JESUS SIMTH MD Ot 496 CHR AIRWAY OBSTRUCT NEC 09/04/2016 BÁRBARA HONEYCUTT CAR SALES CONSULTANT Ot 486 PNEUMONIA, ORGANISM NOS 09/04/2016 BÁRBARA HONEYCUTT CAR SALES CONSULTANT Ot 786.05 SHORTNESS OF BREATH 09/04/2016 BÁRBARA [...] DO Ot I25.10 ATHSCL HEART DISEASE OF [place] CORONARY 09/04/2016 SHAWNEE NARAYAN DO Ot J44.9 CHRONIC OBSTRUCTIVE PULMONARY DISEASE, U 09/04/2016 SHAWNEE NARAYAN DO Ot R91.8 OTHER NONSPECIFIC ABNORMAL FINDING OF [place]UL[place] 09/04/2016 SHAWNEE NARAYAN DO Ot Z72.0 TOBACCO USE 09/04/2016 JESUS SMITH MD Ot E78.4 OTHER HYPERLIPIDEMIA 09/04/2016 JESUS SMITH MD Ot I25.10 ATHSCL HEART DISEASE OF [place] CORONARY 09/04/2016 JESUS SMITH MD Ot J44.9 CHRONIC OBSTRUCTIVE PULMONARY DISEASE, U 09/04/2016 JESUS SMITH MD Ot Z79.899 OTHER MCC (CURRENT) DRUG THERAPY 09/04/2016 JESUS SMITH MD Ot R73.9 HYPERGLYCEMIA, UNSPECIFIED 09/04/2016 DEAN TORIBIO Ot C34.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 OF UPPER LOBE, RIGHT 09/04/2016 LAMAR VELÁZQUEZ COMMERCIAL REAL ESTATE UNDERWRITER Ot C34.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 OF UPPER LOBE, RIGHT 09/04/2016 DEAN TORIBIO Ot C34.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 OF UPPER LOBE, RIGHT 09/04/2016 DEAN TORIBIO Ot E78.00 PURE HYPERCHOLESTEROLEMIA, UNSPECIFIED 09/04/2016 DEAN TORIBIO Ot F17.210 NICOTINE DEPENDENCE, CIGARETTES, UNCOMPL 09/04/2016 DEAN TORIBIO Ot J44.9 CHRONIC OBSTRUCTIVE PULMONARY DISEASE, U 09/04/2016 DEAN TORIBIO Ot 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 09/04/2016 DEAN TORIBIO Ot 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 09/04/2016 MALU, BOBAN N Ot Z99.81 DEPENDENCE ON SUPPLEMENTAL OXYGEN 09/05/2016 DEAN TORIBIO N Ot C34.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 OF UPPER LOBE, RIGHT 09/05/2016 DEAN TORIBIO N Ot E78.00 PURE HYPERCHOLESTEROLEMIA, UNSPECIFIED 09/05/2016 DEAN TORIBIO N Ot F17.210 NICOTINE DEPENDENCE, CIGARETTES, UNCOMPL 09/05/2016 DEAN TORIBIO N Ot J44.9 CHRONIC OBSTRUCTIVE PULMONARY DISEASE, U 09/05/2016 DEAN TORIBIO N Ot 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 09/05/2016 DEAN TORIBIO N Ot Z79.899 OTHER MCC (CURRENT) DRUG THERAPY 09/05/2016 DEAN TORIBIO N Ot Z99.81 DEPENDENCE ON SUPPLEMENTAL OXYGEN 09/06/2016 DEAN TORIBIO N Ot C34.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 OF UPPER LOBE, RIGHT 09/06/2016 DEAN TORIBIO N Ot J44.9 CHRONIC OBSTRUCTIVE PULMONARY DISEASE, U 09/07/2016 DEAN TORIBIO N Ot C34.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 OF UPPER LOBE, RIGHT 09/07/2016 DEAN TORIBIO N Ot E78.00 PURE HYPERCHOLESTEROLEMIA, UNSPECIFIED 09/07/2016 DEAN TORIBIO N Ot F17.210 NICOTINE DEPENDENCE, CIGARETTES, UNCOMPL 09/07/2016 DEAN TORIBIO N Ot J44.9 CHRONIC OBSTRUCTIVE PULMONARY DISEASE, U 09/07/2016 DEAN TORIBIO N Ot Z45.2 ENCOUNTER FOR ADJUSTMENT AND MANAGEMENT 09/07/2016 DEAN TORIBIO N Ot 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 09/07/2016 DEAN TORIBIO N Ot Z79.899 OTHER MCC (CURRENT) DRUG THERAPY 09/07/2016 DEAN TORIBIO N Ot Z99.81 DEPENDENCE ON SUPPLEMENTAL OXYGEN 09/16/2016 DEAN TORIBIO N Ot C34.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 OF UPPER LOBE, RIGHT 09/16/2016 MALU RUPERTMARK N Ot J44.9 CHRONIC OBSTRUCTIVE PULMONARY DISEASE, U 09/18/2016 MALU RUPERTMARK N Ot C34.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 OF UPPER LOBE, RIGHT 09/18/2016 MALU DEAN N Ot J44.9 CHRONIC OBSTRUCTIVE PULMONARY DISEASE, U 09/18/2016 MALU DEAN N Ot C34.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 [...] J44.9 CHRONIC OBSTRUCTIVE PULMONARY DISEASE, U 09/27/2016 DEAN TORIBIO N Ot C34.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 OF UPPER LOBE, RIGHT 09/27/2016 MALUDEAN LEYVA N Ot J44.9 CHRONIC OBSTRUCTIVE PULMONARY DISEASE, U 10/21/2016 DEAN TORIBIO N Ot C34.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 OF UPPER LOBE, RIGHT 10/21/2016 DEAN TORIBIO N Ot J44.9 CHRONIC OBSTRUCTIVE PULMONARY DISEASE, U 10/22/2016 DEAN TORIBIO N Ot C34.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 OF UPPER LOBE, RIGHT 10/22/2016 DEAN TORIBIO N Ot E78.00 PURE HYPERCHOLESTEROLEMIA, UNSPECIFIED 10/22/2016 RUPERT TORIBIOAN N Ot F17.210 NICOTINE DEPENDENCE, CIGARETTES, UNCOMPL 10/22/2016 DEAN TORIBIO N Ot J44.9 CHRONIC OBSTRUCTIVE PULMONARY DISEASE, U 10/22/2016 DEAN TORIBIO N Ot 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 10/22/2016 MALU DEAN N Ot Z79.899 OTHER MCC (CURRENT) DRUG THERAPY 10/22/2016 DEAN TORIBIO N Ot Z99.81 DEPENDENCE ON SUPPLEMENTAL OXYGEN 10/30/2016 DEAN TORIBIO N Ot C34.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 OF UPPER LOBE, RIGHT 10/30/2016 DEAN TORIBIO N Ot E78.00 PURE HYPERCHOLESTEROLEMIA, UNSPECIFIED 10/30/2016 DEAN TORIBIO N Ot F17.210 NICOTINE DEPENDENCE, CIGARETTES, UNCOMPL 10/30/2016 DEAN TORIBIO N Ot J44.9 CHRONIC OBSTRUCTIVE PULMONARY DISEASE, U 10/30/2016 DEAN TORIBIO N Ot 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 10/30/2016 MALU, BOBAN N Ot 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 10/30/2016 DEAN TORIBIO N Ot Z99.81 DEPENDENCE ON SUPPLEMENTAL OXYGEN 11/23/2016 DEAN TORIBIO N Ot C34.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 OF UPPER LOBE, RIGHT 11/23/2016 DEAN TORIBIO N Ot E78.00 PURE HYPERCHOLESTEROLEMIA, UNSPECIFIED 11/23/2016 DEAN TORIBIO N Ot F17.210 NICOTINE DEPENDENCE, CIGARETTES, UNCOMPL 11/23/2016 DEAN TORIBIO N Ot J44.9 CHRONIC OBSTRUCTIVE PULMONARY DISEASE, U 11/23/2016 DEAN TORIBIO N Ot Z79.02 MCC (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 OF 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 11/23/2016 DEAN TORIBIO N Ot 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 11/23/2016 EDAN TORIBIO N Ot Z99.81 DEPENDENCE ON SUPPLEMENTAL OXYGEN 12/16/2016 DEAN TORIBIO N Ot C34.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 OF UPPER LOBE, RIGHT 12/16/2016 DEAN TORIBIO N Ot J44.9 CHRONIC OBSTRUCTIVE PULMONARY DISEASE, U 12/16/2016 DEAN TORIBIO N Ot 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 01/06/2017 DEAN TORIBIO N Ot C34.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 OF UPPER LOBE, RIGHT 01/06/2017 DEAN TORIBIO N Ot J43.9 EMPHYSEMA, UNSPECIFIED 01/06/2017 DEAN TORIBIO N Ot R91.8 OTHER NONSPECIFIC ABNORMAL FINDING OF MULU 01/06/2017 JESUS SMITH MD Ot E78.5 HYPERLIPIDEMIA, UNSPECIFIED 01/06/2017 JESUS SMITH MD Ot I25.10 ATHSCL HEART DISEASE OF [place] CORONARY 01/06/2017 JESUS SMITH MD Ot Z79.899 OTHER MCC (CURRENT) DRUG THERAPY 01/15/2017 DEAN TORIBIO N Ot C34.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 OF UPPER LOBE, RIGHT 01/15/2017 DEAN TORIBIO N Ot J43.9 EMPHYSEMA, UNSPECIFIED 01/15/2017 DEAN TORIBIO N Ot R91.8 OTHER NONSPECIFIC ABNORMAL FINDING OF MULU 01/21/2017 JESUS SMITH MD Ot E78.5 HYPERLIPIDEMIA, UNSPECIFIED 01/21/2017 JESUS SMITH MD Ot I25.10 ATHSCL HEART DISEASE OF [place] CORONARY 01/21/2017 JESUS SMITH MD Ot 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 01/23/2017 DEAN TORIBIO Ot C34.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 OF UPPER LOBE, RIGHT 01/23/2017 DEAN TORIBIO Ot J44.9 CHRONIC OBSTRUCTIVE PULMONARY DISEASE, U 01/23/2017 DEAN TORIBIO Ot 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 02/03/2017 DEAN TORIBIO Ot C34.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 OF UPPER LOBE, RIGHT 02/03/2017 DEAN TORIBIO Ot J44.9 CHRONIC OBSTRUCTIVE PULMONARY DISEASE, U 02/03/2017 DEAN TORIBIO Ot 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 02/27/2017 Ot 272.4 HYPERLIPIDEMIA NEC/NOS 02/27/2017 Ot 413.9 ANGINA PECTORIS NEC/NOS 02/27/2017 Ot 414.00 CORON ATHEROSCLER NOS TYPE VESSEL, NATIV 02/27/2017 Ot 786.05 SHORTNESS OF BREATH 02/27/2017 Ot 997.2 SURG COMP-STEVIE VASC SYST 02/27/2017 Ot 997.2 SURG COMP-STEVIE VASC SYST 02/27/2017 Ot V72.84 EXAM PRE-OPERATIVE NOS 02/27/2017 Ot 793.82 INCONCLUSIVE MAMMOGRAM 02/27/2017 Ot V76.12 OTH SCREEN MAMMO- MALIGN NEOPLASM OF EDDIE 02/27/2017 Ot 793.80 UNSPEC ABNORMAL MAMMOGRAM 02/27/2017 BÁRBARA HONEYCUTT APRN Ot 793.89 OTH (ABN) FINDINGS ON RADIOLOGICAL EXAMI 02/27/2017 JESUS SMITH MD Ot 496 CHR AIRWAY OBSTRUCT NEC 02/27/2017 BÁRBARA HONEYCUTT CAR SALES CONSULTANT Ot 486 PNEUMONIA, ORGANISM NOS 02/27/2017 BÁRBARA HONEYCUTT APRN Ot 786.05 SHORTNESS OF BREATH 02/27/2017 BÁRBARA HONEYCUTT APRN Ot 793.89 OTH (ABN) FINDINGS ON RADIOLOGICAL EXAMI 02/27/2017 JESUS SMITH MD Ot V76.12 OTH SCREEN MAMMO-MALIGN NEOPLASM OF [place] 02/27/2017 SHAWNEE NARAYAN DO Ot F17.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, UNSPECIFIED, UNCOMP 02/27/2017 SHAWNEE NARAYAN DO Ot J44.9 CHRONIC OBSTRUCTIVE PULMONARY DISEASE, U 02/27/2017 HELENE SHAWNEE OSUNA Ot J98.4 OTHER DISORDERS OF LUNG 02/27/2017 SHAWNEE NARAYAN DO Ot R06.09 OTHER FORMS OF DYSPNEA 02/27/2017 SHAWNEE NARAYAN DO Ot R91.8 OTHER NONSPECIFIC ABNORMAL FINDING OF MULU 02/27/2017 SHAWNEE NARAYAN DO Ot F17.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, UNSPECIFIED, UNCOMP 02/27/2017 SHAWNEE NARAYAN DO Ot J44.9 CHRONIC OBSTRUCTIVE PULMONARY DISEASE, U 02/27/2017 HELENE SHAWNEE OSUNA Ot R06.09 OTHER FORMS OF DYSPNEA 02/27/2017 SHAWNEE NARAYAN DO Ot R91.8 OTHER NONSPECIFIC ABNORMAL FINDING OF [place]UL[place] 02/27/2017 SHAWNEE NARAYAN DO Ot Z01.818 ENCOUNTER FOR OTHER PREPROCEDURAL EXAMIN 02/27/2017 SHAWNEE NARAYAN DO Ot I25.10 ATHSCL HEART DISEASE OF [place] CORONARY 02/27/2017 SHAWNEE NARAYAN DO Ot J44.9 CHRONIC OBSTRUCTIVE PULMONARY DISEASE, U 02/27/2017 SHAWNEE NARAYAN DO Ot R91.8 OTHER NONSPECIFIC ABNORMAL FINDING OF [place]UL[place] 02/27/2017 SHAWNEE NARAYAN DO Ot Z72.0 TOBACCO USE 02/27/2017 JESUS SMITH MD Ot E78.4 OTHER HYPERLIPIDEMIA 02/27/2017 JESUS SMITH MD Ot I25.10 ATHSCL HEART DISEASE OF [place] CORONARY 02/27/2017 JESUS SMITH MD Ot J44.9 CHRONIC OBSTRUCTIVE PULMONARY DISEASE, U 02/27/2017 JESUS SMITH MD Ot Z79.899 OTHER MCC (CURRENT) DRUG THERAPY 02/27/2017 JESUS SMITH MD Ot R73.9 HYPERGLYCEMIA, UNSPECIFIED 02/27/2017 DEAN TORIBIO Ot C34.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 OF UPPER LOBE, RIGHT 02/27/2017 LAMAR VELÁZQUEZ COMMERCIAL REAL ESTATE UNDERWRITER Ot C34.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 OF UPPER LOBE, RIGHT 02/27/2017 DEAN TORIBIO Ot C34.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 OF UPPER LOBE, RIGHT 02/27/2017 DEAN TORIBIO Ot J44.9 CHRONIC OBSTRUCTIVE PULMONARY DISEASE, U 02/27/2017 DEAN TORIBIO Ot C34.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 OF UPPER LOBE, RIGHT 02/27/2017 DEAN TORIBIO N Ot J43.9 EMPHYSEMA, UNSPECIFIED 02/27/2017 MALUDEAN LEYVA N Ot R91.8 OTHER NONSPECIFIC ABNORMAL FINDING OF MUL[place] 02/27/2017 DEAN TORIBIO N Ot C34.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 OF UPPER LOBE, RIGHT 02/27/2017 DEAN TORIBIO N Ot J44.9 CHRONIC OBSTRUCTIVE PULMONARY DISEASE, U 02/27/2017 MALUDEAN LEYVA N Ot 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 02/27/2017 JESUS SMITH MD Ot E78.5 HYPERLIPIDEMIA, UNSPECIFIED 02/27/2017 JESUS SMITH MD, Ot I25.10 ATHSCL HEART DISEASE OF [place] CORONARY 02/27/2017 JESUS SMITH MD, Ot 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 03/06/2017 MALU DEAN N Ot C34.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 OF UPPER LOBE, RIGHT 03/06/2017 DEAN TORIBIO N Ot R91.8 OTHER NONSPECIFIC ABNORMAL FINDING OF [place]UL[place] 03/13/2017 DEAN TORIBIO N Ot C34.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 OF UPPER LOBE, RIGHT 03/13/2017 DEAN TORIBIO N Ot J44.9 CHRONIC OBSTRUCTIVE PULMONARY DISEASE, U 03/13/2017 MALUDEAN LEYVA N Ot 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 03/14/2017 DEAN TORIBIO N Ot C34.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 OF UPPER LOBE, RIGHT 03/14/2017 DEAN TORIBIO N Ot J44.9 CHRONIC OBSTRUCTIVE PULMONARY DISEASE, U 03/14/2017 MALU BOBMARK N Ot Z79.899 OTHER MCC (CURRENT) DRUG THERAPY 03/24/2017 DAVID RUIZ Ot C34.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 OF UPPER LOBE, RIGHT 03/24/2017 DAVID RUIZ Ot J44.9 CHRONIC OBSTRUCTIVE PULMONARY DISEASE, U 03/24/2017 DAVID RUIZ Ot R05 COUGH 03/24/2017 DAVID RUIZ Ot R53.1 WEAKNESS 03/24/2017 DAVID RUIZ Ot R53.83 OTHER FATIGUE 03/24/2017 DAVID RUIZ Ot Z95.9 PRESENCE OF CARDIAC AND VASCULAR IMPLANT 03/28/2017 DEAN TORIBIO N Ot C34.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 OF UPPER LOBE, RIGHT 03/28/2017 MALUDEAN LEYVA N Ot R91.8 OTHER NONSPECIFIC ABNORMAL FINDING OF MULU 05/01/2017 VELÁZQUEZHERMELINDABETSY Rodriguez COMMERCIAL REAL ESTATE UNDERWRITER Ot C34.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 OF UPPER LOBE, RIGHT 05/14/2017 DEAN TORIBIO N Ot C34.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 OF UPPER LOBE, RIGHT 05/14/2017 MALUDEAN LEYVA Rashad Ot J43.9 EMPHYSEMA, UNSPECIFIED 05/21/2017 LAMAR VELÁZQUEZ COMMERCIAL REAL ESTATE UNDERWRITER Ot C34.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 OF UPPER LOBE, RIGHT 05/26/2017 MALUDEAN LEYVA N Ot C34.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 OF UPPER LOBE, RIGHT 05/26/2017 MALUDEAN LEYVA N Ot R91.8 OTHER NONSPECIFIC ABNORMAL FINDING OF MULU 06/24/2017 LISA VICTOR MD Ot A41.9 SEPSIS, UNSPECIFIED ORGANISM 06/24/2017 LISA VICTOR MD Ot E78.00 PURE HYPERCHOLESTEROLEMIA, UNSPECIFIED 06/24/2017 LISA VICTOR MD Ot H35.30 UNSPECIFIED MACULAR DEGENERATION 06/24/2017 LISA VICTOR MD Ot I25.10 ATHSCL HEART DISEASE OF [place] CORONARY 06/24/2017 LISA VICTOR MD Ot J18.9 PNEUMONIA, UNSPECIFIED ORGANISM 06/24/2017 LISA VICTOR MD, Ot J44.0 CHRONIC OBSTRUCTIVE PULMON DISEASE W ACU 06/24/2017 LISA VICTOR MD Ot J44.1 CHRONIC OBSTRUCTIVE PULMONARY DISEASE [...] N Ot I25.10 ATHSCL HEART DISEASE OF [place] CORONARY 07/08/2017 MALU, BOBAN N Ot J43.9 EMPHYSEMA, UNSPECIFIED 07/08/2017 MALU, BOBAN N Ot K21.9 GASTRO-ESOPHAGEAL REFLUX DISEASE WITHOUT 07/08/2017 MALU, BOBAN N Ot M19.91 PRIMARY OSTEOARTHRITIS, UNSPECIFIED SITE 07/08/2017 MALU BOBAN N Ot Z87.891 PERSONAL HISTORY OF NICOTINE DEPENDENCE 07/08/2017 MALU, BOBAN N Ot Z99.81 DEPENDENCE ON SUPPLEMENTAL OXYGEN 07/09/2017 MALU, BOBAN N Ot C34.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 OF UPPER LOBE, RIGHT 07/09/2017 MALU, BOBAN N Ot E78.00 PURE HYPERCHOLESTEROLEMIA, UNSPECIFIED 07/09/2017 MALU, BOBAN N Ot I25.10 ATHSCL HEART DISEASE OF [place] CORONARY 07/09/2017 MALU, BOBAN N Ot J43.9 EMPHYSEMA, UNSPECIFIED 07/09/2017 MALU, BOBAN N Ot K21.9 GASTRO-ESOPHAGEAL REFLUX DISEASE WITHOUT 07/09/2017 MALU, BOBAN N Ot M19.91 PRIMARY OSTEOARTHRITIS, UNSPECIFIED SITE 07/09/2017 MALU BOBAN N Ot Z87.891 PERSONAL HISTORY OF NICOTINE DEPENDENCE 07/09/2017 MALU BOBAN N Ot Z99.81 DEPENDENCE ON SUPPLEMENTAL OXYGEN 07/14/2017 MALU, BOBAN N Ot C34.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 OF UPPER LOBE, RIGHT 07/14/2017 MALU, BOBAN N Ot E78.00 PURE HYPERCHOLESTEROLEMIA, UNSPECIFIED 07/14/2017 MALU, BOBAN N Ot I25.10 ATHSCL HEART DISEASE OF [place] CORONARY 07/14/2017 MALU, BOBAN N Ot J43.9 [...] APRN Ot 486 PNEUMONIA, ORGANISM NOS 11/07/2017 BÁRBARA HONEYCUTT APRN Ot 786.05 SHORTNESS OF BREATH 11/07/2017 BÁRBARA HONEYCUTT APRN Ot 793.89 OTH (ABN) [...] DO Ot I25.10 ATHSCL HEART DISEASE OF [place] CORONARY 11/07/2017 SHAWNEE NARAYAN DO Ot J44.9 CHRONIC OBSTRUCTIVE PULMONARY DISEASE, U 11/07/2017 SHAWNEE NARAYAN DO Ot R91.8 OTHER NONSPECIFIC ABNORMAL FINDING OF MULU 11/07/2017 SHAWNEE NARAYAN DO Ot Z72.0 TOBACCO USE 11/07/2017 JESUS SMITH MD Ot E78.4 OTHER HYPERLIPIDEMIA 11/07/2017 JESUS SMITH MD Ot I25.10 ATHSCL HEART DISEASE OF [place] CORONARY 11/07/2017 JESUS SMITH MD Ot J44.9 CHRONIC OBSTRUCTIVE PULMONARY DISEASE, U 11/07/2017 JESUS SMITH MD Ot 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 11/07/2017 JESUS SMITH MD Ot R73.9 HYPERGLYCEMIA, UNSPECIFIED 11/07/2017 DEAN TORIBIO Ot C34.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 OF UPPER LOBE, RIGHT 11/07/2017 LAMAR VELÁZQUEZ COMMERCIAL REAL ESTATE UNDERWRITER Ot C34.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 OF UPPER LOBE, RIGHT 11/07/2017 MALU DEAN Solorzano Ot C34.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 OF UPPER LOBE, RIGHT 11/07/2017 DEAN TORIBIO N Ot J44.9 CHRONIC OBSTRUCTIVE PULMONARY DISEASE, U 11/07/2017 DEAN TORIBIO N Ot C34.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 OF UPPER LOBE, RIGHT 11/07/2017 MALU, DEAN Solorzano Ot J43.9 EMPHYSEMA, UNSPECIFIED 11/07/2017 MALU DEAN N Ot R91.8 OTHER NONSPECIFIC ABNORMAL FINDING OF [place]UL[place] 11/07/2017 JESUS SMITH MD Ot E78.5 HYPERLIPIDEMIA, UNSPECIFIED 11/07/2017 JESUS SMITH MD Ot I25.10 ATHSCL HEART DISEASE OF [place] CORONARY 11/07/2017 JESUS SMITH MD Ot 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 11/07/2017 MALUDEAN Ot C34.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 OF UPPER LOBE, RIGHT 11/07/2017 MALU, DEAN Solorzano Ot R91.8 OTHER NONSPECIFIC ABNORMAL FINDING OF [place]UL[place] 11/07/2017 DAVID RUIZ Ot C34.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 OF UPPER LOBE, RIGHT 11/07/2017 DAVID RUIZ Ot J44.9 CHRONIC OBSTRUCTIVE PULMONARY DISEASE, U 11/07/2017 DAVID RUIZ Ot R05 COUGH 11/07/2017 DAVID RUIZ Ot R53.1 WEAKNESS 11/07/2017 DAVID RUIZ Ot R53.83 OTHER FATIGUE 11/07/2017 DAVID RUIZ Ot Z95.9 PRESENCE OF CARDIAC AND VASCULAR IMPLANT 11/07/2017 LAMAR VELÁZQUEZ COMMERCIAL REAL ESTATE UNDERWRITER Ot C34.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 OF UPPER LOBE, RIGHT 11/07/2017 MALUDEAN Ot C34.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 OF UPPER LOBE, RIGHT 11/07/2017 MALUDEAN Ot J44.9 CHRONIC OBSTRUCTIVE PULMONARY DISEASE, U 11/07/2017 MALUDEAN Ot Z01.89 ENCOUNTER FOR OTHER SPECIFIED SPECIAL EX 11/07/2017 JADA FORRESTER MD Ot C34.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 OF UPPER LOBE, RIGHT 11/07/2017 JADA FORRESTER MD Ot C34.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 OF UPPER LOBE, RIGHT 11/10/2017 JADA FORRESTER MD Ot C34.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 OF UPPER LOBE, RIGHT 11/11/2017 DEAN TORIBIO Rashad Ot C34.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 OF UPPER LOBE, RIGHT 11/11/2017 JADA FORRESTER MD Ot C34.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 OF UPPER LOBE, RIGHT 11/11/2017 JADA FORRESTER MD Ot E78.00 PURE HYPERCHOLESTEROLEMIA, UNSPECIFIED 11/11/2017 JADA FORRESTER MD Ot I25.10 ATHSCL HEART DISEASE OF [place] CORONARY 11/11/2017 JADA FORRESTER MD, Ot J43.9 EMPHYSEMA, UNSPECIFIED 11/11/2017 JADA FORRESTER MD Ot K21.9 GASTRO-ESOPHAGEAL REFLUX DISEASE WITHOUT 11/11/2017 JADA FORRESTER MD Ot M19.91 PRIMARY OSTEOARTHRITIS, UNSPECIFIED SITE 11/11/2017 JADA FORRESTER MD Ot Z87.891 PERSONAL HISTORY OF NICOTINE DEPENDENCE 11/11/2017 JADA FORRESTER MD Ot Z99.81 DEPENDENCE ON SUPPLEMENTAL OXYGEN 11/14/2017 CARLINE YANG MD Ot Z01.818 ENCOUNTER FOR OTHER PREPROCEDURAL EXAMIN 11/17/2017 JESUS SMITH MD Ot E07.89 OTHER SPECIFIED DISORDERS OF THYROID 11/17/2017 JESUS SMITH MD Ot R94.6 ABNORMAL RESULTS OF THYROID FUNCTION [place] 11/17/2017 CARLINE YANG MD Ot Z01.818 ENCOUNTER FOR OTHER PREPROCEDURAL EXAMIN 11/19/2017 CARLINE YANG MD Ot C34.91 MALIGNANT NEOPLASM OF UNSP PART OF RIGHT 11/19/2017 CARLINE YANG MD Ot C44.629 SQUAMOUS CELL CARCINOMA SKIN/ LEFT UPPER 11/19/2017 CARLINE YANG MD Ot E78.5 HYPERLIPIDEMIA, UNSPECIFIED 11/19/2017 CARLINE YANG MD Ot I25.10 ATHSCL HEART DISEASE OF [place] CORONARY 11/19/2017 CARLINE YANG MD, Ot J44.9 CHRONIC OBSTRUCTIVE PULMONARY DISEASE, U 11/19/2017 CARILNE YANG MD Ot K63.5 POLYP OF COLON 11/19/2017 CARLINE YANG MD Ot K64.1 SECOND DEGREE HEMORRHOIDS 11/19/2017 CARLINE YANG MD Ot Z12.11 ENCOUNTER FOR SCREENING FOR MALIGNANT NE 11/19/2017 CARLINE YANG MD Ot Z79.02 MCC (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 OF 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 11/19/2017 CARLINE YANG MD Ot 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 11/19/2017 CARLINE YANG MD, Ot Z80.1 FAMILY HISTORY OF MALIG NEOPLASM OF [place] 11/19/2017 CARLINE YANG MD, Ot Z80.42 FAMILY HISTORY OF MALIGNANT NEOPLASM OF 11/19/2017 CARLINE YANG MD, Ot Z86.010 PERSONAL HISTORY OF COLONIC POLYPS 11/19/2017 CARLINE YANG MD Ot Z87.891 PERSONAL HISTORY OF NICOTINE DEPENDENCE 11/19/2017 CARLINE YANG MD Ot Z99.81 DEPENDENCE ON SUPPLEMENTAL OXYGEN 11/20/2017 CARLINE YANG MD Ot Z01.818 ENCOUNTER FOR OTHER PREPROCEDURAL EXAMIN 11/23/2017 JADA FORRESTER MD Ot C34.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 OF UPPER LOBE, RIGHT 11/23/2017 JADA FORRESTER MD Ot E78.00 PURE HYPERCHOLESTEROLEMIA, UNSPECIFIED 11/23/2017 TIMUR FORRESTER MDNER Ot I25.10 ATHSCL HEART DISEASE OF [place] CORONARY 11/23/2017 JADA FORRESTER MD Ot J43.9 EMPHYSEMA, UNSPECIFIED 11/23/2017 TIMUR FORRESTER MDNER Ot K21.9 GASTRO-ESOPHAGEAL REFLUX DISEASE WITHOUT 11/23/2017 TIMUR FORRESTER MDNER Ot M19.91 PRIMARY OSTEOARTHRITIS, UNSPECIFIED SITE 11/23/2017 JADA FORRESTER MD Ot Z87.891 PERSONAL HISTORY OF NICOTINE DEPENDENCE 11/23/2017 JADA FORRESTER MD Ot Z99.81 DEPENDENCE ON SUPPLEMENTAL OXYGEN 11/25/2017 JADA FORRESTER MD Ot C34.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 OF UPPER LOBE, RIGHT 11/25/2017 JADA FORRESTER MD Ot E78.00 PURE HYPERCHOLESTEROLEMIA, UNSPECIFIED 11/25/2017 TIMUR FORRESTER MDNER Ot I25.10 ATHSCL HEART DISEASE OF [place] CORONARY 11/25/2017 JADA FORRESTER MD Ot J43.9 EMPHYSEMA, UNSPECIFIED 11/25/2017 JADA FORRESTER MD Ot K21.9 GASTRO-ESOPHAGEAL REFLUX DISEASE WITHOUT 11/25/2017 TIMUR FORRESTER MDNER Ot M19.91 PRIMARY OSTEOARTHRITIS, UNSPECIFIED SITE 11/25/2017 JADA FORRESTER MD Ot Z87.891 PERSONAL HISTORY OF NICOTINE DEPENDENCE 11/25/2017 JADA FORRESTER MD, Ot Z99.81 DEPENDENCE ON SUPPLEMENTAL OXYGEN 11/26/2017 JESUS SMITH MD Ot E07.89 OTHER SPECIFIED DISORDERS OF THYROID 11/26/2017 JESUS SMITH MD Ot R94.6 ABNORMAL RESULTS OF THYROID FUNCTION MARLE[place] 11/27/2017 CARLINE YANG MD, Ot C34.91 MALIGNANT NEOPLASM OF UNSP PART OF RIGHT 11/27/2017 CARLINE YANG MD, Ot C44.629 SQUAMOUS CELL CARCINOMA SKIN/ LEFT UPPER 11/27/2017 CARLINE YANG MD, Ot E78.5 HYPERLIPIDEMIA, UNSPECIFIED 11/27/2017 CARLINE YANG MD, Ot I25.10 ATHSCL HEART DISEASE OF [place] CORONARY 11/27/2017 CARLINE YANG MD, Ot J44.9 CHRONIC OBSTRUCTIVE PULMONARY DISEASE, U 11/27/2017 CARLINE YANG MD, Ot K63.5 POLYP OF COLON 11/27/2017 CARLINE YANG MD, Ot K64.1 SECOND DEGREE HEMORRHOIDS 11/27/2017 CARLINE YANG MD, Ot Z12.11 ENCOUNTER FOR SCREENING FOR MALIGNANT NE 11/27/2017 CARLINE YANG MD, Ot Z79.02 MCC (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 OF 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 11/27/2017 CARLINE YANG MD, Ot 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 11/27/2017 CARLINE YANG MD, Ot Z80.1 FAMILY HISTORY OF MALIG NEOPLASM OF [place] 11/27/2017 CARLINE YANG MD, Ot Z80.42 FAMILY HISTORY OF MALIGNANT NEOPLASM OF 11/27/2017 CARLINE YANG MD, Ot Z86.010 PERSONAL HISTORY OF COLONIC POLYPS 11/27/2017 CARLINE YANG MD, Ot Z87.891 PERSONAL HISTORY OF NICOTINE DEPENDENCE 11/27/2017 CARLINE YANG MD, Ot Z99.81 DEPENDENCE ON SUPPLEMENTAL OXYGEN 11/29/2017 JADA FORRESTER MD Ot C34.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 OF UPPER LOBE, RIGHT 11/29/2017 JADA FORRESTER MD Ot E78.00 PURE HYPERCHOLESTEROLEMIA, UNSPECIFIED 11/29/2017 JADA FORRESTER MD Ot I25.10 ATHSCL HEART DISEASE OF [place] CORONARY 11/29/2017 JADA FORRESTER MD, Ot J43.9 EMPHYSEMA, UNSPECIFIED 11/29/2017 JADA FORRESTER MD Ot K21.9 GASTRO-ESOPHAGEAL REFLUX DISEASE WITHOUT 11/29/2017 JADA FORRESTER MD, Ot M19.91 PRIMARY OSTEOARTHRITIS, UNSPECIFIED SITE 11/29/2017 JADA FORRESTER MD, Ot Z87.891 PERSONAL HISTORY OF NICOTINE DEPENDENCE 11/29/2017 JADA FORRESTER MD, Ot Z99.81 DEPENDENCE ON SUPPLEMENTAL OXYGEN 12/04/2017 CARLINE YANG MD, Ot C34.91 MALIGNANT NEOPLASM OF UNSP PART OF RIGHT 12/04/2017 CARLINE YANG MD, Ot C44.629 SQUAMOUS CELL CARCINOMA SKIN/ LEFT UPPER 12/04/2017 CARLINE YANG MD, Ot E78.5 HYPERLIPIDEMIA, UNSPECIFIED 12/04/2017 CARLINE YANG MD, Ot I25.10 ATHSCL HEART DISEASE OF [place] CORONARY 12/04/2017 CARLINE YANG MD, Ot J44.9 CHRONIC OBSTRUCTIVE PULMONARY DISEASE, U 12/04/2017 CARLINE YANG MD, Ot K63.5 POLYP OF COLON 12/04/2017 CARLINE YANG MD, Ot K64.1 SECOND DEGREE HEMORRHOIDS 12/04/2017 CARLINE YANG MD, Ot Z12.11 ENCOUNTER FOR SCREENING FOR MALIGNANT NE 12/04/2017 CARLINE YANG MD, Ot 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 12/04/2017 CARLINE YANG MD, Ot 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 12/04/2017 CARLINE YANG MD, Ot Z80.1 FAMILY HISTORY OF MALIG NEOPLASM OF [place] 12/04/2017 CARLINE YANG MD, Ot Z80.42 FAMILY HISTORY OF MALIGNANT NEOPLASM OF 12/04/2017 CARLINE YANG MD, Ot Z86.010 PERSONAL HISTORY OF COLONIC POLYPS 12/04/2017 CARLINE YANG MD, Ot Z87.891 PERSONAL HISTORY OF NICOTINE DEPENDENCE 12/04/2017 CARLINE YANG MD, Ot Z99.81 DEPENDENCE ON SUPPLEMENTAL OXYGEN 12/05/2017 CARLINE YANG MD, Ot C34.91 MALIGNANT NEOPLASM OF UNSP PART OF RIGHT 12/05/2017 CARLINE YANG MD, Ot C44.629 SQUAMOUS CELL CARCINOMA SKIN/ LEFT UPPER 12/05/2017 CARLINE YANG MD, Ot E78.5 HYPERLIPIDEMIA, UNSPECIFIED 12/05/2017 CARLINE YANG MD, Ot I25.10 ATHSCL HEART DISEASE OF [place] CORONARY 12/05/2017 CARLINE YANG MD, Ot J44.9 CHRONIC OBSTRUCTIVE PULMONARY DISEASE, U 12/05/2017 CARLINE YANG MD, Ot K63.5 POLYP OF COLON 12/05/2017 CARLINE YANG MD, Ot K64.1 SECOND DEGREE HEMORRHOIDS 12/05/2017 CARLINE YANG MD, Ot Z12.11 ENCOUNTER FOR SCREENING FOR MALIGNANT NE 12/05/2017 CARLINE YANG MD, Ot 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 12/05/2017 CARLINE YANG MD, Ot Z79.899 OTHER MCC (CURRENT) DRUG THERAPY 12/05/2017 CARLINE YANG MD, Ot Z80.1 FAMILY HISTORY OF MALIG NEOPLASM OF [place] 12/05/2017 CARLINE YANG MD, Ot Z80.42 FAMILY HISTORY OF MALIGNANT NEOPLASM OF 12/05/2017 CARLINE YANG MD, Ot Z86.010 PERSONAL HISTORY OF COLONIC POLYPS 12/05/2017 CARLINE YANG MD, Ot Z87.891 PERSONAL HISTORY OF NICOTINE DEPENDENCE 12/05/2017 CARLINE YANG MD Ot Z99.81 DEPENDENCE ON SUPPLEMENTAL OXYGEN 12/11/2017 CARLINE YANG MD Ot C34.91 MALIGNANT NEOPLASM OF UNSP PART OF RIGHT 12/11/2017 CARLINE YANG MD, Ot C44.629 SQUAMOUS CELL CARCINOMA SKIN/ LEFT UPPER 12/11/2017 CARLINE YANG MD, Ot E78.5 HYPERLIPIDEMIA, UNSPECIFIED 12/11/2017 CARLINE YANG MD, Ot I25.10 ATHSCL HEART DISEASE OF [place] CORONARY 12/11/2017 CARLINE YANG MD, Ot J44.9 CHRONIC OBSTRUCTIVE PULMONARY DISEASE, U 12/11/2017 CARLINE YANG MD, Ot K63.5 POLYP OF COLON 12/11/2017 CARLINE YANG MD, Ot K64.1 SECOND DEGREE HEMORRHOIDS 12/11/2017 CARLINE YANG MD, Ot Z12.11 ENCOUNTER FOR SCREENING FOR MALIGNANT NE 12/11/2017 CARLINE YANG MD, Ot 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 12/11/2017 CARLINE YANG MD, Ot Z79.899 OTHER MCC (CURRENT) DRUG THERAPY 12/11/2017 CARLINE YANG MD, Ot Z80.1 FAMILY HISTORY OF MALIG NEOPLASM OF [place] 12/11/2017 CARLINE YANG MD, Ot Z80.42 FAMILY HISTORY OF MALIGNANT NEOPLASM OF 12/11/2017 CARLINE YANG MD, Ot Z86.010 PERSONAL HISTORY OF COLONIC POLYPS 12/11/2017 CARLINE YANG MD, Ot Z87.891 PERSONAL HISTORY OF NICOTINE DEPENDENCE 12/11/2017 CARLINE YANG MD, Ot Z99.81 DEPENDENCE ON SUPPLEMENTAL OXYGEN 12/17/2017 JESUS SMITH MD, Ot E04.1 NONTOXIC SINGLE THYROID NODULE 12/25/2017 JESUS SMITH MD Ot E04.1 NONTOXIC SINGLE THYROID NODULE 01/05/2018 JESUS SMITH MD, Ot E04.1 NONTOXIC SINGLE THYROID NODULE 02/05/2018 JADA FORRESTER MD, Ot C34.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 OF UPPER LOBE, RIGHT 02/05/2018 DEAN TORIBIO Ot C34.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 OF UPPER LOBE, RIGHT 02/05/2018 DEAN TORIBIO Ot E78.00 PURE HYPERCHOLESTEROLEMIA, UNSPECIFIED 02/05/2018 DEAN TORIBIO Ot I25.10 ATHSCL HEART DISEASE OF [place] CORONARY 02/05/2018 DEAN TORIBIO Ot J43.9 EMPHYSEMA, UNSPECIFIED 02/05/2018 DEAN TORIBIO Ot K21.9 GASTRO-ESOPHAGEAL REFLUX DISEASE WITHOUT 02/05/2018 DEAN TORIBIO Ot M19.91 PRIMARY OSTEOARTHRITIS, UNSPECIFIED SITE 02/05/2018 DEAN TORIBIO Ot Z87.891 PERSONAL HISTORY OF NICOTINE DEPENDENCE 02/05/2018 DEAN TORIBIO Ot Z99.81 DEPENDENCE ON SUPPLEMENTAL OXYGEN 02/23/2018 JADA FORRESTER MD, Ot C34.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 OF UPPER LOBE, RIGHT 03/04/2018 JADA FORRESTER MD, Ot C34.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 OF UPPER LOBE, RIGHT 03/22/2018 JESUS SMITH MD Ot E04.2 NONTOXIC MULTINODULAR GOITER 04/16/2018 DAVID RUIZ Ot J18.9 PNEUMONIA, UNSPECIFIED ORGANISM 04/16/2018 DAVID RUIZ Ot J98.4 OTHER DISORDERS OF LUNG 04/28/2018 BÁRBARA HONEYCUTT CAR SALES CONSULTANT Ot 793.89 OTH (ABN) FINDINGS ON RADIOLOGICAL EXAMI 04/28/2018 JESUS SMITH MD Ot 496 CHR AIRWAY OBSTRUCT NEC 04/28/2018 BÁRBARA HONEYCUTT CAR SALES CONSULTANT Ot 486 PNEUMONIA, ORGANISM NOS 04/28/2018 BÁRBARA HONEYCUTT CAR SALES CONSULTANT Ot 786.05 SHORTNESS OF BREATH 04/28/2018 BÁRBARA HONEYCUTT CAR SALES CONSULTANT Ot 793.89 OTH (ABN) FINDINGS ON RADIOLOGICAL EXAMI 04/28/2018 JESUS SMITH MD Ot V76.12 OTH SCREEN MAMMO-MALIGN NEOPLASM OF [place] 04/28/2018 SHAWNEE NARAYAN DO Ot F17.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, UNSPECIFIED, UNCOMP 04/28/2018 SHAWNEE NARAYAN DO Ot J44.9 CHRONIC OBSTRUCTIVE PULMONARY DISEASE, U 04/28/2018 SHAWNEE NARAYAN DO Ot J98.4 OTHER DISORDERS OF LUNG 04/28/2018 SHAWNEE NARAYAN DO Ot R06.09 OTHER FORMS OF DYSPNEA 04/28/2018 SHAWNEE NARAYAN DO Ot R91.8 OTHER NONSPECIFIC ABNORMAL FINDING OF MULU 04/28/2018 SHAWNEE NARAYAN DO Ot F17.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, UNSPECIFIED, UNCOMP 04/28/2018 SHAWNEE NARAYAN DO Ot J44.9 CHRONIC OBSTRUCTIVE PULMONARY DISEASE, U 04/28/2018 SHAWNEE NARAYAN DO Ot R06.09 OTHER FORMS OF DYSPNEA 04/28/2018 SHAWNEE NARAYAN DO Ot R91.8 OTHER NONSPECIFIC ABNORMAL FINDING OF MULU 04/28/2018 SHAWNEE NARAYAN DO Ot Z01.818 ENCOUNTER FOR OTHER PREPROCEDURAL EXAMIN 04/28/2018 SHAWNEE NARAYAN DO Ot I25.10 ATHSCL HEART DISEASE OF [place] CORONARY 04/28/2018 SHAWNEE NARAYAN DO Ot J44.9 CHRONIC OBSTRUCTIVE PULMONARY DISEASE, U 04/28/2018 SHAWNEE NARAYAN DO Ot R91.8 OTHER NONSPECIFIC ABNORMAL FINDING OF MULU 04/28/2018 SHAWNEE NARAYAN DO Ot Z72.0 TOBACCO USE 04/28/2018 JESUS SMITH MD Ot E78.4 OTHER HYPERLIPIDEMIA 04/28/2018 JESUS SMITH MD Ot I25.10 ATHSCL HEART DISEASE OF [place] CORONARY 04/28/2018 JESUS SMITH MD Ot J44.9 CHRONIC OBSTRUCTIVE PULMONARY DISEASE, U 04/28/2018 JESUS SMITH MD Ot Z79.899 OTHER MCC (CURRENT) DRUG THERAPY 04/28/2018 JESUS SMITH MD Ot R73.9 HYPERGLYCEMIA, UNSPECIFIED 04/28/2018 MALU BOBAN N Ot C34.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 OF UPPER LOBE, RIGHT 04/28/2018 LAMAR VELÁZQUEZ COMMERCIAL REAL ESTATE UNDERWRITER Ot C34.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 OF UPPER LOBE, RIGHT 04/28/2018 MALU, BOBAN N Ot C34.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 OF UPPER LOBE, RIGHT 04/28/2018 MALU BOBAN N Ot J44.9 CHRONIC OBSTRUCTIVE PULMONARY DISEASE, U 04/28/2018 MALU, BOBAN N Ot C34.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 OF UPPER LOBE, RIGHT 04/28/2018 MALU BOBAN N Ot J43.9 EMPHYSEMA, UNSPECIFIED 04/28/2018 MALU BOBAN N Ot R91.8 OTHER NONSPECIFIC ABNORMAL FINDING OF MULU 04/28/2018 JESUS SMITH MD Ot E78.5 HYPERLIPIDEMIA, UNSPECIFIED 04/28/2018 JESUS SMITH MD, Ot I25.10 ATHSCL HEART DISEASE OF [place] CORONARY 04/28/2018 JESUS SMITH MD, Ot Z79.899 OTHER MCC (CURRENT) DRUG THERAPY 04/28/2018 MALURUPERTAN N Ot C34.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 OF UPPER LOBE, RIGHT 04/28/2018 MALU BOBAN N Ot R91.8 OTHER NONSPECIFIC ABNORMAL FINDING OF MULU 04/28/2018 DAVID RUIZ Ot C34.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 OF UPPER LOBE, RIGHT 04/28/2018 DAVID RUIZ Ot J44.9 CHRONIC OBSTRUCTIVE PULMONARY DISEASE, U 04/28/2018 DAVID RUIZ Ot R05 COUGH 04/28/2018 DAVID RUIZ Ot R53.1 WEAKNESS 04/28/2018 DAVID RUIZ Ot R53.83 OTHER FATIGUE 04/28/2018 DAVID RUIZ Ot Z95.9 PRESENCE OF CARDIAC AND VASCULAR IMPLANT 04/28/2018 LAMAR VELÁZQUEZ COMMERCIAL REAL ESTATE UNDERWRITER Ot C34.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 OF UPPER LOBE, RIGHT 04/28/2018 MALU BOBAN N Ot C34.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 OF UPPER LOBE, RIGHT 04/28/2018 MALU, DEAN Solorzano Ot J44.9 CHRONIC OBSTRUCTIVE PULMONARY DISEASE, U 04/28/2018 DEAN TORIBIO Ot Z01.89 ENCOUNTER FOR OTHER SPECIFIED SPECIAL EX 04/28/2018 USAMA PARDO, JADA Ot C34.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 OF UPPER LOBE, RIGHT 04/28/2018 SARAH PARDO, JESUS Meza Ot E07.89 OTHER SPECIFIED DISORDERS OF THYROID 04/28/2018 JESUS SMITH MD Ot R94.6 ABNORMAL RESULTS OF THYROID FUNCTION MAR[place] 04/28/2018 DEAN TORIBIO Ot C34.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 OF UPPER LOBE, RIGHT 04/28/2018 DEAN TORIBIO Ot E78.00 PURE HYPERCHOLESTEROLEMIA, UNSPECIFIED 04/28/2018 MALUDEAN LEYVA N Ot I25.10 ATHSCL HEART DISEASE OF [place] CORONARY 04/28/2018 DEAN TORIBIO Ot J43.9 EMPHYSEMA, UNSPECIFIED 04/28/2018 DEAN TORIBIO Ot K21.9 GASTRO-ESOPHAGEAL REFLUX DISEASE WITHOUT 04/28/2018 DEAN TORIBIO Ot M19.91 PRIMARY OSTEOARTHRITIS, UNSPECIFIED SITE 04/28/2018 DEAN TORIBIO Ot Z87.891 PERSONAL HISTORY OF NICOTINE DEPENDENCE 04/28/2018 DEAN TORIBIO Ot Z99.81 DEPENDENCE ON SUPPLEMENTAL OXYGEN 04/28/2018 SARAH PARDO, JESUS Meza Ot E04.1 NONTOXIC SINGLE THYROID NODULE 04/28/2018 JESUS SMITH MD Ot E04.2 NONTOXIC MULTINODULAR GOITER 04/28/2018 DAVID RUIZ Ot J18.9 PNEUMONIA, UNSPECIFIED ORGANISM 04/28/2018 DAVID RUIZ Ot J98.4 OTHER DISORDERS OF LUNG 05/04/2018 DEAN TORIBIO Ot C34.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 OF UPPER LOBE, RIGHT 05/04/2018 EDAN TORIBIO Ot E78.00 PURE HYPERCHOLESTEROLEMIA, UNSPECIFIED 05/04/2018 DEAN TORIBIO N Ot I25.10 ATHSCL HEART DISEASE OF [place] CORONARY 05/04/2018 DEAN TORIBIO Ot J43.9 EMPHYSEMA, UNSPECIFIED 05/04/2018 DEAN TORIBIO Ot K21.9 GASTRO-ESOPHAGEAL REFLUX DISEASE WITHOUT 05/04/2018 DEAN TORIBIO N Ot M19.91 PRIMARY OSTEOARTHRITIS, UNSPECIFIED SITE 05/04/2018 DEAN TORIBIO Ot Z87.891 PERSONAL HISTORY OF NICOTINE DEPENDENCE 05/04/2018 DEAN TORIBIO Ot Z99.81 DEPENDENCE ON SUPPLEMENTAL OXYGEN 05/06/2018 DEAN TORIBIO Ot C34.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 OF UPPER LOBE, RIGHT 05/06/2018 DEAN TORIBIO Rashad Ot E78.00 PURE HYPERCHOLESTEROLEMIA, UNSPECIFIED 05/06/2018 DEAN TORIBIO Rashad Ot I25.10 ATHSCL HEART DISEASE OF [place] CORONARY 05/06/2018 DEAN TORIBIO Rashad Ot J43.9 EMPHYSEMA, UNSPECIFIED 05/06/2018 DEAN TORIBIO N Ot K21.9 GASTRO-ESOPHAGEAL REFLUX DISEASE WITHOUT 05/06/2018 DEAN TORIBIO Ot M19.91 PRIMARY OSTEOARTHRITIS, UNSPECIFIED SITE 05/06/2018 DEAN TORIBIO Ot Z87.891 PERSONAL HISTORY OF NICOTINE DEPENDENCE 05/06/2018 DEAN TORIBIO Ot Z99.81 DEPENDENCE ON SUPPLEMENTAL OXYGEN 06/08/2018 BÁRBARA HONEYCUTT CAR SALES CONSULTANT Ot 486 PNEUMONIA, ORGANISM NOS 06/08/2018 BÁRBARA HONEYCUTT CAR SALES CONSULTANT Ot 786.05 SHORTNESS OF BREATH 06/08/2018 BÁRBARA HONEYCUTT CAR SALES CONSULTANT Ot 793.89 OTH (ABN) FINDINGS ON RADIOLOGICAL EXAMI 06/08/2018 SARAH PARDO, JESUS Meza Ot V76.12 OTH SCREEN MAMMO-MALIGN NEOPLASM OF [place] 06/08/2018 SHAWNEE NARAYAN DO Ot F17.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, UNSPECIFIED, UNCOMP 06/08/2018 SHAWNEE NARAYAN DO Ot J44.9 CHRONIC OBSTRUCTIVE PULMONARY DISEASE, U 06/08/2018 SHAWNEE NARAYAN DO Ot J98.4 OTHER DISORDERS OF LUNG 06/08/2018 SHAWNEE NARAYAN DO Ot R06.09 OTHER FORMS OF DYSPNEA 06/08/2018 SHAWNEE NARAYAN DO Ot R91.8 OTHER NONSPECIFIC ABNORMAL FINDING OF MULU 06/08/2018 SHAWNEE NARAYAN DO Ot F17.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, UNSPECIFIED, UNCOMP 06/08/2018 SHAWNEE NARAYAN DO Ot J44.9 CHRONIC OBSTRUCTIVE PULMONARY DISEASE, U 06/08/2018 SHAWNEE NARAYAN DO Ot R06.09 OTHER FORMS OF DYSPNEA 06/08/2018 SHAWNEE NARAYAN DO Ot R91.8 OTHER NONSPECIFIC ABNORMAL FINDING OF MULU 06/08/2018 SHAWNEE NARAYAN DO Ot Z01.818 ENCOUNTER FOR OTHER PREPROCEDURAL EXAMIN 06/08/2018 SHAWNEE NARAYAN DO Ot I25.10 ATHSCL HEART DISEASE OF [place] CORONARY 06/08/2018 SHAWNEE NARAYAN DO Ot J44.9 CHRONIC OBSTRUCTIVE PULMONARY DISEASE, U 06/08/2018 SHAWNEE NARAYAN DO Ot R91.8 OTHER NONSPECIFIC ABNORMAL FINDING OF MULU 06/08/2018 SHAWNEE NARAYAN DO Ot Z72.0 TOBACCO USE 06/08/2018 JESUS SMITH MD Ot E78.4 OTHER HYPERLIPIDEMIA 06/08/2018 JESUS SMITH MD Ot I25.10 ATHSCL HEART DISEASE OF [place] CORONARY 06/08/2018 JESUS SMITH MD Ot J44.9 CHRONIC OBSTRUCTIVE PULMONARY DISEASE, U 06/08/2018 JESUS SMITH MD Ot Z79.899 OTHER MCC (CURRENT) DRUG THERAPY 06/08/2018 JESUS SMITH MD Ot R73.9 HYPERGLYCEMIA, UNSPECIFIED 06/08/2018 MALU, BOBAN N Ot C34.11 MALIGNANT NEOPLASM OF UPPER LOBE, RIGHT 06/08/2018 LAMAR VELÁZQUEZ COMMERCIAL REAL ESTATE UNDERWRITER Ot C34.11 MALIGNANT NEOPLASM OF UPPER LOBE, RIGHT 06/08/2018 MALU BOBAN N Ot C34.11 MALIGNANT NEOPLASM OF UPPER LOBE, RIGHT 06/08/2018 MALU BOBAN N Ot J44.9 CHRONIC OBSTRUCTIVE PULMONARY DISEASE, U 06/08/2018 MALU, BOBAN N Ot C34.11 MALIGNANT NEOPLASM OF UPPER LOBE, RIGHT 06/08/2018 MALU BOBAN N Ot J43.9 EMPHYSEMA, UNSPECIFIED 06/08/2018 MALU, BOBAN N Ot R91.8 OTHER NONSPECIFIC ABNORMAL FINDING OF MULU 06/08/2018 JESUS SMITH MD Ot E78.5 HYPERLIPIDEMIA, UNSPECIFIED 06/08/2018 JESUS SMITH MD Ot I25.10 ATHSCL HEART DISEASE OF [place] CORONARY 06/08/2018 JESUS SMITH MD Ot Z79.899 OTHER MCC (CURRENT) DRUG THERAPY 06/08/2018 MALURUPERT LEYVAAN N Ot C34.11 MALIGNANT NEOPLASM OF UPPER LOBE, RIGHT 06/08/2018 MALU, BOBAN N Ot R91.8 OTHER NONSPECIFIC ABNORMAL FINDING OF MULU 06/08/2018 DAVID RUIZ Ot C34.11 MALIGNANT NEOPLASM OF UPPER LOBE, RIGHT 06/08/2018 DAVID RUIZ Ot J44.9 CHRONIC OBSTRUCTIVE PULMONARY DISEASE, U 06/08/2018 DAVID RUIZ Ot R05 COUGH 06/08/2018 DAVID RUIZ Ot R53.1 WEAKNESS 06/08/2018 DAVID RUIZ Ot R53.83 OTHER FATIGUE 06/08/2018 DAVID RUIZ Ot Z95.9 PRESENCE OF CARDIAC AND VASCULAR IMPLANT 06/08/2018 VELÁZQUEZLAMAR Rodriguez Michael CARDENAS Ot C34.11 MALIGNANT NEOPLASM OF UPPER LOBE, RIGHT 06/08/2018 DEAN TORIBIO Ot C34.11 MALIGNANT NEOPLASM OF UPPER LOBE, RIGHT 06/08/2018 DEAN TORIBIO Ot J44.9 CHRONIC OBSTRUCTIVE PULMONARY DISEASE, U 06/08/2018 DEAN TORIBIO Ot Z01.89 ENCOUNTER FOR OTHER SPECIFIED SPECIAL EX 06/08/2018 JADA FORRESTER MD Ot C34.11 MALIGNANT NEOPLASM OF UPPER LOBE, RIGHT 06/08/2018 JESUS SMITH MD Ot E07.89 OTHER SPECIFIED DISORDERS OF THYROID 06/08/2018 JESUS SMITH MD Ot R94.6 ABNORMAL RESULTS OF THYROID FUNCTION [place] 06/08/2018 JESUS SMITH MD Ot E04.1 NONTOXIC SINGLE THYROID NODULE 06/08/2018 JESUS SMITH MD Ot E04.2 NONTOXIC MULTINODULAR GOITER 06/08/2018 DAVID RUIZ Ot J18.9 PNEUMONIA, UNSPECIFIED ORGANISM 06/08/2018 DAVID RUIZ Ot J98.4 OTHER DISORDERS OF LUNG 06/18/2018 BÁRBARA HONEYCUTT APRN Ot E04.2 NONTOXIC MULTINODULAR GOITER 06/30/2018 DEAN TORIBIO Ot C34.11 MALIGNANT NEOPLASM OF UPPER LOBE, RIGHT 06/30/2018 DEAN TORIBIO Ot E78.00 PURE HYPERCHOLESTEROLEMIA, UNSPECIFIED 06/30/2018 DEAN TORIBIO Ot I25.10 ATHSCL HEART DISEASE OF [place] CORONARY 06/30/2018 DEAN TORIBIO Ot J43.9 EMPHYSEMA, UNSPECIFIED 06/30/2018 MALU, BOBAN N Ot K21.9 GASTRO-ESOPHAGEAL REFLUX DISEASE WITHOUT 06/30/2018 DEAN TORIBIO Ot M19.91 PRIMARY OSTEOARTHRITIS, UNSPECIFIED SITE 06/30/2018 DEAN TORIBIO Ot Z87.891 PERSONAL HISTORY OF NICOTINE DEPENDENCE 06/30/2018 DEAN TORIBIO N Ot Z99.81 DEPENDENCE ON SUPPLEMENTAL OXYGEN 07/01/2018 VELÁZQUEZLAMAR Rodriguez S COMMERCIAL REAL ESTATE UNDERWRITER Ot C34.11 MALIGNANT NEOPLASM OF UPPER LOBE, RIGHT 07/01/2018 VELÁZQUEZLAMAR Rodriguez S COMMERCIAL REAL ESTATE UNDERWRITER Ot J43.9 EMPHYSEMA, UNSPECIFIED 07/01/2018 VELÁZQUEZLAMAR S COMMERCIAL REAL ESTATE UNDERWRITER Ot R59.0 LOCALIZED ENLARGED LYMPH NODES 07/06/2018 DEAN TORIBIO Ot C34.11 MALIGNANT NEOPLASM OF UPPER LOBE, RIGHT 07/06/2018 DEAN TORIBIO Rashad Ot E78.00 PURE HYPERCHOLESTEROLEMIA, UNSPECIFIED 07/06/2018 DEAN TORIBIO N Ot I25.10 ATHSCL HEART DISEASE OF [place] CORONARY 07/06/2018 DEAN TORIBIO Rashad Ot J43.9 EMPHYSEMA, UNSPECIFIED 07/06/2018 DEAN TORIBIO Ot K21.9 GASTRO-ESOPHAGEAL REFLUX DISEASE WITHOUT 07/06/2018 DEAN TORIBIO Ot M19.91 PRIMARY OSTEOARTHRITIS, UNSPECIFIED SITE 07/06/2018 DEAN TORIBIO Ot Z87.891 PERSONAL HISTORY OF NICOTINE DEPENDENCE 07/06/2018 DEAN TORIBIO Ot Z99.81 DEPENDENCE ON SUPPLEMENTAL OXYGEN 07/07/2018 BÁRBARA HONEYCUTT CAR SALES CONSULTANT Ot 486 PNEUMONIA, ORGANISM NOS 07/07/2018 BÁRBARA HONEYCUTT CAR SALES CONSULTANT Ot 786.05 SHORTNESS OF BREATH 07/07/2018 BÁRBARA HONEYCUTT CAR SALES CONSULTANT Ot 793.89 OTH (ABN) FINDINGS ON RADIOLOGICAL EXAMI 07/07/2018 SARAH PARDO, JESUS Meza Ot V76.12 OTH SCREEN MAMMO-MALIGN NEOPLASM OF [place] 07/07/2018 SHAWNEE NARAYAN DO Ot F17.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, UNSPECIFIED, UNCOMP 07/07/2018 SHAWNEE NARAYAN DO Ot J44.9 CHRONIC OBSTRUCTIVE PULMONARY DISEASE, U 07/07/2018 SHAWNEE NARAYAN DO Ot J98.4 OTHER DISORDERS OF LUNG 07/07/2018 SHAWNEE NARAYAN DO Ot R06.09 OTHER FORMS OF DYSPNEA 07/07/2018 SHAWNEE NARAYAN DO Ot R91.8 OTHER NONSPECIFIC ABNORMAL FINDING OF MULU 07/07/2018 SHAWNEE NARAYAN DO Ot F17.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, UNSPECIFIED, UNCOMP 07/07/2018 SHAWNEE NARAYAN DO Ot J44.9 CHRONIC OBSTRUCTIVE PULMONARY DISEASE, U 07/07/2018 SHAWNEE NARAYAN DO Ot R06.09 OTHER FORMS OF DYSPNEA 07/07/2018 SHAWNEE NARAYAN DO Ot R91.8 OTHER NONSPECIFIC ABNORMAL FINDING OF MULU 07/07/2018 SHAWNEE NARAYAN DO Ot Z01.818 ENCOUNTER FOR OTHER PREPROCEDURAL EXAMIN 07/07/2018 SHAWNEE NARAYAN DO Ot I25.10 ATHSCL HEART DISEASE OF [place] CORONARY 07/07/2018 SHAWNEE NARAYAN DO Ot J44.9 CHRONIC OBSTRUCTIVE PULMONARY DISEASE, U 07/07/2018 SHAWNEE NARAYAN DO Ot R91.8 OTHER NONSPECIFIC ABNORMAL FINDING OF MULU 07/07/2018 SHAWNEE NARAYAN DO Ot Z72.0 TOBACCO USE 07/07/2018 JESUS SMITH MD Ot E78.4 OTHER HYPERLIPIDEMIA 07/07/2018 JESUS SMITH MD Ot I25.10 ATHSCL HEART DISEASE OF [place] CORONARY 07/07/2018 JESUS SMITH MD Ot J44.9 CHRONIC OBSTRUCTIVE PULMONARY DISEASE, U 07/07/2018 JESUS SMITH MD Ot 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 07/07/2018 JESUS SMITH MD Ot R73.9 HYPERGLYCEMIA, UNSPECIFIED 07/07/2018 DEAN TORIBIO Ot C34.11 MALIGNANT NEOPLASM OF UPPER LOBE, RIGHT 07/07/2018 LAMAR VELÁZQUEZ COMMERCIAL REAL ESTATE UNDERWRITER Ot C34.11 MALIGNANT NEOPLASM OF UPPER LOBE, RIGHT 07/07/2018 DEAN TORIBIO Ot C34.11 MALIGNANT NEOPLASM OF UPPER LOBE, RIGHT 07/07/2018 DEAN TORIBIO Ot J44.9 CHRONIC OBSTRUCTIVE PULMONARY DISEASE, U 07/07/2018 DEAN TORIBIO Ot C34.11 MALIGNANT NEOPLASM OF UPPER LOBE, RIGHT 07/07/2018 DEAN TORIBIO Ot J43.9 EMPHYSEMA, UNSPECIFIED 07/07/2018 DEAN TORIBIO Ot R91.8 OTHER NONSPECIFIC ABNORMAL FINDING OF MULU 07/07/2018 JESUS SMITH MD Ot E78.5 HYPERLIPIDEMIA, UNSPECIFIED 07/07/2018 JESUS SMITH MD Ot I25.10 ATHSCL HEART DISEASE OF [place] CORONARY 07/07/2018 JESUS SMITH MD Ot Z79.899 OTHER [facility] (CURRENT) DRUG THERAPY 07/07/2018 DEAN TORIBIO Ot C34.11 MALIGNANT NEOPLASM OF UPPER LOBE, RIGHT 07/07/2018 DEAN TORIBIO Ot R91.8 OTHER NONSPECIFIC ABNORMAL FINDING OF MULU 07/07/2018 DAVID RUIZ Ot C34.11 MALIGNANT NEOPLASM OF UPPER LOBE, RIGHT 07/07/2018 DAVID RUIZ Ot J44.9 CHRONIC OBSTRUCTIVE PULMONARY DISEASE, U 07/07/2018 DAVID RUIZ Ot R05 COUGH 07/07/2018 DAVID RUIZ Ot R53.1 WEAKNESS 07/07/2018 DAVID RUIZ Ot R53.83 OTHER FATIGUE 07/07/2018 DAVID RUIZ Ot Z95.9 PRESENCE OF CARDIAC AND VASCULAR IMPLANT 07/07/2018 LAMAR VELÁZQUEZ Ot C34.11 MALIGNANT NEOPLASM OF UPPER LOBE, RIGHT 07/07/2018 DEAN TORIBIO Ot C34.11 MALIGNANT NEOPLASM OF UPPER LOBE, RIGHT 07/07/2018 DEAN TORIBIO Ot J44.9 CHRONIC OBSTRUCTIVE PULMONARY DISEASE, U 07/07/2018 DEAN TORIBIO Ot Z01.89 ENCOUNTER FOR OTHER SPECIFIED SPECIAL EX 07/07/2018 JADA FORRESTER MD Ot C34.11 MALIGNANT NEOPLASM OF UPPER LOBE, RIGHT 07/07/2018 JESUS SMITH MD Ot E07.89 OTHER SPECIFIED DISORDERS OF THYROID 07/07/2018 JESUS SMITH MD Ot R94.6 ABNORMAL RESULTS OF THYROID FUNCTION [place] 07/07/2018 JESUS SMITH MD Ot E04.1 NONTOXIC SINGLE THYROID NODULE 07/07/2018 JESUS SMITH MD Ot E04.2 NONTOXIC MULTINODULAR GOITER 07/07/2018 BÁRBARA HONEYCUTT APRN Ot E04.2 NONTOXIC MULTINODULAR GOITER 07/07/2018 DAVID RUIZ Ot J18.9 PNEUMONIA, UNSPECIFIED ORGANISM 07/07/2018 DAVID RUIZ Ot J98.4 OTHER DISORDERS OF LUNG 07/07/2018 MALU, BOBAN N Ot C34.11 MALIGNANT NEOPLASM OF UPPER LOBE, RIGHT 07/07/2018 DEAN TORIBIO N Ot E78.00 PURE HYPERCHOLESTEROLEMIA, UNSPECIFIED 07/07/2018 DEAN TORIBIO N Ot I25.10 ATHSCL HEART DISEASE OF [place] CORONARY 07/07/2018 DEAN TORIBIO Ot J43.9 EMPHYSEMA, UNSPECIFIED 07/07/2018 DEAN TORIBIO N Ot K21.9 GASTRO-ESOPHAGEAL REFLUX DISEASE WITHOUT 07/07/2018 DEAN TORIBIO N Ot M19.91 PRIMARY OSTEOARTHRITIS, UNSPECIFIED SITE 07/07/2018 DEAN TORIBIO N Ot Z87.891 PERSONAL HISTORY OF NICOTINE DEPENDENCE 07/07/2018 DEAN TORIBIO N Ot Z99.81 DEPENDENCE ON SUPPLEMENTAL OXYGEN 07/07/2018 VELÁZQUEZLAMAR Rodriguez S [employer] UNDERWRITER Ot C34.11 MALIGNANT NEOPLASM OF UPPER LOBE, RIGHT 07/07/2018 LAMAR VELÁZQUEZ [employer] UNDERWRITER Ot J43.9 EMPHYSEMA, UNSPECIFIED 07/07/2018 LAAMR VELÁZQUEZ [employer] UNDERWRITER Ot R59.0 LOCALIZED ENLARGED LYMPH NODES 07/08/2018 VELÁZQUEZLAMAR Rodriguez S [employer] UNDERWRITER Ot C34.11 MALIGNANT NEOPLASM OF UPPER LOBE, RIGHT 07/08/2018 VELÁZQUEZHERMELINDAAH S [employer]STATE UNDERWRITER Ot R59.0 LOCALIZED ENLARGED LYMPH NODES 07/10/2018 DEAN TORIBIO Ot C34.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 Results Test Result Range Mycobacterium species detection by organism specific culture - 09/11/15 08:00 DATE/TIME MICROSCOPIC 09-22-15 10:22 NRG MICROSCOPIC NO ACID-FAST BACILLI FOUND NRG DATE/TIME VERBAL REPORT 09/18 12:45 NRG VERBAL REPORT FROM [facility] AFB SMEAR NEGATIVE NRG AFB CULTURE NO MYCOBACTERIA RECOVERED AFTER 6 WEEKS NRG DATE FINAL AFB CULTURE 11/07/15 10:45 NRG Sputum Gram stain - 09/11/15 08:00 GRAM STAIN SPUTUM NO WBC'S OR BACTERIA NRG Bacteria identification in bronchial specimen by aerobe culture - 09/11/15 08:00 QUANTITY OF GROWTH Scant Growth NRG Bacteria identification in bronchial specimen by aerobe culture [id number] NRG Fungus culture - 09/11/15 08:00 FUNGUS [...] Automated erythrocyte mean corpuscular hemoglobin concentration measurement (mass/volume) 33 g/dL 32-36 Automated erythrocyte distribution width ratio 14.6 % 10.0- 14.5 Automated blood platelet count (count/volume) 338 10*3/uL [...] Blood monocytes automated count (number/volume) 0.9 10*3 0.0- 1.0 Automated eosinophil count 0.2 10*3/uL 0.0-0.3 Automated [...] resistant Staphylococcus aureus (MRSA) screening culture - 10/18/15 09:25 Methicillin resistant Staphylococcus aureus (MRSA) screening culture NEG [facility] Comprehensive metabolic panel - 11/28/15 08:45 Serum [...] or plasma urea nitrogen/creatinine mass ratio 15 NRG Serum or plasma creatinine measurement with calculation of estimated glomerular filtration rate > NRG Serum or plasma glucose measurement (mass/volume) 220 mg/dL 70-105 Serum or plasma calcium measurement (mass/volume) 9.5 mg/dL 8.5-10.1 Serum or plasma total bilirubin measurement (mass/volume) 0.3 mg/dL 0.1-1.0 Serum or plasma alkaline phosphatase measurement (enzymatic activity/volume) 66 U/L 40-136 Serum or plasma aspartate aminotransferase measurement (enzymatic activity/volume) 11 U/L 5-34 Serum or plasma alanine aminotransferase measurement (enzymatic activity/volume) 18 U/L 0-55 Serum or plasma protein measurement (mass/volume) 6.5 g/dL 6.4-8.2 Serum or plasma albumin measurement (mass/volume) 3.6 g/dL 3.2-4.5 Lipid 1996 panel - 11/28/15 08:45 Serum or plasma triglyceride measurement (mass/volume) 35 mg/dL <150 Serum or plasma cholesterol measurement (mass/volume) 129 mg/dL < 200 Serum or plasma cholesterol in HDL measurement (mass/volume) 45 mg/dL 40-60 Cholesterol in LDL [mass/volume] in serum or plasma by direct assay 64 mg/dL 1-129 Serum or plasma cholesterol in VLDL measurement (mass/volume) 7 mg/dL 5-40 THYROID STIMULATING HORMONE - 11/28/15 08:45 [...] Automated erythrocyte mean corpuscular hemoglobin concentration measurement (mass/volume) 34 g/dL 32-36 Automated erythrocyte distribution width ratio 17.7 % 10.0- 14.5 Automated blood platelet count (count/volume) 163 10*3/uL [...] Blood monocytes automated count (number/volume) 0.4 10*3 0.0- 1.0 Automated eosinophil count 0.1 10*3/uL 0.0-0.3 Automated blood basophil count (count/volume) 0.0 10*3/uL 0.0-0.1 Blood lactic acid measurement (moles/volume) - 02/18/16 08:20 Blood lactic acid measurement (moles/volume) 1.1 mmol/L 0.5- 2.0 Comprehensive metabolic panel - 02/18/16 08:20 Serum [...] Serum or plasma aspartate aminotransferase measurement (enzymatic activity/volume) 17 U/L 5-34 Serum or plasma alanine aminotransferase measurement (enzymatic activity/volume) 14 U/L 0-55 Serum or plasma protein measurement (mass/volume) 6.5 g/dL 6.4-8.2 Serum or plasma albumin measurement (mass/volume) 3.6 g/dL 3.2-4.5 Serum or plasma troponin i.cardiac measurement (mass/volume) - 02/18/16 08:20 Serum or plasma troponin i.cardiac measurement (mass/volume) < ng/mL <0.30 Bacterial blood culture - 02/18/16 08:20 [...] Automated erythrocyte mean corpuscular hemoglobin concentration measurement (mass/volume) 32 g/dL 32-36 Automated erythrocyte distribution width ratio 17.7 % 10.0- 14.5 Automated blood platelet count (count/volume) 208 10*3/uL [...] Blood monocytes automated count (number/volume) 0.1 10*3 0.0- 1.0 Automated eosinophil count 0.0 10*3/uL 0.0-0.3 Automated [...] Serum or plasma aspartate aminotransferase measurement (enzymatic activity/volume) 12 U/L 5-34 Serum or plasma alanine aminotransferase measurement (enzymatic activity/volume) 13 U/L 0-55 Serum or plasma protein measurement (mass/volume) 5.9 g/dL 6.4-8.2 Serum or plasma albumin measurement (mass/volume) 3.5 g/dL 3.2-4.5 Fibrin D-dimer FEU measurement in platelet poor plasma (mass/volume) - 02/19/16 05:15 Fibrin D-dimer FEU measurement in platelet [...] Automated erythrocyte mean corpuscular hemoglobin concentration measurement (mass/volume) 32 g/dL 32-36 Automated erythrocyte distribution width ratio 18.3 % 10.0- 14.5 Automated blood platelet count (count/volume) 210 10*3/uL [...] Blood monocytes automated count (number/volume) 0.3 10*3 0.0- 1.0 Automated eosinophil count 0.0 10*3/uL 0.0-0.3 Automated [...] Serum or plasma aspartate aminotransferase measurement (enzymatic activity/volume) 12 U/L 5-34 Serum or plasma alanine aminotransferase measurement (enzymatic activity/volume) 11 U/L 0-55 Serum or plasma protein [...] glucose measurement by glucometer (mass/volume) - 02/21/16 15:53 Capillary blood glucose measurement by glucometer (mass/volume) 185 mg/dL 70-110 Capillary blood glucose measurement by glucometer (mass/volume) - 02/22/16 06:04 Capillary blood glucose measurement by glucometer (mass/volume) [...] Automated erythrocyte mean corpuscular hemoglobin concentration measurement (mass/volume) 39 g/dL 32-36 Automated erythrocyte distribution width ratio 13.5 % 10.0- 14.5 Automated blood platelet count (count/volume) 243 10*3/uL [...] Blood monocytes automated count (number/volume) 1.8 10*3 0.0- 1.0 Automated eosinophil count 0.2 10*3/uL 0.0-0.3 Automated [...] Serum or plasma aspartate aminotransferase measurement (enzymatic activity/volume) 22 U/L 5-34 Serum or plasma alanine aminotransferase measurement (enzymatic activity/volume) 30 U/L 0-55 Serum or plasma protein [...] gravity of urine by test strip 1.015 1.016-1.022 Urine protein assay by test strip, semi-quantitative [...] sediment leukocyte count by microscopy (number/high power field) RARE NRG Bacteria detection in urine sediment [...] Automated erythrocyte mean corpuscular hemoglobin concentration measurement (mass/volume) 33 g/dL 32-36 Automated erythrocyte distribution width ratio 14.0 % 10.0- 14.5 Automated blood platelet count (count/volume) 355 10*3/uL [...] Blood monocytes automated count (number/volume) 1.0 10*3 0.0- 1.0 Automated eosinophil count 0.3 10*3/uL 0.0-0.3 Automated [...] Serum or plasma aspartate aminotransferase measurement (enzymatic activity/volume) 15 U/L 5-34 Serum or plasma alanine aminotransferase measurement (enzymatic activity/volume) 28 U/L 0-55 Serum or plasma protein measurement (mass/volume) 6.6 g/dL 6.4-8.2 Serum or plasma albumin measurement (mass/volume) 3.5 g/dL 3.2-4.5 Complete urinalysis with reflex to culture - 06/20/17 15:55 Urine color determination YELLOW NRG Urine clarity determination CLEAR NRG Urine pH measurement by test strip 7 5-9 Specific gravity of urine by test strip 1.005 1.016-1.022 Urine protein assay by test strip, semi-quantitative [...] sediment leukocyte count by microscopy (number/high power field) NONE NRG Bacteria detection in urine sediment [...] Blood lactic acid measurement (moles/volume) 1.50 mmol/L 0.50- 2.00 Bacterial blood culture - 06/20/17 16:25 Bacterial [...] Automated erythrocyte mean corpuscular hemoglobin concentration measurement (mass/volume) 34 g/dL 32-36 Automated erythrocyte distribution width ratio 14.1 % 10.0- 14.5 Automated blood platelet count (count/volume) 212 10*3/uL [...] Blood monocytes automated count (number/volume) 1.7 10*3 0.0- 1.0 Automated eosinophil count 0.3 10*3/uL 0.0-0.3 Automated [...] Serum or plasma aspartate aminotransferase measurement (enzymatic activity/volume) 20 U/L 5-34 Serum or plasma alanine aminotransferase measurement (enzymatic activity/volume) 28 U/L 0-55 Serum or plasma protein [...] Automated erythrocyte mean corpuscular hemoglobin concentration measurement (mass/volume) 33 g/dL 32-36 Automated erythrocyte distribution width ratio 14.3 % 10.0- 14.5 Automated blood platelet count (count/volume) 191 10*3/uL [...] Blood monocytes automated count (number/volume) 1.9 10*3 0.0- 1.0 Automated eosinophil count 0.2 10*3/uL 0.0-0.3 Automated [...] Automated erythrocyte mean corpuscular hemoglobin concentration measurement (mass/volume) 33 g/dL 32-36 Automated erythrocyte distribution width ratio 14.2 % 10.0- 14.5 Automated blood platelet count (count/volume) 176 10*3/uL [...] Serum or plasma aspartate aminotransferase measurement (enzymatic activity/volume) 13 U/L 5-34 Serum or plasma alanine aminotransferase measurement (enzymatic activity/volume) 19 U/L 0-55 Serum or plasma protein [...] Automated erythrocyte mean corpuscular hemoglobin concentration measurement (mass/volume) 33 g/dL 32-36 Automated erythrocyte distribution width ratio 14.3 % 10.0- 14.5 Automated blood platelet count (count/volume) 203 10*3/uL [...] Blood monocytes automated count (number/volume) 1.0 10*3 0.0- 1.0 Automated eosinophil count 0.5 10*3/uL 0.0-0.3 Automated [...] Serum or plasma aspartate aminotransferase measurement (enzymatic activity/volume) 17 U/L 5-34 Serum or plasma alanine aminotransferase measurement (enzymatic activity/volume) 23 U/L 0-55 Serum or plasma protein [...] Automated erythrocyte mean corpuscular hemoglobin concentration measurement (mass/volume) 33 g/dL 32-36 Automated erythrocyte distribution width ratio 14.0 % 10.0- 14.5 Automated blood platelet count (count/volume) 231 10*3/uL [...] Blood monocytes automated count (number/volume) 1.0 10*3 0.0- 1.0 Automated eosinophil count 0.6 10*3/uL 0.0-0.3 Automated [...] plasma calcium measurement (mass/volume) 9.1 mg/dL 8.5-10.1 Complete blood count (CBC) with automated white blood cell (WBC) differential - 07/10/18 18:30 Blood leukocytes automated count (number/volume) 19.4 10*3/uL 4.3-11.0 Blood erythrocytes automated count (number/volume) 4.59 10*6/uL 4.35-5.85 Venous blood hemoglobin measurement (mass/volume) 12.6 g/dL 11.5-16.0 Blood hematocrit (volume fraction) 38 % 35-52 Automated erythrocyte mean corpuscular volume 83 [foz_us] 80-99 Automated erythrocyte mean corpuscular hemoglobin (mass per erythrocyte) 28 pg 25-34 Automated erythrocyte mean corpuscular hemoglobin concentration measurement (mass/volume) 33 g/dL 32-36 Automated erythrocyte distribution width ratio 15.2 % 10.0- 14.5 Automated blood platelet count (count/volume) 273 10*3/uL 130-400 Automated blood platelet mean volume measurement 10.3 [foz_us] 7.4-10.4 Automated blood neutrophils/100 leukocytes 72 % 42-75 Automated blood lymphocytes/100 leukocytes 17 % 12-44 Blood monocytes/100 leukocytes 10 % 0-12 Automated blood eosinophils/100 leukocytes 0 % 0-10 Automated blood basophils/100 leukocytes 0 % 0-10 Blood neutrophils automated count (number/volume) 14.0 10*3 1.8-7.8 Blood lymphocytes automated count (number/volume) 3.3 10*3 1.0-4.0 Blood monocytes automated count (number/volume) 2.0 10*3 0.0- 1.0 Automated eosinophil count 0.1 10*3/uL 0.0-0.3 Automated blood basophil count (count/volume) 0.0 10*3/uL 0.0-0.1 PT panel in platelet poor plasma by coagulation assay - 07/10/18 18:30 Prothrombin time (PT) in platelet poor plasma by coagulation assay 14.9 s 12.2-14.7 INR in platelet poor plasma or blood by coagulation assay 1.1 0.8-1.4 Activated partial thromboplastin time (aPTT) in platelet poor plasma bycoagulation assay - 07/10/18 18:30 Activated partial thromboplastin time (aPTT) in platelet poor plasma bycoagulation assay 35 s 24-35 Blood lactic acid measurement (moles/volume) - 05/17/19 18:30 Blood lactic acid measurement (moles/volume) 0.85 mmol/L 0.50- 2.00 Blood manual differential performed detection - 07/10/18 18:30 Blood monocytes/100 leukocytes 12 % NR Manual blood segmented neutrophils/100 leukocytes 68 % NRG Blood band neutrophils/100 leukocytes 0 % NRG Manual blood lymphocytes/100 leukocytes 18 % NRG Manual eosinophils/100 leukocytes in nose 0 % NRG Manual blood basophils/100 leukocytes 0 % NR Blood erythrocyte morphology finding identification [facility] Influenza virus A and B antigen detection - 07/10/18 18:30 FLU RESULT NEGATIVE FOR INFLUENZA A AND B ANTIGENS BY IA [facility] Comprehensive metabolic panel - 07/10/18 18:30 Serum or plasma sodium measurement (moles/volume) 136 mmol/L 135-145 Serum or plasma potassium measurement (moles/volume) 3.4 mmol/L 3.6-5.0 Serum or plasma chloride measurement (moles/volume) 100 mmol/L 98-107 Carbon dioxide 22 mmol/L 21-32 Serum or plasma anion gap determination (moles/volume) 14 mmol/L 5-14 Serum or plasma urea nitrogen measurement (mass/volume) 6 mg/dL 7-18 Serum or plasma creatinine measurement (mass/volume) 0.62 mg/dL 0.60-1.30 Serum or plasma urea nitrogen/creatinine mass ratio 10 NRG Serum or plasma creatinine measurement with calculation of estimated glomerular filtration rate > NRG Serum or plasma glucose measurement (mass/volume) 139 mg/dL 70-105 Serum or plasma calcium measurement (mass/volume) 10.1 mg/dL 8.5-10.1 Serum or plasma total bilirubin measurement (mass/volume) 0.5 mg/dL 0.1-1.0 Serum or plasma alkaline phosphatase measurement (enzymatic activity/volume) 84 U/L 40-136 Serum or plasma aspartate aminotransferase measurement (enzymatic activity/volume) 22 U/L 5-34 Serum or plasma alanine aminotransferase measurement (enzymatic activity/volume) 28 U/L 0-55 Serum or plasma protein measurement (mass/volume) 7.8 g/dL 6.4-8.2 Serum or plasma albumin measurement (mass/volume) 4.0 g/dL 3.2-4.5 CALCIUM CORRECTED 10.1 mg/dL 8.5-10.1 Serum or plasma lithium measurement (moles/volume) - 07/10/18 18:30 BNP level 18.1 pg/mL <100.0 Serum or plasma C reactive protein measurement (mass/volume) - 07/10/18 18:30 Serum or plasma C reactive protein measurement (mass/volume) 16.68 mg/dL 0.00-0.50 Encounters ACCT No. Visit Date/Time Discharge Status Pt. Type Provider Facility Loc./Unit Complaint [id number] 07/07/2018 08:45:00 07/07/2018 23:59:59 CLS Outpatient LAMAR VELÁZQUEZ [facility] RAD ENLARGED LYMPH NODES [id number] 06/18/2018 12:58:00 06/18/2018 23:59:59 CLS Outpatient LAMAR VELÁZQUEZ [facility] RAD IMAGING STUDY TO RESTAGE TUMOR [id number] 06/18/2018 12:56:00 06/18/2018 23:59:59 CLS Outpatient BÁRBARA HONEYCUTT APRN [facility] RAD PREVIOUS ABNORMALITY, THYROID NODULE [id number] 02/05/2018 09:32:00 05/04/2018 00:01:00 DIS Outpatient DEAN TORIBIO [facility] ONC [id number] 04/23/2018 10:32:00 04/23/2018 23:59:59 CLS Preadmit DAVID RUIZ [facility] CARD HYPERTHYROIDISM [id number] 04/16/2018 10:31:00 04/16/2018 23:59:59 CLS Outpatient DAVID RUIZ [facility] RAD PNEUMONIA [id number] 03/16/2018 11:19:00 03/16/2018 23:59:59 CLS Outpatient JESUS SMITH MD [facility] RAD THYROID NODULE [id number] 02/03/2018 07:56:00 02/03/2018 23:59:59 CLS Outpatient JADA FORRESTER MD [facility] RAD C34.11 CA OF RT LUNG [id number] 12/01/2017 11:50:00 12/01/2017 23:59:59 CLS Outpatient JESUS SMITH MD [facility] RAD THYROID MASS [id number] 11/07/2017 13:15:00 11/23/2017 00:01:00 DIS Outpatient JADA FORRESTER MD [facility] ONC [id number] 11/19/2017 11:18:00 11/19/2017 16:07:00 DIS Outpatient CARLINE YANG MD [facility] ENDO SCREENING/HX POLYPS/LESION TO LEFT WRIST [id number] 11/14/2017 12:08:00 11/14/2017 23:59:59 CLS Outpatient JESUS SMITH MD [facility] RAD ABNORMAL THYROID TEST [id number] 11/14/2017 05:39:00 11/14/2017 10:59:00 DIS Outpatient CARLINE YANG MD [facility] PREOP COLONOSCOPY [id number] 08/13/2017 10:50:00 11/05/2017 00:01:00 DIS Outpatient DEAN TORIBIO [facility] ONC [id number] 08/07/2017 10:11:00 08/07/2017 23:59:59 CLS Outpatient DEAN TORIBIO [facility] CARD C34.11 CA OF RT LUNG [id number] 07/02/2017 09:56:00 07/08/2017 00:01:00 DIS Outpatient DEAN TORIBIO [facility] ONC [id number] 06/20/2017 17:30:00 06/24/2017 11:00:00 DIS Inpatient KAYLEIGH PARDO, LISA Diallo [facility] 4TH R PERIHILAR PNEUMONIA/SEPSIS [id number] 04/30/2017 09:28:00 04/30/2017 23:59:59 CLS Outpatient LAMAR VELÁZQUEZ [facility] RAD C34.11 [id number] 03/06/2017 10:46:00 03/13/2017 00:01:00 DIS Outpatient DEAN TORIBIO [facility] ONC [id number] 03/06/2017 11:12:00 03/06/2017 23:59:59 CLS Outpatient DEAN TORIBIO [facility] RAD CANCER OF RIGHT LUNG C34.11 [id number] 02/27/2017 14:59:00 02/27/2017 23:59:59 CLS Outpatient DAVID RUIZ [facility] RAD COUGH,SOB,FATIGUE,COPD [id number] 12/13/2016 09:50:00 12/13/2016 23:59:59 CLS Outpatient DEAN TORIBIO [facility] RAD CA OF RT LUNG C34.11 [id number] 12/13/2016 09:41:00 12/13/2016 23:59:59 CLS Outpatient JESUS SMITH MD [facility] LAB [id number] 09/12/2016 14:57:00 11/23/2016 00:01:00 DIS Outpatient DEAN TORIBIO [facility] ONC [id number] 09/05/2016 11:08:00 09/05/2016 23:59:59 CLS Outpatient DEAN TORIBIO [facility] CARD CANCER OF RIGHT LUNG [id number] 07/15/2016 12:57:00 09/01/2016 00:01:00 DIS Outpatient DEAN TORIBIO [facility] ONC [id number] 05/28/2016 08:37:00 05/28/2016 23:59:59 CLS Outpatient LAMAR VELÁZQUEZ [facility] RAD CANCER OF RIGHT LUNG [id number] 03/13/2016 09:09:00 05/28/2016 00:01:00 DIS Outpatient DEAN TORIBIO [facility] ONC [id number] 03/05/2016 11:40:00 03/05/2016 23:59:59 CLS Outpatient DEAN TORIBIO [facility] CARD CA OF RT LUNG [id number] 02/14/2016 09:05:00 02/26/2016 00:01:00 DIS Outpatient DEAN TORIBIO [facility] ONC [id number] 02/18/2016 12:08:00 02/22/2016 10:45:00 DIS Inpatient KAYLEIGH PARDO, LISA Diallo [facility] 4TH ACUTE BRONCHITIS [id number] 12/12/2015 10:55:00 12/12/2015 23:59:59 CLS Outpatient JESUS SMITH MD [facility] LAB [id number] 11/28/2015 08:53:00 11/28/2015 23:59:59 CLS Outpatient JESUS SMITH MD [facility] LAB [id number] 11/21/2015 10:25:00 11/27/2015 09:13:00 DIS Outpatient MALUDEAN LEYVA Rashad [facility] ONC [id number] 10/19/2015 07:55:00 10/19/2015 13:25:00 DIS Outpatient CARLINE YANG MD [facility] LUNG CANCER [id number] 10/18/2015 08:57:00 10/18/2015 09:35:00 DIS Outpatient CARLINE YANG MD [facility] PREOP LUNG CANCER [id number] 10/11/2015 09:23:00 10/11/2015 23:59:59 CLS Outpatient SHAWNEE NARAYAN DO [facility] RT COPD,CAD,LUNG MASS,TOBACCO USER [id number] 09/25/2015 08:52:00 09/25/2015 16:05:00 DIS Outpatient SHAWNEE NARAYAN DO [facility] RAD LUNG MASS,COPD,TOBACCO USER [id number] 09/11/2015 06:56:00 09/11/2015 09:30:00 DIS Outpatient SHAWNEE NAARYAN DO [facility] BRONCHTHERAPHY [id number] 09/08/2015 09:39:00 09/08/2015 23:59:59 CLS Outpatient SHAWNEE NARAYAN DO [facility] PREOP BRONCHTHERAPHY [id number] 09/05/2015 11:04:00 09/05/2015 23:59:59 CLS Outpatient SHAWNEE NARAYAN DO [facility] RAD R91.8,E17.200,R06.09,J44.9 [id number] 08/19/2015 23:15:00 08/24/2015 10:55:00 DIS Inpatient COMPA PARDO, STEFFANY Walker [facility] 4TH PNEUMONIA RT LUNG, RT LARGE MASS [id number] 10/13/2014 01:13:00 10/16/2014 13:23:00 DIS Inpatient JESUS SMITH MD [facility] 4TH BIBASILAR PNEUMONIA [id number] 09/26/2014 09:46:00 09/26/2014 23:59:59 CLS Outpatient JESUS SMITH MD [facility] RAD SCREENING [id number] 09/16/2014 21:49:00 09/21/2014 16:32:00 DIS Inpatient STEFFANY CHATMAN MD [facility] SURGICAL PNEUMONIA,CHEST WALL PAIN,COPD EXAC [id number] 07/19/2014 21:28:00 07/22/2014 09:50:00 DIS Inpatient JESUS SMITH MD [facility] SURGICAL PNEUMONIA [id number] 01/29/2014 18:17:00 01/29/2014 18:30:00 DIS Emergency BRIGHT SMITH MD [facility] ER L HAND LAC [id number] 12/25/2013 13:56:00 12/29/2013 10:30:00 DIS Inpatient JSEUS SMITH MD [facility] 4TH PNEUMONITIS [id number] 09/24/2013 08:40:00 09/24/2013 23:59:59 CLS Outpatient BÁRBARA HONEYCUTT APRN [facility] RAD FOLLOW UP [id number] 08/30/2013 09:37:00 08/30/2013 23:59:59 CLS Outpatient BÁRBARA HONEYCUTT APRN [facility] RAD PNUEMONIA [id number] 08/23/2013 15:50:00 08/23/2013 18:15:00 DIS Emergency KELIN LLANES MD [facility] ER SOB, L ARM PAIN [id number] 06/26/2013 17:24:00 07/01/2013 10:40:00 DIS Inpatient JESUS SMITH MD [facility] 4TH PNEUMONIA [id number] 05/16/2013 00:45:00 05/19/2013 12:11:00 DIS Inpatient JESUS SMITH MD [facility] 4TH COPD EXACERBATION WITH HYPOXIA [id number] 01/10/2013 19:25:00 01/13/2013 11:00:00 DIS Inpatient JESUS SMITH MD [facility] 4TH PNUEMONIA;FEVER;COUGH;LEUKOCYTOSIS [id number] 11/11/2012 12:33:00 11/11/2012 23:59:59 CLS Outpatient YINKA BÁRBARARashad Gonzalez APRN [facility] RAD 6 MONTH FOLLOW UP [id number] 11/11/2012 07:01:00 11/11/2012 23:59:59 CLS Outpatient JESUS SMITH MD [facility] RT COPD [id number] 07/10/2018 19:34:00 ACT Inpatient KAYLEIGH PARDO, LISA Diallo [facility] 4TH SEPSIS,PNEUMONIA,UTI,LUNG CANCER [id number] 07/09/2018 10:53:00 PEN Preadmit DEAN TORIBIO [facility] RAD LIVER METASTASIS [id number] 07/09/2018 09:14:00 ACT Outpatient DEAN TORIBIO [facility] ONC [id number] 09/05/2015 11:04:00 Document Registration [id number] 09/05/2015 11:04:00 Document Registration [id number] 06/03/2012 13:31:00 Document Registration [id number] 05/20/2012 12:20:00 Document Registration [id number] 04/30/2012 10:13:00 Document Registration [id number] 04/24/2012 09:43:00 Document Registration [id number] 04/22/2012 07:42:00 Document Registration [id number] 03/30/2012 11:38:00 Document Registration [id number] 03/26/2012 16:59:00 Document Registration [id number] 03/26/2012 15:36:00 Document Registration [id number] 03/23/2012 07:16:00 Document Registration [id number] 03/20/2012 08:55:00 Document Registration [id number] 08/06/2011 20:19:00 Document Registration [id number] 07/13/2011 14:00:00 Document Registration [id number] 07/10/2011 08:51:00 Document Registration [id number] 04/11/2011 17:15:00 Document Registration [id number] 01/24/2011 10:10:00 Document Registration [id number] 05/19/2010 18:33:00 Document Registration [id number] 05/03/2010 12:24:00 Document Registration [id number] 04/17/2010 10:33:00 Document Registration [email or web address] 10/12/2014 20:53:56 ACT Document Registration
--- NOTE | 2018-07-10 20:30 | NUR ---
MELIZA NIEVES Yo admitted to room 407-1, with an admitting diagnosis of PNEUMONIA, SEPSIS, UTI, LUNG CANCER, on 07/10/18 from ED via CART, accompanied by STAFF. MELIZA NIEVES introduced to surroundings, call light, bed controls, phone, TV, temperature control, lights, meal times, smoking policy, visitor policy, side rail policy, bathrooms and showers.
[2018-07-10] MEDS ORDERED: ONDANSETRON 4 MG/2 ML (SDV) Z0FRAN IV PRN (22:00)
[2018-07-10] MEDS: NS IV 1000 ML 1,000 ML IV SCH (22:13)
[2018-07-10] MEDS ORDERED: RT-ALBUTEROL/IPRATROPIUM 3 ML (DUONEB) VIAL INH PRN (22:15)
[2018-07-10] MEDS: ACETAMINOPHEN 500 MG TAB (TYLENOL) PO PRN (22:20)
[2018-07-11] VITALS (9 sets, daily range): BP systolic 100–142; BP diastolic 51–68
[2018-07-11] MEDS ORDERED: PIPERACILLIN/TAZO 4.5 GM VIAL (ZOSYN) IV ONE (00:19)
[2018-07-11] MEDS ORDERED: NS (IVPB) 100 ML ONE (00:20)
[2018-07-11] MEDS: PIPERACILLIN/TAZOBACTAM (BULK) 4.5 GM in NS (IVPB) 100 ML IV SCH ×3 (00:33→17:12)
[2018-07-11] MEDS: RT-ALBUTEROL/IPRATROPIUM 3 ML (DUONEB) VIAL INH SCH ×6 (02:23→21:46)
[2018-07-11] MEDS: ACETAMINOPHEN 500 MG TAB (TYLENOL) PO PRN ×3 (08:15→21:26)
[2018-07-11] MEDS: NS IV 1000 ML 1,000 ML IV SCH ×3 (09:03→20:02)
--- NOTE | 2018-07-11 11:52 | History & Physical-Hospitalist ---
History of Present Illness HPI/Chief Complaint This is a 78-year-old white female who presents to the emergency room with increased cough and myalgias and shortness of breath. Chest x-ray shows a spiculated mass in the right upper lobe white count is elevated at 19.4 and she was admitted with presumptive diagnosis of pneumonia. She had plans to undergo biopsy this . Source: patient, old records Exam Limitations: clinical condition Date Seen 07/11/18 Time Seen by a Provider: 11:00 Attending Physician Cee Camacho MD PCP Jesus Smith MD Referring Physician Date of Admission July 10, 2018 at 19:34 Home Medications & Allergies Home Medications Reviewed patient Home Medication Reconciliation performed by pharmacy medication reconciliations advanced manufacturing technician and/or nursing. Patients Allergies have been reviewed. Allergies Allergies Coded Allergies No Known Drug Allergies (Unverified10/18/15) Past Dbwrpxn-Dagizc-Qruunq Hx Past Med/Social Hx: Reviewed and Corrections made Patient Social History Marrital Status: single Employed/Student: retired Former Smoker, Quit: Jan 08, 2017 Type Used: Cigarettes Recent Foreign Travel: No Contact w/other who traveled: No Recent Hopitalizations: Yes Recent Infectious Disease Expo: No Immunizations Up To Date Tetanus Booster (TDap): Unknown Date of Pneumonia Vaccine: Dec 25, 2017 Date of Influenza Vaccine: Nov 29, 2015 Seasonal Allergies Seasonal Allergies: No Past Medical History Surgeries: Breast, Cardiac, Gallbladder, Hysterectomy Respiratory: COPD Currently Using CPAP: No Currently Using BIPAP: No Cardiac: Coronary Artery Disease, High Cholesterol : No Reproductive: No Sexually Transmitted Disease: No HIV/AIDS: No Hysterectomy Gastrointestinal: Gastroesophageal Reflux Musculoskeletal: Arthritis, Chronic Back Pain HEENT: Cataract, Macular Degeneration Loss of Vision: Bilateral Hearing Impairment: Denies Cancer: Lung Did You Recieve Any Treatments: Yes What Type of Treatment Did You: Chemotherapy, Radiation History of Blood Disorders: No Adverse Reaction to Blood Florentino: No Family History Cancer 03 FATHER 09 SISTER (LUNG) Congestive heart failure 03 FATHER 03 MOTHER 09 SISTER 09 SISTER 09 SISTER Diabetes mellitus 03 FATHER 03 MOTHER Family history: Diabetes mellitus 03 MOTHER 09 SISTER 09 SISTER 09 SISTER Myocardial infarction 09 BROTHER Heart Disease, Cancer, Diabetes Review of Systems Constitutional: see HPI, fever, weakness EENTM: no symptoms reported Respiratory: cough Cardiovascular: no symptoms reported Gastrointestinal: no symptoms reported Genitourinary: no symptoms reported Musculoskeletal: muscle pain, muscle weakness Skin: no symptoms reported Psychiatric/Neurological: No Symptoms Reported Physical Exam Physical Exam Vital Signs Vital Signs - First Documented 07/10/18 07/10/18 07/10/18 18:28 18:45 22:02 Temp 98.9 Pulse 129 Resp 18 B/P (MAP) 134/81 (98) Pulse Ox 94 O2 Delivery Nasal Cannula O2 Flow Rate 2.00 FiO2 3 Capillary Refill : Less Than 3 Seconds Height, Weight, BMI Height: 5'3.00" Weight: 179lbs. 5.0oz. 81.174071ot; 31.8 BMI Method:Estimated General Appearance: No Apparent Distress, WD/WN HEENT: Normal ENT Inspection, Pharynx Normal Neck: Supple Respiratory: Normal Breath Sounds, No Respiratory Distress, Crackles Cardiovascular: Regular Rate, Rhythm, Systolic Murmur Rectal: Deferred Back: Normal Inspection, No Vertebral Tenderness Neurologic/Psychiatric: Alert, Oriented x3, Depressed Affect Skin: Normal Color, Warm/Dry Results Results/Procedures Labs Laboratory Tests 07/10/18 18:30 Patient resulted labs reviewed. Assessment/Plan Admission Diagnosis sepsis with fever , elevated WBC, hypoxia Right upper lobe pneumonia Spiculated lung mass Metastatic lesions in the liver COPD Coronary artery disease Plan for IV antibiotics pulmonary toilet and probably proceed with biopsy on and consult oncology Admission Status: Inpatient Order (span 2 midnights) Reason for Inpatient Admission: Pneumonia in a newly diagnosed lung cancer Diagnosis/Problems Diagnosis/Problems (1) Sepsis Status: Acute Qualifiers: Sepsis type: sepsis due to unspecified organism Qualified Codes: A41.9 - Sepsis, unspecified organism (2) Pneumonia Status: Acute (3) Cough Status: Acute (4) Mass of upper lobe of right lung Status: Acute (5) Acute exacerbation of chronic obstructive airways disease Status: Acute (6) CAD (coronary artery disease) Status: Chronic Clinical Quality Measures DVT/VTE Risk/Contraindication: Risk Factor Score Per Nursin RFS Level Per Nursing on Admit: 2=Moderate Copy Copies To 1: JESUS SMITH MD, KATHLEEN M MD July 11, 2018 11:52
[2018-07-11] MEDS ORDERED: ALPRAZolam 0.25 MG (XANAX) TAB PO PRN (12:00)
--- NOTE | 2018-07-11 12:39 | NUR ---
DR. TORIBIO NOTIFIED OF NEW CONSULT.
--- NOTE | 2018-07-11 16:09 | NUR ---
DR. FORRESTER NOTIFIED OF CONSULT. DR. FORRESTER IS ONCOLOGY DR. GOVERNMENT PROGRAM MANAGER. PATIENT IS AN ESTABLISHED PATIENT OF DR. TORIBIO.
[2018-07-11 17:33] LABS: BASOPHILS % (AUTO) 0 % (0-10); EOSINOPHILS # (AUTO) 0.1 10^3/uL (0.0-0.3); EOSINOPHILS % (AUTO) 1 % (0-10); HEMATOCRIT 33 % (35-52); HEMOGLOBIN 10.8 G/DL (11.5-16.0); LYMPHOCYTES # (AUTO) 2.1 X 10^3 (1.0-4.0); LYMPHOCYTES % (AUTO) 17 % (12-44); MEAN CORPUSCULAR HEMOGLOBIN 28 PG (25-34); MEAN CORPUSCULAR HGB CONC 33 G/DL (32-36); MEAN CORPUSCULAR VOLUME 86 FL (80-99); MEAN PLATELET VOLUME 10.5 FL (7.4-10.4); MONOCYTES # (AUTO) 1.2 X 10^3 (0.0-1.0); MONOCYTES % (AUTO) 10 % (0-12); NEUTROPHILS # (AUTO) 8.8 X 10^3 (1.8-7.8); NEUTROPHILS % (AUTO) 71 % (42-75); PLATELET COUNT 229 10^3/uL (130-400); RED CELL DISTRIBUTION WIDTH 15.3 % (10.0-14.5); WHITE BLOOD COUNT 12.3 10^3/uL (4.3-11.0)
[2018-07-11 17:54] LABS: ALANINE AMINOTRANSFERASE 22 U/L (0-55); ALBUMIN 3.1 GM/DL (3.2-4.5); ALKALINE PHOSPHATASE 62 U/L (40-136); BILIRUBIN,TOTAL 0.2 MG/DL (0.1-1.0); BUN/CREATININE RATIO 11; CALCIUM 8.6 MG/DL (8.5-10.1); CARBON DIOXIDE 22 MMOL/L (21-32); CHLORIDE 106 MMOL/L (98-107); CREATININE SERUM 0.62 MG/DL (0.60-1.30); GFR ESTIMATED > 60; GLUCOSE 161 MG/DL (70-105); MAGNESIUM 1.8 MG/DL (1.8-2.4); SODIUM 139 MMOL/L (135-145); TOTAL PROTEIN 6.1 GM/DL (6.4-8.2)
[2018-07-11] MEDS: RT-ADVAIR HFA 45/21 MCG PER PUFF IH SCH (18:56)
[2018-07-12] MEDS: PIPERACILLIN/TAZOBACTAM (BULK) 4.5 GM in NS (IVPB) 100 ML IV SCH ×3 (00:54→18:36)
[2018-07-12] MEDS: RT-ALBUTEROL/IPRATROPIUM 3 ML (DUONEB) VIAL INH SCH ×7 (02:46→21:47)
[2018-07-12] MEDS: ACETAMINOPHEN 500 MG TAB (TYLENOL) PO PRN (04:25)
[2018-07-12 04:32] VITALS: BP 101/60
[2018-07-12] MEDS: RT-ADVAIR HFA 45/21 MCG PER PUFF IH SCH ×2 (06:15→18:35)
[2018-07-12] MEDS: UMECLIDINIUM BROMIDE (INCRUSE ELLIPTA) 7'S IH SCH (06:23)
[2018-07-12 08:33] VITALS: BP 128/60
[2018-07-12] MEDS: NS IV 1000 ML 1,000 ML IV SCH ×2 (09:32→18:35)
--- NOTE | 2018-07-12 10:31 | Consultation ---
History of Present Illness History of Present Illness Patient Consulted On(mindy/time) 07/12/18 10:20 Date Seen by Provider: July 12, 2018 Time Seen by Provider: 10:20 History of Present Illness Mrs. Antoine is a 78 yo female with h/o stage I lung cancer s/p definitive radiotherapy and oxygen dependent COPD who was admitted two night ago for shortness of breath and leukocytosis. She was [facility] on (4 days ago) to review a PET scan concerning for metastatic cancer. That morning, she developed a chill that worsened in the afternoon. The next morning, she suffered from shortness of breath and generalized muscle pains. She denied any fever, dysuria or other urinary changes. She tried rescue albuterol with little to no improvement in breathing. Patient does not usually use oxygen during the daytime but uses 3L at night. Since admission, she has felt much better. Yesterday, however, she did desaturate to 86% oxygen saturation when she got up to use the bathroom without supplemental oxygen. Allergies and Home Medications Allergies Coded Allergies: No Known Drug Allergies (Unverified , 10/18/15) Home Medications Acetaminophen 500 Mg Tablet, 1,000 MG PO Q6H PRN for PAIN-MILD, (Reported) TAKES 2 (500 MG) TABLETS Albuterol Sulfate 8.5 Gm Hfa.aer.ad, 1-2 PUFF IH PRN PRN for SHORTNESS OF BREATH, (Reported) Aspirin 81 Mg Tablet.dr, 81 MG PO DAILY, (Reported) Atorvastatin Calcium 80 Mg Tablet, 80 MG PO DAILY, (Reported) Budesonide/Formoterol Fumarate 10.2 Gm Hfa.aer.ad, 2 PUFF INH BID, (Reported) Clopidogrel Bisulfate 75 Mg Tablet, 75 MG PO DAILY, (Reported) Ezetimibe 10 Mg Tablet, 10 MG PO DAILY, (Reported) Loratadine 10 Mg Tablet, 10 MG PO DAILY, (Reported) Pantoprazole Sodium 40 Mg Tablet.dr, 40 MG PO DAILY, (Reported) Potassium Chloride 10 Meq Tab.er.prt, 10 MEQ PO DAILY, (Reported) Roflumilast 500 Mcg Tablet, 500 MCG PO DAILY, (Reported) Tiotropium Calhoun 1 Inh Aerp, 1 CAP IH DAILY, (Reported) Patient Home Medication List Home Medication List Reviewed: Yes Past Cnuzkdf-Gqiegv-Szgejn Hx Past Med/Social Hx: Reviewed and Corrections made Patient Social History Type Used: Cigarettes Former Smoker, Quit: Jan 08, 2017 Recent Foreign Travel: No Contact w/Someone Who Travel: No Recent Infectious Disease Expo: No Recent Hopitalizations: Yes Physical Abuse: No Sexual Abuse: No Mistreated: No Fear: No Immunizations Up To Date Tetanus Booster (TDap): Unknown Date of Pneumonia Vaccine: Dec 25, 2017 Date of Influenza Vaccine: Nov 29, 2015 Seasonal Allergies Seasonal Allergies: No Past Medical History Surgeries: Yes (BX BREAST, L port placement, CyberKnife cancer therapy) Breast, Cardiac, Gallbladder, Hysterectomy Respiratory: Yes (lung cancer) COPD Currently Using CPAP: No Currently Using BIPAP: No Cardiac: Yes (HEART CATH x2) Coronary Artery Disease, High Cholesterol Neurological: No : No Reproductive Disorders: No DIRECTOR 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 History: Hysterectomy Sexually Transmitted Disease: No HIV/AIDS: No Gastrointestinal: Yes Gastroesophageal Reflux Musculoskeletal: Yes Arthritis, Chronic Back Pain Endocrine: No HEENT: Yes Cataract, Macular Degeneration Loss of Vision: Bilateral Hearing Impairment: Denies Cancer: Yes Lung Did You Recieve Any Treatments: Yes What Type of Treatment Did You: Chemotherapy, Radiation Psychosocial: No Integumentary: No Blood Disorders: No Adverse Reaction/Blood Tranf: No Family Medical History Cancer 03 FATHER 09 SISTER (LUNG) Congestive heart failure 03 FATHER 03 MOTHER 09 SISTER 09 SISTER 09 SISTER Diabetes mellitus 03 FATHER 03 MOTHER Family history: Diabetes mellitus 03 MOTHER 09 SISTER 09 SISTER 09 SISTER Myocardial infarction 09 BROTHER Heart Disease, Cancer, Diabetes Review of Systems-General Constitutional: chills; No fever EENTM: no symptoms reported Respiratory: cough, dyspnea on exertion, short of breath Cardiovascular: no symptoms reported Gastrointestinal: no symptoms reported Genitourinary: no symptoms reported Musculoskeletal: muscle pain Skin: no symptoms reported Psychiatric/Neurological: No Symptoms Reported Physical Exam-General Problems Physical Exam Vital Signs Vital Signs - First Documented 07/10/18 07/10/18 07/10/18 18:28 18:45 22:02 Temp 98.9 Pulse 129 Resp 18 B/P (MAP) 134/81 (98) Pulse Ox 94 O2 Delivery Nasal Cannula O2 Flow Rate 2.00 FiO2 3 Capillary Refill : Less Than 3 Seconds General Appearance: WD/WN, no apparent distress Eyes: Bilateral Eye Normal Inspection, Bilateral Eye EOMI HEENT: PERRL/EOMI, normal ENT inspection, pharynx normal Neck: full range of motion, normal inspection Respiratory: chest non-tender, lungs clear, no respiratory distress, no accessory muscle use, decreased breath sounds Cardiovascular: normal peripheral pulses, regular rate, rhythm, no edema, no murmur Gastrointestinal: normal bowel sounds, non tender, soft, no organomegaly Extremities: normal range of motion, normal inspection Neurologic/Psychiatric: no motor/sensory deficits, alert, normal mood/affect, oriented x 3 Skin: normal color, warm/dry Lymphatic: no adenopathy Assessment/Plan Assessment/Plan Admission Diagnosis/Plan 78 yo female with history of lung cancer, COPD and abnormal recent PET scan is admitted with COPD exacerbation and UTI. Patient was noted to have a hypermetabolic left apical lung lesion, thoracic lymph nodes, and multiple liver lesions on PET scan prior to admission. Patient is improving from her COPD exacerbation and UTI, and leukocytosis has improved significantly since admission; however, she still appears to be desaturating with exertion. She was scheduled for liver biopsy this coming . If patient has not left the hospital by the weekday, it would be most convenient if she could undergo the diagnostic biopsy before discharge. Dr. Herrera will return tomorrow. Thank you for allowing me to participate in the care of Mrs. Alas. Clinical Quality Measures DVT/VTE Risk/Contraindication: Risk Factor Score Per Nursin RFS Level Per Nursing on Admit: 2=Moderate Results Labs Labs Laboratory Tests 07/11/18 17:20: White Blood Count 12.3H, Red Blood Count 3.84L, Hemoglobin 10.8L, Hematocrit 33L , Mean Corpuscular Volume 86, Mean Corpuscular Hemoglobin 28, Mean Corpuscular Hemoglobin Concent 33, Red Cell Distribution Width 15.3H, Platelet Count 229, Mean Platelet Volume 10.5H, Neutrophils (%) (Auto) 71, Lymphocytes (%) (Auto) 17, Monocytes (%) (Auto) 10, Eosinophils (%) (Auto) 1, Basophils (%) (Auto) 0, Neutrophils # (Auto) 8.8H, Lymphocytes # (Auto) 2.1, Monocytes # (Auto) 1.2H, Eosinophils # (Auto) 0.1, Basophils # (Auto) 0.0, Sodium Level 139, Potassium Level 3.0L, Chloride Level 106, Carbon Dioxide Level 22, Anion Gap 11, Blood Urea Nitrogen 7, Creatinine 0.62, Estimat Glomerular Filtration Rate > 60, BUN/Creatinine Ratio 11, Glucose Level 161H, Calcium Level 8.6, Corrected Calcium 9.3, Magnesium Level 1.8, Total Bilirubin 0.2, Aspartate Amino Transf (AST/SGOT) 15, Alanine Aminotransferase (ALT/SGPT) 22, Alkaline Phosphatase 62, Total Protein 6.1L, Albumin 3.1L Microbiology 07/10/18 Blood Culture - Preliminary, Resulted No growth 07/10/18 Influenza Types A,B Antigen (CLAY) - Final, Complete 07/10/18 Urine Culture - Final, Complete 3 or more isolates Procedures Procedures Date of Exam: 07/10/18 CHEST PA/LAT (2 VIEW) INDICATION: Cough and shortness of breath. Comparison is made with prior examination from 04/16/2018. FINDINGS: Heart size is normal. The mediastinum is unremarkable. There is no pleural effusion or pneumothorax. Isnbdo-J-Lngi catheter overlies the left hemithorax. There is minimal scarring in the lung bases. There is a persistent spiculated mass in the left lung apex. There is also an unchanged area of spiculation in the lateral aspect of the right upper lobe. IMPRESSION: Persistent spiculated mass in left lung apex. Unchanged area of scarring or spiculation in the lateral aspect of the right upper lobe. Minimal scarring in the lung bases JADA FORRESTER MD July 12, 2018 10:31
--- NOTE | 2018-07-12 10:57 | Progress Note-Hospitalist ---
Subjective HPI/CC On Admission Date Seen by Provider: July 12, 2018 Time Seen by Provider: 10:15 This is a 78-year-old white female who presents to the emergency room with increased cough and myalgias and shortness of breath. Chest x-ray shows a spiculated mass in the right upper lobe white count is elevated at 19.4 and she was admitted with presumptive diagnosis of pneumonia. She had plans to undergo biopsy this . Subjective/Events-last exam Patient is feeling much better this morning. Her appetite is improved and she is feeling stronger. Color appears better as well. She appreciated Dr. Ornelas coming to see her. Review of Systems Pulmonary: Dyspnea Neurological: Weakness Focused Exam Lactate Level 07/10/18 18:30: Lactic Acid Level 0.85 Objective Exam Vital Signs Vital Signs Date Time Temp Pulse Resp B/P (MAP) Pulse Ox O2 Delivery O2 Flow Rate FiO2 07/12/18 10:32 95 Nasal Cannula 2.00 07/12/18 08:33 97.7 98 20 128/60 (82) 07/10/18 22:02 3 Capillary Refill : Less Than 3 Seconds General Appearance: No Apparent Distress, WD/WN HEENT: Normal ENT Inspection, Pharynx Normal Neck: Supple Respiratory: Normal Breath Sounds, No Respiratory Distress, Crackles Cardiovascular: Regular Rate, Rhythm, Systolic Murmur Gastrointestinal: Normal Bowel Sounds, Non Tender, Soft Rectal: Deferred Back: Normal Inspection, No Vertebral Tenderness Extremity: Normal Capillary Refill, Normal Inspection, Non Tender, No Calf Tenderness, No Pedal Edema, Other (negative Mirela) Neurologic/Psychiatric: Alert, Oriented x3, Depressed Affect Skin: Normal Color, Warm/Dry Results/Procedures Lab Laboratory Tests 07/11/18 17:20 Patient resulted labs reviewed. Assessment/Plan Assessment and Plan Assess & Plan/Chief Complaint sepsis with fever , elevated WBC, hypoxia Left upper lobe pneumonia Spiculated lung mass Metastatic lesions in the liver COPD-with emphysematous changes Coronary artery disease Hypokalemia Diagnosis/Problems Diagnosis/Problems (1) Sepsis Status: Acute Qualifiers: Sepsis type: sepsis due to unspecified organism Qualified Codes: A41.9 - Sepsis, unspecified organism (2) Pneumonia Status: Acute (3) Cough Status: Acute (4) Acute exacerbation of chronic obstructive airways disease Status: Acute (5) CAD (coronary artery disease) Status: Chronic (6) Lung cancer Status: Chronic Qualifiers: Laterality: unspecified laterality Lung location: upper lobe of lung Qualified Codes: C34.10 - Malignant neoplasm of upper lobe, unspecified bronchus or lung Clinical Quality Measures DVT/VTE Risk/Contraindication: Risk Factor Score Per Nursin RFS Level Per Nursing on Admit: 2=Moderate Supervisory-Addendum Brief Supervisory Addendum Notes: This note reflects a right upper lobe spiculated mass. The right side is an old area of scar formation and the new area of spiculated density is in the left upper lobe of the lung. LISA VICTOR MD July 12, 2018 10:57
[2018-07-12] MEDS: ROFLUMILAST 500 MCG TAB (DALIRESP) PO SCH (11:09)
[2018-07-12] MEDS: eZETimibe 10 MG (ZETIA) TABLET PO SCH (11:09)
[2018-07-12] MEDS: ASPIRIN E.C. 81 MG (ECOTRIN) TAB PO SCH (11:09)
[2018-07-12] MEDS: ATORVASTATIN 80 MG (LIPITOR) TABLET PO SCH (11:09)
[2018-07-12] MEDS: CLOPIDOGREL 75 MG (PLAVIX) TABLET PO SCH (11:10)
[2018-07-12] MEDS: KCL 10 MEQ TAB (MICRO K) PO SCH (11:10)
[2018-07-12] MEDS: LORATADINE (CLARITIN) 10 MG TAB PO SCH (11:10)
[2018-07-12] MEDS: PANTOPRAZOLE 40 MG (PROTONIX) TAB PO SCH (11:10)
--- NOTE | 2018-07-12 12:16 | Diagnostic Imaging Report ---
INDICATION: Left upper lobe mass, pneumonia. TECHNIQUE: Two view chest 11:44 AM CORRELATION STUDY: 07/10/2018 FINDINGS: Heart size and mediastinum are generally stable. Left-sided central line tip over the SVC. Parenchymal density lateral right mid lung field as well as spiculated density lung apex persists. There does appear to be a slightly more progressive consolidation about both lung bases compared to prior study. Small effusions are suggested. Accentuated thoracic kyphotic curvature. IMPRESSION: 1. Scattered pulmonary parenchymal densities including more focal spiculated density left lung apex and density lateral right mid lung field unchanged. There does appear to be new or progressive bibasilar areas of infiltrate and/or atelectasis. Dictated by: Dictated on workstation # [id number]
[2018-07-12 15:35] VITALS: BP 128/58
[2018-07-12] MEDS: KCL 20 MEQ TAB (K-DUR) PO SCH (18:39)
[2018-07-12] MEDS ORDERED: guaiFENesin/DM (ROBITUSSIN DM) 10 ML UDC PO PRN (23:00)
--- NOTE | 2018-07-12 23:18 | NUR ---
Patient having intermittent dry cough and difficulty sleeping. Dr. Camacho called and orders received for cough syrup. Cough syrup given along with antianxiety med to help get to sleep. Will continue to monitor.
[2018-07-13 00:21] VITALS: BP 118/56
[2018-07-13] MEDS: PIPERACILLIN/TAZOBACTAM (BULK) 4.5 GM in NS (IVPB) 100 ML IV SCH ×3 (01:40→17:12)
[2018-07-13] MEDS: RT-ALBUTEROL/IPRATROPIUM 3 ML (DUONEB) VIAL INH SCH ×6 (03:04→23:13)
[2018-07-13] MEDS: NS IV 1000 ML 1,000 ML IV SCH (05:22)
[2018-07-13 05:38] LABS: BASOPHILS % (AUTO) 0 % (0-10); EOSINOPHILS # (AUTO) 0.5 10^3/uL (0.0-0.3); EOSINOPHILS % (AUTO) 4 % (0-10); HEMATOCRIT 31 % (35-52); HEMOGLOBIN 10.2 G/DL (11.5-16.0); LYMPHOCYTES # (AUTO) 2.7 X 10^3 (1.0-4.0); LYMPHOCYTES % (AUTO) 25 % (12-44); MEAN CORPUSCULAR HEMOGLOBIN 28 PG (25-34); MEAN CORPUSCULAR HGB CONC 33 G/DL (32-36); MEAN CORPUSCULAR VOLUME 86 FL (80-99); MEAN PLATELET VOLUME 10.5 FL (7.4-10.4); MONOCYTES # (AUTO) 1.1 X 10^3 (0.0-1.0); MONOCYTES % (AUTO) 10 % (0-12); NEUTROPHILS # (AUTO) 6.5 X 10^3 (1.8-7.8); NEUTROPHILS % (AUTO) 60 % (42-75); PLATELET COUNT 255 10^3/uL (130-400); RED CELL DISTRIBUTION WIDTH 15.2 % (10.0-14.5); WHITE BLOOD COUNT 10.7 10^3/uL (4.3-11.0)
[2018-07-13 06:01] LABS: ALANINE AMINOTRANSFERASE 24 U/L (0-55); ALKALINE PHOSPHATASE 65 U/L (40-136); BILIRUBIN,TOTAL 0.3 MG/DL (0.1-1.0); BUN/CREATININE RATIO 6; CALCIUM 8.6 MG/DL (8.5-10.1); CARBON DIOXIDE 22 MMOL/L (21-32); CHLORIDE 108 MMOL/L (98-107); CREATININE SERUM 0.53 MG/DL (0.60-1.30); GFR ESTIMATED > 60; GLUCOSE 147 MG/DL (70-105); MAGNESIUM 1.9 MG/DL (1.8-2.4); POTASSIUM 3.5 MMOL/L (3.6-5.0); SODIUM 139 MMOL/L (135-145); TOTAL PROTEIN 5.9 GM/DL (6.4-8.2)
[2018-07-13] MEDS: UMECLIDINIUM BROMIDE (INCRUSE ELLIPTA) 7'S IH SCH (06:23)
[2018-07-13] MEDS: RT-ADVAIR HFA 45/21 MCG PER PUFF IH SCH ×2 (06:25→19:36)
[2018-07-13] MEDS: KCL 20 MEQ TAB (K-DUR) PO SCH ×2 (07:03→17:12)
[2018-07-13 08:00] VITALS: BP 136/70
[2018-07-13] MEDS: ATORVASTATIN 80 MG (LIPITOR) TABLET PO SCH (08:04)
[2018-07-13] MEDS: ASPIRIN E.C. 81 MG (ECOTRIN) TAB PO SCH (08:04)
[2018-07-13] MEDS: PANTOPRAZOLE 40 MG (PROTONIX) TAB PO SCH (08:04)
[2018-07-13] MEDS: LORATADINE (CLARITIN) 10 MG TAB PO SCH (08:04)
[2018-07-13] MEDS: KCL 10 MEQ TAB (MICRO K) PO SCH (08:04)
[2018-07-13] MEDS: eZETimibe 10 MG (ZETIA) TABLET PO SCH (08:04)
[2018-07-13] MEDS: ACETAMINOPHEN 500 MG TAB (TYLENOL) PO PRN (08:04)
[2018-07-13] MEDS: CLOPIDOGREL 75 MG (PLAVIX) TABLET PO SCH (08:05)
[2018-07-13] MEDS: ROFLUMILAST 500 MCG TAB (DALIRESP) PO SCH (08:05)
--- NOTE | 2018-07-13 08:08 | NUR ---
PATIENT REFUSED PLAVIX. SHE STATED THAT SHE IS HAVING A BIOPSY ON FRIDAY. SHE IS SUPPOSED TO STOP TAKING IT 5 DAYS PRIOR.
[2018-07-13 13:50] VITALS: BP 151/66
--- NOTE | 2018-07-13 14:45 | Progress Note-Hospitalist ---
Progress Note Progress Notes/Assess & Plan Date Seen 07/13/18 Time Seen by Provider: 14:41 Assessment & Plan The patient is a 78-year-old white female with a past history of lung cancer diagnosed in July 2015. More recently there had been evidence of recurrence with a CT scan in 2017. Repeat shows this area in the left upper lung to have increased in size. In addition multiple mediastinal nodes were noted to be enlarged. Finally a PET scan had shown multiple hot nodules in the liver. She came to the emergency room and was admitted with fever and a white count of 19,400. The white count has now fallen to 10,700 and she is afebrile. Oncology had scheduled a liver biopsy as an outpatient for 07/16. Physical exam: She is pleasant. She appears bit breathless. Lungs are clear to auscultation but distant breath sounds. CV is regular. Extremities show no pedal edema. Impression: Pneumonia, suspect postobstructive. 2.spiculated left upper lobe nodule with multiple enlarged mediastinal nodes and PET scan evidence of multiple hepatic metastases. Plan: Continue IV antibiotics. She may be a candidate for discharge tomorrow. Focused Exam Lactate Level 07/10/18 18:30: Lactic Acid Level 0.85 STEFFANY CHATMAN MD July 13, 2018 14:45
[2018-07-13 16:35] VITALS: BP 151/66
[2018-07-14] VITALS: BP 96/55
[2018-07-14] MEDS: RT-ALBUTEROL/IPRATROPIUM 3 ML (DUONEB) VIAL INH SCH ×2 (02:35→06:55)
[2018-07-14] MEDS: NS IV 1000 ML 1,000 ML IV SCH (02:42)
[2018-07-14] MEDS: PIPERACILLIN/TAZOBACTAM (BULK) 4.5 GM in NS (IVPB) 100 ML IV SCH ×2 (02:48→08:16)
[2018-07-14] MEDS: RT-ADVAIR HFA 45/21 MCG PER PUFF IH SCH (06:55)
[2018-07-14] MEDS: UMECLIDINIUM BROMIDE (INCRUSE ELLIPTA) 7'S IH SCH (06:56)
[2018-07-14] MEDS: KCL 20 MEQ TAB (K-DUR) PO SCH (07:43)
[2018-07-14] MEDS: ACETAMINOPHEN 500 MG TAB (TYLENOL) PO PRN (07:43)
[2018-07-14 08:04] VITALS: BP 127/77
[2018-07-14] MEDS: eZETimibe 10 MG (ZETIA) TABLET PO SCH (08:15)
[2018-07-14] MEDS: PANTOPRAZOLE 40 MG (PROTONIX) TAB PO SCH (08:15)
[2018-07-14] MEDS: ATORVASTATIN 80 MG (LIPITOR) TABLET PO SCH (08:15)
[2018-07-14] MEDS: KCL 10 MEQ TAB (MICRO K) PO SCH (08:15)
[2018-07-14] MEDS: LORATADINE (CLARITIN) 10 MG TAB PO SCH (08:15)
--- NOTE | 2018-07-14 08:17 | NUR ---
LEFT MESSAGE FOR DR TORIBIO INQUIRING WHETHER OR NOT TO HOLD THE ASPIRIN WELL THE PLAVIX. WILL HOLD MORNING DOSE OF ASPIRIN UNTIL DR TORIBIO CALLS BACK.
[2018-07-14] MEDS: ROFLUMILAST 500 MCG TAB (DALIRESP) PO SCH (08:23)
[2018-07-14] MEDS: ASPIRIN E.C. 81 MG (ECOTRIN) TAB PO SCH (08:46)
--- NOTE | 2018-07-14 08:46 | NUR ---
DR TORIBIO CALLED BACK. HOLD THE ASPIRIN.
--- NOTE | 2018-07-14 13:23 | NUR ---
Pt is and lives with her who suffers from dementia and Parkinson's disease. She states she is independent and their daughter lives with them and helps. Pt states she may be discharged soon and has scheduled biopsy on . [facility] and DR. Herrera is her oncologist. Will follow at the Cancer Center.
--- NOTE | 2018-07-14 13:48 | Progress Note-Hospitalist ---
Progress Note Progress Notes/Assess & Plan Date Seen 07/14/18 Time Seen by Provider: 13:43 Assessment & Plan The patient reports that she is feeling better and more energetic. Her appetite has returned. The consideration was made relative to attempting her previously scheduled liver biopsy previously scheduled as an outpatient on this coming to be done as an inpatient while here. The CT scanner will not be avai lable today or tomorrow therefore she will be discharged to return as previously scheduled. Physical exam: She is alert and oriented. Lungs show scattered rhonchi and a moist cough. CV was regular. Impression: Carcinoma of the lung. 2.recurrence in the left upper chest with evidence of mediastinal lymph nodes and multiple liver metastases. 2.post obstructive pneumonia. 3.COPD. Plan: Medications as listed in the discharge sequence. Outpatient liver biopsy,CT-guided on 07/16. CV discharge sequence for medications and routines. Copy Copies To 1: JESUS COTE MD, RODNEY K MD July 14, 2018 13:48
[2018-07-14] MEDS ORDERED: CEFD300C3 PO (13:53)
[2018-07-14] MEDS ORDERED: ONDA2VIACC IV (13:53)
--- NOTE | 2018-07-14 13:57 | Discharge Inst-Simple/Standard ---
Discharge Inst-Standard Patient Instructions/Follow Up Plan of Care/Instructions/FU: Take the Omnicef to complete your course of antibiotics. Other medications as detailed on the discharge sequence Keep appointment on for liver biopsy. Activity as Tolerated: Yes Discharge Diet: No Restrictions STEFFANY CHATMAN MD July 14, 2018 13:57
[2018-07-14 14:40] VITALS: BP 127/77
[2018-07-14] MEDS ORDERED: ONDN4T PO (14:42)
--- NOTE | 2018-07-14 14:43 | NUR ---
CALLED CORRECTED ZOFRAN PRESCRIPTION TO JASON AT [facility]
--- NOTE | 2018-07-14 15:25 | NUR ---
Initial visit:pt attends [facility]. Pt said her of 60 years has Parkinson's disease and dementia. She said she survived cancer three years ago following chemotherapy and radiation and recently found out her cancer has metastasized to her lung and liver. Offered prayer and compassionate presence.
== END 2018-07-14 14:40 | disposition home or self-care (01) | DRG 871 ==
LOC: EDUNIT# 17:59 → ER 18:01 → 4TH 19:34
PROVIDERS: ADMIT Internal Medicine; ATTEND Internal Medicine
DX: A41.9 Sepsis, unspecified organism (principal); J18.1 Lobar pneumonia, unspecified organism; N39.0 Urinary tract infection, site not specified; J43.9 Emphysema, unspecified; C34.12 Malignant neoplasm of upper lobe, left bronchus or lung; C78.7 Secondary malignant neoplasm of liver and intrahepatic bile duct; C77.1 Secondary and unspecified malignant neoplasm of intrathoracic lymph nodes; Z66 Do not resuscitate; I25.10 Atherosclerotic heart disease of native coronary artery without angina pectoris; E87.6 Hypokalemia; E78.00 Pure hypercholesterolemia, unspecified; K21.9 Gastro-esophageal reflux disease without esophagitis; M19.91 Primary osteoarthritis, unspecified site; M54.9 Dorsalgia, unspecified; H35.30 Unspecified macular degeneration; Z92.21 Personal history of antineoplastic chemotherapy; Z92.3 Personal history of irradiation; Z87.891 Personal history of nicotine dependence; Z99.81 Dependence on supplemental oxygen
CPT/HCPCS: 36415; 71046; 80053; 81000; 83605; 83735; 83880; 85007; 85025; 85027; 85610; 85730; 86141; 87040; 87088; 87804; 94640; 94664; 94760; 96361; 96374

== ENCOUNTER → 2018-07-16 | Outpatient (CLI) | payer MEDICARE, MEDICAID ==
[2018-07-16] VITALS (10 sets, daily range): BP systolic 101–132; BP diastolic 52–80
[~2018-07-16] MED LIST changes: +CEFD300C3 PO; +HYDR-34 PO; +HYDROcodone/APAP 5 MG/325 MG (LORTAB) TAB PO PRN; +LIDOCAINE 1% INJ 20 ML 20 ML VIAL INJ ONE; +MIDAZOLAM 2 MG/2 ML (VERSED) VIAL IVP ONE; +NS IV 1000 ML 1,000 ML IV STA; +NS IV 1000 ML 1,000 ML ONE; +ONDA2VIACC IV; +ONDN4T PO; +fentaNYL INJECTION 100 MCG/2 ML AMP IVP ONE
[2018-07-16 08:54] LABS: BASOPHILS # (AUTO) 0.1 10^3/uL (0.0-0.1); BASOPHILS % (AUTO) 1 % (0-10); EOSINOPHILS # (AUTO) 0.4 10^3/uL (0.0-0.3); EOSINOPHILS % (AUTO) 3 % (0-10); HEMATOCRIT 41 % (35-52); LYMPHOCYTES % (AUTO) 30 % (12-44); MEAN CORPUSCULAR HEMOGLOBIN 27 PG (25-34); MEAN CORPUSCULAR HGB CONC 32 G/DL (32-36); MEAN CORPUSCULAR VOLUME 84 FL (80-99); MEAN PLATELET VOLUME 9.8 FL (7.4-10.4); MONOCYTES # (AUTO) 1.1 X 10^3 (0.0-1.0); MONOCYTES % (AUTO) 8 % (0-12); NEUTROPHILS # (AUTO) 7.8 X 10^3 (1.8-7.8); NEUTROPHILS % (AUTO) 59 % (42-75); PLATELET COUNT 417 10^3/uL (130-400); RED CELL DISTRIBUTION WIDTH 15.4 % (10.0-14.5); WHITE BLOOD COUNT 13.3 10^3/uL (4.3-11.0)
[2018-07-16 09:01] LABS: HEMOGLOBIN 13.1 G/DL (11.5-16.0)
[2018-07-16 09:10] LABS: PROTHROMBIN TIME PATIENT 13.9 SEC (12.2-14.7)
[2018-07-16 09:20] LABS: BAND NEUTROPHILS 0 %; BASOPHILS % (MANUAL) 0 %; EOSINOPHILS % (MANUAL) 3 %; LYMPHOCYTES % (MANUAL) 38 %; MONOCYTES % (MANUAL) 12 %; NEUTROPHILS % (MANUAL) 47 %; RBC MORPH NORMAL
--- NOTE | 2018-07-16 10:48 | Pre-Op Note & Conscious Sedat ---
Pre-Operative Progress Note H&P Reviewed The H&P was reviewed, patient examined and no changes noted. Date H&P Reviewed: July 16, 2018 Time H&P Reviewed: 08:00 Pre-Op Diagnosis: Liver mass Conscious Sedation Pre-Proced Time 08:00 ASA Score 2 For ASA 3 and 4: Consider anesthesia and medical clearance. Also, for patients with a history of failed moderate sedation consider anesthesia. Airway Lungs Heart ASA score ASA 1: a normal healthy patient ASA 2: a patient with a mild systemic disease (mid diabetes, controlled hypertension, obesity ASA 3: a patient with a severe systemic disease that limits activity (angina, COPD, prior Myocardial infarction) ASA 4: a patient with an incapacitating disease that is a constant threat to life (CHF, renal failure) ASA 5: a moribund patient not expected to survive 24 hrs. (ruptured aneurysm) ASA 6: a declared brain- patient whose organs are being harvested. For emergent operations, add the letter E after the classification Mallampati Classification Grade 2 Sedation Plan Analgesia, Amnesia, Plan communicated to team members, Discussed options with patient/fam, Discussed risks with patient/fam The patient is an appropriate candidate to undergo the planned procedure, sedation, and anesthesia. The patient immediately re-assessed prior to indication. RED BARNETT MD July 16, 2018 10:48
--- NOTE | 2018-07-16 13:00 | NUR ---
heplock dc'd cath intact on removal. dsg site checked with each vs, has remained clean and dry. ambulatory to bathroom, has eaten and drank, tolerated well. reviewed dc instructions verbalizes understanding. dc via wheelchair. daughter present and verbalizes understanding of dc, dtr to drive pt.
--- NOTE | 2018-07-16 14:55 | Diagnostic Imaging Report ---
Indication: Liver masses. The patient presents for a CT-guided biopsy. The patient was brought to CT suite and placed on the table in the supine position. Axial imaging through the abdomen was performed to evaluate appropriate entry site. Procedure was performed utilizing conscious sedation with radiology nursing and constipation monitoring. The patient was administered 50 mcg of fentanyl intravenously and 1 mg of Versed intravenously. A total procedure time is 9 minutes. Right abdomen was prepped and draped in the usual sterile fashion. A small amount of 1% lidocaine was utilized for local anesthesia. An 18-gauge coaxial Temno needle was advanced, placed with its tip in the low-density solid-appearing lesion in the anterolateral right lobe. A total of 4 core biopsies were obtained. Needle was removed and hemostasis was obtained using manual compression. The patient tolerated the procedure well and left the department in stable condition. Impression: CT-guided core biopsy right lobe of liver mass, utilizing conscious sedation. Pathology results are currently pending. Dictated by: Dictated on workstation # [id number]
== END ==
LOC: RAD 08:27
PROVIDERS: ATTEND Internal Medicine Hematology & Oncology
DX: C22.8 Malignant neoplasm of liver, primary, unspecified as to type (principal); C78.01 Secondary malignant neoplasm of right lung
CPT/HCPCS: 36415; 77012; 85007; 85027; 85610; 85730; 88307; 88341; 88342; 88344; 99156

== ENCOUNTER 2018-07-27 11:13 | Outpatient (CLI) | payer MEDICARE, MEDICAID ==
[~2018-07-27] VITALS: Ht 160 cm; Wt 81.2 kg
[~2018-07-27 11:13] MED LIST changes: -HYDR-34 PO; -HYDROcodone/APAP 5 MG/325 MG (LORTAB) TAB PO PRN; -LIDOCAINE 1% INJ 20 ML 20 ML VIAL INJ ONE; -MIDAZOLAM 2 MG/2 ML (VERSED) VIAL IVP ONE; -NS IV 1000 ML 1,000 ML IV STA; -NS IV 1000 ML 1,000 ML ONE; -fentaNYL INJECTION 100 MCG/2 ML AMP IVP ONE
[2018-07-28] MEDS ORDERED: HYDR-34 PO (09:56)
== END 2018-07-27 13:38 | disposition home or self-care (01) ==
LOC: PREOP 11:13
PROVIDERS: ATTEND Surgery
DX: Z01.818 Encounter for other preprocedural examination (principal)

== ENCOUNTER 2018-07-28 09:09 | Day surgery (SDC) | payer MEDICARE, MEDICAID ==
[2018-07-28] VITALS (7 sets, daily range): BP systolic 114–137; BP diastolic 55–77
[~2018-07-28] VITALS: Ht 160 cm; Wt 81.2 kg
[2018-07-28] MEDS ORDERED: ceFAZolin 2 GM/50 ML NS 50 ML ONE (09:26)
[2018-07-28] MEDS: LACTATED RINGERS 1,000 ML IV PRN ×2 (09:44→10:55)
[2018-07-28] MEDS ORDERED: CATHETER FLUSH 10 ML SYR IV PRN (09:45)
[2018-07-28] MEDS ORDERED: ceFAZolin 2 GM/50 ML NS 50 ML IV ONE (09:45)
--- NOTE | 2018-07-28 09:51 | Progress Note-Pre Operative ---
Pre-Operative Progress Note H&P Reviewed The H&P was reviewed, patient examined and no changes noted. Date Seen by Provider: Jul 28, 2018 Time Seen by Provider: 09:30 Date H&P Reviewed: Jul 28, 2018 Time H&P Reviewed: :30 Pre-Operative Diagnosis: recurrent lung ca, malfunctioning CARLINE Sofia MD Jul 28, 2018 09:51
[2018-07-28] MEDS ORDERED: LIDOCAINE/EPI 1%-1:100,000 (XYLOCAINE) 20ML ONE (09:53)
[2018-07-28] MEDS ORDERED: HEParin (CENTRAL IV FLUSH) 500 UNIT/5 ML SYR ONE (09:53)
[2018-07-28] MEDS ORDERED: proPOfol 200 MG/20 ML (DIPRIVAN) VIAL IV ONE (09:53)
[2018-07-28] MEDS ORDERED: fentaNYL INJECTION 100 MCG/2 ML AMP ONE (09:54)
[2018-07-28] MEDS ORDERED: MIDAZOLAM 2 MG/2 ML (VERSED) VIAL ONE (09:54)
[2018-07-28] MEDS ORDERED: HYDR-34 PO ×2 (09:56)
--- NOTE | 2018-07-28 09:58 | Discharge Inst-Surgical ---
D/C Lap Instructions-KIDO New, Converted, or Re-Newed RX: RX on Chart Follow Up PRN Activity as tolerated May access and use port at any time. Regular Diet Symptoms to Report: Fever over 101 degree F, Nausea/Vomiting Infection Signs and Symptoms to report: Increased redness, Foul odor of wound, Increased drainage Bathing instructions: May shower Operative Area Clean/Dry; Keep incision clean/dry If any problems/questions: Contact your physician or go to Emergency Room CARLINE YANG MD Jul 28, 2018 09:58
[2018-07-28] MEDS ORDERED: oxyCODONE/APAP 5/325MG (PERCOCET 5) TABLET PO PRN (10:00)
[2018-07-28] MEDS ORDERED: ACETAMINOPHEN 325 MG TABLET PO PRN (10:00)
[2018-07-28] MEDS ORDERED: morphine INJ 10 MG/ML 1ML (SYR OR VIAL) IVP PRN ×2 (10:00)
[2018-07-28] MEDS ORDERED: ONDANSETRON 4 MG/2 ML (SDV) Z0FRAN IVP PRN ×2 (10:00→11:30)
[2018-07-28] MEDS ORDERED: KETAMINE/NaCl 50 MG/5 ML SYRINGE ONE (10:27)
[2018-07-28] MEDS ORDERED: LIDOCAINE PF 2% 5 ML (XYLOCAINE) VIAL ONE (10:59)
--- NOTE | 2018-07-28 11:17 | Progress Note-Post Operative ---
Post-Operative Progess Note Surgeon (s)/Sales Advisor (s) Surgeon CARLINE YANG MD Sales Advisor: none Pre-Operative Diagnosis recurrent lung ca, malfunctioning groshong Post-Operative Diagnosis same Procedure & Operative Findings Date of Procedure 07/28/18 Procedure Performed/Findings removal non-functioning groshong, replacement left subclavian groshong under flouroscopy. Anesthesia Type MAC with local Estimated Blood Loss Estimated blood loss (mL): minimal Specimens/Packing Specimens Removed none CARLINE YANG MD Jul 28, 2018 11:17
--- NOTE | 2018-07-28 11:17 | Diagnostic Imaging Report ---
EXAMINATION: Fluoroscopy. INDICATION: Groshong placement Fluoroscopic assistance was provided for Dr. Saavedra. 5.8 seconds of fluoroscopy time was visualized. A single spot film of the thorax was obtained. IMPRESSION: Fluoroscopic assistance was provided for Dr. Saavedra. Dictated by: Dictated on workstation # [id number]
[2018-07-28] MEDS ORDERED: morphine INJ 10 MG/ML 1ML (SYR OR VIAL) IVP ONE (11:30)
--- NOTE | 2018-07-28 11:44 | Diagnostic Imaging Report ---
INDICATION: Left-sided central line. TECHNIQUE: Single view chest 11:28 AM. CORRELATION STUDY: 07/12/2018 FINDINGS: A left-sided central line is present. The tip appears stable from prior study, superimposed over the expected location of the SVC. Coarse interstitial markings. Asymmetric spiculated density left upper lung as well as lateral right mid lung unchanged. No pneumothorax or significant effusion. IMPRESSION: 1. Left-sided central line tip projecting over the expected location of the mid SVC. Dictated by: Dictated on workstation # [id number]
--- NOTE | 2018-07-28 12:35 | OPERATIVE REPORT ---
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 She is status post gamma knife radiation and followed by chemotherapy approximately 3 years ago. She had recent workup, which did show mediastinal lymphadenopathy as well as liver metastasis that she will undergo chemotherapy. She did have a Groshong implantable catheter placed in the left subclavian vein; however, this is now nonfunctional. DESCRIPTION OF PROCEDURE: The patient was brought to the operating room, laid supine on the table. After adequate IV pain and sedative medications and monitored anesthesia care, the chest and neck were prepped and draped in standard surgical fashion. A 0.5% Marcaine with epinephrine was then used to anesthetize the subclavian region. A skin incision along the previous scar was then made using a 15 blade. The subcutaneous tissue was opened using electrocautery. The port to the Groshong was then identified and the capsule opened using electrocautery as well as Metzenbaum scissors. The capsule around the proximal portion of the catheter was also dissected out using Metzenbaum scissors. The port was then eviscerated out of the incision. The entire catheter removed completely intact while holding direct pressure. Good hemostasis was observed. We then proceeded with placement of tunneled catheter. The cannulating needle was used to access the left subclavian vein with drawing of venous blood. The guidewire was then inserted under fluoroscopy. The cannulating needle was removed and a tract was then created using a venous dilator as well as the sheath. The guidewire and the dilator were then removed and the catheter was placed through the sheath under direct visualization. The catheter tip was at the superior vena cava/right atrial junction. The sheath was then removed. The inner wire within the catheter was then removed. The catheter was cut down to size and the port was placed onto the catheter. Using the same reservoir, the port was placed and sutured to the anterior pectoralis fascia using interrupted 3-0 Vicryl sutures. Subcutaneous tissue was then reapproximated using 3-0 Vicryl interrupted sutures and the skin was closed using 4-0 Monocryl running subcuticular suture. Wound was then cleaned and covered with Dermabond. The patient tolerated the procedure well. The post-procedure chest x-ray showed proper placement and no pneumothorax and the port may be accessed and used at any time. Job ID: [id number] DocumentID: [id number] Dictated Date: 07/28/2018 11:31:42 Early Morning Date: 07/28/2018 12:34:43 Dictated By: CARLINE YANG MD
--- NOTE | 2018-07-28 14:35 | Anesthesia-General Post-Op ---
MAC Patient Condition Mental Status/LOC: Same as Preop Cardiovascular: Satisfactory Nausea/Vomiting: Absent Respiratory: Satisfactory Pain: Controlled Complications: Absent Post Op Complications Complications None Follow Up Care/Instructions Patient Instructions None needed. Anesthesiology Discharge Order Discharge Order Patient is doing well, no complaints, stable vital signs, no apparent adverse anesthesia problems. No complications reported per nursing. STACEY BELL CRNA Jul 28, 2018 14:35
--- NOTE | 2018-07-30 14:59 | HISTORY AND PHYSICAL ---
DATE OF ADMISSION: 07/28/2018. ATTENDING PHYSICIAN: Dr. Sampson. HISTORY OF PRESENT ILLNESS: The patient is a 78-year-old female known to us. We had seen her in the past for gastrointestinal issues and underwent an EGD and colonoscopy. 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 She was also found to have a right lung lesion 3.3 cm in size, which did prove to be a malignant moderately differentiated squamous cell carcinoma of the lung. She underwent a Groshong implantable catheter followed by CyberKnife radiation x4 one week apart followed by 3 months of chemotherapy. Upon recent workup it appears that her squamous cell lung cancer is now metastatic. She has a Groshong implantable catheter; however, this is now nonfunctional. PAST MEDICAL HISTORY: Right lung squamous cell cancer, COPD, hyperlipidemia, coronary artery disease, and environmental allergies. PAST SURGICAL HISTORY: Partial hysterectomy in 1971, laparoscopic cholecystectomy in 2006, left breast biopsy in 1989, which was benign. ALLERGIES: No known drug allergies. MEDICATIONS: Plavix 75 mg daily, aspirin 81 mg daily, Spiriva 18 mcg daily, Lipitor 20 mg daily, potassium 20 mEq daily, Daliresp 500 mcg daily, Symbicort b.i.d., Protonix 40 mg daily, ProAir inhaler p.r.n., Claritin 10 mg daily, Zetia 10 mg daily, oxygen at all times. SOCIAL HISTORY: Positive smoke 60-pack years. Negative alcohol. FAMILY HISTORY: Mother diabetes, myocardial infarction at age 85. Father with prostate cancer at age 73. Hypertension in sister, lung cancer diagnosed at age 58. Brother diabetes. VITAL SIGNS: Stable, afebrile. REVIEW OF SYSTEMS: This is a well-nourished female, currently in no acute distress. She does experience shortness of breath; however, this is more exertional. No new cough or sputum production. No chest pain, palpitations, diaphoresis. No nausea, vomiting, no diarrhea, or constipation. Known diarrhea with intermittent constipation. No red blood per rectum, no dark tarry stools. No fever, chills, no recent inadvertent weight loss. All other review of systems negative. PHYSICAL EXAMINATION: CHEST: Scattered wheezes and rhonchi bilaterally. HEART: Regular, no murmurs. EXTREMITIES: No lower extremity edema, negative Homans sign. HEENT: No scleral icterus. NECK: No cervical lymphadenopathy. ABDOMEN: Soft, nontender, nondistended. SKIN: Warm, dry. ASSESSMENT AND PLAN: A 78-year-old female with metastatic right lung squamous cell cancer with previous history of CyberKnife therapy followed by chemotherapy. On recent workup and evaluation it appears that she does have recurrent disease and metastases. She will undergo chemotherapy and will require Groshong implantable catheter. She has one in place; however, this is now nonfunctional. We will proceed with removal and replacement of her Groshong implantable catheter under fluoroscopy. Job ID: [id number] DocumentID: [id number] Dictated Date: 07/24/2018 16:46:32 Senior Electrical Designer Date: 07/24/2018 17:12:04 Dictated By: CARLINE YANG MD <Dictated by CARLINE YANG MD> <Electronically signed by CARLINE YANG MD> 07/24/18 194
== END 2018-07-28 13:05 | disposition home or self-care (01) ==
LOC: SDC 09:09
PROVIDERS: ATTEND Surgery
DX: T82.518A Breakdown (mechanical) of other cardiac and vascular devices and implants, initial encounter (principal); C34.91 Malignant neoplasm of unspecified part of right bronchus or lung; C78.7 Secondary malignant neoplasm of liver and intrahepatic bile duct; J44.9 Chronic obstructive pulmonary disease, unspecified; E78.5 Hyperlipidemia, unspecified; I25.10 Atherosclerotic heart disease of native coronary artery without angina pectoris; J30.9 Allergic rhinitis, unspecified; Z79.02 Long term (current) use of antithrombotics/antiplatelets; Z79.82 Long term (current) use of aspirin; Z79.899 Other long term (current) drug therapy
CPT/HCPCS: 71045; 87081

== ENCOUNTER → 2018-07-29 | Outpatient (CLI) | payer MEDICARE, MEDICAID ==
[~2018-07-29] MED LIST changes: +GADOBUTROL 7.5 MMOL/7.5 ML (GADAVIST) VIAL IV ONE; +HYDR-34 PO
--- NOTE | 2018-07-29 19:24 | Diagnostic Imaging Report ---
PROCEDURE: MR imaging of the brain with and without contrast. TECHNIQUE: Multiplanar, multisequence MR imaging of the brain was performed with and without contrast. INDICATION: Dizziness and vertigo. FINDINGS: There is prominence of the ventricles and sulci. There are multifocal areas of abnormal increased T2 signal intensity within the periventricular white matter and subcortical white matter bilaterally. These are nonspecific, however, likely reflect some chronic microvascular ischemic disease. There are no areas of diffusion restriction appreciated to suggest an acute CVA. There is no hydrocephalus. There is no midline shift. There is no intracranial mass, hemorrhage, or extra-axial fluid collection. There are no abnormal areas of contrast enhancement. The frontal, ethmoid, and sphenoid sinuses are clear. There is mucosal thickening in the left maxillary sinus. The right maxillary sinus is clear. Mastoid air cells are clear. The globes and intraorbital structures are unremarkable. The central arterial and dural venous sinus flow voids are preserved. IMPRESSION: Atrophy and some chronic microvascular ischemic disease; otherwise, unremarkable MRI brain. Specifically, there are no areas of diffusion restriction appreciated to suggest an acute CVA. Dictated by: Dictated on workstation # [id number]
== END ==
LOC: RAD 14:27
PROVIDERS: ATTEND Internal Medicine Hematology & Oncology
DX: C78.7 Secondary malignant neoplasm of liver and intrahepatic bile duct (principal); C80.1 Malignant (primary) neoplasm, unspecified; I67.82 Cerebral ischemia
CPT/HCPCS: 70553

== ENCOUNTER → 2018-08-24 | Outpatient (CLI) | payer MEDICARE, MEDICAID ==
[~2018-08-24] MED LIST changes: -GADOBUTROL 7.5 MMOL/7.5 ML (GADAVIST) VIAL IV ONE
--- NOTE | 2018-08-24 13:02 | Diagnostic Imaging Report ---
PROCEDURE: US left lower extremity venous. TECHNIQUE: Multiple Real-time grayscale images were obtained over the left lower extremity in various projections. Additional duplex Doppler and color Doppler images were also obtained. DATE: August 24, 2018. INDICATION: 78-year-old female, left lower extremity swelling. COMPARISON: None. FINDINGS: The left common femoral vein, left superficial femoral vein, and left popliteal vein are all compressible with blood flow and response to augmentation. The left posterior tibial vein is patent. IMPRESSION: Negative for left lower extremity deep venous thrombosis. Dictated by: Dictated on workstation # [id number]
== END ==
LOC: RAD 11:25
PROVIDERS: ATTEND Nurse Practitioner Adult Health
DX: C34.11 Malignant neoplasm of upper lobe, right bronchus or lung (principal); M79.89 Other specified soft tissue disorders

== ENCOUNTER 2018-08-28 09:54 | Outpatient (RCR) | payer MEDICARE, MEDICAID ==
[2018-06-08 13:54] LABS: BASOPHILS % (AUTO) 0 % (0-10); EOSINOPHILS # (AUTO) 0.3 10^3/uL (0.0-0.3); EOSINOPHILS % (AUTO) 3 % (0-10); HEMATOCRIT 39 % (35-52); HEMOGLOBIN 12.8 G/DL (11.5-16.0); LYMPHOCYTES # (AUTO) 3.5 X 10^3 (1.0-4.0); LYMPHOCYTES % (AUTO) 35 % (12-44); MEAN CORPUSCULAR HEMOGLOBIN 28 PG (25-34); MEAN CORPUSCULAR HGB CONC 33 G/DL (32-36); MEAN CORPUSCULAR VOLUME 86 FL (80-99); MEAN PLATELET VOLUME 10.6 FL (7.4-10.4); MONOCYTES # (AUTO) 0.7 X 10^3 (0.0-1.0); MONOCYTES % (AUTO) 7 % (0-12); NEUTROPHILS # (AUTO) 5.6 X 10^3 (1.8-7.8); NEUTROPHILS % (AUTO) 55 % (42-75); PLATELET COUNT 254 10^3/uL (130-400); RED CELL DISTRIBUTION WIDTH 15.1 % (10.0-14.5); WHITE BLOOD COUNT 10.2 10^3/uL (4.3-11.0)
[2018-06-08 14:17] LABS: ALANINE AMINOTRANSFERASE 24 U/L (0-55); ALBUMIN 3.9 GM/DL (3.2-4.5); ALKALINE PHOSPHATASE 84 U/L (40-136); BILIRUBIN,TOTAL 0.2 MG/DL (0.1-1.0); BUN/CREATININE RATIO 18; CALCIUM 9.7 MG/DL (8.5-10.1); CARBON DIOXIDE 26 MMOL/L (21-32); CHLORIDE 107 MMOL/L (98-107); CREATININE SERUM 0.67 MG/DL (0.60-1.30); GFR ESTIMATED > 60; GLUCOSE 206 MG/DL (70-105); POTASSIUM 3.7 MMOL/L (3.6-5.0); SODIUM 141 MMOL/L (135-145); TOTAL PROTEIN 7.2 GM/DL (6.4-8.2)
[2018-07-09 09:44] LABS: BASOPHILS % (AUTO) 0 % (0-10); EOSINOPHILS # (AUTO) 0.2 10^3/uL (0.0-0.3); EOSINOPHILS % (AUTO) 1 % (0-10); HEMATOCRIT 40 % (35-52); HEMOGLOBIN 12.8 G/DL (11.5-16.0); LYMPHOCYTES # (AUTO) 3.1 X 10^3 (1.0-4.0); LYMPHOCYTES % (AUTO) 19 % (12-44); MEAN CORPUSCULAR HEMOGLOBIN 27 PG (25-34); MEAN CORPUSCULAR HGB CONC 32 G/DL (32-36); MEAN CORPUSCULAR VOLUME 85 FL (80-99); MEAN PLATELET VOLUME 10.5 FL (7.4-10.4); MONOCYTES # (AUTO) 1.7 X 10^3 (0.0-1.0); MONOCYTES % (AUTO) 11 % (0-12); NEUTROPHILS # (AUTO) 11.5 X 10^3 (1.8-7.8); NEUTROPHILS % (AUTO) 70 % (42-75); PLATELET COUNT 250 10^3/uL (130-400); RED CELL DISTRIBUTION WIDTH 15.3 % (10.0-14.5); WHITE BLOOD COUNT 16.5 10^3/uL (4.3-11.0)
[2018-07-09 09:59] LABS: ALANINE AMINOTRANSFERASE 30 U/L (0-55); ALKALINE PHOSPHATASE 79 U/L (40-136); BILIRUBIN,TOTAL 0.5 MG/DL (0.1-1.0); BUN/CREATININE RATIO 13; CALCIUM 9.6 MG/DL (8.5-10.1); CARBON DIOXIDE 24 MMOL/L (21-32); CHLORIDE 104 MMOL/L (98-107); CREATININE SERUM 0.68 MG/DL (0.60-1.30); GFR ESTIMATED > 60; GLUCOSE 176 MG/DL (70-105); POTASSIUM 3.9 MMOL/L (3.6-5.0); SODIUM 139 MMOL/L (135-145); TOTAL PROTEIN 7.4 GM/DL (6.4-8.2)
[2018-07-29 12:01] LABS: BASOPHILS % (AUTO) 0 % (0-10); EOSINOPHILS # (AUTO) 0.2 10^3/uL (0.0-0.3); EOSINOPHILS % (AUTO) 2 % (0-10); HEMATOCRIT 39 % (35-52); HEMOGLOBIN 12.5 G/DL (11.5-16.0); LYMPHOCYTES # (AUTO) 3.3 X 10^3 (1.0-4.0); LYMPHOCYTES % (AUTO) 30 % (12-44); MEAN CORPUSCULAR HEMOGLOBIN 28 PG (25-34); MEAN CORPUSCULAR HGB CONC 32 G/DL (32-36); MEAN CORPUSCULAR VOLUME 86 FL (80-99); MEAN PLATELET VOLUME 10.2 FL (7.4-10.4); MONOCYTES # (AUTO) 1.4 X 10^3 (0.0-1.0); MONOCYTES % (AUTO) 12 % (0-12); NEUTROPHILS # (AUTO) 6.1 X 10^3 (1.8-7.8); NEUTROPHILS % (AUTO) 56 % (42-75); PLATELET COUNT 338 10^3/uL (130-400); RED CELL DISTRIBUTION WIDTH 14.9 % (10.0-14.5)
[2018-07-29 12:24] LABS: ALANINE AMINOTRANSFERASE 24 U/L (0-55); ALBUMIN 3.9 GM/DL (3.2-4.5); ALKALINE PHOSPHATASE 92 U/L (40-136); BILIRUBIN,TOTAL 0.3 MG/DL (0.1-1.0); BUN/CREATININE RATIO 17; CALCIUM 9.7 MG/DL (8.5-10.1); CARBON DIOXIDE 24 MMOL/L (21-32); CHLORIDE 106 MMOL/L (98-107); GFR ESTIMATED > 60; GLUCOSE 156 MG/DL (70-105); POTASSIUM 3.9 MMOL/L (3.6-5.0); SODIUM 138 MMOL/L (135-145); TOTAL PROTEIN 7.5 GM/DL (6.4-8.2)
[2018-08-24 11:00] LABS: BASOPHILS % (AUTO) 0 % (0-10); EOSINOPHILS # (AUTO) 0.1 10^3/uL (0.0-0.3); EOSINOPHILS % (AUTO) 1 % (0-10); HEMATOCRIT 38 % (35-52); LYMPHOCYTES # (AUTO) 3.2 X 10^3 (1.0-4.0); LYMPHOCYTES % (AUTO) 31 % (12-44); MEAN CORPUSCULAR HEMOGLOBIN 27 PG (25-34); MEAN CORPUSCULAR HGB CONC 32 G/DL (32-36); MEAN CORPUSCULAR VOLUME 86 FL (80-99); MEAN PLATELET VOLUME 10.6 FL (7.4-10.4); MONOCYTES # (AUTO) 1.1 X 10^3 (0.0-1.0); MONOCYTES % (AUTO) 10 % (0-12); NEUTROPHILS # (AUTO) 6.1 X 10^3 (1.8-7.8); NEUTROPHILS % (AUTO) 58 % (42-75); PLATELET COUNT 295 10^3/uL (130-400); RED CELL DISTRIBUTION WIDTH 15.7 % (10.0-14.5); WHITE BLOOD COUNT 10.4 10^3/uL (4.3-11.0)
[2018-08-24 11:25] LABS: ALANINE AMINOTRANSFERASE 24 U/L (0-55); ALBUMIN 3.8 GM/DL (3.2-4.5); ALKALINE PHOSPHATASE 82 U/L (40-136); BILIRUBIN,TOTAL 0.3 MG/DL (0.1-1.0); BUN/CREATININE RATIO 11; CALCIUM 9.3 MG/DL (8.5-10.1); CARBON DIOXIDE 24 MMOL/L (21-32); CHLORIDE 106 MMOL/L (98-107); CREATININE SERUM 0.64 MG/DL (0.60-1.30); GFR ESTIMATED > 60; GLUCOSE 168 MG/DL (70-105); MAGNESIUM 1.7 MG/DL (1.8-2.4); POTASSIUM 3.8 MMOL/L (3.6-5.0); SODIUM 139 MMOL/L (135-145); TOTAL PROTEIN 6.8 GM/DL (6.4-8.2)
[~2018-08-28] VITALS: Ht 160 cm; Wt 80.7 kg
[~2018-08-28 09:54] MED LIST changes: +ALTEPLASE 2 MG (CATHFLO) CANCER CENTER IV ONE; +ETOPOSIDE 180 MG in NORMAL SALINE (CANCER CENTER) 500 ML IV SCH; +FOSAPREPITANT DIMEGLUMINE 150 MG in NS (IVPB) CANCER CENTER ONLY 150 ML IV SCH; +NS IV 1000 ML (CANCER CTR) IV SCH; +NS IV 500 ML (CANCER CENTER) 500 ML ONE; +ONDANSETRON MDV (CANCER CENTER 16 MG, DEXAMETHASONE INJECTION 10 MG in NS (IVPB) CANCER... IV SCH; +PALONOSETRON HCL 0.25 MG, DEXAMETHASONE INJECTION 10 MG in NS (IVPB) CANCER CENTER 50 ML IV SCH; +PEGFILGRASTIM 6 MG/0.6ML NEULASTA SC SCH
== END 2018-09-06 | disposition home or self-care (01) ==
LOC: ONC 09:54
PROVIDERS: ATTEND Internal Medicine Hematology & Oncology
DX: Z51.11 Encounter for antineoplastic chemotherapy (principal); C34.11 Malignant neoplasm of upper lobe, right bronchus or lung; J43.9 Emphysema, unspecified; I25.10 Atherosclerotic heart disease of native coronary artery without angina pectoris; E78.00 Pure hypercholesterolemia, unspecified; K21.9 Gastro-esophageal reflux disease without esophagitis; M19.91 Primary osteoarthritis, unspecified site; Z87.891 Personal history of nicotine dependence; Z99.81 Dependence on supplemental oxygen
CPT/HCPCS: 36415; 36591; 36593; 80053; 83615; 83735; 85025; 96367; 96372; 96375; 96413; 96417; 99213

== ENCOUNTER → 2018-10-12 | Outpatient (CLI) | payer MEDICARE, MEDICAID ==
[~2018-10-12] MED LIST changes: -ALTEPLASE 2 MG (CATHFLO) CANCER CENTER IV ONE; +BARIUM SUSPENSION 2.1% (VANILLA SILQ) 450 ML PO ONE; +CATHETER FLUSH 10 ML SYR IV PRN; -ETOPOSIDE 180 MG in NORMAL SALINE (CANCER CENTER) 500 ML IV SCH; -FOSAPREPITANT DIMEGLUMINE 150 MG in NS (IVPB) CANCER CENTER ONLY 150 ML IV SCH; +HOLD METFORMIN - RECEIVED CONTRAST 20 ML VIAL IV SCH; +IOHEXOL 350 MG/ML 100 ML (OMNIPAQUE 350) VIAL IV ONE; +NS 100 ML (IVPB) BAG IV ONE; -NS IV 1000 ML (CANCER CTR) IV SCH; -NS IV 500 ML (CANCER CENTER) 500 ML ONE; -ONDANSETRON MDV (CANCER CENTER 16 MG, DEXAMETHASONE INJECTION 10 MG in NS (IVPB) CANCER... IV SCH; -PALONOSETRON HCL 0.25 MG, DEXAMETHASONE INJECTION 10 MG in NS (IVPB) CANCER CENTER 50 ML IV SCH; -PEGFILGRASTIM 6 MG/0.6ML NEULASTA SC SCH
--- NOTE | 2018-10-12 11:55 | Diagnostic Imaging Report ---
PROCEDURE: CT chest and abdomen with and without contrast TECHNIQUE: Multiple axial CT images through the thorax and abdomen were obtained with and without intravenous contrast. Auto Exposure Controls were utilized during the CT exam to meet ALARA standards for radiation dose reduction. INDICATION: Lung cancer with liver metastases, followup. COMPARISON: Comparison is made with prior CT chest from 06/18/2018 as well as PET/CT from 07/07/2018. FINDINGS: CT chest: Left chest wall port has tip within the SVC. No axillary lymphadenopathy is detected. Enlarged lymph node in the left hilum is approximately 2.0 cm compared with 2.1 cm when measured by the same technique. A lymph node just anterior to this in the left hilum does appear to be smaller at 0.6 cm compared with 1.3 cm. The right hilum is unremarkable. No pericardial or pleural fluid is detected. Spiculated mass in the left apex previously seen measures slightly larger at 1.6 cm compared with 1.3 cm. A new spiculated mass just medial to this in the left upper lobe is identified measuring 1.9 cm. Irregular opacity in the right upper lobe persists. Area of nodularity is approximately 11 mm x 8 mm compared with 11 mm x 9 mm on prior exam. Areas of linear scarring inferior to this in the right upper lobe are stable. Lower lobes are unremarkable. Bony structures are nonacute. IMPRESSION: Left hilar lymphadenopathy is improved since prior CT from 06/18/2018. However, there is slight increase in size of a spiculated mass in the left apex as well as a new spiculated mass in the medial left apex since prior exam. The right lung is stable. CT abdomen: Previously noted mass in the anterior right lobe of the liver appears fairly stable at 2 cm. There is an additional vague low-density lesion in the posterior right lobe measuring 1.1 cm. This is similar to prior exam. Mass noted more peripherally in the right lobe on PET/CT is much smaller measuring 9 mm compared with 20 mm. However, there is a new or enlarging mass in the inferior right lobe measuring 15 mm. This is approximately 11 mm on prior exam. A lesion near the dome of the right lobe appears to be slightly larger at 16 mm compared with 15 mm on prior. The gallbladder is surgically absent. No biliary ductal dilatation is seen. The pancreas and spleen are unremarkable. No adrenal mass is detected. Kidneys are unremarkable. Aorta is heavily calcified but nonaneurysmal. No central retroperitoneal or mesenteric lymphadenopathy is seen. IMPRESSION: Mixed findings within the liver with several lesions smaller and several lesions larger when compared with PET/CT from 07/07/2018. No new liver lesion is detected. No abdominal lymphadenopathy is detected. Dictated by: Dictated on workstation # [id number]
--- NOTE | 2018-10-12 14:27 | Diagnostic Imaging Report ---
Indication: Right lung carcinoma. The patient was administered 26.8 mCi technetium 99m MDP intravenously and whole-body imaging was performed after 3 hour delay. Correlation is made with prior whole body bone scan from 08/07/2017. Uptake of activity by the axial and appendicular skeleton is noted. There is uptake about the kidneys with excretion to the bladder. There is uptake involving the left calvarium. This was not present on prior bone scan. Calvarial metastasis cannot be excluded. No other suspicious foci are seen. Impression: Abnormal uptake in the left frontoparietal calvarium, suspicious for an osseous metastasis. No other abnormality is seen. Dictated by: Dictated on workstation # [id number]
== END ==
LOC: CARD 10:14
PROVIDERS: ATTEND Nurse Practitioner Adult Health
DX: C34.11 Malignant neoplasm of upper lobe, right bronchus or lung (principal); C78.7 Secondary malignant neoplasm of liver and intrahepatic bile duct; R59.0 Localized enlarged lymph nodes; R93.7 Abnormal findings on diagnostic imaging of other parts of musculoskeletal system; Z90.49 Acquired absence of other specified parts of digestive tract; Z95.828 Presence of other vascular implants and grafts
CPT/HCPCS: 71270; 74170; 78306

== ENCOUNTER 2018-10-21 05:36 | Outpatient (CLI) | payer MEDICARE, MEDICAID ==
[~2018-10-21] VITALS: Ht 160 cm; Wt 81.2 kg
[~2018-10-21 05:36] MED LIST changes: -BARIUM SUSPENSION 2.1% (VANILLA SILQ) 450 ML PO ONE; -CATHETER FLUSH 10 ML SYR IV PRN; -HOLD METFORMIN - RECEIVED CONTRAST 20 ML VIAL IV SCH; -IOHEXOL 350 MG/ML 100 ML (OMNIPAQUE 350) VIAL IV ONE; -NS 100 ML (IVPB) BAG IV ONE
[2018-10-21] MEDS ORDERED: FURO20TA4 PO (10:18)
[2018-10-21] MEDS ORDERED: GABA-488 PO (10:18)
[2018-10-21] MEDS ORDERED: UMEC62.5 IH (10:18)
[2018-10-21] MEDS ORDERED: MAGN400C PO (10:18)
== END 2018-10-21 10:23 | disposition home or self-care (01) ==
LOC: PREOP 05:36
PROVIDERS: ATTEND Internal Medicine Critical Care Medicine
DX: Z01.818 Encounter for other preprocedural examination (principal)

== ENCOUNTER 2018-10-28 06:49 | Day surgery (SDC) | payer MEDICARE, MEDICAID ==
[2018-10-28] VITALS (12 sets, daily range): BP systolic 32–141; BP diastolic 54–78
[~2018-10-28] VITALS: Ht 160 cm; Wt 81.2 kg
[~2018-10-28 06:49] MED LIST changes: +FURO20TA4 PO; +GABA-488 PO; +MAGN400C PO; +UMEC62.5 IH
[2018-10-28] MEDS ORDERED: LIDOCAINE PF 1% 2 ML VIAL IJ ONE (06:50)
[2018-10-28] MEDS ORDERED: LIDOCAINE JELLY 2% 6 ML SYRINGE MM ONE (06:50)
[2018-10-28] MEDS ORDERED: SUCCINYLCHOLINE INJ 100 MG/5 ML SYR ONE (07:01)
[2018-10-28] MEDS ORDERED: LACTATED RINGERS 1,000 ML IV ONE (07:03)
[2018-10-28] MEDS ORDERED: LIDOCAINE PF 2% 5 ML (XYLOCAINE) VIAL ONE (07:04)
[2018-10-28] MEDS ORDERED: ROCURONIUM 10 MG/ML 5 ML SYRINGE IV ONE (07:04)
[2018-10-28] MEDS ORDERED: proPOfol 200 MG/20 ML (DIPRIVAN) VIAL IV ONE (07:04)
[2018-10-28] MEDS ORDERED: fentaNYL INJECTION 100 MCG/2 ML AMP ONE (07:04)
[2018-10-28] MEDS ORDERED: MIDAZOLAM 2 MG/2 ML (VERSED) VIAL ONE (07:04)
[2018-10-28] MEDS ORDERED: SEVOFLURANE (ULTANE) 15 ML INHAL SOLN ONE (07:04)
[2018-10-28] MEDS ORDERED: LACTATED RINGERS 1,000 ML IV STA (07:53)
[2018-10-28] MEDS ORDERED: ONDANSETRON 4 MG/2 ML (SDV) Z0FRAN ONE (08:21)
[2018-10-28] MEDS ORDERED: DEXAMETHASONE 10 MG/ML (DECADRON) 1 ML VIAL ONE (08:21)
[2018-10-28] MEDS ORDERED: NEOSTIGMINE 3 MG/3 ML VIAL ONE (08:26)
[2018-10-28] MEDS ORDERED: GLYCOPYRROLATE 0.2 MG/ML (ROBINUL) 2 ML VIAL ONE (08:26)
--- NOTE | 2018-10-28 09:32 | Diagnostic Imaging Report ---
INDICATION: Status post bronchoscopy. Time of exam: 9:15 AM Correlation is made with prior chest from 07/28/2018. Left chest wall port has tip overlying the SVC. Infiltrate in the left upper lobe is noted. There is no pneumothorax, status post bronchoscopy. There is no effusion. Chronic linear density in the right midlung laterally is unchanged. IMPRESSION: 1. Left upper lobe infiltrate. 2. No evidence of pneumothorax, status post bronchoscopy. Dictated by: Dictated on workstation # [id number]
--- NOTE | 2018-10-28 11:23 | Pulmonary Procedures ---
Pulmonary Procedures Date of Procedure Date of Service: Oct 28, 2018 Bronch Bronchoscopy with bilateral washes, KAITLYN BAL, transbroanchial brush of KAITLYN and EBUS with bx of station 10L lymph nodes. Preop DX: mediastinal lymphadenopathy with lung mass PostOP DX: KAITLYN apical branch is completely collapsed from external compression (pics taken). No solid endobronchial mass noted. Complications: None Pt was sedated per anesthesia. Bronchoscopy was advanced through the ET tube and an anatomical undertaken down to the segmental bronchi bilaterally. No endobronchial lesions noted. KAITLYN apical branch is completely collapsed from external compression (pics taken). No solid endobronchial mass. Bilateral washes, KAITLYN BAL, and transbronchial brush of KAITLYN obtained. EBUS was then advanced through ET tube and the mediastinum was US bilaterally. Station 10L lymph nodes were sampled via needle bx under US guidance. Pt tolerated procedure well. No complications noted. SHAWNEE NARAYAN DO Oct 28, 2018 11:23
--- NOTE | 2018-10-28 12:39 | Anesthesia-General Post-Op ---
General Patient Condition Mental Status/LOC: Same as Preop Cardiovascular: Satisfactory Nausea/Vomiting: Absent Respiratory: Satisfactory Pain: Controlled Complications: Absent Post Op Complications Complications None Follow Up Care/Instructions Patient Instructions None needed. Anesthesia/Patient Condition Patient Condition Patient is doing well, no complaints, stable vital signs, no apparent adverse anesthesia problems. No complications reported per nursing. D/C home per [facility] Criteria: Yes STACEY BELL CRNA Oct 28, 2018 12:39
--- NOTE | 2018-10-28 12:50 | Diagnostic Imaging Report ---
Indication: Bronchoscopy. Fluoroscopy was provided during bronchoscopy. 13 seconds of fluoroscopy was utilized. Impression: Fluoroscopy for bronchoscopy. Dictated by: Dictated on workstation # [id number]
== END 2018-10-28 10:40 | disposition home or self-care (01) ==
LOC: ENDO 06:49
PROVIDERS: ATTEND Internal Medicine Critical Care Medicine
DX: J40 Bronchitis, not specified as acute or chronic (principal); R59.0 Localized enlarged lymph nodes; J98.4 Other disorders of lung; J98.19 Other pulmonary collapse; I25.10 Atherosclerotic heart disease of native coronary artery without angina pectoris; E78.5 Hyperlipidemia, unspecified; K21.9 Gastro-esophageal reflux disease without esophagitis; J44.9 Chronic obstructive pulmonary disease, unspecified; Z79.891 Long term (current) use of opiate analgesic; Z99.89 Dependence on other enabling machines and devices; Z95.1 Presence of aortocoronary bypass graft; Z79.899 Other long term (current) drug therapy; Z79.82 Long term (current) use of aspirin
CPT/HCPCS: 71045; 87015; 87070; 87101; 87116; 87205; 87206; 88112; 88173; 88305; 88312

== ENCOUNTER 2018-10-29 21:38 | Emergency (ER) | payer MEDICARE, MEDICAID ==
[~2018-10-29] VITALS: Ht 160 cm; Wt 81.6 kg
[2018-10-29] MEDS ORDERED: methylPREDNISolone 125 MG (Solu-MEDROL) VIAL IV STA (22:07)
--- NOTE | 2018-10-29 22:07 | ED General ---
General Chief Complaint: General Problems/Pain Stated Complaint: POST LUNG BIOPSY/BILAT LEG AND ARM PAIN/ABD PAIN Nursing Triage Note: c/o bilateral leg pain/weakness x1 day. abdominal bloating, sore neck/throat s/p lung bx 10/28/18 Nursing Sepsis Screen: No Definite Risk Source of Information: Patient, Old Records History of Present Illness Date Seen by Provider: Oct 29, 2018 Time Seen by Provider: 21:50 Initial Comments PT ARRIVES VIA POV FROM HOME MULTIPLE COMPLAINTS PT IS BEING TREATED FOR LUNG CANCER--INITIALLY WAS IN RUL AND DX WITH SQUAMOUS CELL CARCINOMA. HAD STEREOTACTIC RADIATION TREATMENTS X 4-COMPLETED 10/2015 AND CHEMO X 3 MONTHS, COMPLETED 02/2016 PT HAD PET SCAN 06/2018 WHICH SHOWED NEW KA[place]N MASS, WITH LYMPH NODE AND LIVER INVOLVEMENT LIVER BIOPSY REPORTED SMALL CELL LUNG CANCER PT HAS BEEN RECEIVING CHEMOTHERAPY--( PALLIATIVE ?? ) AND LAST TREATMENT WAS 6 WEEKS AGO. PT UNDERWENT BRONCHOSCOPY WITH BIOPSY AND BRONCHIAL WASHINGS YESTERDAY. PLAVIX HAS BEEN HELD FOR 7 DAYS PRIOR TO PROCEDURE. PT STATES LAST PM, SHE BEGAN TO HAVING PAIN IN BOTH LEGS THIS AM, SHE BEGAN TO HAVE PAIN IN BOTH ARMS, HER ABDOMEN AND LOWER NECK AND UPPER BACK. STATES "I HURT SO BAD I CAN'T GET UP" --PT TOOK 1 TYLENOL AND 1 MOTRIN AT 1930--PT AMBULATED INTO ER ON HER OWN AND TO AND FROM BATHROOM ON HER OWN. PT HAS COPD AND NORMALLY WEARS HOME O2, BUT HAS NOT WORN IT TODAY--DOES NOT GIVE A REASON FOR NOT WEARING IT C/O SHORTNESS OF BREATH, BUT IS NOT DIFFERENT THAN NORMAL PT ALSO IS SUPPOSED TO USE INHALERS DAILY, BUT HAS NOT USED THEM TODAY--DOES NOT GIVE A REASON FOR NOT USING THEM PT DENIES CHEST PAIN PT DENIES FEVER/SWEATS OR CHILLS NO INCREASE IN CHRONIC LEG SWELLING PT DENIES CARDIAC PROBLEMS, HAS HAD CARDIAC CATH X 2 ( 2003 AND 2012 ) --MODERATE DISEASE WITH NO INTERVENTION, AND IS NOT SURE WHY SHE HAD THE PROCEDURES. PT ALSO DOES NOT KNOW WHY SHE HAS BEEN PRESCRIBED PLAVIX. PT STATES SHE QUIT SMOKING UP TO 2 PPD X 60 YEARS, IN 2017 PCP: DR. SMITH ONCOLOGIST: DR. TORIBIO AUTOMOBILES SALESPERSON: DR. NARAYAN Allergies and Home Medications Allergies Coded Allergies: No Known Drug Allergies (Unverified , 10/21/18) Home Medications Acetaminophen 500 Mg Tablet, 1,000 MG PO Q6H PRN for PAIN-MILD, (Reported) TAKES 2 (500 MG) TABLETS Albuterol Sulfate 8.5 Gm Hfa.aer.ad, 1-2 PUFF IH Q4H PRN for SHORTNESS OF BREATH, (Reported) Aspirin 81 Mg Tablet.dr, 81 MG PO DAILY, (Reported) Atorvastatin Calcium 80 Mg Tablet, 80 MG PO DAILY, (Reported) Budesonide/Formoterol Fumarate 10.2 Gm Hfa.aer.ad, 2 PUFF INH BID, (Reported) Clopidogrel Bisulfate 75 Mg Tablet, 75 MG PO DAILY, (Reported) Ezetimibe 10 Mg Tablet, 10 MG PO DAILY, (Reported) Furosemide 20 Mg Tablet, 20 MG PO DAILY PRN for SWELLING, (Reported) Gabapentin 300 Mg Capsule, 300 MG PO HS, (Reported) Magnesium Oxide 400 Mg Capsule, 400 MG PO DAILY, (Reported) Pantoprazole Sodium 40 Mg Tablet.dr, 40 MG PO DAILY, (Reported) Potassium Chloride 10 Meq Tab.er.prt, 10 MEQ PO DAILY, (Reported) Roflumilast 500 Mcg Tablet, 500 MCG PO DAILY, (Reported) Umeclidinium [place] 62.5 Mcg Blst.w.dev, 62.5 MCG IH DAILY, (Reported) Patient Home Medication List Home Medication List Reviewed: Yes Review of Systems Review of Systems Constitutional: No chills, No diaphoresis, No fever; malaise, weakness EENTM: no symptoms reported Respiratory: see HPI, cough, dyspnea on exertion; No hemoptysis, No orthopnea; short of breath Cardiovascular: No chest pain; edema; No palpitations, No syncope, No vascular heart diseas Gastrointestinal: see HPI, abdominal pain; No constipation, No diarrhea, No nausea, No vomiting Genitourinary: no symptoms reported Musculoskeletal: see HPI Skin: no symptoms reported Psychiatric/Neurological: No Symptoms Reported; Denies Headache, Denies Numbness, Denies Paresthesia, Denies Seizure, Denies Tingling, Denies Weakness Hematologic/Lymphatic: No Symptoms Reported Immunological/Allergic: see HPI Past Ujgsvll-Nuuuou-Tuhtjl Hx Patient Social History Alcohol Use: Denies Use Recreational Drug Use: No Smoking Status: Former Smoker (2 PPD) Type Used: Cigarettes (2 PPD) Former Smoker, Quit: Jan 08, 2017 2nd Hand Smoke Exposure: Yes Recent Foreign Travel: No Contact w/Someone Who Travel: No Recent Infectious Disease Expo: No Recent Hopitalizations: No Physical Abuse: No Sexual Abuse: No Mistreated: No Fear: No Immunizations Up To Date Tetanus Booster (TDap): Unknown Date of Pneumonia Vaccine: Dec 25, 2017 Date of Influenza Vaccine: Dec 01, 2017 Seasonal Allergies Seasonal Allergies: No Past Medical History Surgeries: Yes (LEFT BREAST BIOPSY 1989--BENIGN ; LEFT PORT PLACED/REPLACED; EGD/COLONOSCOPY; REMOVAL OF SKIN CANCERS; CARDIAC CATHS X 2--2003 AND 2012--NO INTERVENTION; HYST/OVARIES INTACT 1971; LAP SEEMA 2006; LIVER BIOPSY 2018; BRONCHOSCOPY/BIOPSIES/WASHINGS 10/28/2018; CATARACT SURGERY) Breast, Cardiac, Eye Surgery, Gallbladder, Hysterectomy Respiratory: Yes ([facility] LUNG SQUAMOUS CELL LUNG CANCER DX 2015--[place] WITH STEREOTACTIC RADIATION X 4--COMPLETED 10/2015, FOLLOWED BY 3 MONTHS OF CHEMO--COMPLETED 02/2016; PET SCAN 06/2018--NEW [place] MASS, WITH METS TO LYMPH NODES AND LIVER; LIVER BIOPSY SHOWED SMALL CELL LUNG CANCER--HAD PALLIATIVE CHEMO; BRONCHOSCOPY/BIOPSY/WASHINGS 10/28/2018-DR. 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 Sexually Transmitted Disease: No HIV/AIDS: No Genitourinary: No Gastrointestinal: Yes (liver cancer) Gastroesophageal Reflux Musculoskeletal: Yes Arthritis, Chronic Back Pain Endocrine: No HEENT: Yes Cataract, Macular Degeneration Loss of Vision: Bilateral Hearing Impairment: Denies Cancer: Yes ([facility] LUNG CANCER--DX 2015--SQUAMOUS CELL; KAITLYN LUNG CANCER WITH METS TO LYMPH NODES AND LIVER--DX 2018--SMALL CELL LUNG CANCER; SKIN CANCERS--SQUAMOUS CELL) Lung, Skin Did You Recieve Any Treatments: Yes ([facility] LUNG CANCER--S/P STEREOTACTIC RADIATION X 4-COMPLETED 10/2015, FOLLOWED BY 3 MONTHS OF RADIATION--COMPLETED 02/2016; NEW [place] CANCER DX 06/2018--PALLIATIVE CHEMO; SKIN CANCERS SURGICALLY REMOVED. ) What Type of Treatment Did You: Chemotherapy, Radiation, Surgical Intervention Psychosocial: No Integumentary: Yes (skin lesion L wrist) Blood Disorders: No Adverse Reaction/Blood Tranf: No (N/A) Family Medical History Cancer 03 FATHER 09 SISTER (LUNG) Congestive heart failure 03 FATHER 03 MOTHER 09 SISTER 09 SISTER 09 SISTER Diabetes mellitus 03 FATHER 03 MOTHER Family history: Diabetes mellitus 03 MOTHER 09 SISTER 09 SISTER 09 SISTER Myocardial infarction 09 BROTHER Heart Disease, Cancer, Diabetes Physical Exam Vital Signs Vital Signs - First Documented 10/29/18 10/29/18 21:42 22:00 Temp 96.5 Pulse 103 Resp 20 B/P (MAP) 169/83 (111) Pulse Ox 93 O2 Delivery Room Air O2 Flow Rate 2.00 Capillary Refill : Less Than 3 Seconds Height, Weight, BMI Height: 5'3.00" Weight: 180lbs. 0.0oz. 81.351730yd; 31.7 BMI Method:Stated General Appearance: No Apparent Distress, WD/WN, Other (AMBULATES ON OWN, WITH MINIMAL TO NO ASSIST; BUT WITH MODERATE DYSPNEA WITH MINIMAL EXERTION. CHRONICALLY ILL APPEARING. ) HEENT: PERRL/EOMI Neck: Full Range of Motion, Normal Inspection, Non Tender, Supple; No Carotid Bruit, No JVD Respiratory: Decreased Breath Sounds (IN BASES), Respiratory Distress, Wheezing (DIFFUSE EXPIRATORY WHEEZING AUDIBLE AT BEDSIDE. 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 II-XII Norm as Tested Focused Exam Lactate Level 10/29/18 22:55: Lactic Acid Level 3.03*H 10/30/18 00:50: Lactic Acid Level 1.94 Lactic Acid Level Progress/Results/Core Measures Suspected Sepsis Recent Fever Within 48 Hours: No Infection Criteria Present: None New/Unexplained Altered Menta: No Sepsis Screen: No Definite Risk SIRS Temperature:96.5 Pulse: 103 Respiratory Rate: 20 Laboratory Tests 10/29/18 22:05: White Blood Count 14.1H Blood Pressure 169 /83 Mean: 111 10/29/18 22:55: Lactic Acid Level 3.03*H 10/30/18 00:50: Lactic Acid Level 1.94 Laboratory Tests 10/29/18 22:05: Creatinine 0.65, INR Comment 1.1, Platelet Count 273, Total Bilirubin 0.2 Results/Orders Lab Results Laboratory Tests Test 10/29/18 22:05 10/29/18 22:55 10/30/18 00:50 Range/Units White Blood Count 14.1 H 4.3-11.0 10^3/uL Red Blood Count 3.90 L 4.35-5.85 10^6/uL Hemoglobin 10.7 L 11.5-16.0 G/DL Hematocrit 34 L 35-52 % Mean Corpuscular Volume 86 80-99 FL Mean Corpuscular Hemoglobin 27 25-34 PG Mean Corpuscular Hemoglobin Concent 32 32-36 G/DL Red Cell Distribution Width 15.6 H 10.0-14.5 % Platelet Count 273 130-400 10^3/uL Mean Platelet Volume 9.7 7.4-10.4 FL Neutrophils (%) (Auto) 56 42-75 % Lymphocytes (%) (Auto) 33 12-44 % Monocytes (%) (Auto) 10 0-12 % Eosinophils (%) (Auto) 1 0-10 % Basophils (%) (Auto) 0 0-10 % Neutrophils # (Auto) 7.8 1.8-7.8 X 10^3 Lymphocytes # (Auto) 4.6 H 1.0-4.0 X 10^3 Monocytes # (Auto) 1.5 H 0.0-1.0 X 10^3 Eosinophils # (Auto) 0.1 0.0-0.3 10^3/uL Basophils # (Auto) 0.0 0.0-0.1 10^3/uL Prothrombin Time 14.2 12.2-14.7 SEC INR Comment 1.1 0.8-1.4 Activated Partial Thromboplast Time 32 24-35 SEC Urine Color YELLOW Urine Clarity CLEAR Urine pH 5 5-9 Urine Specific [place] 1.025 H 1.016-1.022 Urine Protein 1+ H NEGATIVE Urine Glucose (UA) 4+ H NEGATIVE Urine Ketones NEGATIVE NEGATIVE Urine Nitrite NEGATIVE NEGATIVE Urine Bilirubin NEGATIVE NEGATIVE Urine Urobilinogen NORMAL NORMAL MG/DL Urine Leukocyte Esterase 2+ H NEGATIVE Urine RBC (Auto) NEGATIVE NEGATIVE Urine RBC NONE /HPF Urine WBC 50-100 H /HPF Urine Squamous Epithelial Cells NONE /HPF Urine Crystals NONE /LPF Urine Bacteria FEW H /HPF Urine Casts NONE /LPF Urine Mucus SMALL H /LPF Urine Culture Indicated YES Sodium Level 137 135-145 MMOL/L Potassium Level 3.5 L 3.6-5.0 MMOL/L Chloride Level 103 98-107 MMOL/L Carbon Dioxide Level 24 21-32 MMOL/L Anion Gap 10 5-14 MMOL/L Blood Urea Nitrogen 19 H 7-18 MG/DL Creatinine 0.65 0.60-1.30 MG/DL Estimat Glomerular Filtration Rate > 60 BUN/Creatinine Ratio 29 Glucose Level 209 H 70-105 MG/DL Calcium Level 8.8 8.5-10.1 MG/DL Corrected Calcium 9.3 8.5-10.1 MG/DL Magnesium Level 1.7 1.6-2.4 MG/DL Total Bilirubin 0.2 0.1-1.0 MG/DL Aspartate Amino Transf (AST/SGOT) 17 5-34 U/L Alanine Aminotransferase (ALT/SGPT) 31 0-55 U/L Alkaline Phosphatase 75 40-136 U/L Total Creatine Kinase 58 29-168 U/L Creatine Kinase MB 1.7 <6.6 NG/ML Troponin I < 0.028 <0.028 NG/ML B-Type Natriuretic Peptide 74.7 <100.0 PG/ML Total Protein 6.5 6.4-8.2 GM/DL Albumin 3.4 3.2-4.5 GM/DL Amylase Level 28 25-125 U/L Lipase 19 8-78 U/L Lactic Acid Level 3.03 *H 1.94 0.50-2.00 MMOL/L My Orders Orders - KARY OROZCO DO Ed Iv/Invasive Line Start (10/29/18 21:49) Ekg Tracing (10/29/18 21:49) O2 (10/29/18 21:49) Monitor-Rhythm Ecg Trace Only (10/29/18 21:49) Chest Pa/Lat (2 View) (10/29/18 21:49) BNP (10/29/18 21:49) Cbc With Automated Diff (10/29/18 21:49) Comprehensive Metabolic Panel (10/29/18 21:49) Creatine Kinase (10/29/18 21:49) Creatine Kinase Mb (10/29/18 21:49) Magnesium (10/29/18 21:49) Protime With Inr (10/29/18 21:49) Partial Thromboplastin Time (10/29/18 21:49) Troponin I (10/29/18 21:49) Amylase (10/29/18 22:04) Lipase (10/29/18 22:04) Ua Culture If Indicated (10/29/18 22:04) Albuterol/Ipra Inhalation Soln (Duoneb I (10/29/18 22:15) Dexamethasone Injection (Decadron Inject (10/29/18 22:15) Rt Request For Service (10/29/18 22:07) Methylprednisolone Sod Succ (Solu-Medrol (10/29/18 22:07) Svn Small Volume Nebulizer (10/29/18 22:07) Urine Culture (10/29/18 22:05) Lactic Acid Analyzer (10/29/18 22:42) Blood Culture (10/29/18 22:42) Ceftriaxone For Iv Use (Rocephin For I (10/29/18 22:45) Azithromycin Injection (Zithromax Inject (10/29/18 23:45) Medications Given in ED Current Medications Medications Dose Ordered Sig/Sarah Route Start Time Stop Time Status Last Admin Dose Admin Albuterol/ Ipratropium 3 ml ONCE ONCE INH 10/29/18 22:15 10/29/18 22:16 DC 10/29/18 22:19 3 ML Azithromycin 500 mg/Sodium Chloride 250 ml @ 250 mls/hr ONCE ONCE IV 10/29/18 23:45 10/30/18 00:44 DC 10/29/18 23:46 250 MLS/HR Ceftriaxone Sodium 1000 mg/ Sterile Water 10 ml @ 200 mls/hr ONCE ONCE IV 10/29/18 22:45 10/29/18 22:47 DC 10/29/18 23:05 200 MLS/HR Dexamethasone Sodium Phosphate 20 mg ONCE ONCE IH 10/29/18 22:15 10/29/18 22:16 DC 10/29/18 22:20 20 MG Vital Signs/I&O 10/29/18 10/29/18 10/29/18 10/29/18 21:42 22:00 22:15 23:23 Temp 96.5 97.0 Pulse 103 102 Resp 20 22 B/P (MAP) 169/83 (111) 121/59 Pulse Ox 93 96 93 95 O2 Delivery Room Air Nasal Cannula Nasal Cannula Room Air O2 Flow Rate 2.00 2.00 10/29/18 10/30/18 23:51 02:45 Temp 97.3 96.9 Pulse 97 Resp 18 B/P (MAP) 121/65 (83) Pulse Ox 95 O2 Delivery Nasal Cannula O2 Flow Rate 2.00 10/30/18 00:00 Intake Total 10 ml Balance 10 ml Capillary Refill : Less Than 3 Seconds Blood Pressure Mean: 111 Progress Note : Progress Note LUNGS CLEAR AND DYSPNEA IMPROVED AFTER SOLU-MEDROL AND NEB TREATMENT O2 SATS REMAINED IN MID 90'S ON O2 AT 2L/NC NO DETERIORATION IN PTS' CONDITION DURING ER STAY ECG Initial ECG Impression Date: Oct 29, 2018 Initial ECG Impression Time: 22:02 Initial ECG Rate: 96 Initial ECG Rhythm: Normal Sinus Diagnostic Imaging Comments CXR--BIBASILAR INFILTRATES AND/OR ATELECTASIS, PENDING RADIOLOGIST REVIEW Reviewed: Reviewed by Va Departure Communication (Admissions) 2333--CONTACTED TUNNEL ELASTIC OPERATOR [facility], REGARDING BED AVAILABILITY. WILL CALL BACK 2350--SPOKE WITH TUNNEL ELASTIC OPERATOR [facility], CURRENTLY ON FULL DIVERSION, NO BEDS AVAILABLE AT ALL AND NO ANTICIPATED DISMISSALS / BED AVAILABLE TOMORROW 2354--SPOKE WITH DR. VUONG, NOT A CANDIDATE FOR [facility], ADVISES TRANSFER. 2359--CALLED [facility], MESSAGE LEFT 0013--SPOKE WITH [facility], PAGING HOSPITALIST. 0030--SPOKE WITH DR. AUGUSTIN, HOSPITALIST, ACCEPTS PT FOR ADMIT. 0145--CALLED [facility], STILL NO BED ASSIGNMENT. THEY WILL CALL US WHEN THEY HAVE ROOM #. Impression Primary Impression: Lung cancer Additional Impressions: Sepsis Urinary tract infection Pneumonia S/P bronchoscopy with bronchoalveolar lavage S/P bronchoscopy with biopsy Acute exacerbation of chronic obstructive airways disease Disposition: XFER SHT-TRM HOSP Condition: Improved Transfer Transfer Facility: [facility] Method of Transfer: EMS Departure-Patient Inst. Referrals: JESUS SMITH MD (PCP/Family) Primary Care Physician KARY OROZCO DO Oct 29, 2018 22:07
[2018-10-29] MEDS ORDERED: DEXAMETHASONE 4 MG/ML SDV (DECADRON) IH ONE (22:15)
[2018-10-29] MEDS ORDERED: RT-ALBUTEROL/IPRATROPIUM 3 ML (DUONEB) VIAL INH ONE (22:15)
[2018-10-29 22:24] LABS: BILIRUBIN,URINE NEGATIVE (NEGATIVE); CLARITY,URINE CLEAR; COLOR,URINE YELLOW; GLUCOSE, URINE (UA) 4+ (NEGATIVE); KETONES,URINE NEGATIVE (NEGATIVE); LEUKOCYTE ESTERASE ,URINE 2+ (NEGATIVE); NITRITE,URINE NEGATIVE (NEGATIVE); PH,URINE 5 (5-9); PROTEIN,URINE 1+ (NEGATIVE); UROBILINOGEN,URINE NORMAL (NORMAL)
[2018-10-29 22:31] LABS: BASOPHILS % (AUTO) 0 % (0-10); EOSINOPHILS # (AUTO) 0.1 10^3/uL (0.0-0.3); EOSINOPHILS % (AUTO) 1 % (0-10); HEMATOCRIT 34 % (35-52); HEMOGLOBIN 10.7 G/DL (11.5-16.0); LYMPHOCYTES # (AUTO) 4.6 X 10^3 (1.0-4.0); LYMPHOCYTES % (AUTO) 33 % (12-44); MEAN CORPUSCULAR HEMOGLOBIN 27 PG (25-34); MEAN CORPUSCULAR HGB CONC 32 G/DL (32-36); MEAN CORPUSCULAR VOLUME 86 FL (80-99); MEAN PLATELET VOLUME 9.7 FL (7.4-10.4); MONOCYTES # (AUTO) 1.5 X 10^3 (0.0-1.0); MONOCYTES % (AUTO) 10 % (0-12); NEUTROPHILS # (AUTO) 7.8 X 10^3 (1.8-7.8); NEUTROPHILS % (AUTO) 56 % (42-75); PLATELET COUNT 273 10^3/uL (130-400); RED CELL DISTRIBUTION WIDTH 15.6 % (10.0-14.5); WHITE BLOOD COUNT 14.1 10^3/uL (4.3-11.0)
[2018-10-29 22:32] LABS: BACTERIA,URINE FEW /HPF; WBC,URINE 50-100 /HPF
[2018-10-29 22:37] LABS: INR 1.1 (0.8-1.4); PROTHROMBIN TIME PATIENT 14.2 SEC (12.2-14.7)
[2018-10-29] MEDS ORDERED: cefTRIAXone FOR IV USE 1,000 MG in WATER (STERILE) FOR INJECTION 10 ML IV ONE (22:45)
[2018-10-29 22:46] LABS: ALANINE AMINOTRANSFERASE 31 U/L (0-55); ALBUMIN 3.4 GM/DL (3.2-4.5); ALKALINE PHOSPHATASE 75 U/L (40-136); AMYLASE 28 U/L (25-125); CALCIUM 8.8 MG/DL (8.5-10.1); CHLORIDE 103 MMOL/L (98-107); CREATINE KINASE 58 U/L (29-168); CREATININE SERUM 0.65 MG/DL (0.60-1.30); GFR ESTIMATED > 60; POTASSIUM 3.5 MMOL/L (3.6-5.0); SODIUM 137 MMOL/L (135-145); TOTAL PROTEIN 6.5 GM/DL (6.4-8.2)
[2018-10-29 22:53] LABS: CREATINE KINASE MB 1.7 NG/ML (<6.6)
[2018-10-29 23:25] LABS: BILIRUBIN,TOTAL 0.2 MG/DL (0.1-1.0); BUN/CREATININE RATIO 29; CARBON DIOXIDE 24 MMOL/L (21-32); GLUCOSE 209 MG/DL (70-105); LIPASE 19 U/L (8-78); MAGNESIUM 1.7 MG/DL (1.6-2.4)
[2018-10-29] MEDS ORDERED: AZITHROMYCIN INJECTION 500 MG in NS (IVPB) 250 ML IV ONE (23:45)
--- NOTE | 2018-10-30 01:58 | NUR ---
bed assignment recieved from jayden 0200- shift capt. contacted for transfer. 0202- dispatch contacted for transfer. 0206- [phone] called for report, no answer. 021- jayden rn unable to take report call back number [phone] given for call back for report.
[2018-10-30 02:45] VITALS: BP 121/65
--- NOTE | 2018-10-30 02:55 | NUR ---
called [phone]. floor rn unable to take report at this time. informed pt had left via ems at 0240. left call back number
--- NOTE | 2018-10-30 07:05 | Diagnostic Imaging Report ---
EXAM: CHEST PA/LAT (2 VIEW) INDICATION: Weakness. COMPARISON: 10/28/2018. FINDINGS: Normal heart size and central pulmonary vascularity. Left subclavian tunneled port CVC tip mid SVC. Calcified aorta. Mild bibasilar atelectasis. Hazy interstitial markings appear chronic. No acute osseous findings. IMPRESSION: Mild atelectasis or infiltrate in the lung bases. Dictated by: Dictated on workstation # [id number]
== END 2018-10-30 02:40 | disposition short-term general hospital (02) ==
LOC: EDUNIT# 21:38 → ER 21:39
DX: C34.12 Malignant neoplasm of upper lobe, left bronchus or lung (principal); C77.9 Secondary and unspecified malignant neoplasm of lymph node, unspecified; C78.7 Secondary malignant neoplasm of liver and intrahepatic bile duct; A41.9 Sepsis, unspecified organism; N39.0 Urinary tract infection, site not specified; J18.9 Pneumonia, unspecified organism; J44.1 Chronic obstructive pulmonary disease with (acute) exacerbation; E78.00 Pure hypercholesterolemia, unspecified; I25.10 Atherosclerotic heart disease of native coronary artery without angina pectoris; K21.9 Gastro-esophageal reflux disease without esophagitis; Z85.05 Personal history of malignant neoplasm of liver; Z90.710 Acquired absence of both cervix and uterus; Z98.890 Other specified postprocedural states; Z99.81 Dependence on supplemental oxygen; Z87.891 Personal history of nicotine dependence; Z79.82 Long term (current) use of aspirin; Z79.02 Long term (current) use of antithrombotics/antiplatelets; Z85.828 Personal history of other malignant neoplasm of skin; Z95.9 Presence of cardiac and vascular implant and graft, unspecified; Z80.2 Family history of malignant neoplasm of other respiratory and intrathoracic organs
CPT/HCPCS: 36415; 71046; 80053; 81000; 82150; 82550; 82553; 83605; 83690; 83735; 83880; 84484; 85025; 85610; 85730; 87040; 87088; 93005; 93041; 94640; 96365; 96375

== ENCOUNTER → 2018-12-07 | Outpatient (CLI) | payer MEDICARE, MEDICAID | LOC: LABNPT 13:05 | PROVIDERS: ATTEND Internal Medicine | DX: R94.6 Abnormal results of thyroid function studies (principal) | CPT/HCPCS: 84439 ==

== ENCOUNTER 2018-12-10 13:10 | Outpatient (RCR) | payer MEDICARE, MEDICAID ==
[2018-09-21 09:49] LABS: BASOPHILS % (AUTO) 0 % (0-10); EOSINOPHILS # (AUTO) 0.1 10^3/uL (0.0-0.3); EOSINOPHILS % (AUTO) 1 % (0-10); HEMATOCRIT 36 % (35-52); HEMOGLOBIN 11.6 G/DL (11.5-16.0); LYMPHOCYTES # (AUTO) 2.3 X 10^3 (1.0-4.0); LYMPHOCYTES % (AUTO) 21 % (12-44); MEAN CORPUSCULAR HEMOGLOBIN 28 PG (25-34); MEAN CORPUSCULAR HGB CONC 32 G/DL (32-36); MEAN CORPUSCULAR VOLUME 86 FL (80-99); MEAN PLATELET VOLUME 10.5 FL (7.4-10.4); MONOCYTES # (AUTO) 1.3 X 10^3 (0.0-1.0); MONOCYTES % (AUTO) 12 % (0-12); NEUTROPHILS # (AUTO) 7.4 X 10^3 (1.8-7.8); NEUTROPHILS % (AUTO) 66 % (42-75); PLATELET COUNT 266 10^3/uL (130-400); RED CELL DISTRIBUTION WIDTH 16.5 % (10.0-14.5); WHITE BLOOD COUNT 11.1 10^3/uL (4.3-11.0)
[2018-09-21 10:07] LABS: ALANINE AMINOTRANSFERASE 20 U/L (0-55); ALBUMIN 3.6 GM/DL (3.2-4.5); ALKALINE PHOSPHATASE 87 U/L (40-136); BILIRUBIN,TOTAL 0.5 MG/DL (0.1-1.0); BUN/CREATININE RATIO 10; CALCIUM 9.4 MG/DL (8.5-10.1); CARBON DIOXIDE 21 MMOL/L (21-32); CHLORIDE 103 MMOL/L (98-107); CREATININE SERUM 0.68 MG/DL (0.60-1.30); GFR ESTIMATED > 60; GLUCOSE 315 MG/DL (70-105); MAGNESIUM 1.6 MG/DL (1.8-2.4); POTASSIUM 3.5 MMOL/L (3.6-5.0); SODIUM 137 MMOL/L (135-145); TOTAL PROTEIN 6.9 GM/DL (6.4-8.2)
[2018-10-12 10:10] LABS: BASOPHILS # (AUTO) 0.1 10^3/uL (0.0-0.1); BASOPHILS % (AUTO) 0 % (0-10); EOSINOPHILS # (AUTO) 0.1 10^3/uL (0.0-0.3); EOSINOPHILS % (AUTO) 1 % (0-10); HEMATOCRIT 40 % (35-52); HEMOGLOBIN 12.7 G/DL (11.5-16.0); LYMPHOCYTES # (AUTO) 3.5 X 10^3 (1.0-4.0); LYMPHOCYTES % (AUTO) 28 % (12-44); MEAN CORPUSCULAR HEMOGLOBIN 28 PG (25-34); MEAN CORPUSCULAR HGB CONC 32 G/DL (32-36); MEAN CORPUSCULAR VOLUME 87 FL (80-99); MONOCYTES # (AUTO) 1.3 X 10^3 (0.0-1.0); MONOCYTES % (AUTO) 10 % (0-12); NEUTROPHILS # (AUTO) 7.4 X 10^3 (1.8-7.8); NEUTROPHILS % (AUTO) 60 % (42-75); PLATELET COUNT 314 10^3/uL (130-400); RED CELL DISTRIBUTION WIDTH 17.1 % (10.0-14.5); WHITE BLOOD COUNT 12.4 10^3/uL (4.3-11.0)
[2018-10-12 10:32] LABS: BUN/CREATININE RATIO 14; CALCIUM 9.4 MG/DL (8.5-10.1); CARBON DIOXIDE 25 MMOL/L (21-32); CHLORIDE 103 MMOL/L (98-107); CREATININE SERUM 0.64 MG/DL (0.60-1.30); GFR ESTIMATED > 60; GLUCOSE 239 MG/DL (70-105); MAGNESIUM 1.5 MG/DL (1.6-2.4); POTASSIUM 3.7 MMOL/L (3.6-5.0); SODIUM 139 MMOL/L (135-145)
[2018-10-19 09:47] LABS: BASOPHILS # (AUTO) 0.1 10^3/uL (0.0-0.1); BASOPHILS % (AUTO) 0 % (0-10); EOSINOPHILS # (AUTO) 0.1 10^3/uL (0.0-0.3); EOSINOPHILS % (AUTO) 1 % (0-10); HEMATOCRIT 38 % (35-52); HEMOGLOBIN 12.1 G/DL (11.5-16.0); LYMPHOCYTES # (AUTO) 2.9 X 10^3 (1.0-4.0); LYMPHOCYTES % (AUTO) 26 % (12-44); MEAN CORPUSCULAR HEMOGLOBIN 27 PG (25-34); MEAN CORPUSCULAR HGB CONC 32 G/DL (32-36); MEAN CORPUSCULAR VOLUME 87 FL (80-99); MEAN PLATELET VOLUME 10.4 FL (7.4-10.4); MONOCYTES # (AUTO) 1.2 X 10^3 (0.0-1.0); MONOCYTES % (AUTO) 11 % (0-12); NEUTROPHILS % (AUTO) 62 % (42-75); PLATELET COUNT 270 10^3/uL (130-400); RED CELL DISTRIBUTION WIDTH 16.5 % (10.0-14.5); WHITE BLOOD COUNT 11.3 10^3/uL (4.3-11.0)
[2018-10-19 10:08] LABS: ALANINE AMINOTRANSFERASE 26 U/L (0-55); ALBUMIN 3.8 GM/DL (3.2-4.5); ALKALINE PHOSPHATASE 84 U/L (40-136); BILIRUBIN,TOTAL 0.4 MG/DL (0.1-1.0); BUN/CREATININE RATIO 9; CALCIUM 9.4 MG/DL (8.5-10.1); CARBON DIOXIDE 25 MMOL/L (21-32); CHLORIDE 104 MMOL/L (98-107); CREATININE SERUM 0.66 MG/DL (0.60-1.30); GFR ESTIMATED > 60; GLUCOSE 289 MG/DL (70-105); POTASSIUM 3.6 MMOL/L (3.6-5.0); SODIUM 140 MMOL/L (135-145); TOTAL PROTEIN 6.8 GM/DL (6.4-8.2)
[2018-11-16 13:04] LABS: BASOPHILS % (AUTO) 0 % (0-10); EOSINOPHILS # (AUTO) 0.2 10^3/uL (0.0-0.3); EOSINOPHILS % (AUTO) 2 % (0-10); HEMATOCRIT 35 % (35-52); HEMOGLOBIN 11.1 G/DL (11.5-16.0); LYMPHOCYTES # (AUTO) 3.2 X 10^3 (1.0-4.0); LYMPHOCYTES % (AUTO) 32 % (12-44); MEAN CORPUSCULAR HEMOGLOBIN 27 PG (25-34); MEAN CORPUSCULAR HGB CONC 31 G/DL (32-36); MEAN CORPUSCULAR VOLUME 85 FL (80-99); MEAN PLATELET VOLUME 9.3 FL (7.4-10.4); MONOCYTES # (AUTO) 1.1 X 10^3 (0.0-1.0); MONOCYTES % (AUTO) 11 % (0-12); NEUTROPHILS # (AUTO) 5.7 X 10^3 (1.8-7.8); NEUTROPHILS % (AUTO) 55 % (42-75); PLATELET COUNT 311 10^3/uL (130-400); RED CELL DISTRIBUTION WIDTH 14.4 % (10.0-14.5); WHITE BLOOD COUNT 10.2 10^3/uL (4.3-11.0)
[2018-11-16 13:20] LABS: ALANINE AMINOTRANSFERASE 28 U/L (0-55); ALBUMIN 3.6 GM/DL (3.2-4.5); ALKALINE PHOSPHATASE 96 U/L (40-136); BILIRUBIN,TOTAL 0.3 MG/DL (0.1-1.0); BUN/CREATININE RATIO 18; CALCIUM 9.8 MG/DL (8.5-10.1); CARBON DIOXIDE 28 MMOL/L (21-32); CHLORIDE 101 MMOL/L (98-107); GFR ESTIMATED > 60; GLUCOSE 192 MG/DL (70-105); POTASSIUM 3.9 MMOL/L (3.6-5.0); SODIUM 139 MMOL/L (135-145); TOTAL PROTEIN 7.2 GM/DL (6.4-8.2)
[2018-12-07 13:14] LABS: BASOPHILS % (AUTO) 0 % (0-10); EOSINOPHILS # (AUTO) 0.1 10^3/uL (0.0-0.3); EOSINOPHILS % (AUTO) 1 % (0-10); HEMATOCRIT 36 % (35-52); HEMOGLOBIN 11.2 G/DL (11.5-16.0); LYMPHOCYTES # (AUTO) 3.4 X 10^3 (1.0-4.0); LYMPHOCYTES % (AUTO) 26 % (12-44); MEAN CORPUSCULAR HEMOGLOBIN 26 PG (25-34); MEAN CORPUSCULAR HGB CONC 32 G/DL (32-36); MEAN CORPUSCULAR VOLUME 84 FL (80-99); MEAN PLATELET VOLUME 9.4 FL (7.4-10.4); MONOCYTES # (AUTO) 1.4 X 10^3 (0.0-1.0); MONOCYTES % (AUTO) 11 % (0-12); NEUTROPHILS # (AUTO) 8.2 X 10^3 (1.8-7.8); NEUTROPHILS % (AUTO) 63 % (42-75); PLATELET COUNT 367 10^3/uL (130-400); RED CELL DISTRIBUTION WIDTH 15.5 % (10.0-14.5); WHITE BLOOD COUNT 13.1 10^3/uL (4.3-11.0)
[2018-12-07 13:44] LABS: ALANINE AMINOTRANSFERASE 50 U/L (0-55); ALBUMIN 3.5 GM/DL (3.2-4.5); ALKALINE PHOSPHATASE 129 U/L (40-136); BILIRUBIN,TOTAL 0.3 MG/DL (0.1-1.0); BUN/CREATININE RATIO 10; CALCIUM 9.7 MG/DL (8.5-10.1); CARBON DIOXIDE 27 MMOL/L (21-32); CHLORIDE 101 MMOL/L (98-107); CREATININE SERUM 0.61 MG/DL (0.60-1.30); GFR ESTIMATED > 60; GLUCOSE 183 MG/DL (70-105); MAGNESIUM 1.9 MG/DL (1.6-2.4); POTASSIUM 3.6 MMOL/L (3.6-5.0); SODIUM 140 MMOL/L (135-145)
[~2018-12-10] VITALS: Ht 160 cm; Wt 79.4 kg
[~2018-12-10 13:10] MED LIST changes: +ALTEPLASE 2 MG (CATHFLO) CANCER CENTER IV ONE; +ATEZOLIZUMAB 1,200 MG in NS (IVPB) CANCER CENTER 250 ML IV SCH; +DEXAMETHASONE IV SCH; +ETOPOSIDE 180 MG in NORMAL SALINE (CANCER CENTER) 500 ML IV SCH; +FOSAPREPITANT DIMEGLUMINE 150 MG in NS (IVPB) CANCER CENTER ONLY 150 ML IV SCH; +MAGNESIUM SULFATE (CANCER CTR) 2 GM in NS (IVPB) CANCER CENTER 100 ML IV ONE; +NS IV 1000 ML (CANCER CTR) IV SCH; +ONDANSETRON IV SCH; +ONDANSETRON MDV (CANCER CENTER 16 MG, DEXAMETHASONE INJECTION 10 MG in NS (IVPB) CANCER... IV SCH; +PALONOSETRON HCL 0.25 MG, DEXAMETHASONE INJECTION 10 MG in NS (IVPB) CANCER CENTER 50 ML IV SCH; +PEGFILGRASTIM 6 MG/0.6ML NEULASTA SC SCH; +[UNRECOGNIZED DRUG - OTHER] IV SCH
[2018-12-10] MEDS ORDERED: FLU QUADRIvalent (5+ YOA) 2019-2020 (Cancer Ctr) 0.5 ML IM ONE (13:15)
== END 2018-12-20 | disposition home or self-care (01) ==
LOC: ONC 13:10
PROVIDERS: ATTEND Internal Medicine Hematology & Oncology
DX: Z51.11 Encounter for antineoplastic chemotherapy (principal); C34.11 Malignant neoplasm of upper lobe, right bronchus or lung; J43.9 Emphysema, unspecified; I25.10 Atherosclerotic heart disease of native coronary artery without angina pectoris; E78.00 Pure hypercholesterolemia, unspecified; K21.9 Gastro-esophageal reflux disease without esophagitis; M19.91 Primary osteoarthritis, unspecified site; Z87.891 Personal history of nicotine dependence; Z99.81 Dependence on supplemental oxygen
CPT/HCPCS: 36415; 36591; 36593; 80048; 80053; 83036; 83615; 83735; 84443; 85025; 90471; 93005; 96367; 96368; 96372; 96375; 96413; 96417; 99213

== ENCOUNTER → 2018-12-21 | Outpatient (CLI) | payer MEDICARE, MEDICAID ==
[~2018-12-21] MED LIST changes: -ALTEPLASE 2 MG (CATHFLO) CANCER CENTER IV ONE; -ATEZOLIZUMAB 1,200 MG in NS (IVPB) CANCER CENTER 250 ML IV SCH; -DEXAMETHASONE IV SCH; -ETOPOSIDE 180 MG in NORMAL SALINE (CANCER CENTER) 500 ML IV SCH; -FOSAPREPITANT DIMEGLUMINE 150 MG in NS (IVPB) CANCER CENTER ONLY 150 ML IV SCH; -MAGNESIUM SULFATE (CANCER CTR) 2 GM in NS (IVPB) CANCER CENTER 100 ML IV ONE; -NS IV 1000 ML (CANCER CTR) IV SCH; -ONDANSETRON IV SCH; -ONDANSETRON MDV (CANCER CENTER 16 MG, DEXAMETHASONE INJECTION 10 MG in NS (IVPB) CANCER... IV SCH; -PALONOSETRON HCL 0.25 MG, DEXAMETHASONE INJECTION 10 MG in NS (IVPB) CANCER CENTER 50 ML IV SCH; -PEGFILGRASTIM 6 MG/0.6ML NEULASTA SC SCH; -[UNRECOGNIZED DRUG - OTHER] IV SCH
--- NOTE | 2018-12-21 14:45 | Diagnostic Imaging Report ---
PROCEDURE: US Thyroid. TECHNIQUE: Multiple real-time grayscale images were obtained of the thyroid in various projections. INDICATION: Thyroid nodules. FINDINGS: Right lobe is 4.4 x 2.6 x 2.1 cm. It has a solid hypoechoic but somewhat heterogeneous vascularized mass in its upper pole laterally measuring 2.7 x 2.1 x 1.6 cm. It shows no obvious calcification. The left lobe is 3.8 x 2.3 x 1.9 cm. It has a hypoechoic nodule of 1.9 cm maximal dimension. This appears to be at least partly cystic. Both lobes appear otherwise heterogeneous in their echotexture. IMPRESSION: Bilateral thyroid nodules, the largest in the right lobe is 2.7 cm long axis, vascularized, hypoechoic and heterogeneous which would suggest either sonographic fine-needle aspiration sampling or consideration for follow-up within 6 to 12 months. Dictated by: Dictated on workstation # [id number]
== END ==
LOC: RAD 10:24
PROVIDERS: ATTEND Nurse Practitioner
DX: E04.2 Nontoxic multinodular goiter (principal)
CPT/HCPCS: 76536

== ENCOUNTER → 2019-01-18 | Outpatient (CLI) | payer MEDICARE, MEDICAID ==
[~2019-01-18] MED LIST changes: +BARIUM SUSPENSION 2.1% (VANILLA SILQ) 450 ML PO ONE; +HOLD METFORMIN - RECEIVED CONTRAST 20 ML VIAL IV SCH; +IOHEXOL 350 MG/ML 100 ML (OMNIPAQUE 350) VIAL IV ONE; +NS 100 ML (IVPB) BAG IV ONE
[2019-01-18] MEDS: CATHETER FLUSH 10 ML SYR IV PRN ×2 (11:22→11:32)
--- NOTE | 2019-01-18 12:52 | Diagnostic Imaging Report ---
PROCEDURE: CT chest with contrast, CT abdomen with and without contrast. TECHNIQUE: Precontrast acquisitions were acquired through the abdomen. Multiple contiguous axial images were obtained through the chest and abdomen after administration of intravenous contrast. Auto Exposure Controls were utilized during the CT exam to meet ALARA standards for radiation dose reduction. INDICATION: Cancer of the right lung The previous CT chest, abdomen and pelvis exam of 10/12/2018 suggested a new or enlarging mass in the inferior right lobe of the liver. This measures 15 mm in size. On this exam that mass is again visualized and is now estimated to be 24 mm. Furthermore the 13.4 x 19.9 mm low density lesion in the anterior aspect of the right lobe of liver has increased in size and now measures 2.8 x 5.3 cm. The 10.6 cm lesion in the right lobe of liver noted previously is also increased in size and now measures 11.4 mm. In addition there are a few new areas of diminished density with in the liver including a 12.2 mm lesion in the left lobe. These adverse changes involving the liver do suggest a progressive neoplastic disease. The spleen, pancreas, adrenals, kidneys, aorta and inferior vena cava show no sign of an acute abnormality. The stomach is partially filled with oral contrast and consequently difficult to assess. There is no obvious gastric abnormality evident. The images through the thorax on the prior exam noted a 20 mm low density mass in the left hilum. This mass has increased in size and now measures 39 mm. In addition there is now a 19.5 x 39 mm aorticopulmonary window lymph node. There are 2 pretracheal nodes measuring 18.2 and 23.6 mm as well. There is a new parenchymal lesion noted of the left hemidiaphragm. This measures 11.9 mm. There are also areas of pleural thickening along the periphery of the left mid lung which were not present on the prior study. The largest of these measures 10.0 x 42.0 mm. The spiculated 16.4 mm mass in the left apex is also greater and now measures 24.4 mm. The poorly defined density in the right midlung noted previously is essentially no different. There is no obvious breast mass. The bone windows show no sign of a fracture or of a destructive lesion. IMPRESSION: 1. The appearance of the chest and abdomen has worsened significantly since the prior exam. Specifically, the mass in the left hilum has increased in size and aorticopulmonary window and mediastinal adenopathy have developed. The parenchymal lesion in the left apex has also increased and there are new pleural/ parenchymal abnormalities involving the left lung. 2. There has also been an increase in the size and number of lesions involving the liver. This does suggest progressive neoplastic disease as well. Dictated by: Dictated on workstation # [id number]
--- NOTE | 2019-01-18 14:43 | Diagnostic Imaging Report ---
INDICATION: Lung cancer, back pain. EXAMINATION: Whole body bone scan. TECHNIQUE: 25.2 mCi of technetium 99m MDP was given intravenously. A whole body bone scan was obtained after a 3 hour delay. FINDINGS: There is a focus of increased activity in the region of the right T10 pedicle or costovertebral junction. CT of the thorax shows an area of osteoblastic change in the T10 pedicle on the right corresponding to this area of activity. There is intense uptake in the left upper calvarium. IMPRESSION: There are two abnormal areas of uptake, one in the left calvarium near the convexity and the other at the T10 pedicle on the right. The calvarial activity had a matching area of abnormal signal on an MRI brain from 07/29/2018. The thoracic spine had a matching lesion in the T10 pedicle on the right. These are both considered suspicious for metastatic disease to bone. Dictated by: Dictated on workstation # [id number]
== END ==
LOC: CARD 11:09
PROVIDERS: ATTEND Nurse Practitioner Adult Health
DX: C34.91 Malignant neoplasm of unspecified part of right bronchus or lung (principal); C78.7 Secondary malignant neoplasm of liver and intrahepatic bile duct; K76.9 Liver disease, unspecified
CPT/HCPCS: 71260; 74170; 78306

== ENCOUNTER 2019-01-29 11:29 | Inpatient (IN) | payer MEDICARE, MEDICAID ==
[~2019-01-29] VITALS: Ht 160 cm; Wt 79.7 kg
[~2019-01-29 11:29] MED LIST changes: -BARIUM SUSPENSION 2.1% (VANILLA SILQ) 450 ML PO ONE; +EZET10TA17 PO; -HOLD METFORMIN - RECEIVED CONTRAST 20 ML VIAL IV SCH; -IOHEXOL 350 MG/ML 100 ML (OMNIPAQUE 350) VIAL IV ONE; -NS 100 ML (IVPB) BAG IV ONE
[2019-01-29] MEDS ORDERED: RT-ALBUTEROL/IPRATROPIUM 3 ML (DUONEB) VIAL INH ONE (12:00)
[2019-01-29] MEDS ORDERED: HYDROcodone/APAP 7.5 MG/325 MG (LORTAB, LORCET PLUS) TABLET PO ONE (12:45)
[2019-01-29 12:50] LABS: BASOPHILS % (AUTO) 0 % (0-10); EOSINOPHILS # (AUTO) 0.1 10^3/uL (0.0-0.3); EOSINOPHILS % (AUTO) 0 % (0-10); HEMATOCRIT 33 % (35-52); HEMOGLOBIN 10.3 G/DL (11.5-16.0); LYMPHOCYTES # (AUTO) 2.1 X 10^3 (1.0-4.0); LYMPHOCYTES % (AUTO) 16 % (12-44); MEAN CORPUSCULAR HEMOGLOBIN 26 PG (25-34); MEAN CORPUSCULAR HGB CONC 31 G/DL (32-36); MEAN CORPUSCULAR VOLUME 84 FL (80-99); MEAN PLATELET VOLUME 9.7 FL (7.4-10.4); MONOCYTES # (AUTO) 1.7 X 10^3 (0.0-1.0); MONOCYTES % (AUTO) 12 % (0-12); NEUTROPHILS # (AUTO) 9.7 X 10^3 (1.8-7.8); NEUTROPHILS % (AUTO) 72 % (42-75); PLATELET COUNT 382 10^3/uL (130-400); RED CELL DISTRIBUTION WIDTH 17.4 % (10.0-14.5); WHITE BLOOD COUNT 13.6 10^3/uL (4.3-11.0)
[2019-01-29 13:04] LABS: INR 1.1 (0.8-1.4); PROTHROMBIN TIME PATIENT 14.6 SEC (12.2-14.7)
[2019-01-29 13:07] LABS: ALANINE AMINOTRANSFERASE 44 U/L (0-55); ALBUMIN 3.5 GM/DL (3.2-4.5); ALKALINE PHOSPHATASE 101 U/L (40-136); BILIRUBIN,TOTAL 0.3 MG/DL (0.1-1.0); BUN/CREATININE RATIO 11; CALCIUM 9.3 MG/DL (8.5-10.1); CARBON DIOXIDE 25 MMOL/L (21-32); CHLORIDE 99 MMOL/L (98-107); CREATININE SERUM 0.54 MG/DL (0.60-1.30); GFR ESTIMATED > 60; GLUCOSE 191 MG/DL (70-105); POTASSIUM 3.8 MMOL/L (3.6-5.0); SODIUM 135 MMOL/L (135-145); TOTAL PROTEIN 6.9 GM/DL (6.4-8.2)
[2019-01-29 13:20] LABS: BILIRUBIN,URINE NEGATIVE (NEGATIVE); CLARITY,URINE CLEAR; COLOR,URINE YELLOW; GLUCOSE, URINE (UA) 3+ (NEGATIVE); KETONES,URINE NEGATIVE (NEGATIVE); LEUKOCYTE ESTERASE ,URINE NEGATIVE (NEGATIVE); NITRITE,URINE NEGATIVE (NEGATIVE); PH,URINE 6.5 (5-9); PROTEIN,URINE NEGATIVE (NEGATIVE)
[2019-01-29 13:42] LABS: BACTERIA,URINE NEGATIVE /HPF; RBC,URINE RARE /HPF; SQUAMOUS EPITHELIAL CELL,UR RARE /HPF; WBC,URINE RARE /HPF
--- NOTE | 2019-01-29 13:55 | Diagnostic Imaging Report ---
INDICATION: Not feeling well, shortness of air, pneumonia. TECHNIQUE: Single view chest 1:30 PM. CORRELATION STUDY: 10/29/2018, CT chest 01/18/2019. FINDINGS: Heart size is relatively stable and within normal limits. Left-sided central line tip over the SVC stable. Increasing size of the masslike density about the left hilum and left upper lobe. There are otherwise chronic changes about the lung parenchyma. Pleural thickening along the lateral chest wall. IMPRESSION: 1. Increasing prominence of a left hilar and upper lobe masslike density. Coud be presence of enlarging mass versus surrounding consolidation. Followup imaging and/or correlation with repeat CT imaging would be recommended as clinically warranted. Dictated by: Dictated on workstation # [id number]
--- NOTE | 2019-01-29 13:59 | ED Cough/URI ---
General Chief Complaint: Cough/Cold/Flu Symptoms Stated Complaint: SOA;POSS PNEUMONIA Nursing Triage Note: Pt to Ed for cough that started Friday. Pt has been afebrile. Pt has hx of lung and bone cancer. Pt last took chemo last month. Sepsis Screen: No Definite Risk Source: patient Exam Limitations: no limitations History of Present Illness Date Seen by Provider: Jan 29, 2019 Time Seen by Provider: 13:57 Initial Comments To ER with generalized pain, left side of her head, chest, back, cough, shortness of breath. Most recent chemotherapy last month for lung cancer. Began feeling much worse than baseline today but has felt ill with poor appetite poor food and fluid intake since Friday. She has known lung cancer, metastases to the left side of her skull. Timing/Duration: constant, getting worse Severity/Quality: moderate Associated Symptoms: cough Allergies and Home Medications Allergies Coded Allergies: No Known Drug Allergies (Unverified , 10/21/18) Home Medications Acetaminophen 500 Mg Tablet, 1,000 MG PO Q6H PRN for PAIN-MILD, (Reported) TAKES 2 (500 MG) TABLETS Albuterol Sulfate 8.5 Gm Hfa.aer.ad, 1-2 PUFF IH Q4H PRN for SHORTNESS OF BREATH, (Reported) Aspirin 81 Mg Tablet.dr, 81 MG PO DAILY, (Reported) Atorvastatin Calcium 80 Mg Tablet, 80 MG PO DAILY, (Reported) Budesonide/Formoterol Fumarate 10.2 Gm Hfa.aer.ad, 2 PUFF INH BID, (Reported) Clopidogrel Bisulfate 75 Mg Tablet, 75 MG PO DAILY, (Reported) Ezetimibe 10 Mg Tablet, 10 MG PO DAILY, (Reported) Furosemide 20 Mg Tablet, 20 MG PO DAILY PRN for SWELLING, (Reported) Gabapentin 300 Mg Capsule, 300 MG PO HS, (Reported) Magnesium Oxide 400 Mg Capsule, 400 MG PO DAILY, (Reported) Pantoprazole Sodium 40 Mg Tablet.dr, 40 MG PO DAILY, (Reported) Potassium Chloride 10 Meq Tab.er.prt, 10 MEQ PO DAILY, (Reported) Roflumilast 500 Mcg Tablet, 500 MCG PO DAILY, (Reported) Umeclidinium Sunflower 62.5 Mcg Blst.w.dev, 62.5 MCG IH DAILY, (Reported) Patient Home Medication List Home Medication List Reviewed: Yes Review of Systems Review of Systems Constitutional: see HPI EENTM: see HPI Respiratory: no symptoms reported Cardiovascular: no symptoms reported Genitourinary: no symptoms reported Musculoskeletal: no symptoms reported Skin: no symptoms reported Psychiatric/Neurological: No Symptoms Reported Hematologic/Lymphatic: No Symptoms Reported Past Vhaocuy-Qncasg-Eepxhg Hx Patient Social History Alcohol Use: Denies Use Recreational Drug Use: No Smoking Status: Former Smoker Type Used: Cigarettes Former Smoker, Quit: Jan 08, 2017 2nd Hand Smoke Exposure: Yes Recent Foreign Travel: No Contact w/Someone Who Travel: No Recent Infectious Disease Expo: No Recent Hopitalizations: No Immunizations Up To Date Tetanus Booster (TDap): Unknown Date of Pneumonia Vaccine: Dec 25, 2017 Date of Influenza Vaccine: Dec 01, 2017 Seasonal Allergies Seasonal Allergies: No Past Medical History Surgeries: Yes Breast, Cardiac, Eye Surgery, Gallbladder, Hysterectomy Respiratory: Yes Pneumonia, COPD Currently Using CPAP: No Currently Using BIPAP: No Cardiac: Yes (CARDIAC CATHS X 2--2004 AND 2013--MODERATE DISEASE, NO INTERVENTION) Coronary Artery Disease, High Cholesterol Neurological: No 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, 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 Sexually Transmitted Disease: No HIV/AIDS: No Genitourinary: No Gastrointestinal: Yes (liver cancer) Gastroesophageal Reflux Musculoskeletal: Yes Arthritis, Chronic Back Pain Endocrine: No HEENT: Yes Cataract, Macular Degeneration Loss of Vision: Bilateral Hearing Impairment: Denies Cancer: Yes Lung, Skin Did You Recieve Any Treatments: Yes What Type of Treatment Did You: Chemotherapy, Radiation, Surgical Intervention Psychosocial: No Integumentary: Yes (skin lesion L wrist) Blood Disorders: No Adverse Reaction/Blood Tranf: No (N/A) Family Medical History Cancer 03 FATHER 09 SISTER (LUNG) Congestive heart failure 03 FATHER 03 MOTHER 09 SISTER 09 SISTER 09 SISTER Diabetes mellitus 03 FATHER 03 MOTHER Family history: Diabetes mellitus 03 MOTHER 09 SISTER 09 SISTER 09 SISTER Myocardial infarction 09 BROTHER Heart Disease, Cancer, Diabetes Physical Exam Vital Signs - First Documented 01/29/19 11:30 Temp 36.3 Pulse 119 Resp 15 B/P (MAP) 149/79 (102) Pulse Ox 89 O2 Delivery Room Air O2 Flow Rate 2.00 Capillary Refill : Less Than 3 Seconds Height: 5'3.00" Weight: 180lbs. 0.0oz. 81.148352pm; 30.00 BMI Method:Stated General Appearance: WD/WN, no apparent distress Eyes: Bilateral Eye Normal Inspection, Bilateral Eye PERRL, Bilateral Eye EOMI HEENT: PERRL/EOMI, normal ENT inspection Neck: non-tender, full range of motion Respiratory: no respiratory distress, no accessory muscle use Cardiovascular: no murmur, tachycardia Gastrointestinal: normal bowel sounds, soft Neurologic/Psychiatric: alert, normal mood/affect, oriented x 3 Skin: normal color, warm/dry Focused Exam Lactate Level 01/29/19 12:35: Lactic Acid Level 1.56 Lactic Acid Level Laboratory Tests Test 01/29/19 12:35 Lactic Acid Level 1.56 MMOL/L (0.50-2.00) Progress/Results/Core Measures Suspected Sepsis Recent Fever Within 48 Hours: No Infection Criteria Present: None New/Unexplained Altered Menta: No Sepsis Screen: No Definite Risk SIRS Temperature: Pulse: 119 Respiratory Rate: 15 Laboratory Tests 01/29/19 12:35: White Blood Count 13.6H Blood Pressure 149 /79 Mean: 102 01/29/19 12:35: Lactic Acid Level 1.56 Laboratory Tests 01/29/19 12:35: Creatinine 0.54L, INR Comment 1.1, Platelet Count 382, Total Bilirubin 0.3 Results/Orders Lab Results Laboratory Tests Test 01/29/19 12:35 01/29/19 13:10 Range/Units White Blood Count 13.6 H 4.3-11.0 10^3/uL Red Blood Count 3.94 L 4.35-5.85 10^6/uL Hemoglobin 10.3 L 11.5-16.0 G/DL Hematocrit 33 L 35-52 % Mean Corpuscular Volume 84 80-99 FL Mean Corpuscular Hemoglobin 26 25-34 PG Mean Corpuscular Hemoglobin Concent 31 L 32-36 G/DL Red Cell Distribution Width 17.4 H 10.0-14.5 % Platelet Count 382 130-400 10^3/uL Mean Platelet Volume 9.7 7.4-10.4 FL Neutrophils (%) (Auto) 72 42-75 % Lymphocytes (%) (Auto) 16 12-44 % Monocytes (%) (Auto) 12 0-12 % Eosinophils (%) (Auto) 0 0-10 % Basophils (%) (Auto) 0 0-10 % Neutrophils # (Auto) 9.7 H 1.8-7.8 X 10^3 Lymphocytes # (Auto) 2.1 1.0-4.0 X 10^3 Monocytes # (Auto) 1.7 H 0.0-1.0 X 10^3 Eosinophils # (Auto) 0.1 0.0-0.3 10^3/uL Basophils # (Auto) 0.0 0.0-0.1 10^3/uL Prothrombin Time 14.6 12.2-14.7 SEC INR Comment 1.1 0.8-1.4 Sodium Level 135 135-145 MMOL/L Potassium Level 3.8 3.6-5.0 MMOL/L Chloride Level 99 98-107 MMOL/L Carbon Dioxide Level 25 21-32 MMOL/L Anion Gap 11 5-14 MMOL/L Blood Urea Nitrogen 6 L 7-18 MG/DL Creatinine 0.54 L 0.60-1.30 MG/DL Estimat Glomerular Filtration Rate > 60 BUN/Creatinine Ratio 11 Glucose Level 191 H 70-105 MG/DL Lactic Acid Level 1.56 0.50-2.00 MMOL/L Calcium Level 9.3 8.5-10.1 MG/DL Corrected Calcium 9.7 8.5-10.1 MG/DL Total Bilirubin 0.3 0.1-1.0 MG/DL Aspartate Amino Transf (AST/SGOT) 64 H 5-34 U/L Alanine Aminotransferase (ALT/SGPT) 44 0-55 U/L Alkaline Phosphatase 101 40-136 U/L Total Protein 6.9 6.4-8.2 GM/DL Albumin 3.5 3.2-4.5 GM/DL Urine Color YELLOW Urine Clarity CLEAR Urine pH 6.5 5-9 Urine Specific [place] 1.020 1.016-1.022 Urine Protein NEGATIVE NEGATIVE Urine Glucose (UA) 3+ H NEGATIVE Urine Ketones NEGATIVE NEGATIVE Urine Nitrite NEGATIVE NEGATIVE Urine Bilirubin NEGATIVE NEGATIVE Urine Urobilinogen 0.2 < = 1.0 MG/DL Urine Leukocyte Esterase NEGATIVE NEGATIVE Urine RBC (Auto) NEGATIVE NEGATIVE Urine RBC RARE /HPF Urine WBC RARE /HPF Urine Squamous Epithelial Cells RARE /HPF Urine Crystals NONE /LPF Urine Bacteria NEGATIVE /HPF Urine Casts NONE /LPF Urine Mucus SMALL H /LPF Urine Culture Indicated NO My Orders Orders - DMITRY DODD APRN Cbc With Automated Diff (01/29/19 11:55) Comprehensive Metabolic Panel (01/29/19 11:55) Protime With Inr (01/29/19 11:55) Ekg Tracing (01/29/19 11:55) Ua Culture If Indicated (01/29/19 11:55) Ed Iv/Invasive Line Start (01/29/19 11:55) Blood Culture (01/29/19 11:55) Lactic Acid Analyzer (01/29/19 11:55) Albuterol/Ipra Inhalation Soln (Duoneb I (01/29/19 12:00) Svn Small Volume Nebulizer (01/29/19 11:55) Hydrocodone/Apap 7.5/325 Tab (Lortab 7. (01/29/19 12:45) Chest 1 View, Ap/Pa Only (01/29/19 13:09) Ct Angio Chest W (01/29/19 13:29) Ct Head Wo (01/29/19 13:52) Ns Iv 1000 Ml (Sodium Chloride 0.9%) (01/29/19 14:00) Iohexol Injection (Omnipaque 350 Mg/Ml 1 (01/29/19 14:00) Received Contrast (Hold Metformin- Contr (01/29/19 14:00) Sodium Chloride Flush (Catheter Flush Sy (01/29/19 14:00) Ns (Ivpb) (Sodium Chloride 0.9% Ivpb Bag (01/29/19 14:00) Fentanyl Injection (Sublimaze Injection (01/29/19 16:30) Medications Given in ED Current Medications Medications Dose Ordered Sig/Sarah Route Start Time Stop Time Status Last Admin Dose Admin Acetaminophen/ Hydrocodone Bitart 1 ea ONCE ONCE PO 01/29/19 12:45 01/29/19 12:46 DC 01/29/19 12:45 1 EA Albuterol/ Ipratropium 3 ml ONCE ONCE INH 01/29/19 12:00 01/29/19 12:01 DC 01/29/19 12:54 3 ML Fentanyl Citrate 50 mcg ONCE ONCE IVP 01/29/19 16:30 01/29/19 16:31 DC 01/29/19 16:44 50 MCG Iohexol 100 ml ONCE ONCE IV 01/29/19 14:00 01/29/19 14:01 DC 01/29/19 14:24 70 ML Sodium Chloride 10 ml NEEDED PRN IV 01/29/19 14:00 01/29/19 14:25 10 ML Sodium Chloride 100 ml ONCE ONCE IV 01/29/19 14:00 01/29/19 14:01 DC 01/29/19 14:25 80 ML Vital Signs/I&O 01/29/19 01/29/19 01/29/19 11:30 11:30 12:51 Temp 36.3 Pulse 119 Resp 15 B/P (MAP) 149/79 (102) Pulse Ox 89 95 O2 Delivery Room Air Nasal Cannula Nasal Cannula O2 Flow Rate 2.00 2.00 Capillary Refill : Less Than 3 Seconds Blood Pressure Mean: 102 POS Departure Communication (Admissions) Time/Spoke to Admitting Phy: 17:11 Patient feels she should be admitted, I won't disagree with this. Spoke with Dr. Bahena, we'll admit the patient, IV Zosyn, mat protocol, DO NOT RESUSCITATE status per her wishes that I just discussed with her and daughter at the bedside. We'll consult Dr. Shetty Impression Primary Impression: Metastatic lung cancer (metastasis from lung to other site) Additional Impression: Mucus plugging of bronchi Disposition: ADMITTED INPATIENT Condition: Stable Admissions Decision to Admit Reason: Admit from ER (General) Decision to Admit/Date: Jan 29, 2019 Time/Decision to Admit Time: 17:11 Departure-Patient Inst. Referrals: JESUS SMITH MD (PCP/Family) Primary Care Physician DMITRY DODD APRN Jan 29, 2019 13:59 POS
[2019-01-29] MEDS ORDERED: HOLD METFORMIN - RECEIVED CONTRAST 20 ML VIAL IV SCH (14:00)
[2019-01-29] MEDS ORDERED: NS IV 1000 ML 1,000 ML IV SCH (14:00)
[2019-01-29] MEDS ORDERED: NS 100 ML (IVPB) BAG IV ONE (14:00)
[2019-01-29] MEDS ORDERED: CATHETER FLUSH 10 ML SYR IV PRN ×2 (14:00→18:15)
[2019-01-29] MEDS ORDERED: IOHEXOL 350 MG/ML 100 ML (OMNIPAQUE 350) VIAL IV ONE (14:00)
--- NOTE | 2019-01-29 14:51 | Diagnostic Imaging Report ---
PROCEDURE: CT head without contrast. TECHNIQUE: Multiple contiguous axial images were obtained through the brain without the use of intravenous contrast. Auto Exposure Controls were utilized during the CT exam to meet ALARA standards for radiation dose reduction. INDICATION: Left-sided head pain. FINDINGS: The recent CT head exam performed on 01/25/2019 noted a scalp lesion in the left parietal lobe near the vertex of the skull. The underlying bone of the calvarium in this region showed permeative moth-eaten appearance, and this finding did raise the question of metastatic disease. By history, the patient does have a diagnosis of lung cancer. On this study, the soft tissue lesion involving the scalp and the altered appearance of the bony calvarium are again evident and no different. There is no intracranial mass, shift of the midline, or hemorrhage. The ventricles are not abnormally dilated and stable in size when compared to the prior exam. The orbits are symmetrical and within normal limits. The sinuses where visualized are clear. IMPRESSION: 1. The soft tissue mass involving the scalp over the left parietal bone and the permeative pattern of the underlying calvarium in this region seen on the prior study are again evident and no different. This finding is worrisome for neoplastic disease. I would concur with the recommendation of the previous exam that biopsy of the soft tissue component should be considered. If further imaging is desired, then MRI would be recommended. 2. There is no acute intracranial abnormality noted. 3. These results were discussed with Jamison Gutierres APRN. Dictated by: Dictated on workstation # [id number]
[2019-01-29] MEDS ORDERED: fentaNYL INJECTION 100 MCG/2 ML AMP IVP ONE (16:30)
--- NOTE | 2019-01-29 16:47 | Diagnostic Imaging Report ---
PROCEDURE: CT angiography of the chest with contrast. TECHNIQUE: Multiple contiguous axial images were obtained through the chest after uneventful bolus administration of intravenous contrast. 3D reconstructed CTA MIP acquisitions were also performed. Auto Exposure Controls were utilized during the CT exam to meet ALARA standards for radiation dose reduction. INDICATION: Chest pain and cough. Patient has known left lung carcinoma. Correlation is made with CT chest from 01/18/2019. FINDINGS: Evaluation of the pulmonary arterial system is without evidence of thromboembolism. No definite filling defects are seen within central, lobar or segmental branches. Thoracic aorta is normal caliber. There is no dissection. No pericardial fluid is seen. There is a small left pleural effusion, increased since most recent CT. No axillary lymphadenopathy is seen. Large mass in the AP window and extending towards the left hilum is again noted. Left hilar component appears enlarged now measuring 4.0 cm compared with 3.3 cm when measured by similar technique. AP window component measures 4.7 x 2.8 cm compared with 3.9 x 2.0 cm on prior. Left paratracheal component measures 2.6 cm compared with 2.4 cm. Pretracheal lymph node is 2.1 cm x 1.8 cm. Additional enlarged lymph nodes in the alessandra bilaterally are also seen. Left apical spiculated mass has enlarged measuring 3.3 cm compared with 2.4 cm. The left paramediastinal nodular pleural thickening has increased and measures up is 1.8 cm compared with 1.2 cm. There appears to be some either mucous plugging or tumor plugging of left upper lobe subsegmental bronchi. Centrilobular emphysematous changes in both lungs noted. There is a spiculated density in the right midlung, slightly more prominent on today's study. Additional linear areas of parenchymal density in the right upper and left upper lobes are noted consistent with some atelectasis or scarring. Lower lobes demonstrate subpleural opacity in the lateral portion of the left lower lobe, increased since the prior exam measuring 2.8 cm. This may represent areas of parenchymal consolidation or infiltrate. Upper abdomen again demonstrates low-density masses within the liver, not entirely included on today's study but the dominant lesion in the anterior right lobe measures approximately 6.1 cm compared with 5.3 cm. No adrenal mass is identified. IMPRESSION: There has been overall increase in size of the mediastinal and left hilar mass as well as spiculated left upper lobe mass when compared with examination performed approximately two weeks earlier. The hilar lymphadenopathy is increased. There is increasing left pleural fluid. There appears to be some mucous plugging or perhaps tumor plugging of the left upper lobe bronchi. No definite pulmonary emboli or evidence of aortic dissection is seen. There also appears to be some increase in size of the multiple liver lesions consistent with worsening metastatic disease. Dictated by: Dictated on workstation # [id number]
--- NOTE | 2019-01-29 17:50 | NUR ---
MELIZA NIEVES admitted to room 415-1, with an admitting diagnosis of mucus plugging of bronchi, met lung cancer, on 01/29/19 from ER via C[facility], accompanied by .MELIZA NIEVES introduced to surroundings, call light, bed controls, phone, TV, temperature control, lights, meal times, smoking policy, visitor policy, side rail policy, bathrooms and showers. Patient Rights given to patient in the handbook. MELIZA NIEVES verbalizes understanding that [facility] is not responsible for the loss or damage to any personal effects or valuables that are kept in the patients posession during their hospitalization. The following Patient Care Plans were discussed with the PT: Discharge Planning, PAIN, HIGH RISK BLEEDING, HIG RISK INFECTION, AND HIGH RISK INJURY. MELIZA NIEVES verbalizes understanding of Interdisciplinary Patient Education. Patient and/or family were informed about the Rapid Response Team and its purpose. CAME TO FLOOR FROM ER WITH [facility] IN L [facility] AND [facility] IN R -- PT'S FAMILY TO BRING HOME MED LIST TO FLOOR TOMORROW
[2019-01-29 18:10] VITALS: BP 132/60
[2019-01-29] MEDS ORDERED: PIPERACILLIN/TAZO 4.5 GM/NS 100 ML IV NR ×2 (18:15)
[2019-01-29] MEDS: NS IV 1000 ML 1,000 ML IV SCH (18:27)
[2019-01-29] MEDS: fentaNYL INJECTION 100 MCG/2 ML AMP IV PRN (20:12)
[2019-01-29 20:40] VITALS: BP 132/60
[2019-01-29] MEDS ORDERED: RT-ALBUTEROL SULF 2.5 MG/3 ML PRE-MIX VIAL INH PRN (20:45)
[2019-01-29 20:51] VITALS: BP 118/56
[2019-01-30] VITALS: BP 126/58
[2019-01-30] MEDS: RT-ALBUTEROL SULF 2.5 MG/3 ML PRE-MIX VIAL INH SCH ×6 (00:31→23:47)
[2019-01-30] MEDS: PIPERACILLIN/TAZO 4.5 GM/NS 100 ML IV SCH ×6 (02:07→16:09)
[2019-01-30] MEDS: fentaNYL INJECTION 100 MCG/2 ML AMP IV PRN ×3 (02:08→11:57)
[2019-01-30 04:00] VITALS: BP 137/58
[2019-01-30 04:37] LABS: BASOPHILS % (AUTO) 0 % (0-10); EOSINOPHILS # (AUTO) 0.1 10^3/uL (0.0-0.3); EOSINOPHILS % (AUTO) 0 % (0-10); HEMATOCRIT 31 % (35-52); HEMOGLOBIN 9.8 G/DL (11.5-16.0); LYMPHOCYTES # (AUTO) 2.7 X 10^3 (1.0-4.0); LYMPHOCYTES % (AUTO) 19 % (12-44); MEAN CORPUSCULAR HEMOGLOBIN 26 PG (25-34); MEAN CORPUSCULAR HGB CONC 32 G/DL (32-36); MEAN CORPUSCULAR VOLUME 83 FL (80-99); MEAN PLATELET VOLUME 9.4 FL (7.4-10.4); MONOCYTES # (AUTO) 2.6 X 10^3 (0.0-1.0); MONOCYTES % (AUTO) 18 % (0-12); NEUTROPHILS # (AUTO) 9.3 X 10^3 (1.8-7.8); NEUTROPHILS % (AUTO) 63 % (42-75); PLATELET COUNT 380 10^3/uL (130-400); WHITE BLOOD COUNT 14.7 10^3/uL (4.3-11.0)
[2019-01-30 04:54] LABS: ALANINE AMINOTRANSFERASE 36 U/L (0-55); ALBUMIN 3.3 GM/DL (3.2-4.5); ALKALINE PHOSPHATASE 96 U/L (40-136); BILIRUBIN,TOTAL 0.5 MG/DL (0.1-1.0); BUN/CREATININE RATIO 7; CALCIUM 8.6 MG/DL (8.5-10.1); CARBON DIOXIDE 23 MMOL/L (21-32); CHLORIDE 101 MMOL/L (98-107); CREATININE SERUM 0.56 MG/DL (0.60-1.30); GFR ESTIMATED > 60; GLUCOSE 155 MG/DL (70-105); POTASSIUM 3.6 MMOL/L (3.6-5.0); SODIUM 135 MMOL/L (135-145); TOTAL PROTEIN 6.7 GM/DL (6.4-8.2)
[2019-01-30] MEDS ORDERED: NS IV 500 ML 500 ML IV SCH (05:30)
--- NOTE | 2019-01-30 05:35 | NUR ---
PT FLAGGING FOR SEPSIS. TAMY NOTIFIED VIA PHONE. ORDERS FOR 500ML FLUID BOLUS OBTAINED.
[2019-01-30] MEDS: NS IV 1000 ML 1,000 ML IV SCH ×2 (06:12→20:17)
[2019-01-30 06:43] LABS: LYMPHOCYTES % (MANUAL) 16 %; MONOCYTES % (MANUAL) 11 %; NEUTROPHILS % (MANUAL) 73 %
[2019-01-30 07:55] VITALS: BP 118/56
--- NOTE | 2019-01-30 08:36 | Diagnostic Imaging Report ---
EXAMINATION: Chest 1 view HISTORY: Lung cancer. COMPARISON: 01/29/2019 FINDINGS: Stable configuration of a left port. Stable consolidative opacities in the left perihilar region and left upper lobe, consistent with a history of lung cancer. Increased platelike atelectasis is seen in the right lung. Stable small left pleural effusion. No large pneumothorax. Stable cardiac silhouette. No acute osseous abnormalities. IMPRESSION: 1. Stable masses in the left upper lobe and left perihilar region, consistent with a history of lung cancer. 2. Stable small left pleural effusion. 3. Increased platelike atelectasis in the right midlung. Dictated by: Dictated on workstation # [id number]
[2019-01-30] MEDS ORDERED: mvi PO (09:46)
[2019-01-30] MEDS ORDERED: ACHD5005 PO (09:48)
[2019-01-30 11:13] VITALS: BP 109/57
--- NOTE | 2019-01-30 11:23 | History & Physical-Hospitalist ---
History of Present Illness HPI/Chief Complaint Patient is a 78-year-old female with known metastatic lung cancer and COPD presented to the emergency department with chief complaint of generalized weakness and shortness of breath. She reports she has not been feeling well for a few days and was seen in the cancer center yesterday in preparation for starti ng radiation for metastatic bone disease in her school on Friday. On the drive home she decided she felt too poorly and decided to return to the emergency room. She was found to have mucus plugging and worsening mass in her lung where there is known cancer. She is currently on palliative chemotherapy. She also has known lymph node and liver metastatic disease. Source: patient, family Date Seen 01/30/19 Time Seen by a Provider: 11:22 Attending Physician Abelardo Yo MD PCP Ramesh Sampson MD Referring Physician Date of Admission Jan 29, 2019 at 17:20 Home Medications & Allergies Home Medications Reviewed patient Home Medication Reconciliation performed by pharmacy medication reconciliations waste minimization technician and/or nursing. Patients Allergies have been reviewed. Allergies Allergies Coded Allergies No Known Drug Allergies (Unverified10/21/18) Past Jozxtve-Cqfain-Ezkaxp Hx Past Med/Social Hx: Reviewed Nursing Past Med/Soc Hx Patient Social History Alcohol Use: Denies Use Recreational Drug Use: No Smoking Status: Former Smoker Former Smoker, Quit: Jan 08, 2017 Type Used: Cigarettes 2nd Hand Smoke Exposure: Yes Recent Foreign Travel: No Contact w/other who traveled: No Recent Hopitalizations: No Recent Infectious Disease Expo: No Immunizations Up To Date Tetanus Booster (TDap): Unknown Date of Pneumonia Vaccine: Dec 25, 2017 Date of Influenza Vaccine: Nov 24, 2018 Seasonal Allergies Seasonal Allergies: No Past Medical History Surgeries: Breast, Cardiac, Eye Surgery, Gallbladder, Hysterectomy Respiratory: COPD Currently Using CPAP: No Currently Using BIPAP: No Cardiac: Coronary Artery Disease, High Cholesterol Reproductive: Yes Sexually Transmitted Disease: No HIV/AIDS: No Hysterectomy, Menopausal Gastrointestinal: Gastroesophageal Reflux Musculoskeletal: Arthritis, Chronic Back Pain HEENT: Cataract, Macular Degeneration Loss of Vision: Bilateral Hearing Impairment: Denies Cancer: Lung, Skin Did You Recieve Any Treatments: Yes What Type of Treatment Did You: Chemotherapy, Radiation, Surgical Intervention History of Blood Disorders: No Adverse Reaction to Blood Florentino: No (N/A) Family History Cancer 03 FATHER 09 SISTER (LUNG) Congestive heart failure 03 FATHER 03 MOTHER 09 SISTER 09 SISTER 09 SISTER Diabetes mellitus 03 FATHER 03 MOTHER Family history: Diabetes mellitus 03 MOTHER 09 SISTER 09 SISTER 09 SISTER Myocardial infarction 09 BROTHER Heart Disease, Cancer, Diabetes Review of Systems Constitutional: fever, malaise, weakness EENTM: no symptoms reported Respiratory: cough, dyspnea on exertion, short of breath Cardiovascular: No chest pain, No palpitations Gastrointestinal: diarrhea Genitourinary: no symptoms reported Musculoskeletal: back pain, joint pain, muscle weakness Skin: no symptoms reported Psychiatric/Neurological: No Symptoms Reported Physical Exam Physical Exam Vital Signs Vital Signs - First Documented 01/29/19 01/29/19 11:30 20:40 Temp 36.3 Pulse 119 Resp 15 B/P (MAP) 149/79 (102) Pulse Ox 89 O2 Delivery Room Air O2 Flow Rate 2.00 FiO2 28 Capillary Refill : Less Than 3 Seconds Height, Weight, BMI Height: 5'3.00" Weight: 180lbs. 0.0oz. 81.161274xx; 31.13 BMI Method:Stated General Appearance: No Apparent Distress, Chronically ill Neck: Normal Inspection, Supple Respiratory: No Accessory Muscle Use, No Respiratory Distress, Decreased Breath Sounds, Rales Cardiovascular: Regular Rate, Rhythm, No Murmur Gastrointestinal: Normal Bowel Sounds, Non Tender, Soft Extremity: Normal Capillary Refill, No Calf Tenderness, No Pedal Edema Neurologic/Psychiatric: Alert, Oriented x3; No Aphasia, No Facial Droop Skin: Normal Color, Warm/Dry Results Results/Procedures Labs Laboratory Tests 01/30/19 04:32 01/31/19 07:29 Patient resulted labs reviewed. Assessment/Plan Admission Diagnosis Pneumonia Admission Status: Inpatient Order (span 2 midnights) Reason for Inpatient Admission: high risk pneumonia duet o copd and being on chemo. Will need at least 48 hours of antibiotics and possiby a bronchoscopy prior to discharge Assessment and Plan Pneumonia Mucus Plugging COPD Continue Zosyn Pulm Consulted,appreciate recs MAT protocol Cultures as above Metastatic Lung Cancer lung mass worsened since last scan 2 weeks agos likely causing postobstructive pneumonia Currently on palliative chemo and radiation Pt states her granddaughter has talked to her about hospice but she's unsure if it's time for that as she wants the radiation for her headaches Reports significant pain fom bony mets- will ass MS Contin for baseline pain control Weakness Will need PT/OT Diagnosis/Problems Diagnosis/Problems (1) Metastatic lung cancer (metastasis from lung to other site) Status: Acute (2) Mucus plugging of bronchi Status: Acute (3) Pneumonia Status: Acute (4) Lung cancer Status: Chronic Clinical Quality Measures DVT/VTE Risk/Contraindication: Risk Factor Score Per Nursin RFS Level Per Nursing on Admit: 4+=Very High ABELARDO YO MD Jan 30, 2019 11:22 POS
[2019-01-30] MEDS ORDERED: morphine ER 15 MG (MS CONTIN) TAB PO NR (12:00)
[2019-01-30] MEDS ORDERED: FUROSEMIDE 20 MG (LASIX) TAB PO PRN (13:00)
[2019-01-30] MEDS ORDERED: ACETAMINOPHEN 500 MG TAB (TYLENOL) PO PRN (13:30)
--- NOTE | 2019-01-30 14:14 | Pulmonary Consultation ---
History of Present Illness History of Present Illness Date Seen by Provider: Jan 30, 2019 Time Seen by Provider: 14:08 Date of Admission History of Present Illness 78yo with hx of metastatic lung cancer presented to ED secondary to worsening SOB and generalized weakness. Pt has seen cancer center and getting prepped for radiation secondary to metastatic lung cancer to bones She also has known lymph node and liver metastatic disease.. Pt was admitted secondary to worsening respiratory distress and mucous plugging. She is currently on palliative chemotherapy. Allergies and Home Medications Allergies Coded Allergies: No Known Drug Allergies (Unverified , 10/21/18) Home Medications Acetaminophen 500 Mg Tablet, 1,000 MG PO Q6H PRN for PAIN-MILD, (Reported) TAKES 2 (500 MG) TABLETS Albuterol Sulfate 8.5 Gm Hfa.aer.ad, 1-2 PUFF IH Q4H PRN for SHORTNESS OF BREATH, (Reported) Aspirin 81 Mg Tablet.dr, 81 MG PO DAILY, (Reported) Atorvastatin Calcium 80 Mg Tablet, 80 MG PO DAILY, (Reported) Budesonide/Formoterol Fumarate 10.2 Gm Hfa.aer.ad, 2 PUFF INH BID, (Reported) Cefdinir 300 Mg Capsule, 300 MG PO BID Prescribed by: CATHERINE CLEVELAND on 02/01/19 1437 Clopidogrel Bisulfate 75 Mg Tablet, 75 MG PO DAILY, (Reported) Ezetimibe 10 Mg Tablet, 10 MG PO DAILY, (Reported) Furosemide 20 Mg Tablet, 20 MG PO DAILY PRN for SWELLING, (Reported) Gabapentin 300 Mg Capsule, 300 MG PO HS, (Reported) Hydrocodone/Acetaminophen 1 Each Tablet, 1 TAB PO Q4H PRN for PAIN-MODERATE (5- 7), (Reported) Magnesium Oxide 400 Mg Capsule, 400 MG PO DAILY, (Reported) Multivitamin 1 Each Tablet, 1 EACH PO DAILY, (Reported) Pantoprazole Sodium 40 Mg Tablet.dr, 40 MG PO DAILY, (Reported) Potassium Chloride 10 Meq Tab.er.prt, 10 MEQ PO DAILY, (Reported) Roflumilast 500 Mcg Tablet, 500 MCG PO DAILY, (Reported) Umeclidinium [place] 62.5 Mcg Blst.w.dev, 1 PUFF IH DAILY, (Reported) Past Kpzanws-Oypizz-Frbrcd Hx Patient Social History Alcohol Use: Denies Use Recreational Drug Use: No Smoking Status: Former Smoker Type Used: Cigarettes Former Smoker, Quit: Jan 08, 2017 2nd Hand Smoke Exposure: Yes Recent Foreign Travel: No Contact w/Someone Who Travel: No Recent Infectious Disease Expo: No Recent Hopitalizations: No Immunizations Up To Date Tetanus Booster (TDap): Unknown Date of Pneumonia Vaccine: Dec 25, 2017 Date of Influenza Vaccine: Nov 24, 2018 Seasonal Allergies Seasonal Allergies: No Past Medical History Surgeries: Yes Breast, Cardiac, Eye Surgery, Gallbladder, Hysterectomy Respiratory: Yes Pneumonia, COPD Currently Using CPAP: No Currently Using BIPAP: No Cardiac: Yes (CARDIAC CATHS X 2--2004 AND 2013--MODERATE DISEASE, NO INTERVENTION) Coronary Artery Disease, High Cholesterol Neurological: No Reproductive Disorders: Yes [employer] History: Hysterectomy, Menopausal Sexually Transmitted Disease: No HIV/AIDS: No Genitourinary: No Gastrointestinal: Yes (liver cancer) Gastroesophageal Reflux Musculoskeletal: Yes Arthritis, Chronic Back Pain Endocrine: No HEENT: Yes Cataract, Macular Degeneration Loss of Vision: Bilateral Hearing Impairment: Denies Cancer: Yes Lung, Skin Did You Recieve Any Treatments: Yes What Type of Treatment Did You: Chemotherapy, Radiation, Surgical Intervention Psychosocial: No Integumentary: Yes (skin lesion L wrist) Blood Disorders: No Adverse Reaction/Blood Tranf: No (N/A) Family Medical History Cancer 03 FATHER 09 SISTER (LUNG) Congestive heart failure 03 FATHER 03 MOTHER 09 SISTER 09 SISTER 09 SISTER Diabetes mellitus 03 FATHER 03 MOTHER Family history: Diabetes mellitus 03 MOTHER 09 SISTER 09 SISTER 09 SISTER Myocardial infarction 09 BROTHER Heart Disease, Cancer, Diabetes Review of Systems Time Seen by Provider: 14:17 Sepsis Event Evaluation Height, Weight, BMI Height: 5'3.00" Weight: 180lbs. 0.0oz. 81.856081tv; 31.13 BMI Method:Stated Exam Exam Vital Signs Date Time Temp Pulse Resp B/P (MAP) Pulse Ox O2 Delivery O2 Flow Rate FiO2 01/30/19 11:13 36.6 112 20 109/57 (74) 93 Nasal Cannula 1.50 01/30/19 08:00 94 Nasal Cannula 1.50 01/30/19 07:55 36.6 112 20 118/56 (76) 96 Nasal Cannula 1.50 01/30/19 04:00 36.4 120 20 137/58 (84) 95 Nasal Cannula 1.50 01/30/19 02:44 90 Nasal Cannula 2.00 01/30/19 00:00 36.6 115 20 126/58 (80) 93 Nasal Cannula 1.50 01/29/19 20:51 37.5 119 24 118/56 (76) 94 Nasal Cannula 1.50 01/29/19 20:40 37.8 129 95 28 01/29/19 20:00 94 Nasal Cannula 1.50 01/29/19 18:10 37.8 129 24 132/60 95 Nasal Cannula 1.50 01/29/19 17:50 95 Nasal Cannula 1.50 01/29/19 17:45 36.3 115 15 151/81 (102) 94 Nasal Cannula 2.00 I & O 01/30/19 07:00 Intake Total 2640 ml Output Total 1350 ml Balance 1290 ml Height & Weight Height: 5'3.00" Weight: 180lbs. 0.0oz. 81.106989xs; 31.13 BMI Method:Stated General Appearance: Anxious, Mild Distress HEENT: PERRL/EOMI, Pharynx Normal Neck: Full Range of Motion, Non Tender, Supple Respiratory: No Accessory Muscle Use, No Respiratory Distress, Crackles, Decreased Breath Sounds Cardiovascular: Regular Rate, Rhythm, No Edema Capillary Refill: Less Than 3 Seconds Gastrointestinal: normal bowel sounds, soft Extremity: Normal Capillary Refill, No Pedal Edema Neurologic/Psychiatric: Alert Skin: Normal Color Lymphatic: No Adenopathy Results Lab Laboratory Tests 01/29/19 12:35 01/30/19 04:32 Assessment/Plan Assessment/Plan Acute worsening SOB secondary to metastatic lung cancer -02 -Duonebs Postobstructive pneumonia with mucous plugging -Continue Zosyn -Hopper cultures pending -Mucinex -Duonebs add mucomyst -IS Metastatic state 4 lung cancer -Pt is ungergoing pallative chemo and getting ready to start radiation SHAWNEE NARAYAN DO Jan 30, 2019 14:13
[2019-01-30] MEDS ORDERED: MILK OF MAGNESIA 400 MG/5 ML 30 ML UDC PO PRN (15:30)
[2019-01-30] MEDS ORDERED: ONDANSETRON 4 MG/2 ML (SDV) Z0FRAN IV PRN (15:30)
[2019-01-30] MEDS ORDERED: ANTACID SUSP 30 ML UDC (MYLANTA) PO PRN (15:30)
[2019-01-30] MEDS ORDERED: BENZONATATE 100 MG (TESSALON) CAPSULE PO PRN (15:30)
[2019-01-30] MEDS ORDERED: BISACODYL 10 MG SUPP (DULCOLAX) PR PRN (15:30)
[2019-01-30] MEDS ORDERED: ACETAMINOPHEN 325 MG TABLET PO PRN (15:30)
[2019-01-30] MEDS ORDERED: MELATONIN 3 MG TABLET PO PRN (15:30)
[2019-01-30 16:00] VITALS: BP 125/82
[2019-01-30] MEDS: RT-ADVAIR HFA 45/21 MCG PER PUFF IH SCH (19:19)
[2019-01-30] MEDS: aCETylcysteine 20% (MUCOMYST) 30ML SOLN VIAL INH SCH ×2 (19:21→23:48)
[2019-01-30 20:00] VITALS: BP 110/56
[2019-01-30] MEDS: GABAPENTIN 300 MG (NEURONTIN) CAP PO SCH (20:16)
[2019-01-30] MEDS: morphine ER 15 MG (MS CONTIN) TAB PO SCH (20:16)
[2019-01-31] VITALS: BP 96/58
[2019-01-31] MEDS: PIPERACILLIN/TAZO 4.5 GM/NS 100 ML IV SCH ×6 (01:20→16:17)
[2019-01-31] MEDS: RT-ALBUTEROL SULF 2.5 MG/3 ML PRE-MIX VIAL INH SCH ×4 (03:10→13:52)
[2019-01-31] MEDS: aCETylcysteine 20% (MUCOMYST) 30ML SOLN VIAL INH SCH ×5 (03:10→19:19)
--- NOTE | 2019-01-31 05:14 | Pulmonary Progress Note ---
Subjective Time Seen by a Provider: 13:36 Sepsis Event Evaluation Height, Weight, BMI Height: 5'3.00" Weight: 180lbs. 0.0oz. 81.585136ii; 31.13 BMI Method:Stated Focused Exam Lactate Level 01/29/19 12:35: Lactic Acid Level 1.56 Exam Exam Vital Signs Date Time Temp Pulse Resp B/P (MAP) Pulse Ox O2 Delivery O2 Flow Rate FiO2 01/31/19 03:10 90 Nasal Cannula 2.00 01/31/19 00:00 36.9 101 24 96/58 (71) 93 Nasal Cannula 1.50 01/30/19 23:48 90 Nasal Cannula 1.50 01/30/19 20:15 Nasal Cannula 2.00 01/30/19 20:00 36.4 123 22 110/56 (74) 94 Nasal Cannula 1.50 01/30/19 19:41 90 2.00 01/30/19 19:21 90 Nasal Cannula 1.50 01/30/19 16:00 37.5 133 22 125/82 (96) 93 Nasal Cannula 1.50 01/30/19 14:52 95 Nasal Cannula 2.00 01/30/19 11:13 36.6 112 20 109/57 (74) 93 Nasal Cannula 1.50 01/30/19 08:00 94 Nasal Cannula 1.50 01/30/19 07:55 36.6 112 20 118/56 (76) 96 Nasal Cannula 1.50 I & O 01/31/19 07:00 Intake Total 1890 ml Output Total 800 ml Balance 1090 ml Height & Weight Height: 5'3.00" Weight: 180lbs. 0.0oz. 81.628781ls; 31.13 BMI Method:Stated General Appearance: Anxious, Mild Distress, Moderate Distress HEENT: PERRL/EOMI, Pharynx Normal Neck: Full Range of Motion, Non Tender, Supple Respiratory: Chest Non Tender, No Respiratory Distress, Crackles, Decreased Breath Sounds Cardiovascular: Regular Rate, Rhythm, No Edema Capillary Refill: Less Than 3 Seconds Gastrointestinal: normal bowel sounds, soft Extremity: Normal Capillary Refill, Normal Inspection Neurologic/Psychiatric: Alert, Oriented x3 Skin: Normal Color, Warm/Dry Lymphatic: No Adenopathy Results Lab Laboratory Tests 01/29/19 12:35 01/30/19 04:32 Assessment/Plan Assessment/Plan Acute worsening SOB secondary to metastatic lung cancer -02 -Duonebs Postobstructive pneumonia with mucous plugging -Continue Zosyn -repeat CXR pending -Hopper cultures pending -Mucinex -Duonebs add mucomyst -IS Metastatic state 4 lung cancer -Pt is under going pallative chemo and getting ready to start radiation SHAWNEE NARAYAN DO Jan 31, 2019 05:14
[2019-01-31 07:37] LABS: HEMOGLOBIN 9.6 G/DL (11.5-16.0); RED CELL DISTRIBUTION WIDTH 17.8 % (10.0-14.5); WHITE BLOOD COUNT 12.2 10^3/uL (4.3-11.0)
[2019-01-31] MEDS: KCL 10 MEQ TAB (MICRO K) PO SCH (07:37)
[2019-01-31] MEDS: ROFLUMILAST 500 MCG TAB (DALIRESP) PO SCH (07:37)
[2019-01-31] MEDS: morphine ER 15 MG (MS CONTIN) TAB PO SCH ×2 (07:37→20:30)
[2019-01-31] MEDS: CLOPIDOGREL 75 MG (PLAVIX) TABLET PO SCH (07:37)
[2019-01-31] MEDS: PANTOPRAZOLE 40 MG (PROTONIX) TAB PO SCH (07:37)
[2019-01-31] MEDS: ASPIRIN E.C. 81 MG (ECOTRIN) TAB PO SCH (07:37)
[2019-01-31] MEDS: eZETimibe 10 MG (ZETIA) TABLET PO SCH (07:37)
[2019-01-31 07:39] VITALS: BP 105/63
[2019-01-31 07:53] LABS: BUN/CREATININE RATIO 6; CALCIUM 8.5 MG/DL (8.5-10.1); CARBON DIOXIDE 25 MMOL/L (21-32); CHLORIDE 100 MMOL/L (98-107); CREATININE SERUM 0.54 MG/DL (0.60-1.30); GFR ESTIMATED > 60; GLUCOSE 162 MG/DL (70-105); POTASSIUM 3.3 MMOL/L (3.6-5.0); SODIUM 138 MMOL/L (135-145)
[2019-01-31] MEDS: RT-ADVAIR HFA 45/21 MCG PER PUFF IH SCH (10:01)
[2019-01-31] MEDS: UMECLIDINIUM BROMIDE (INCRUSE ELLIPTA) 7'S IH SCH (10:02)
--- NOTE | 2019-01-31 11:27 | Progress Note - Hospitalist ---
Subjective HPI/CC On Admission Date Seen by Provider: Jan 31, 2019 Time Seen by Provider: 10:30 Patient is a 78-year-old female with known metastatic lung cancer and COPD presented to the emergency department with chief complaint of generalized weakness and shortness of breath. She reports she has not been feeling well for a few days and was seen in the cancer center yesterday in preparation for starting radiation for metastatic bone disease in her school on Friday. On the drive home she decided she felt too poorly and decided to return to the emergency room. She was found to have mucus plugging and worsening mass in her lung where there is known cancer. She is currently on palliative chemotherapy. She also has known lymph node and liver metastatic disease. Subjective/Events-last exam She reports feeling better today. She is breathing better this morning. She denies any fevers or chills. She is having a cough. Focused Exam Lactate Level 01/29/19 12:35: Lactic Acid Level 1.56 Objective Exam Vital Signs Vital Signs Date Time Temp Pulse Resp B/P (MAP) Pulse Ox O2 Delivery O2 Flow Rate FiO2 01/31/19 10:11 95 2.00 01/31/19 10:06 Nasal Cannula 01/31/19 07:39 36.6 111 20 105/63 (77) 01/29/19 20:40 28 Capillary Refill : Less Than 3 Seconds General Appearance: No Apparent Distress, Chronically ill HEENT: PERRL/EOMI, Pharynx Normal Neck: Normal Inspection, Supple Respiratory: Lungs Clear, Normal Breath Sounds, No Respiratory Distress Cardiovascular: Regular Rate, Rhythm, No Edema, No Murmur Gastrointestinal: Normal Bowel Sounds, Non Tender, Soft Extremity: Normal Inspection, Non Tender, No Pedal Edema Neurologic/Psychiatric: Alert, Oriented x3, No Motor/Sensory Deficits, Normal Mood/Affect Skin: Warm/Dry, Pallor Results/Procedures Lab Laboratory Tests 01/31/19 07:29 Patient resulted labs reviewed. Imaging: Reviewed Imaging Report Assessment/Plan Assessment and Plan Assess & Plan/Chief Complaint Mucus plugging Possible pneumonia Metastatic lung cancer COPD -MAT protocol -Zosyn for possible pneumonia -Add on procalcitonin -Pulm following DVT Prophylaxis: Lovenox Diagnosis/Problems Diagnosis/Problems (1) Mucus plugging of bronchi Status: Acute (2) Metastatic lung cancer (metastasis from lung to other site) Status: Acute Clinical Quality Measures DVT/VTE Risk/Contraindication: Risk Factor Score Per Nursin RFS Level Per Nursing on Admit: 4+=Very High CATHERINE CLEVELAND MD Jan 31, 2019 11:27 POS
[2019-01-31 11:57] LABS: MAGNESIUM 1.8 MG/DL (1.6-2.4)
[2019-01-31] MEDS: ENOXAPARIN 40 MG/0.4 ML (LOVENOX) SYR SC SCH (13:58)
[2019-01-31 16:00] VITALS: BP 108/62
[2019-01-31] MEDS: NS IV 1000 ML 1,000 ML IV SCH (16:18)
[2019-01-31] MEDS: GABAPENTIN 300 MG (NEURONTIN) CAP PO SCH (20:29)
[2019-02-01] MEDS: RT-ALBUTEROL SULF 2.5 MG/3 ML PRE-MIX VIAL INH SCH ×5 (00:37→14:39)
[2019-02-01] MEDS: NS IV 1000 ML 1,000 ML IV SCH ×2 (01:41→13:33)
[2019-02-01] MEDS: PIPERACILLIN/TAZO 4.5 GM/NS 100 ML IV SCH ×4 (01:41→09:47)
[2019-02-01] MEDS: aCETylcysteine 20% (MUCOMYST) 30ML SOLN VIAL INH SCH ×5 (03:53→14:39)
[2019-02-01 06:19] LABS: BASOPHILS % (AUTO) 0 % (0-10); EOSINOPHILS # (AUTO) 0.2 10^3/uL (0.0-0.3); EOSINOPHILS % (AUTO) 2 % (0-10); HEMATOCRIT 27 % (35-52); HEMOGLOBIN 8.6 G/DL (11.5-16.0); LYMPHOCYTES # (AUTO) 1.9 X 10^3 (1.0-4.0); LYMPHOCYTES % (AUTO) 20 % (12-44); MEAN CORPUSCULAR HEMOGLOBIN 26 PG (25-34); MEAN CORPUSCULAR HGB CONC 32 G/DL (32-36); MEAN CORPUSCULAR VOLUME 83 FL (80-99); MEAN PLATELET VOLUME 9.3 FL (7.4-10.4); MONOCYTES # (AUTO) 1.6 X 10^3 (0.0-1.0); MONOCYTES % (AUTO) 17 % (0-12); NEUTROPHILS # (AUTO) 5.6 X 10^3 (1.8-7.8); NEUTROPHILS % (AUTO) 60 % (42-75); PLATELET COUNT 353 10^3/uL (130-400); RED CELL DISTRIBUTION WIDTH 17.4 % (10.0-14.5); WHITE BLOOD COUNT 9.3 10^3/uL (4.3-11.0)
[2019-02-01 06:41] LABS: BUN/CREATININE RATIO 4; CALCIUM 8.1 MG/DL (8.5-10.1); CARBON DIOXIDE 27 MMOL/L (21-32); CHLORIDE 101 MMOL/L (98-107); CREATININE SERUM 0.51 MG/DL (0.60-1.30); GFR ESTIMATED > 60; GLUCOSE 148 MG/DL (70-105); SODIUM 137 MMOL/L (135-145)
[2019-02-01] MEDS: KCL 10 MEQ TAB (MICRO K) PO SCH (06:55)
[2019-02-01] MEDS: RT-ADVAIR HFA 45/21 MCG PER PUFF IH SCH (07:00)
[2019-02-01] MEDS: UMECLIDINIUM BROMIDE (INCRUSE ELLIPTA) 7'S IH SCH (07:00)
[2019-02-01 08:00] VITALS: BP 114/52
[2019-02-01] MEDS ORDERED: HYDR-3812 PO (09:13)
[2019-02-01] MEDS ORDERED: MULT1TAB69 PO (09:15)
--- NOTE | 2019-02-01 09:18 | NUR ---
SPOKE WITH PT, SHE DID NOT HAVE A MED LIST OR BOTTLES BUT I WENT THRU THE EXT MED HISTORY WITH HER TO COMPLETE THE MED REC. PT WAS ABLE TO TELL ME HOW/WHEN SHE TAKES HER MEDS AND THEY MATCHED THE DIRECTIONS AND FILL DATES FROM [facility]. ALL MEDS ARE LISTED ON THE EXT MED HISTORY. OTC MEDS: APAP ASA MAG OX MTV
[2019-02-01] MEDS: morphine ER 15 MG (MS CONTIN) TAB PO SCH (09:47)
[2019-02-01] MEDS: PANTOPRAZOLE 40 MG (PROTONIX) TAB PO SCH (09:47)
[2019-02-01] MEDS: ROFLUMILAST 500 MCG TAB (DALIRESP) PO SCH (09:47)
[2019-02-01] MEDS: CLOPIDOGREL 75 MG (PLAVIX) TABLET PO SCH (09:47)
[2019-02-01] MEDS: ASPIRIN E.C. 81 MG (ECOTRIN) TAB PO SCH (09:47)
[2019-02-01] MEDS: eZETimibe 10 MG (ZETIA) TABLET PO SCH (09:48)
--- NOTE | 2019-02-01 10:02 | NUR ---
SPO2 95% ON O2 @ 2 LPM. PLACED ON SB. PT DROPPED TO 88% ON ROOM AIR @ REST AFTER 4 MINUTES. REPLACED O2 @ 2 LPM. SPO2 INCREASED TO 91%. Addendum: 02/01/19 at 1014 by VIKKI ACEVEDO RT Amended: Links added.
--- NOTE | 2019-02-01 12:18 | NUR ---
RD ASSESSMENT PMHx: COPD; CAD; GERD; metastatic lung CA; hypercholesterolemia PT INTERACTION: Pt was awake and pleasant during nutrition assessment. Pt states current appetite is not good and has been this way for "quite some time." Note pt avg PO intake is 50% x2d, per chart review. Pt states following a regular diet at home, and has no issues with chewing/swallowing at this time. Pt states having some episodes of nausea, but no episodes of emesis. Pt states having episodes of diarrhea on 01/31. Note last BM was 01/30 and pt currently on bowel regimen of bisacodyl PRN, per chart review. Pt states no recent wt changes. Note recent 4# wt loss x3mon, per chart review. ABNORMAL NUTRITION-RELATED LAB VALUES LOW: K 3.0; BUN 2; cr 0.51; Ca 8.1 HIGH: glu 148 Est. kcal needs: 7805-7392 kcal | 20-25 kcal/kg Est. Pro needs: 64-80 g Pro | 0.8-1.0 g Pro/kg PES STATEMENT: Inadequate oral intake (NI-2.1) related to loss of appetite | nausea | diarrhea as evidenced by pt interview | avg PO intake 50% x2d INTERVENTION: Continue with current diet order of Regular diet. Add Ensure Enlive to meals BID. Provides 350 kcal and 13 g Pro per serving. Will continue to follow and reassess as pt needs and status change. MONITOR/EVALUATE: PO Intake; Plan of Care; Hydration Status; Weight Status; Lab Values Sommer Horowitz, MS, RD, LD
[2019-02-01] MEDS: ENOXAPARIN 40 MG/0.4 ML (LOVENOX) SYR SC SCH (13:32)
[2019-02-01] MEDS ORDERED: CEFD300C3 PO (14:37)
[2019-02-01] MEDS ORDERED: CEFDINIR 300 MG (OMNICEF) CAP PO NR (14:45)
[2019-02-01 15:15] VITALS: BP 99/60
--- NOTE | 2019-02-01 15:56 | Discharge Summary ---
Discharge Summary Hospital Course Problems/Dx: (1) Metastatic lung cancer (metastasis from lung to other site) Status: Acute Qualifiers: Qualified Codes: C34.90 - Malignant neoplasm of unspecified part of unspecified bronchus or lung (2) Mucus plugging of bronchi Status: Acute (3) Pneumonia Status: Acute (4) Lung cancer Status: Chronic Hospital Course Date of Admission: Jan 29, 2019 at 17:20 Admission Diagnosis : Acute hypoxemic respiratory failure Family Physician/Provider: Ramesh Sampson MD Date of Discharge: 02/01/19 Discharge Diagnosis: Acute hypoxemic respiratory failure due to mucus plugging Hospital Course: Elina Alas is a 78-year-old female with past medical history of COPD, metastatic lung cancer, who presented with shortness of breath and is admitted with mucus plugging. She was treated conservatively with respiratory therapy. She was also treated for a probable pneumonia. She was requiring supplemental oxygen and upon further evaluation didn't qualify for home oxygen continuously at 2 L. She will follow up with radiation oncology tomorrow. She will follow up with Dr. Shetty in about 2 weeks. Labs and Pending Lab Test: Laboratory Tests 02/01/19 05:57: White Blood Count 9.3, Red Blood Count 3.25L, Hemoglobin 8.6L, Hematocrit 27L, Mean Corpuscular Volume 83, Mean Corpuscular Hemoglobin 26, Mean Corpuscular Hemoglobin Concent 32, Red Cell Distribution Width 17.4H, Platelet Count 353, Mean Platelet Volume 9.3, Neutrophils (%) (Auto) 60, Lymphocytes (%) (Auto) 20, Monocytes (%) (Auto) 17H, Eosinophils (%) (Auto) 2, Basophils (%) (Auto) 0, Neutrophils # (Auto) 5.6, Lymphocytes # (Auto) 1.9, Monocytes # (Auto) 1.6H, Eosinophils # (Auto) 0.2, Basophils # (Auto) 0.0, Sodium Level 137, Potassium Level 3.0L, Chloride Level 101, Carbon Dioxide Level 27, Anion Gap 9, Blood Urea Nitrogen 2L, Creatinine 0.51L, Estimat Glomerular Filtration Rate > 60, BUN/Creatinine Ratio 4, Glucose Level 148H, Calcium Level 8.1L Microbiology 01/29/19 Blood Culture - Preliminary, Resulted No growth Home Meds Active Cefdinir 300 Mg Capsule 300 Mg PO BID 4 Days Reported Multivitamins (Multivitamin) 1 Each Tablet 1 Each PO DAILY Hydrocodone-Acetamin 5-325 mg (Hydrocodone/Acetaminophen) 1 Each Tablet 1 Tab PO Q4H PRN Incruse Ellipta (Umeclidinium [place]) 62.5 Mcg Blst.w.dev 1 Puff IH DAILY Magnesium (Magnesium Oxide) 400 Mg Capsule 400 Mg PO DAILY Gabapentin 300 Mg Capsule 300 Mg PO HS Furosemide 20 Mg Tablet 20 Mg PO DAILY PRN Acetaminophen 500 Mg Tablet 1,000 Mg PO Q6H PRN TAKES 2 (500 MG) TABLETS Aspirin EC (Aspirin) 81 Mg Tablet.dr 81 Mg PO DAILY Potassium Chloride 10 Meq Tab.er.prt 10 Meq PO DAILY Protonix (Pantoprazole Sodium) 40 Mg Tablet.dr 40 Mg PO DAILY Proair Hfa (Albuterol Sulfate) 8.5 Gm Hfa.aer.ad 1-2 Puff IH Q4H PRN Zetia (Ezetimibe) 10 Mg Tablet 10 Mg PO DAILY Atorvastatin Calcium 80 Mg Tablet 80 Mg PO DAILY Clopidogrel (Clopidogrel Bisulfate) 75 Mg Tablet 75 Mg PO DAILY Daliresp (Roflumilast) 500 Mcg Tablet 500 Mcg PO DAILY Symbicort 80-4.5 Mcg Inhaler (Budesonide/Formoterol Fumarate) 10.2 Gm Hfa.aer.ad 2 Puff INH BID Assessment/Pt Instructions Take medications as prescribed. Complete your antibiotic even if you are feeling better. Return with worsening shortness of breath or if you feel like you are getting worse. Discharge Planning: <30 minutes discharge planning Discharge Instructions Discharge Diet: Regular Diet Discharge Physical Examination Vital Signs Vital Signs Date Time Temp Pulse Resp B/P (MAP) Pulse Ox O2 Delivery O2 Flow Rate FiO2 02/01/19 15:15 36.6 111 20 99/60 (73) 94 Nasal Cannula 2.00 01/29/19 20:40 28 General Appearance: No Apparent Distress, WD/WN HEENT: PERRL/EOMI, Pharynx Normal Respiratory: Lungs Clear, Normal Breath Sounds, No Respiratory Distress Cardiovascular: Regular Rate, Rhythm, No Edema, No Murmur Gastrointestinal: Normal Bowel Sounds, Non Tender, Soft Extremity: Normal Inspection, Non Tender, No Pedal Edema Skin: Normal Color, Warm/Dry Neurologic/Psychiatric: Alert, Oriented x3, No Motor/Sensory Deficits, Normal Mood/Affect Allergies: Coded Allergies: No Known Drug Allergies (Unverified , 10/21/18) Discharge Summary Date of Admission Jan 29, 2019 at 17:20 Date of Discharge Discharge Date: Jan 31, 2019 Discharge Time: 16:03 Admission Diagnosis Pneumonia Discharge Diagnosis Acute hypoxemic respiratory failure due to mucus plugging (1) Metastatic lung cancer (metastasis from lung to other site) Status: Acute Qualifiers: Qualified Codes: C34.90 - Malignant neoplasm of unspecified part of unspecified bronchus or lung (2) Mucus plugging of bronchi Status: Acute (3) Pneumonia Status: Acute (4) Lung cancer Status: Chronic (5) Acute hypoxemic respiratory failure Status: Acute Clinical Quality Measures DVT/VTE Risk/Contraindication: Risk Factor Score Per Nursin RFS Level Per Nursing on Admit: 4+=Very High CATHERINE CLEVELAND MD Feb 01, 2019 15:56 POS
--- NOTE | 2019-02-01 17:08 | NUR ---
Arrangements made for pt to receive continuous oxygen from her current oxygen provider Dianna Lynn from [place], [place] where she has been receiving oxygen support at night only. Faxed the new script for oxygen and her qualifying Home Oxygen study.Dianna lynn is to bring a portable tank is less then an hour.
[2019-02-01] MEDS ORDERED: KCL 20 MEQ TAB (K-DUR) PO ONE ×2 (17:15)
--- NOTE | 2019-02-01 18:15 | NUR ---
INST GIVEN TO PT AND DTR AND VERBALIZED UNDERSTANDING. DC'D PER WC WITH FAMILY.
== END 2019-02-01 18:15 | disposition home or self-care (01) | DRG 193 ==
LOC: EDUNIT# 11:29 → ER 11:30 → 4TH 17:20
PROVIDERS: ADMIT Family Medicine; ATTEND Family Medicine
DX: J18.9 Pneumonia, unspecified organism (principal); J96.01 Acute respiratory failure with hypoxia; J98.09 Other diseases of bronchus, not elsewhere classified; C34.92 Malignant neoplasm of unspecified part of left bronchus or lung; C79.51 Secondary malignant neoplasm of bone; C77.1 Secondary and unspecified malignant neoplasm of intrathoracic lymph nodes; C78.7 Secondary malignant neoplasm of liver and intrahepatic bile duct; J44.0 Chronic obstructive pulmonary disease with (acute) lower respiratory infection; Z66 Do not resuscitate; C78.01 Secondary malignant neoplasm of right lung; G89.3 Neoplasm related pain (acute) (chronic); I25.10 Atherosclerotic heart disease of native coronary artery without angina pectoris; E78.00 Pure hypercholesterolemia, unspecified; K21.9 Gastro-esophageal reflux disease without esophagitis; M19.91 Primary osteoarthritis, unspecified site; M54.9 Dorsalgia, unspecified; H35.30 Unspecified macular degeneration; R53.1 Weakness; Z85.828 Personal history of other malignant neoplasm of skin; Z92.21 Personal history of antineoplastic chemotherapy; Z92.3 Personal history of irradiation; Z87.891 Personal history of nicotine dependence
CPT/HCPCS: 36415; 70450; 71045; 71275; 80048; 80053; 81000; 83605; 83735; 84145; 85007; 85025; 85027; 85610; 87040; 93005; 94640; 94644; 94760; 94761; 96361; 96374

== ENCOUNTER 2019-02-10 09:46 | Outpatient (RCR) | payer MEDICARE, MEDICAID ==
[2018-12-21 11:32] LABS: BASOPHILS # (AUTO) 0.1 10^3/uL (0.0-0.1); BASOPHILS % (AUTO) 1 % (0-10); EOSINOPHILS # (AUTO) 0.1 10^3/uL (0.0-0.3); EOSINOPHILS % (AUTO) 2 % (0-10); HEMATOCRIT 36 % (35-52); HEMOGLOBIN 11.1 G/DL (11.5-16.0); LYMPHOCYTES # (AUTO) 2.3 X 10^3 (1.0-4.0); LYMPHOCYTES % (AUTO) 34 % (12-44); MEAN CORPUSCULAR HEMOGLOBIN 26 PG (25-34); MEAN CORPUSCULAR HGB CONC 31 G/DL (32-36); MEAN CORPUSCULAR VOLUME 84 FL (80-99); MEAN PLATELET VOLUME 10.4 FL (7.4-10.4); MONOCYTES # (AUTO) 0.8 X 10^3 (0.0-1.0); MONOCYTES % (AUTO) 12 % (0-12); NEUTROPHILS # (AUTO) 3.4 X 10^3 (1.8-7.8); NEUTROPHILS % (AUTO) 51 % (42-75); PLATELET COUNT 219 10^3/uL (130-400); RED CELL DISTRIBUTION WIDTH 16.8 % (10.0-14.5); WHITE BLOOD COUNT 6.6 10^3/uL (4.3-11.0)
[2018-12-21 11:50] LABS: ALANINE AMINOTRANSFERASE 57 U/L (0-55); ALBUMIN 3.5 GM/DL (3.2-4.5); ALKALINE PHOSPHATASE 165 U/L (40-136); BILIRUBIN,TOTAL 0.2 MG/DL (0.1-1.0); BUN/CREATININE RATIO 11; CALCIUM 9.3 MG/DL (8.5-10.1); CARBON DIOXIDE 23 MMOL/L (21-32); CHLORIDE 103 MMOL/L (98-107); CREATININE SERUM 0.65 MG/DL (0.60-1.30); GFR ESTIMATED > 60; POTASSIUM 3.7 MMOL/L (3.6-5.0); SODIUM 137 MMOL/L (135-145); TOTAL PROTEIN 6.8 GM/DL (6.4-8.2)
[2018-12-21 12:13] LABS: GLUCOSE 435 MG/DL (70-105)
[2018-12-28 09:48] LABS: BASOPHILS # (AUTO) 0.1 10^3/uL (0.0-0.1); BASOPHILS % (AUTO) 1 % (0-10); EOSINOPHILS # (AUTO) 0.2 10^3/uL (0.0-0.3); EOSINOPHILS % (AUTO) 2 % (0-10); HEMATOCRIT 35 % (35-52); HEMOGLOBIN 10.8 G/DL (11.5-16.0); LYMPHOCYTES % (AUTO) 29 % (12-44); MEAN CORPUSCULAR HEMOGLOBIN 26 PG (25-34); MEAN CORPUSCULAR HGB CONC 31 G/DL (32-36); MEAN CORPUSCULAR VOLUME 85 FL (80-99); MEAN PLATELET VOLUME 10.2 FL (7.4-10.4); MONOCYTES # (AUTO) 1.2 X 10^3 (0.0-1.0); MONOCYTES % (AUTO) 12 % (0-12); NEUTROPHILS # (AUTO) 5.8 X 10^3 (1.8-7.8); NEUTROPHILS % (AUTO) 57 % (42-75); PLATELET COUNT 302 10^3/uL (130-400); RED CELL DISTRIBUTION WIDTH 16.9 % (10.0-14.5); WHITE BLOOD COUNT 10.2 10^3/uL (4.3-11.0)
[2018-12-28 10:10] LABS: ALANINE AMINOTRANSFERASE 61 U/L (0-55); ALBUMIN 3.4 GM/DL (3.2-4.5); ALKALINE PHOSPHATASE 138 U/L (40-136); BILIRUBIN,TOTAL 0.2 MG/DL (0.1-1.0); BUN/CREATININE RATIO 9; CALCIUM 9.2 MG/DL (8.5-10.1); CARBON DIOXIDE 25 MMOL/L (21-32); CHLORIDE 103 MMOL/L (98-107); CREATININE SERUM 0.67 MG/DL (0.60-1.30); GFR ESTIMATED > 60; GLUCOSE 377 MG/DL (70-105); MAGNESIUM 1.7 MG/DL (1.6-2.4); POTASSIUM 3.6 MMOL/L (3.6-5.0); SODIUM 139 MMOL/L (135-145); TOTAL PROTEIN 6.6 GM/DL (6.4-8.2)
[2019-01-06 13:27] LABS: BASOPHILS # (AUTO) 0.2 10^3/uL (0.0-0.1); BASOPHILS % (AUTO) 1 % (0-10); EOSINOPHILS # (AUTO) 0.1 10^3/uL (0.0-0.3); EOSINOPHILS % (AUTO) 1 % (0-10); HEMATOCRIT 35 % (35-52); HEMOGLOBIN 10.7 G/DL (11.5-16.0); LYMPHOCYTES # (AUTO) 4.8 X 10^3 (1.0-4.0); LYMPHOCYTES % (AUTO) 22 % (12-44); MEAN CORPUSCULAR HEMOGLOBIN 26 PG (25-34); MEAN CORPUSCULAR HGB CONC 31 G/DL (32-36); MEAN CORPUSCULAR VOLUME 84 FL (80-99); MEAN PLATELET VOLUME 10.3 FL (7.4-10.4); MONOCYTES # (AUTO) 1.9 X 10^3 (0.0-1.0); MONOCYTES % (AUTO) 9 % (0-12); NEUTROPHILS # (AUTO) 14.4 X 10^3 (1.8-7.8); NEUTROPHILS % (AUTO) 67 % (42-75); PLATELET COUNT 285 10^3/uL (130-400); RED CELL DISTRIBUTION WIDTH 17.1 % (10.0-14.5); WHITE BLOOD COUNT 21.4 10^3/uL (4.3-11.0)
[2019-01-06 13:50] LABS: BUN/CREATININE RATIO 11; CALCIUM 9.9 MG/DL (8.5-10.1); CARBON DIOXIDE 28 MMOL/L (21-32); CHLORIDE 100 MMOL/L (98-107); CREATININE SERUM 0.63 MG/DL (0.60-1.30); GFR ESTIMATED > 60; GLUCOSE 194 MG/DL (70-105); MAGNESIUM 1.9 MG/DL (1.6-2.4); POTASSIUM 3.7 MMOL/L (3.6-5.0); SODIUM 138 MMOL/L (135-145)
[2019-01-18 12:10] LABS: BASOPHILS % (AUTO) 0 % (0-10); EOSINOPHILS # (AUTO) 0.1 10^3/uL (0.0-0.3); EOSINOPHILS % (AUTO) 1 % (0-10); HEMATOCRIT 34 % (35-52); HEMOGLOBIN 10.8 G/DL (11.5-16.0); LYMPHOCYTES # (AUTO) 2.6 X 10^3 (1.0-4.0); LYMPHOCYTES % (AUTO) 22 % (12-44); MEAN CORPUSCULAR HEMOGLOBIN 27 PG (25-34); MEAN CORPUSCULAR HGB CONC 31 G/DL (32-36); MEAN CORPUSCULAR VOLUME 85 FL (80-99); MEAN PLATELET VOLUME 9.7 FL (7.4-10.4); MONOCYTES # (AUTO) 1.4 X 10^3 (0.0-1.0); MONOCYTES % (AUTO) 12 % (0-12); NEUTROPHILS # (AUTO) 7.4 X 10^3 (1.8-7.8); NEUTROPHILS % (AUTO) 65 % (42-75); PLATELET COUNT 293 10^3/uL (130-400); WHITE BLOOD COUNT 11.4 10^3/uL (4.3-11.0)
[2019-01-18 12:33] LABS: ALANINE AMINOTRANSFERASE 28 U/L (0-55); ALBUMIN 3.6 GM/DL (3.2-4.5); ALKALINE PHOSPHATASE 110 U/L (40-136); BILIRUBIN,TOTAL 0.3 MG/DL (0.1-1.0); BUN/CREATININE RATIO 10; CALCIUM 9.1 MG/DL (8.5-10.1); CARBON DIOXIDE 26 MMOL/L (21-32); CHLORIDE 101 MMOL/L (98-107); CREATININE SERUM 0.58 MG/DL (0.60-1.30); GFR ESTIMATED > 60; GLUCOSE 238 MG/DL (70-105); MAGNESIUM 1.7 MG/DL (1.6-2.4); POTASSIUM 3.5 MMOL/L (3.6-5.0); SODIUM 137 MMOL/L (135-145); TOTAL PROTEIN 7.2 GM/DL (6.4-8.2)
[2019-01-25 10:00] LABS: BASOPHILS % (AUTO) 0 % (0-10); EOSINOPHILS # (AUTO) 0.2 10^3/uL (0.0-0.3); EOSINOPHILS % (AUTO) 1 % (0-10); HEMATOCRIT 33 % (35-52); HEMOGLOBIN 10.3 G/DL (11.5-16.0); LYMPHOCYTES # (AUTO) 2.4 X 10^3 (1.0-4.0); LYMPHOCYTES % (AUTO) 23 % (12-44); MEAN CORPUSCULAR HEMOGLOBIN 26 PG (25-34); MEAN CORPUSCULAR HGB CONC 31 G/DL (32-36); MEAN CORPUSCULAR VOLUME 84 FL (80-99); MEAN PLATELET VOLUME 9.9 FL (7.4-10.4); MONOCYTES # (AUTO) 1.2 X 10^3 (0.0-1.0); MONOCYTES % (AUTO) 12 % (0-12); NEUTROPHILS # (AUTO) 6.9 X 10^3 (1.8-7.8); NEUTROPHILS % (AUTO) 64 % (42-75); PLATELET COUNT 325 10^3/uL (130-400); RED CELL DISTRIBUTION WIDTH 17.5 % (10.0-14.5); WHITE BLOOD COUNT 10.8 10^3/uL (4.3-11.0)
[2019-01-25 10:36] LABS: ALANINE AMINOTRANSFERASE 35 U/L (0-55); ALBUMIN 3.4 GM/DL (3.2-4.5); ALKALINE PHOSPHATASE 96 U/L (40-136); BILIRUBIN,TOTAL 0.2 MG/DL (0.1-1.0); BUN/CREATININE RATIO 9; CALCIUM 9.5 MG/DL (8.5-10.1); CARBON DIOXIDE 25 MMOL/L (21-32); CHLORIDE 103 MMOL/L (98-107); CREATININE SERUM 0.66 MG/DL (0.60-1.30); GFR ESTIMATED > 60; GLUCOSE 304 MG/DL (70-105); MAGNESIUM 1.8 MG/DL (1.6-2.4); POTASSIUM 3.3 MMOL/L (3.6-5.0); SODIUM 138 MMOL/L (135-145); TOTAL PROTEIN 6.9 GM/DL (6.4-8.2)
--- NOTE | 2019-01-25 13:39 | Diagnostic Imaging Report ---
PROCEDURE: CT head with and without contrast. TECHNIQUE: Multiple contiguous axial images were obtained through the brain before and after the administration of intravenous contrast. Auto Exposure Controls were utilized during the CT exam to meet ALARA standards for radiation dose reduction. INDICATION: Dizziness. Left-sided headache. History of lung cancer. Scalp mass. COMPARISON: MRI brain of 07/29/2018. Bone scan of 01/18/2019. FINDINGS: The left calvarium in the area of the left-sided scalp lesion demonstrates a permeative and moth-eaten appearance. There is an enhancing soft tissue component along the inner and outer margin of the calvarium in this area with the entire involved region measuring approximately 3.4 x 2.7 cm (image 22/series 3). No large acute territorial ischemia, intraparenchymal mass, or hemorrhage. Chronic microvascular disease is seen in the periventricular and subcortical white matter. The ventricles and cortical sulci are prominent, consistent with generalized volume loss. The basilar cisterns are patent and unremarkable. The visualized paranasal sinuses are clear. IMPRESSION: 1. Findings are concerning for a metastatic lesion in the left calvarium overlying the left frontal lobe with a soft tissue component along the inner and outer margin of the calvarium. Consider biopsy of the superficial soft tissue component for further evaluation. 2. No acute ischemia, intraparenchymal mass, or hemorrhage. 3. Chronic microvascular disease with generalized parenchymal volume loss. Dictated by: Dictated on workstation # [id number]
[~2019-02-10 09:46] MED LIST changes: +ACHD5005 PO; +ATEZOLIZUMAB 1,200 MG in NS (IVPB) CANCER CENTER 250 ML IV SCH; +DEXAMETHASONE IV SCH; +DIAZEPAM 5 MG (VALIUM) TABLET PO ONE; +ETOPOSIDE 180 MG in NORMAL SALINE (CANCER CENTER) 500 ML IV SCH; +FAMOTIDINE 20MG/2ML IV (CANCER CTR) ONE; +FOSAPREPITANT DIMEGLUMINE 150 MG in NS (IVPB) CANCER CENTER ONLY 150 ML IV SCH; +HOLD METFORMIN - RECEIVED CONTRAST 20 ML VIAL IV SCH; +HYDR-3812 PO; +IOHEXOL 350 MG/ML 100 ML (OMNIPAQUE 350) VIAL IV ONE; +MULT1TAB69 PO; +NS 100 ML (IVPB) BAG IV ONE; +NS IV 1000 ML (CANCER CTR) IV SCH; +ONDANSETRON IV SCH; +PALONOSETRON HCL 0.25 MG, DEXAMETHASONE INJECTION 10 MG in NS (IVPB) CANCER CENTER 50 ML IV SCH; +PEGFILGRASTIM 6 MG/0.6ML NEULASTA SC SCH; +[UNRECOGNIZED DRUG - OTHER] IV SCH; +diphenhydrAMINE 25 MG TAB (BENADRYL) CANCER CENTER PO ONE; +morphine INJ 4 MG/ML 1 ML (CANCER CTR) IV PRN; +morphine INJ 4 MG/ML 1 ML (CANCER CTR) ONE; +mvi PO
== END 2019-03-21 | disposition home or self-care (01) ==
LOC: ONC 09:46
PROVIDERS: ATTEND Internal Medicine Hematology & Oncology
DX: Z51.11 Encounter for antineoplastic chemotherapy (principal); C34.11 Malignant neoplasm of upper lobe, right bronchus or lung; J43.9 Emphysema, unspecified; I25.10 Atherosclerotic heart disease of native coronary artery without angina pectoris; E78.00 Pure hypercholesterolemia, unspecified; K21.9 Gastro-esophageal reflux disease without esophagitis; M19.91 Primary osteoarthritis, unspecified site; Z87.891 Personal history of nicotine dependence; Z99.81 Dependence on supplemental oxygen
CPT/HCPCS: 36415; 36591; 70470; 71260; 74170; 77290; 77295; 77300; 77334; 77336; 77417; 78306; 80048; 80053; 83615; 83735; 84443; 85025; 96367; 96372; 96374; 96375; 96376; 96413; 96417; 99214